=== PATIENT | female | born 1985 | race Caucasian/White ===

== ENCOUNTER 2022-11-25 21:53 | Outpatient (REF) | payer OTHER, SELFPAY ==
[2022-12-01 14:09] LABS: Age Gdln ACOG Testing Note (.); HPV Aptima Negative (Negative); IGP, Aptima HPV, rfx 16/18,45 Note (.)
== END 2022-11-25 21:54 | disposition home or self-care (01) ==
LOC: LAB 21:53
PROVIDERS: PCP Nurse Practitioner Family; Visit Provider Obstetrics & Gynecology
DX: Z12.4 Encounter for screening for malignant neoplasm of cervix (principal)
CPT/HCPCS: 87624; G0145

== ENCOUNTER 2023-02-25 11:25 | Outpatient (OUT) | payer OTHER, SELFPAY | END 2023-02-25 11:26 | disposition home or self-care (01) | LOC: LAB 11:27 | PROVIDERS: PCP Nurse Practitioner Family; Visit Provider Internal Medicine | DX: D35.2 Benign neoplasm of pituitary gland (principal); E83.52 Hypercalcemia; E55.9 Vitamin D deficiency, unspecified | CPT/HCPCS: 36415; 82306; 84146 ==

== ENCOUNTER 2023-07-08 07:23 | Outpatient (OUT) | payer OTHER, SELFPAY ==
--- OUTSIDE RECORDS SUMMARY | 2023-07-08 07:29 | XMS_ITS | CCD ---
Author Organization [facility] Care Team Providers Care Heel Nail Rasper Name Role Phone JAIR AHMAD Attending Unavailable ALFREDA, DR MAUDE Smith Primary Care Unavailable JAIR, AHCY Consulting Unavailable JAIR, AHMAD Admitting Unavailable KUNKadie, DR MAUDE Smtih Primary Care Unavailable JAIR, LEIGH Consulting Unavailable JAIR, AHMAD Admitting Unavailable JAIR, AHKARYND Attending Unavailable ALFREDA, DR MAUDE Smith Primary Care Unavailable BLAZE, DR DANG Admitting Unavailable YUALEXA, DR DANG Attending Unavailable YUALEXA, DR DANG Consulting Unavailable ALFREDA, DR MAUDE Smith Primary Care Unavailable JAIR, LEIGH Consulting Unavailable JAIR, AHMAD Admitting Unavailable JAIR, CHRISTOPHERD Attending Unavailable ALFREDA, DR MAUDE Smith Primary Care Unavailable VICTORIA, DR MARTIN Consulting Unavailable VICTORIA, DR MARTIN Admitting Unavailable VICTORIA, DR MARTIN Attending Unavailable ALFREDA, DR MAUDE Smith Primary Care Unavailable ALFREDA, DR MAUDE Smith Admitting Unavailable ALFREDA, DR MAUDE Smith Attending Unavailable ALFREDA, DR MAUDE Smith Consulting Unavailable Alfreda RN PAIN MANAGEMENT-BUSINESS OPERATIONS COORDINATOR, Maude Wall Primary Care Provider SABRINA SMITH Attending Unavailable MAUDE GANT Referring Unavailable MAUDE GANT Primary Care Unavailable Allergies Allergy Classification Reported Allergen(s) Allergy Type Date of Onset Reaction(s) Facility (1 source) Penicillins Drug allergy (disorder) 11-12-2014 [facility] (3 sources) Penicillin G; Translations: [PENICILLIN G] Drug Allergy 08-07-2017 [facility] Medications Current Medications Medication Drug Class(es) Dates Sig (Normalized) Sig (Original) bromocriptine 2.5 mg oral tablet (2 sources) Ergot Derivative take 1 tablet by mouth in the morning bromocriptine (PARLODEL) 2.5 mg tablet Take 1 tablet (2.5 mg total) by mouth in the morning. 0 Active cholecalciferol 0.05 mg oral capsule (2 sources) Vitamin D Start: 07-21-2022 take 1 capsule by mouth in the morning cholecalciferol, vitamin D3, 2,000 units capsule Take 1 capsule (2,000 Units total) by mouth in the morning. 100 capsule 3 07/21/2022 Active citalopram 20 mg oral tablet (2 sources) Serotonin Reuptake Inhibitor take 1 tablet by mouth in the morning citalopram (CeleXA) 20 mg tablet Take 1 tablet (20 mg total) by mouth in the morning. 0 Active ergocalciferol 1.25 mg oral capsule (2 sources) Provitamin D2 Compound Start: 02-25-2022 ergocalciferol (DRISDOL) 1,250 mcg (50,000 unit) capsule 1 capsule (50,000 Units total). 0 02/25/2022 Active losartan potassium 25 mg oral tablet (2 sources) Angiotensin 2 Receptor Reina Start: 01-18-2023 take 1 tablet by mouth in the morning losartan (COZAAR) 25 mg tablet Indications: Essential hypertension TAKE 1 TABLET(25 MG) BY MOUTH IN THE MORNING 90 tablet 1 01/18/2023 Active semaglutide (OZEMPIC) 0.25 mg or 0.5 mg (2 mg/3 mL) pen injector (2 sources) Start: 01-22-2023 semaglutide (OZEMPIC) 0.25 mg or 0.5 mg (2 mg/3 mL) pen injector Indications: Controlled type 2 diabetes mellitus without complication, without long-term current use of insulin ([facility]) Inject 0.5 mg under the skin every 7 days. 3 mL 2 01/22/2023 Active Problems Active Problems Problem Classification Problem Date Documented Da te Episodic/Chronic Administrative/social admission (1 source) Patient encounter status; Translations: [Other specified counseling] 05-13-2023 Episodic Diabetes mellitus with complications (1 source) Type 2 diabetes mellitus with hyperglycemia; Translations: [TYPE 2 DM W/HYPERGLYCEMIA] Onset: 01-18-2022 Chronic Diabetes mellitus without complication (2 sources) Type 2 diabetes mellitus without complication; Translations: [Type 2 diabetes mellitus without complications] Onset: 04-19-2018 01-20-2022 Chronic Disorders of lipid metabolism (6 sources) Mixed hyperlipidemia; Translations: [Mixed hyperlipidemia] Onset: 12-31-2021 Chronic Essential hypertension (2 sources) Essential hypertension; Translations: [Essential (primary) hypertension] Onset: 12-31-2021 12-31-2021 Chronic Nutritional deficiencies (2 sources) Vitamin D deficiency; Translations: [Vitamin D deficiency, unspecified] Onset: 04-19-2018 12-31-2021 Chronic Other and unspecified benign neoplasm (4 sources) Benign neoplasm of pituitary gland; Translations: [BENIGN NEOPLASM OF PITUITARY GLAND] Onset: 02-19-2022 Episodic Other endocrine disorders (1 source) Hyperprolactinemia; Translations: [HYPERPROLACTINEMIA ] Onset: 02-26-2022 Chronic Other endocrine disorders (2 sources) Polycystic ovary; Translations: [Polycystic ovarian syndrome] Onset: 10-21-2016 12-31-2021 Chronic Other nutritional; endocrine; and metabolic disorders (1 source) Hypercalcemia; Translations: [HYPERCALCEMIA] Onset: 02-26-2022 Chronic Other nutritional; endocrine; and metabolic disorders (1 source) Body mass index 40+ - severely obese; Translations: [Body mass index (BMI) 50.0-59.9, adult] 05-13-2023 Chronic Other nutritional; endocrine; and metabolic disorders (2 sources) Morbid obesity; Translations: [Morbid (severe) obesity due to excess calories] Onset: 11-17-2016 12-31-2021 Chronic Residual codes; unclassified (1 source) Obstructive sleep apnea syndrome; Translations: [Obstructive sleep apnea (adult) (pediatric)] 05-13-2023 Chronic Residual codes; unclassified (2 sources) Sleep apnea; Translations: [Sleep apnea, unspecified] Onset: 10-06-2017 12-31-2021 Chronic Unclassified (3 sources) CONTACT W/AND (SUSP) EXPOS COVID-19; Translations: [CONTACT W/AND (SUSP) EXPOS COVID-19] Onset: 03-26-2021 Past or Other Problems Problem Classification Problem Date Documented Date Episodic/Chronic Anxiety disorders (2 sources) Anxiety disorder; Translations: [Anxiety disorder, unspecified] Onset: 12-31-2021 Resolved: 01-22-2023 01-22-2023 Chronic Immunizations and screening for infectious disease (1 source) Encounter for screening for human papillomavirus (HPV); Translations: [ENC SCREENING HUMAN PAPILLOMAVIRUS] Onset: 11-18-2021 Episodic Mood disorders (2 sources) Depressive disorder; Translations: [Depressive disorder] Onset: 12-25-2020 Resolved: 07-20-2022 07-20-2022 Chronic Mood disorders (2 sources) Mood disorders Onset: 01-22-2023 01-22-2023 Other and unspecified benign neoplasm (2 sources) Prolactinoma; 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] Onset: 11-17-2016 12-31-2021 Episodic Other screening for suspected conditions (not mental disorders or infectious disease) (4 sources) Encounter for screening for malignant neoplasm of cervix; Translations: [ENC SCREENING MALIG NEOPLASM CERV] Onset: 11-17-2021 Episodic Unclassified (1 source) CONTACT W/AND (SUSP) EXPOS COVID-19; Translations: [CONTACT W/AND (SUSP) EXPOS COVID-19] Onset: 03-20-2021 Results Test Name Value Interpretation Reference Range Facility PROLACTINon 02-20-2022 Prolactin 64.0 ng/mL Critically high 4.8-23.3 [facility] Comment on above: Performed By: #### P ROLAC #### [facility] [address] [address] [address] Devin Florentino RENAL FUNCTION PANELon 02-19 Albumin [Mass/Vol] 3.7 g/dL Normal 3.4-5.0 [facility] Comment on above: Performed By: #### R ENAL #### [facility] [address] [address] [address] Devin Florentino Calcium [Mass/Vol] 9.2 mg/dL Normal 8.5-10.1 [facility] Comment on above: Performed By: #### R ENAL #### [facility] [address] [address] [address] Devin Florentino Chloride [Moles/Vol] 105 mmol/L Normal 98-107 [facility] Comment on above: Performed By: #### R ENAL #### [facility] [address] [address] [address] Devni Florentino CO2 [Moles/Vol] 29.7 mmol/L Normal 21.0-32.0 The [facility] Comment on above: Performed By: #### R ENAL #### [facility] [address] [address] [address] Devin Florentino Creatinine [Mass/Vol] 0.72 mg/dL Normal 0.55-1.02 [facility] Comment on above: Performed By: #### R ENAL #### [facility] [address] [address] [address] Devin Florentino EGFR-AF BRAZILIAN >60 Normal >=60 [facility] Comment on above: Performed By: #### R ENAL #### [facility] [address] [address] [address] Devin Florentino EGFR-NON AF BRAZILIAN >60 Normal >=60 [facility] Comment on above: Performed By: #### R ENAL #### [facility] [address] [place] [address] Dr. Devin Florentino Glucose [Mass/Vol] 140 mg/dL Critically high 74-106 [facility] Comment on above: Performed By: #### R ENAL #### [facility] [address] [place] [address] Dr. Devin Florentino Phosphate [Mass/Vol] 4.3 mg/dL Normal 2.6-4.7 [facility] Comment on above: Performed By: #### R ENAL #### [facility] [address] [place] [address] Dr. Devin Florentino Potassium [Moles/Vol] 4.0 mmol/L Normal 3.5-5.1 [facility] Comment on above: Performed By: #### R ENAL #### [facility] [address] [place] [address] Dr. Devin Florentino Sodium [Moles/Vol] 141 mmol/L Normal 136-145 [facility] Comment on above: Performed By: #### R ENAL #### [facility] [address] [address] [address] Devin Florentino Urea nitrogen [Mass/Vol] 27.0 mg/dL Critically high 7.0-18.0 [facility] Comment on above: Performed By: #### R ENAL #### [facility] [address] [place] [address] Dr. Dvein Florentino VITAMIN D 25 OHon 02-19-2022 VIT D 25-OH 16.2 ng/mL Normal [facility] Comment on above: Performed By: #### V ITAD #### [facility] [address] [place] [address] Dr. Devin Florentino VIT D RANGES SEE BELOW Normal [facility] Comment on above: Result Comment: <20 ng/mL Vit D deficient 20 - <30 ng/mL Vit D insufficient 30 - 100 ng/mL Vit D sufficient >100 ng/mL Potential Toxicity Performed By: #### V ITAD #### [facility] [address] [place] [address] Dr. Devin Florentino GLYCOHEMOGLOBIN A1Con 2021 ADA RECOMMENDATION SEE BELOW Normal [facility] Comment on above: Result Comment: ADA RECOMMENDED LIMIT 4.0 - 6.0 ADA THERAPEUTIC TARGET < 7.0 ACTION SUGGESTED > 7.0 Performed By: #### A 1C #### [facility] [address] [place] [address] Dr. Devin Florentino Glucose [Mass/Vol] 120 mg/dL Normal [facility] Comment on above: Performed By: #### A 1C #### [facility] [address] [place] [address] Dr. Devin Florentino HbA1c (Bld) [Mass fraction] 5.8 % Normal 4.5-6.2 [facility] Comment on above: Performed By: #### A 1C #### [facility] [address] [place] [address] Dr. Devin Florentino LIPID PROFILEon 01-15-2022 CHOL-HDL RATIO NORM SEE BELOW Normal [facility] Comment on above: Result Comment: 3.3 - 4.4 LOW RISK 4.4 - 7.1 AVERAGE RISK 7.1 - 11.0 MODERATE RISK >11.0 HIGH RISK Performed By: #### L IPID, CMP #### [facility] [address] [place] [address] Dr. Devin Florentino Cholesterol [Mass/Vol] 167 mg/dL Normal <=200 [facility] Comment on above: Performed By: #### L IPID, CMP #### [facility] [address] [address] [address] Devin Florentino Cholesterol in HDL [Mass/Vol] 47 mg/dL Normal 40-60 [facility] Comment on above: Performed By: #### L IPID, CMP #### [facility] [address] [address] [address] Devin Florentino Cholesterol in LDL [Mass/Vol] 103.0 mg/dL Normal [facility] Comment on above: Performed By: #### L IPID, CMP #### [facility] [address] [place] [address] Dr. Devin Florentino Cholesterol.total/Ch olesterol in HDL [Mass ratio] 3.6 {ratio} Normal [facility] Comment on above: Performed By: #### L IPID, CMP #### [facility] [address] [place] [address] Dr. Devin Florentino HDL NORMAL > or = 60 mg/dl - LO W CARDIOVASCULAR RISK <40 mg/dl - HIGH CARDIOVASCULAR RISK Normal [facility] Comment on above: Performed By: #### L IPID, CMP #### [facility] [address] [place] [address] Dr. Devin Florentino LDL CALC NORMAL SEE BELOW Normal [facility] Comment on above: Result Comment: <100 mg/dl OPTIMAL 100 - 129 mg/dl NEAR OR ABOVE OPTIMAL 130 - 159 mg/dl BORDERLINE HIGH 160 - 189 mg/dl HIGH >190 mg/dl VERY HIGH Performed By: #### L IPID, CMP #### [facility] [address] [place] [address] Dr. Devin Florentino Triglyceride [Mass/Vol] 81 mg/dL Normal <=150 [facility] Comment on above: Performed By: #### L IPID, CMP #### [facility] [address] [place] [address] Dr. Devin Florentino VLDL CALC 16.2 mg/dL Normal [facility] Comment on above: Performed By: #### L IPID, CMP #### [facility] [address] [address] [address] Devin Florentino PROF 14(COMP METB)on 022 Albumin [Mass/Vol] 3.7 g/dL Normal 3.4-5.0 [facility] Comment on above: Performed By: #### L IPID, CMP #### [facility] [address] [address] [address] Devin Florentino Albumin/Globulin [Mass ratio] 1.0 {ratio} Normal [facility] Comment on above: Performed By: #### L IPID, CMP #### [facility] [address] [address] [address] Devin Florentino ALP [Catalytic activity/Vol] 58 U/L Normal 46-116 [facility] Comment on above: Performed By: #### L IPID, CMP #### [facility] [address] [address] [address] Devin Florentino ALT [Catalytic activity/Vol] 40 U/L Normal 14-59 [facility] Comment on above: Performed By: #### L IPID, CMP #### [facility] [address] [address] [address] Devin Florentino Anion gap [Moles/Vol] 7.7 mmol/L Normal [facility] Comment on above: Performed By: #### L IPID, CMP #### [facility] [address] [address] [address] Devin Florentino AST [Catalytic activity/Vol] 20 U/L Normal 15-37 [facility] Comment on above: Performed By: #### L IPID, CMP #### [facility] [address] [address] [address] Devin Florentino Bilirubin [Mass/Vol] 0.5 mg/dL Normal 0.2-1.0 [facility] Comment on above: Performed By: #### L IPID, CMP #### [facility] [address] [address] [address] Devin Florentino Calcium [Mass/Vol] 9.0 mg/dL Normal 8.5-10.1 [facility] Comment on above: Performed By: #### L IPID, CMP #### [facility] [address] [address] [address] Devin Florentino Chloride [Moles/Vol] 103 mmol/L Normal 98-107 [facility] Comment on above: Performed By: #### L IPID, CMP #### [facility] [address] [address] [address] Devin Florentino CO2 [Moles/Vol] 30.6 mmol/L Normal 21.0-32.0 [facility] Comment on above: Performed By: #### L IPID, CMP #### [facility] [address] [address] [address] Devin Florentino Creatinine [Mass/Vol] 0.73 mg/dL Normal 0.55-1.02 [facility] Comment on above: Performed By: #### L IPID, CMP #### [facility] [address] [address] [address] Devin Florentino EGFR-AF BRAZILIAN >60 Normal >=60 [facility] Comment on above: Performed By: #### L IPID, CMP #### [facility] [address] [address] [address] Devin Florentino EGFR-NON AF BRAZILIAN >60 Normal >=60 [facility] Comment on above: Performed By: #### L IPID, CMP #### [facility] [address] [address] [address] Devin Florentino Globulin (S) [Mass/Vol] 3.6 g/dL Normal [facility] Comment on above: Performed By: #### L IPID, CMP #### [facility] [address] [address] [address] Devin Florentino Glucose [Mass/Vol] 105 mg/dL Normal 74-106 [facility] Comment on above: Performed By: #### L IPID, CMP #### [facility] [address] [address] [address] Devin Florentino Potassium [Moles/Vol] 3.9 mmol/L Normal 3.5-5.1 [facility] Comment on above: Performed By: #### L IPID, CMP #### [facility] [address] [address] [address] Devin Florentino Protein [Mass/Vol] 7.3 g/dL Normal 6.4-8.2 [facility] Comment on above: Performed By: #### L IPID, CMP #### [facility] [address] [address] [address] Devin Florentino Sodium [Moles/Vol] 138 mmol/L Normal 136-145 [facility] Comment on above: Performed By: #### L IPID, CMP #### [facility] [address] [address] [address] Devin Florentino Urea nitrogen [Mass/Vol] 19.0 mg/dL Critically high 7.0-18.0 [facility] Comment on above: Performed By: #### L IPID, CMP #### [facility] [address] [place] [address] Dr. Devin Florentino Urea nitrogen/Creatinine [Mass ratio] 26.0 mg/mg Normal [facility] Comment on above: Performed By: #### L IPID, CMP #### [facility] [address] [place] [address] Dr. Devin Florentino PAP ACOG PANEL 2: 30 to 65on 11-25-2021 . . Normal [facility] Comment on above: Result Comment: Perf ormed at: BA Performed By: #### [id number] #### [facility] [address] [place] [address] Dr. Devin Florentino Age Gdln ACOG Testing 30-65 [facility] Comment on above: Performed By: #### [id number] #### [facility] [address] [place] [address] Dr. Devin Florentino DIAGNOSIS: Comment [facility] Comment on above: Result Comment: UNSA TISFACTORY FOR EVALUATION. THIS SPECIMEN WAS RESCREENED PART OF OUR AUTO CLEANER PROGRAM. Performed at: BA Performed By: #### [id number] #### [facility] [address] [place] [address] Dr. Devin Florentino HPV Aptima Negative Normal Negative [facility] Comment on above: Result Comment: This nucleic acid amplification test detects fourteen high-risk HPV types (16,18,31,33,35,39,45,51,52,56,58,59,66,68) without differentiation. Performed at: =G Performed By: #### [id number] #### [facility] [address] [address] [address] Devin Florentino Methodology: Comment Normal [facility] Comment on above: Result Comment: This liquid based ThinPrep(R) pap test was screened with the use of an image guided system. Performed at: WB Performed By: #### [id number] #### [facility] [address] [place] [address] Dr. Devin Florentino Note: Comment Normal [facility] Comment on above: Result Comment: The Pap smear is a screening test designed to aid in the detection of premalignant and malignant conditions of the uterine cervix. It is not a diagnostic procedure and should not be used as the sole means of detecting cervical cancer. Both false-positive and false-negative reports do occur. . Performed at: WB Performed By: #### [id number] #### [facility] [address] [place] [address] Dr. Devin Florentino Performed by: Comment Normal [facility] Comment on above: Result Comment: Shamar Huang, [employer]utter And Presser (ASCP) Performed at: BA Performed By: #### [id number] #### [facility] [address] [place] [address] Dr. Devin Florentino QC reviewed by: Comment Normal [facility] Comment on above: Result Comment: Val Salmon, [employer]utter And Presser (ASCP) Performed at: BA Performed By: #### [id number] #### [facility] [address] [place] [address] Dr. Devin Florentino Specimen adequacy: Comment Normal [facility] Comment on above: Result Comment: Spec imen processed and examined but unsatisfactory for evaluation of epithelial abnormality because of insufficient cellularity. Performed at: BA Performed By: #### [id number] #### [facility] [address] [address] [address] Devin Florentino PROLACTINon 09-06-2021 Prolactin 92.6 ng/mL Critically high 4.8-23.3 [facility] Comment on above: Performed By: #### P MARCEL #### [facility] [address] [address] [address] Devin Florentino ALBUMIN, RANDOM URINE W/CREA TININEon 06-24-2021 ALBUMIN, URINE 0.6 mg/dL Normal See Note: [facility] Comment on above: Result Comment: Refe rence Range: Reference Range Not established Performed By: #### 7 46, 7600, [id number], 6517 #### [facility] [address] [address] Renewals Representative: Jules Arreola MD ALBUMIN/CREATININE RATIO, RANDOM URINE 11 mcg/mg creat Normal <30 [facility] Comment on above: Result Comment: The ADA defines abnormalities in albumin excretion as follows: Albuminuria Category Result (mcg/mg creatinine) Normal to Mildly increased <30 Moderately increased 30-299 Severely increased > OR = 300 The ADA recommends that at least two of three specimens collected within a 3-6 month period be abnormal before considering a patient to be within a diagnostic category. Performed By: #### 7 46, 7600, [id number], 6517 #### [facility] [address] [place] [address] Renewals Representative: Jules Arreola MD Creatinine (U) [Mass/Vol] 53 mg/dL Normal 20-275 [facility] Comment on above: Performed By: #### 7 46, 7600, [id number], 6517 #### [facility] [address], [address] [place] [address] Renewals Representative: Jules Arreola MD [facility] 06-24-2021 Albumin [Mass/Vol] 4.3 g/dL Normal 3.6-5.1 [facility] Comment on above: Performed By: #### 7 46, 7600, [id number], 6517 #### [facility] [address], [address] [place] [address] Renewals Representative: Jules Arreola MD Albumin/Globulin [Mass ratio] 1.6 {ratio} Normal 1.0-2.5 [facility] Comment on above: Performed By: #### 7 46, 7600, 11776, 6517 #### [facility] of [address] [address] Renewals Representative: Jules Arreola MD ALP [Catalytic activity/Vol] 53 U/L Normal 31-125 [facility] Comment on above: Performed By: #### 7 46, 7600, 03079, 6517 #### [facility] of [address] [place] [address] Renewals Representative: Jules Arreola MD ALT [Catalytic activity/Vol] 32 U/L High 6-29 [facility] Comment on above: Performed By: #### 7 46, 7600, 82986, 6517 #### [facility] of [address], [address] [place] [address] Renewals Representative: Jules Arreola MD AST [Catalytic activity/Vol] 18 U/L Normal 10-30 [facility] Comment on above: Performed By: #### 7 46, 7600, 60737, 6517 #### [facility] [address] [place] [address] Renewals Representative: Jules Arreola MD Bilirubin [Mass/Vol] 0.4 mg/dL Normal 0.2-1.2 [facility] Comment on above: Performed By: #### 7 46, 7600, 92544, 6517 #### [facility] [address] [place] [address] Renewals Representative: Jules Arreola MD BUN/CREATININE RATIO NOT APPLICABLE Normal 6-22 [facility] Comment on above: Performed By: #### 7 46, 7600, [id number], 6517 #### [facility] [address] [place] [address] Renewals Representative: Jules Arreola MD Calcium [Mass/Vol] 9.6 mg/dL Normal 8.6-10.2 [facility] Comment on above: Performed By: #### 7 46, 7600, 21542, 6517 #### [facility] [place] [address] Renewals Representative: Jules Arreola MD Chloride [Moles/Vol] 104 mmol/L Normal 98-110 [facility] Comment on above: Performed By: #### 7 46, 7600, 11615, 6517 #### [facility] [place] [address] Renewals Representative: Jules Arreola MD CO2 [Moles/Vol] 29 mmol/L Normal 20-32 [facility] Comment on above: Performed By: #### 7 46, 7600, 23073, 6517 #### [facility] [place] [address] Renewals Representative: Jules Arreola MD Creatinine [Mass/Vol] 0.70 mg/dL Normal 0.50-1.10 [facility] Comment on above: Performed By: #### 7 46, 7600, 30558, 6517 #### [facility] [place] [address] Renewals Representative: Jules Arreola MD eGFR NON-AFR. BRAZILIAN 113 mL/min/1.73m2 Normal > OR = 60 [facility] Comment on above: Performed By: #### 7 46, 7600, 81419, 6517 #### [facility] [place] [address] Renewals Representative: Jules Arreola MD GFR/1.73 sq M.predicted among blacks MDRD (S/P/Bld) [Vol rate/Area] 131 mL/min/{1.73_m2} Normal > OR = 60 [facility] Comment on above: Performed By: #### 7 46, 7600, 65315, 6517 #### [facility] [place] [address] Renewals Representative: Jules Arreola MD Globulin (S) [Mass/Vol] 2.7 g/dL Normal 1.9-3.7 [facility] Comment on above: Performed By: #### 7 46, 7600, 05637, 6517 #### [facility] [place] [address] Renewals Representative: Jules Arreola MD Glucose [Mass/Vol] 101 mg/dL High 65-99 [facility] Comment on above: Result Comment: Fasting reference interval For someone without known diabetes, a glucose value between 100 and 125 mg/dL is consistent with prediabetes and should be confirmed with a follow-up test. Performed By: #### 7 46, 7600, 34310, 6517 #### [facility] [place] [address] Renewals Representative: Jules Arreola MD Potassium [Moles/Vol] 4.0 mmol/L Normal 3.5-5.3 [facility] Comment on above: Performed By: #### 7 46, 7600, 87695, 6517 #### [facility] [place] [address] Renewals Representative: Jules Arreola MD Protein [Mass/Vol] 7.0 g/dL Normal 6.1-8.1 [facility] Comment on above: Performed By: #### 7 46, 7600, 26681, 6517 #### [facility] [place] [address] Renewals Representative: Jules Arreola MD Sodium [Moles/Vol] 139 mmol/L Normal 135-146 [facility] Comment on above: Performed By: #### 7 46, 7600, 45050, 6517 #### [facility] [place] [address] Renewals Representative: Jules Arreola MD Urea nitrogen [Mass/Vol] 23 mg/dL Normal 7-25 [facility] Comment on above: Performed By: #### 7 46, 7600, 34144, 6517 #### [facility] [place] [address] Renewals Representative: Jules Arreola MD LIPID PANEL, [facility] 0 Cholesterol [Mass/Vol] 196 mg/dL Normal <200 [facility] Comment on above: Order Comment: FASTI NG:YES FASTING: YES Performed By: #### 7 46, 7600, 39056, 6517 #### [facility] [address], [address] [place] [address] Renewals Representative: Jules Arreola MD Cholesterol in HDL [Mass/Vol] 56 mg/dL Normal > OR = 50 [facility] Comment on above: Order Comment: FASTI NG:YES FASTING: YES Performed By: #### 7 46, 7600, 14380, 6517 #### [facility] [address], [address] [place] [address] Renewals Representative: Jules Arreola MD Cholesterol in LDL [Mass/Vol] 119 mg/dL High [facility] Comment on above: Order Comment: FASTI NG:YES FASTING: YES Result Comment: Refe rence range: <100 Desirable range <100 mg/dL for primary prevention; <70 mg/dL for patients with CHD or diabetic patients with > or = 2 CHD risk factors. LDL-C is now calculated using the Fidencio-Munir calculation, which is a validated novel method providing better accuracy than the Friedewald equation in the estimation of LDL-C. Fidencio ACOSTA et al. EDITH. 2013;310(19): 6404-7784 (http://education.[employer]/faq/PIL165) Performed By: #### 7 46, 7600, 06814, 6517 #### [facility] [address], [address] [place] [address] Renewals Representative: Jules Arreola MD Cholesterol.total/Ch olesterol in HDL [Mass ratio] 3.5 {ratio} Normal <5.0 [facility] Comment on above: Order Comment: FASTI NG:YES FASTING: YES Performed By: #### 7 46, 7600, 84826, 6517 #### [facility] [address], [address] [place] [address] Renewals Representative: Jules Arreola MD NON HDL CHOLESTEROL 140 mg/dL (calc) High <130 [facility] Comment on above: Order Comment: FASTI NG:YES FASTING: YES Result Comment: For patients with diabetes plus 1 major ASCVD risk factor, treating to a non-HDL-C goal of <100 mg/dL (LDL-C of <70 mg/dL) is considered a therapeutic option. Performed By: #### 7 46, 1830, 97398, 6517 #### [facility] [place] [address] Renewals Representative: Jules Arreola MD Triglyceride [Mass/Vol] 104 mg/dL Normal <150 [facility] Comment on above: Order Comment: FASTI NG:YES FASTING: YES Performed By: #### 7 46, 7600, 22157, 6517 #### [facility] [place] [address] Renewals Representative: Jules Arreola MD PROLACTINon 06-24-2021 PROLACTIN 51.6 ng/mL High [facility] Comment on above: Result Comment: Refe rence Range Females Non- 3.0-30.0 10.0-209.0 Postmenopausal 2.0-20.0 Your request to have a duplicate copy faxed has been acknowledged. Queued to: [id number] Performed By: #### 7 46, 0110, 65874, 6517 #### [facility] [place] [address] Renewals Representative: Jules Arreola MD Covid-19 PCR (CVDTBH)on 02-21 SARS-CoV-2 (COVID-19) RNA STANLEY+probe Ql (Unsp spec) Not detected Normal NOT DETECTED [facility] Comment on above: Result Comment: This test is not yet approved or cleared by the [place] FDA. When there are no FDA-approved or cleared tests available, and other criteria are met, FDA can make tests available under an emergency access mechanism called an Emergency Use Authorization (EUA). The EUA for this test is supported by the [place] of Health and Human Service's (HHS's) declaration that circumstances exist to justify the emergency use of in vitro diagnostics for the detection and/or diagnosis of the virus that causes COVID-19. This EUA will remain in effect (meaning this test can be used) for the duration of the COVID-19 declaration justifying emergency of IVDs, unless it is terminated or revoked by FDA (after which the test may no longer be used). When diagnostic testing is negative, the possibility of a false negative should be considered in the context of a patient's recent exposures and the presence of clinical signs and symptoms consistent with SARS-CoV-2. Performed By: #### L IPID, CMP #### [facility] [address] [place] [address] Dr. Devin Florentino PROLACTINon 03-05-2021 Prolactin 79.1 ng/mL Critically high 4.8-23.3 [facility] Comment on above: Performed By: #### P ROLAC #### [facility] [address] [place] [address] Dr. Devin Florentino PROF CHEM 8 (BAS METB)on Anion gap [Moles/Vol] 9.9 mmol/L Normal [facility] Comment on above: Performed By: #### B MP #### [facility] [address] [place] [address] Dr. Devin Florentino Calcium [Mass/Vol] 9.6 mg/dL Normal 8.4-10.2 [facility] Comment on above: Performed By: #### B MP #### [facility] [address] [place] [address] Dr. Devin Florentino Chloride [Moles/Vol] 104 mmol/L Normal 98-107 [facility] Comment on above: Performed By: #### B MP #### [facility] [address] [place] [address] Dr. Devin Florentino CO2 [Moles/Vol] 32.2 mmol/L Critically high 22.0-30.0 [facility] Comment on above: Performed By: #### B MP #### [facility] [address] [place] [address] Dr. Devin Florentino Creatinine [Mass/Vol] 0.72 mg/dL Normal 0.52-1.04 [facility] Comment on above: Performed By: #### B MP #### [facility] [address] [place] [address] [address] Devin Florentino EGFR-AF BRAZILIAN >60 Normal >=60 [facility] Comment on above: Performed By: #### B MP #### [facility] [address] [place] [address] [address] Devin Florentino EGFR-NON AF BRAZILIAN >60 Normal >=60 [facility] Comment on above: Performed By: #### B MP #### [facility] [address] [place] [address] [address] Devin Florentino Glucose [Mass/Vol] 118 mg/dL Critically high 74-106 [facility] Comment on above: Performed By: #### B MP #### [facility] [address] [place] [address] [address] Devin Florentino Potassium [Moles/Vol] 4.1 mmol/L Normal 3.4-5.0 [facility] Comment on above: Performed By: #### B MP #### [facility] [address] [place] [address] [address] Devin Florentino Sodium [Moles/Vol] 142 mmol/L Normal 137-145 [facility] Comment on above: Performed By: #### B MP #### [facility] [address] [place] [address] [address] Devin Florentino Urea nitrogen [Mass/Vol] 22.0 mg/dL Critically high 7.0-17.0 [facility] Comment on above: Performed By: #### B MP #### [facility] [address] [place] [address] [address] Devin Florentino Urea nitrogen/Creatinine [Mass ratio] 30.6 mg/mg Normal [facility] Comment on above: Performed By: #### B MP #### [facility] [address] [place] [address] [address] Devin Florentino COMPREHENSIVE METABOLIC PANE [place] 12-24-2020 Albumin [Mass/Vol] 4.0 g/dL Normal 3.6-5.1 [facility] Comment on above: Performed By: #### 7 600, 08265, 43234 #### [facility] of [address], [address] [place] [address] Renewals Representative: Jules Arreola MD Albumin/Globulin [Mass ratio] 1.4 {ratio} Normal 1.0-2.5 [facility] Comment on above: Performed By: #### 7 600, 82316, 70289 #### [facility] of [address], [address] [place] [address] Renewals Representative: Jules Arreola MD ALP [Catalytic activity/Vol] 45 U/L Normal 31-125 [facility] Comment on above: Performed By: #### 7 600, 86280, 92180 #### [facility] of [address], [address] [place] [address] Renewals Representative: Jules Arreola MD ALT [Catalytic activity/Vol] 20 U/L Normal 6-29 [facility] Comment on above: Performed By: #### 7 600, 09036, 82251 #### [facility] of [address], [address] [place] [address] Renewals Representative: Jules Arreola MD AST [Catalytic activity/Vol] 13 U/L Normal 10-30 [facility] Comment on above: Performed By: #### 7 600, 43345, 09132 #### [facility] [place] [address] Renewals Representative: Jules Arreola MD Bilirubin [Mass/Vol] 0.4 mg/dL Normal 0.2-1.2 [facility] Comment on above: Performed By: #### 7 600, 35272, 50976 #### [facility] of [address], [address] [place] [address] Renewals Representative: Jules Arreola MD BUN/CREATININE RATIO NOT APPLICABLE Normal 6-22 [facility] Comment on above: Performed By: #### 7 600, 94624, 29496 #### [facility] of [address], [address] [place] [address] Renewals Representative: Jules Arreola MD Calcium [Mass/Vol] 9.4 mg/dL Normal 8.6-10.2 [facility] Comment on above: Performed By: #### 7 600, 63015, 43623 #### [facility] [place] [address] Renewals Representative: Jules Arreola MD Chloride [Moles/Vol] 104 mmol/L Normal 98-110 [facility] Comment on above: Performed By: #### 7 600, 03329, 62450 #### [facility] of [address], [address] [place] [address] Renewals Representative: Jules Arreola MD CO2 [Moles/Vol] 28 mmol/L Normal 20-32 [facility] Comment on above: Performed By: #### 7 600, 29844, 31434 #### [facility] [place] [address] Renewals Representative: Jules Arreola MD Creatinine [Mass/Vol] 0.75 mg/dL Normal 0.50-1.10 [facility] Comment on above: Performed By: #### 7 600, 48152, 34815 #### [facility] [place] [address] Renewals Representative: Jules Arreola MD eGFR NON-AFR. BRAZILIAN 105 mL/min/1.73m2 Normal > OR = 60 [facility] Comment on above: Performed By: #### 7 600, 77544, 15921 #### [facility] [place] [address] Renewals Representative: Jules Arreola MD GFR/1.73 sq M.predicted among blacks MDRD (S/P/Bld) [Vol rate/Area] 121 mL/min/{1.73_m2} Normal > OR = 60 [facility] Comment on above: Performed By: #### 7 600, 19397, 06121 #### [facility] [place] [address] Renewals Representative: Jules Arreola MD Globulin (S) [Mass/Vol] 2.8 g/dL Normal 1.9-3.7 [facility] Comment on above: Performed By: #### 7 600, 54427, 66050 #### [facility] [place] [address] Renewals Representative: Jules Arreola MD Glucose [Mass/Vol] 97 mg/dL Normal 65-99 [facility] Comment on above: Result Comment: Fasting reference interval Performed By: #### 7 600, 03621, 19622 #### [facility] [place] [address] Renewals Representative: Jules Arreola MD Potassium [Moles/Vol] 4.2 mmol/L Normal 3.5-5.3 [facility] Comment on above: Performed By: #### 7 600, 35223, 71800 #### [facility] [place] [address] Renewals Representative: Jules Arreola MD Protein [Mass/Vol] 6.8 g/dL Normal 6.1-8.1 [facility] Comment on above: Performed By: #### 7 600, 63806, 40932 #### [facility] [place] [address] Renewals Representative: Jules Arreola MD Sodium [Moles/Vol] 140 mmol/L Normal 135-146 [facility] Comment on above: Performed By: #### 7 600, 93604, 74310 #### [facility] [place] [address] Renewals Representative: Jules Arreola MD Urea nitrogen [Mass/Vol] 17 mg/dL Normal 7-25 [facility] Comment on above: Performed By: #### 7 600, 61901, 95887 #### [facility] [place] [address] Renewals Representative: Jules Arreola MD LIPID PANEL, [facility] 100 Cholesterol [Mass/Vol] 196 mg/dL Normal <200 [facility] Comment on above: Performed By: #### 7 600, 93850, 49749 #### [facility] [address], [address] [place] [address] Renewals Representative: Jules Arreola MD Cholesterol in HDL [Mass/Vol] 54 mg/dL Normal > OR = 50 [facility] Comment on above: Performed By: #### 7 600, 57999, 90572 #### [facility] [address], [address] [place] [address] Renewals Representative: Jules Arreola MD Cholesterol in LDL [Mass/Vol] 115 mg/dL High [facility] Comment on above: Result Comment: Refe rence range: <100 Desirable range <100 mg/dL for primary prevention; <70 mg/dL for patients with CHD or diabetic patients with > or = 2 CHD risk factors. LDL-C is now calculated using the Luis calculation, which is a validated novel method providing better accuracy than the Friedewald equation in the estimation of LDL-C. Fidencio SS et al. EDITH. 2013;310(19): 3900-4264 (http://education.[employer]/faq/LND228) Performed By: #### 7 600, 60449, 15404 #### [facility] [place] [address] Renewals Representative: Jules Arreola MD Cholesterol.total/Ch olesterol in HDL [Mass ratio] 3.6 {ratio} Normal <5.0 [facility] Comment on above: Performed By: #### 7 600, 60767, 21599 #### [facility] [place] [address] Renewals Representative: Jules Arreola MD NON HDL CHOLESTEROL 142 mg/dL (calc) High <130 [facility] Comment on above: Result Comment: For patients with diabetes plus 1 major ASCVD risk factor, treating to a non-HDL-C goal of <100 mg/dL (LDL-C of <70 mg/dL) is considered a therapeutic option. Performed By: #### 7 600, 54765, 19383 #### [facility] [address], [address] [place] [address] Renewals Representative: Jules Arreola MD Triglyceride [Mass/Vol] 156 mg/dL High <150 [facility] Comment on above: Performed By: #### 7 600, 66531, 71760 #### [facility] [address], [address] [place] [phone] Renewals Representative: Jules Arreola MD VITAMIN D,25-OH,TOTAL,IAon 1 VITAMIN D,25-OH,TOTAL,IA 30 ng/mL Normal 30-100 [facility] Comment on above: Result Comment: Libby min D Status 25-OH Vitamin D: Deficiency: <20 ng/mL Insufficiency: 20 - 29 ng/mL Optimal: > or = 30 ng/mL For 25-OH Vitamin D testing on patients on D2-supplementation and patients for whom quantitation of D2 and D3 fractions is required, the Quest[facility]ure[facility](TM) 25-OH VIT D, (D2,D3), LC/MS/MS is recommended: order code 42448 (patients >2yrs). See Note 1 Note 1 For additional information, please refer to http://education.[employer]/faq/GWK040 (This link is being provided for informational/ educational purposes only.) Performed By: #### 7 600, 46259, 10397 #### [facility] [address], [address] [place] [phone] Renewals Representative: Jules Arreola MD Vital Signs Date Time Vital Sign Value Performing Clinician Margie villarreal 05-12-2023 10:12050 Body height 170.2 cm Sabrina Smith APRN-SHAKER PLATE OPERATOR Work Phone: Screen 05-12-2023 10:12050 Body mass index (BMI) [Ratio] 53.52 kg/m2 Sabrina Smith APRN-SHAKER PLATE OPERATOR [facility] 05-12-2023 10:12050 Body weight 154.99 kg Sabrina Smith APRN-SHAKER PLATE OPERATOR [facility] 05-12-2023 10:12050 Diastolic blood pressure 103 mm[Hg] Sabrina Kregel RN PAIN MANAGEMENT-SHAKER PLATE OPERATOR Work Phone: [facility] 05-12-2023 10:12-0500 Heart rate 65 /min Sabrinaarias Smith RN PAIN MANAGEMENT-SHAKER PLATE OPERATOR Work Phone: [facility] 05-12-2023 10:12-0500 SaO2% (BldA) [Mass fraction] 100 % Sabrina Luis RN PAIN MANAGEMENT-SHAKER PLATE OPERATOR Work Phone: [facility] [facility] 05-12-2023 10:12-0500 Systolic blood pressure 157 mm[Hg] Sabrina NamrataI3 [employer] RN PAIN MANAGEMENT-SHAKER PLATE OPERATOR Work Phone: [facility] Encounters Encounter Date Encounter Type Care Provider Facility Start: 05-21-2023 Telephone encounter Mariposa Tellez [facility] Start: 05-12-2023 End: 05-12-2023 ambulatory [facility] Start: 05-12-2023 End: 05-12-2023 Office outpatient visit 25 minutes [facility]rinakvng [facility] RN PAIN MANAGEMENT-SHAKER PLATE OPERATOR Work Phone: [facility] Comment on above: RACHEL (obstructive sle ep apnea) (Primary Dx); CPAP use counseling; BMI 50.0-59.9, adult ([facility] Start: 01-09-2023 Emergency department patient visit [facility] Start: 02-19-2022 End: 02-20-2022 ambulatory LEIGH ADAM Facility:[facility] Start: 01-15-2022 End: 01-16-[address] MAUDE GANT Facility:[facility] Start: 11-17-2021 End: 11-17-[address] MAUDE GANT Facility:[facility] Start: 09-05-2021 End: 09-06-[address] MAUDE GANT Facility:[facility] Start: 03-20-2021 End: 03-20-[address] MAUDE GANT Facility:[facility] Start: 03-04-2021 End: 03-05-[address] MAUDE GANT Facility:[facility] Procedures Date Procedure Procedure Detail Performing Clinician Start: 05-15-2023 Diabetic retinal eye exam Mariposa GERARD Start: 01-22-2023 Adult depression scr eening assessment Sabrina Krefox RN PAIN MANAGEMENT-SHAKER PLATE OPERATOR Work Phone: Start: 07-20-2022 Microalbumin [Mass/v olume] in Urine by Test strip Sabrina Namratafox RN PAIN MANAGEMENT-SHAKER PLATE OPERATOR Work Phone: Start: 04-07-2022 Diabetic retinal eye exam Sabrina Smith APRN-SHAKER PLATE OPERATOR Work Phone: Start: 08-03-2021 Microscopic observat ion [Identifier] in Cervix by Cyto stain Sabrina Smith RN PAIN MANAGEMENT-SHAKER PLATE OPERATOR Work Phone: Plan of Treatment Date Care Activity Detail Author Start: 04-19-2028 DTaP,Tdap and Td Vaccines (3 - Td or Tdap) DTaP,Tdap and Td Vaccines (3 - Td or Tdap) [facility] Start: 08-03-2024 Screening for malignant neoplasm of cervix Pap Smear [facility] Start: 05-15-2024 Glaucoma screening Diabetic Ophthalmology Exam [facility] Start: 05-13-2024 Tobacco Screening Tobacco Screening [facility] Start: 05-12-2024 Adult BMI Screening Adult BMI Screening [facility] Start: 05-12-2024 Tobacco Screening Tobacco Screening [facility] Start: 05-10-2024 End: 05-10-2024 Patient encounter procedure 05/10/2024 9:15 AM EST Office Visit [facility] [address] [address] Sabrina Smith RN PAIN MANAGEMENT-SHAKER PLATE OPERATOR [address] [place] [address], [address] [place] [address] [facility] Start: 01-23-2024 Depression Screening Depression Screening [facility] Start: 07-23-2023 End: 07-23-2023 Patient encounter procedure 07/23/2023 8:30 AM EDT Office Visit [facility] Internal Medicine - Family Medicine [address] [place] [id number] Maude Gant, RN PAIN MANAGEMENT-BUSINESS OPERATIONS COORDINATOR [address] [place] [address] [facility] Start: 07-21-2023 Diabetic foot examination Diabetic Foot Exam [facility] Start: 07-21-2023 Urine screening for protein Urine Microalbumin [facility] Start: 04-07-2023 Glaucoma screening Diabetic Ophthalmology Exam [facility] Start: 2005 Adult BMI Follow Up Plan Adult BMI Follow Up Plan [facility] Immunizations Immunization Date Immunization Notes Care Provider Fa cility 12-14-2018 Influenza, injectabl e, Madin Lolly Canine Kidney, quadrivalent with preservative Sabrina Kregel RN PAIN MANAGEMENT-SHAKER PLATE OPERATOR Work Phone: [facility] 04-19-2018 tetanus toxoid, redu sandra diphtheria toxoid, and acellular pertussis vaccine, adsorbed Sabrina Kregel RN PAIN MANAGEMENT-SHAKER PLATE OPERATOR Work Phone: [facility] 12-29-2017 influenza, injectabl e, quadrivalent, preservative free Sabrina Kregel RN PAIN MANAGEMENT-SHAKER PLATE OPERATOR Work Phone: [facility] 12-29-2017 influenza, seasonal, injectable Sabrina Kregel RN PAIN MANAGEMENT-SHAKER PLATE OPERATOR Work Phone: [facility] 02-07-2015 influenza, seasonal, injectable, preservative free Sabrina Kregel RN PAIN MANAGEMENT-SHAKER PLATE OPERATOR Work Phone: [facility] 01-23-2013 tetanus toxoid, redu sandra diphtheria toxoid, and acellular pertussis vaccine, adsorbed Sabrina Kregel RN PAIN MANAGEMENT-SHAKER PLATE OPERATOR Work Phone: [facility] Payers Date Payer Category Payer Private Health Insurance [facility] [employer] [id number] 2022-Present [phone] [address] [address] [place] [address] [id number] 2022 Unknown [id number] 1987 Unknown [id number] .[id number] 1987 Unknown [id number] .[id number] 1987 Unknown [id number] .[id number] 1987 Unknown [id number] .[id number] 1987 Unknown [id number] .[id number] 1987 Unknown [id number] .[id number] 1987 Unknown [id number] .[id number] 1959 Unknown [id number] Social History Date Type Detail Facility Start: 07-20-2022 Tobacco smoking status [facility] Never smoked tobacco [facility] Start: 07-20-2022 Tobacco use and exposure Smokeless tobacco non-user [facility] Start: 05-13-2023 Alcohol intake Ex-drinker (finding) [facility] Start: 01-18-2022 End: 01-22-2023 History of Social function [facility] Start: 01-18-2022 End: 01-22-2023 Social connection and isolation panel [facility] Do you belong to any clubs or organizations such as zoroastrian groups, unions, fraternal or athletic groups, or school groups? Yes [facility] Are you now , , , , never or living with a partner? [facility] How often to you hav e a drink containing alcohol? Never [facility] How many standard dr inks containing alcohol do you have on a typical day? Patient does not drink [facility] Do you feel stress - tense, restless, nervous, or anxious, or unable to sleep at night because your mind is troubled all the time - these days [OSQ] Only a little [facility] Start: 01-18-2022 Education 12 [facility] Start: 1985 Sex Assigned At Female [facility] Start: 12-31-2019 Gender identity Identifies as female gender (finding) [facility] Start: 12-31-2019 Sexual orientation Heterosexual (finding) [facility] Medical Equipment Procedure Code Equipment Code Equipment Original Text Equi pment Identifier Dates 1 strip by other route every morning before breakfast. [id number] OneTouch Delica Plus Lancet 33 gauge USE TO CHECK BLOOD SUGAR DAILY [id number] Note 05-21-2023 Telephone Encounter - RAJANI De La Garza - 05/21/2023 1:25 PM EST Note Date & Type Note Facility 05-21-2023 Miscellaneous Notes Formattin g of this note might be different from the original. Images from the original note were not included. PAP Mask and Supplies Order Faxed to [facility] Fax Confirmed documented in this encounter [facility] Telephone encounter Note 05-21-2023 Telephone Encounter - RAJANI De La Garza - 05/21/2023 1:25 PM EST Note Date & Type Note Facility 05-21-2023 Telephone encount er Note Images from the original note were not included. PAP Mask and Supplies Order Faxed to [facility] Fax Confirmed [facility] History of Present illness Narrative 05-12-2023 Sabrina Smith APRN-DILMA - 05/12/2023 10:00 AM EST Note Date & Type Note Facility 05-12-2023 History of Present illness Narrative Images from the original note were not included. Chief Complaint: [facility]yes [facility]/12/2023. She is a 38 y.o. female followed [facility] the [facility] for RACHEL, for which BPAP 22/18 cm H2O was prescribed. At the time of the last visit on 10/08/21, the plan was to continue BiPAP. HPI: The patient reports that she is adherent to her nocturnal ventilatory support for 5.5 hours a night 7 days per week. She reports feeling the benefits of wearing it nightly and denies any am fatigue or excessive daytime sleepiness. Denies any aerophagia. Denies any issues with mask fit or PAP machine. She denies any dyspnea, fevers, chills, hemoptysis, wheezing, or chest pain. Overall, she is very pleased with her current status. She denies sleepiness while driving. Supplemental O2 use: None Current PAP interface: She uses a Full Face Mask. She does not use a chinstrap. She does use the heated inline humidifier. 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[employer] [place] Sleepiness Scale: Sitting and Reading: Never Watching TV: Never Sitting inactive in a public place (theater, meeting): Never As a passenger in a car for an hour without a break: Never Lying down in the afternoon to rest: Slight Chance Sitting and talking to someone: Never Sitting quietly after lunch (without alcohol): Never In a car, while stopped for a few minutes in traffic: Never Total: 1 OARRS: Reviewed: no PMH: Pertinent History: Her pertinent medical history includes Past Medical History: Diagnosis Date Anxiety Depressive disorder 12/25/2020 Hypertension Mixed hyperlipidemia 12/31/2021 Obesity RACHEL (obstructive sleep apnea) Medications: Reviewed with patient. Current Outpatient Medications: blood sugar diagnostic (ONETOUCH ULTRA TEST) strip, 1 strip by other route every morning before breakfast., Disp: , Rfl: bromocriptine (PARLODEL) 2.5 mg tablet, Take 1 tablet (2.5 mg total) by mouth in the morning., Disp: , Rfl: cholecalciferol, vitamin D3, 2,000 units capsule, Take 1 capsule (2,000 Units total) by mouth in the morning., Disp: 100 capsule, Rfl: 3 ergocalciferol (DRISDOL) 1,250 mcg (50,000 unit) capsule, 1 capsule (50,000 Units total)., Disp: , Rfl: lancets 33 gauge misc, OneTouch Delica Plus Lancet 33 gauge USE TO CHECK BLOOD SUGAR DAILY, Disp: , Rfl: citalopram (CeleXA) 20 mg tablet, Take 1 tablet (20 mg total) by mouth in the morning. (Patient not taking: Reported on 05/12/2023), Disp: , Rfl: losartan (COZAAR) 25 mg tablet, TAKE 1 TABLET(25 MG) BY MOUTH IN THE MORNING (Patient not taking: Reported on 05/12/2023), Disp: 90 tablet, Rfl: 1 semaglutide (OZEMPIC) 0.25 mg or 0.5 mg (2 mg/3 mL) pen injector, Inject 0.5 mg under the skin every 7 days. (Patient not taking: Reported on 05/12/2023), Disp: 3 mL, Rfl: 2 Vitals: 05/12/23 1012 BP: (!) 157/103 Pulse: 65 SpO2: 100% Weight: (!) 155 kg (341 lb 11.2 oz) Height: 170.2 cm (5' 7 ) Allergies: Reviewed with patient. Penicillin g Family History: History reviewed. No pertinent family history. Social History: Social History Socioeconomic History Marital status: Spouse name: Not on file Number of children: Not on file Years of education: Not on file Highest education level: 12th grade Occupational History Not on file Tobacco Use Smoking status: Never Smokeless tobacco: Never Vaping Use Vaping Use: Never used Substance and Sexual Activity Alcohol use: Not Currently Drug use: No Sexual activity: Not Currently Other Topics Concern Not on file Social History Narrative Not on file Social Determinants of Health Financial Resource Strain: Low Risk (01/18/2022) Overall Financial Resource Strain (CARDIA) Difficulty of Paying Living Expenses: Not hard at all Food Insecurity: No Food Insecurity (01/22/2023) Hunger Screening Food Insecurity - Worry: Never True Food Insecurity - Inability: Never True Transportation Needs: No Transportation Needs (01/18/2022) PRAPARE - Transportation Lack of Transportation (Medical): No Lack of Transportation (Non-Medical): No Physical Activity: Sufficiently Active (01/18/2022) Exercise Vital Sign Days of Exercise per Week: 5 days Minutes of Exercise per Session: 40 min Stress: No Stress Concern Present (01/18/2022) [place] [employer] - Occupational Stress Questionnaire Feeling of Stress : Only a little Social Connections: Socially Integrated (01/18/2022) Social Connection and Isolation Panel [NHANES] Frequency of Communication with Friends and Family: More than three times a week Frequency of Social Gatherings with Friends and Family: Three times a week Attends Mormon Services: More than 4 times per year Active Member of Clubs or Organizations: Yes Attends Club or Organization Meetings: More than 4 times per year Marital Status: Interpersonal Safety: Not At Risk (01/18/2022) Humiliation, Afraid, Rape, and Kick questionnaire Fear of Current or Ex-Partner: No Emotionally Abused: No Physically Abused: No Sexually Abused: No Housing Instability: Not on file Travel History: Denies recent travel. ROS: All 11 systems have been reviewed: Review of Systems Constitutional: Negative for chills, fatigue and fever. Respiratory: Negative for cough, shortness of breath and wheezing. Cardiovascular: Negative for chest pain/discomfort. All other systems are reviewed and are negative except as noted. Physical Examination: Vital signs BP (!) 157/103 Pulse 65 Ht 170.2 cm (5' 7 ) Wt (!) 155 kg (341 lb 11.2 oz) SpO2 100% BMI 53.52 kg/m Physical Exam Vitals and nursing note reviewed. Constitutional: Appearance: Normal appearance. She is obese. Cardiovascular: Heart sounds: Normal heart sounds. Pulmonary: Breath sounds: Normal breath sounds. Musculoskeletal: Cervical back: Neck supple. Skin: General: Skin is warm and dry. Neurological: Mental Status: She is alert and oriented to person, place, and time. Psychiatric: Mood and Affect: Mood normal. Behavior: Behavior normal. Laboratory DATA: Lab Results Component Value Date CO2 30 01/26/2023 No results found for: WBC , HGB , HCT , MCV , PLT No results found for: FERRITIN Chemistry Component Value Date/Time K 4.0 01/26/2023 1345 CL 105 01/26/2023 1345 CO2 30 01/26/2023 1345 BUN 24 (H) 01/26/2023 1345 CREATININE 0.78 01/26/2023 1345 GLU 122 (H) 01/26/2023 1345 Component Value Date/Time CALCIUM 9.7 01/26/2023 1345 ALKPHOS 53 07/20/2022 0845 AST 18 07/20/2022 0845 ALT 34 (H) 07/20/2022 0845 No results found for: TSH No results found. DATA: Bi-Level 22/18 cm H20 (with C-flex of 3) Last Titration: 08/2017 PS07/2017 w/ AHI of 85.5 DME: [facility] Data card was available for PAP usage data download. PAP compliance is excellent. IMAGING/PFT No results found. No image results found. No results found. Impression: There are no diagnoses linked to this encounter. RACHEL with adherence to nocturnal ventilatory support on a nightly basis. Obesity Body mass index is 53.52 kg/m . HTN History of anxiety Plan: Discussed diagnosis, its evaluation, treatment and usual course. All questions answered. Educational material distributed. No orders of the defined types were placed in this encounter. No orders of the defined types were placed in this encounter. She is to continue BiPAP 22/15 cm H20 on a nightly basis. New mask and supplies as needed. 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 Advised to stop using immediately. Education sheet provided. Diet and exercise were discussed in detail. Any age appropriate or routine screening per PCP. Follow up in 12 Months time. If her condition should change prior to this she is encouraged to give our office a call. Discussed triggers to call back before follow up including weight change > 10%, major medical issues including stroke, arrhythmia or heart attack, or significant change in symptoms. EDUCATION: Driving precautions were reviewed. I advised the patient not to drive if sleepy, and to pull worker if sleepiness occurs while driving. Above plan as discussed with the patient who acknowledged understanding and agreement. Health risks associated with untreated RACHEL were discussed (cardiopulmonary, cerebrovascular, and anesthesia/sedative-related). Discussed triggers to call back before next visit including weight change > 10%, major medical issues including stroke, arrhythmia or heart attack, or significant change in symptoms. This note is dictated with the use of M*Modal.Please note that this dictation was completed with computer voice recognition software. Quite often unanticipated grammatical, syntax, homophones, and other interpretive errors are inadvertently transcribed by the computer software. Please disregard these errors. Please excuse any errors that have escaped final proofreading. Sabrina Smith [facility] Office: [phone] 7:17 PM on 05/13/2023 CC: MAUDE GANT APRN-LAUREN Jane 05/13/231920 documented in this encounter [facility] Instructions 05-12-2023 Patient Instructions Note Date & Type Note Facility 05-12-2023 Instructions LAUREN Mullen - 05/12/2023 10:00 AM EST If you re looking for general health and wellness resources, please visit [email or web address]. documented in this encounter [facility] Evaluation note Note Date & Type Note Facility Evaluation note Diagnosis RACHEL (obstructive sleep apnea)- Primary Obstructive sleep apnea (adult) (pediatric) CPAP use counseling BMI 50.0-59.9, adult ([facility]) documented in this encounter [facility] Instructions Note Date & Type Note Facility Instructions Not on filedocumented in this en counter [facility] Summary Purpose Family History No Family History Records FoundNo Family History Records FoundNo Family History Records FoundNo Family History Records Found Advance Directives No Advanced Directives Records FoundNo Advanced Directives Records FoundNo Advanced Directives Records FoundNo Advanced Directives Records Found Additional Source Comments INFORMATION SOURCE (unrecogn ized section and content) DATE CREATED AUTHOR 06/25/2021 [facility] DATE CREATED AUTHOR AUTHOR'S ORGANIZ ATION 02/27/2022 [facility] DATE CREATED AUTHOR AUTHOR'S ORGANIZ ATION 01/10/2023 [facility] DATE CREATED AUTHOR AUTHOR'S ORGANIZ ATION 05/19/2023 [facility] Reason for Visit (unrecogniz ed section and content) Reason Comments Sleep Apnea DME: [facility] Care Teams (unrecognized sec tion and content) Heel Nail Rasper Relationship Specialty Start Date End Date Maude Gant APRN-FNP [address] [place] [address] PCP - General Internal Medicine 01/22/23 Heel Nail Rasper Relationship Specialty Start Date End Date Maude Gant APRN-FNP [address] [place] [address] PCP - General Internal Medicine 01/22/23 FOR RECORDS PERTAINING TO PATIENTS WHO ARE OR HAVE BEEN ENROLLED IN A CHEMICAL DEPENDENCY/SUBSTANCEABUSE PROGRAM, SOME INFORMATION MAY BE OMITTED. This clinical summary was aggregated from multiple sources. Caution should be exercised in using it in the provision of clinical care. This summary normalizes information from multiple sources, and as a consequence, information in this document may materially change the coding, format and clinical context of patient data. In addition, data may be omitted in some cases. CLINICAL DECISIONS SHOULD BE BASED ON THE PRIMARY CLINICAL RECORDS. [facility]. provides no warranty or guarantee of the accuracy or completeness of information in this document.
[2023-07-08 07:51] LABS: Basophils Percent Auto 0.6 % (0.2-2.0); Eosinophils Absolute Auto 0.2 10^3/uL (0.0-0.7); Eosinophils Percent Auto 4.2 % (0.9-7.0); Hematocrit 40.4 % (36.0-48.0); Hemoglobin 12.6 g/dL (12.0-16.0); Immature Granulocytes Abs Auto 0.02 10^3/uL (0.00-0.03); Immature Granulocytes Pct Auto 0.4 % (0.0-0.5); Lymphocytes Absolute Auto 1.9 10^3/uL (1.2-3.8); Lymphocytes Percent Auto 35.3 % (20.5-60.0); Mean Corpuscular HGB Conc 31.2 g/dL (29.9-35.2); Mean Corpuscular Hemoglobin 27.6 pg (26.7-34.0); Mean Corpuscular Volume 88.6 fL (81.0-99.0); Monocytes Absolute Auto 0.4 10^3/uL (0.3-0.8); Monocytes Percent Auto 6.8 % (1.7-12.0); Neutrophils Absolute Auto 2.8 10^3/uL (1.4-6.5); Neutrophils Percent Auto 52.7 % (43.0-75.0); Platelet Count 307 10^3/uL (150-450); Red Blood Count 4.56 10^6/uL (4.20-5.40); Red Cell Distribution Width 12.9 % (11.0-15.0); White Blood Count 5.3 10^3/uL (4.0-11.0)
[2023-07-08 08:48] LABS: Estimated Average Glucose 166 mg/dL; Glycohemoglobin A1C 7.4 % (4.5-6.2)
[2023-07-08 08:49] LABS: Alanine Aminotransferase 59 U/L (14-59); Albumin Globulin Ratio 0.9; Albumin Level 3.5 g/dL (3.4-5.0); Alkaline Phosphatase 61 U/L (46-116); Anion Gap 12.2; Aspartate Amino Transferase 26 U/L (15-37); BUN Creatinine Ratio 19.3; Bilirubin Total 0.5 mg/dL (0.2-1.0); Calcium 9.4 mg/dL (8.5-10.1); Carbon Dioxide 28.9 mmol/L (21.0-32.0); Chloride 104 mmol/L (98-107); Chol HDL Ratio 3.3; Cholesterol 146 mg/dL (<=200); Estimated GFR (African America >60 (>=60); Estimated GFR (Non-African Ame >60 (>=60); Free T3 2.82 pg/mL (2.18-3.98); Globulin 3.7 g/dL; Glucose 141 mg/dL (74-106); HDL Cholesterol 44 mg/dL (40-60); LDL Cholesterol Calculated 88.8 mg/dL; Potassium 4.1 mmol/L (3.5-5.1); Sodium 141 mmol/L (136-145); Thyroid Stimulating Hormone 1.201 uIU/mL (0.358-3.740); Total Protein 7.2 g/dL (6.4-8.2); Triglycerides 66 mg/dL (<=150); VLDL CHOLESTEROL 13.2 mg/dL
[2023-07-09 10:09] LABS: Insulin 55.1 uIU/mL (2.6-24.9)
== END 2023-07-08 07:24 | disposition home or self-care (01) ==
PROVIDERS: PCP Nurse Practitioner Family; Visit Provider Nurse Practitioner Family
DX: Z01.89 Encounter for other specified special examinations (principal)
CPT/HCPCS: 36415; 80053; 80061; 82306; 83036; 83525; 83540; 84436; 84443; 84481; 85025

== ENCOUNTER 2023-09-03 08:40 | Outpatient (OUT) | payer OTHER, SELFPAY ==
--- NOTE | 2023-09-03 08:42 | US_ITS ---
[address] [address] Patient Name: THANIA NUNEZ MRN: [id number] date: 1985 Sex: F Assigned Patient Location: [facility] Current Patient Location: [facility] Accession/Order Number: [id number] Exam Date: 09/03/2023 08:42 Report Date: 09/03/2023 09:59 At the request of: MARIO KESSLER Procedure: US OB transvaginal EXAMINATION: US OB transvaginal HISTORY: MISSED MENSES COMPARISON: No relevant comparison available. FINDINGS: Transvaginal images Ramirez intrauterine gestation Gestational sac: 3.21 cm, 8 weeks 1 day CRL: 2.27 cm, 9 weeks 0 days Yolk sac: 4.6 mm Heart rate: 165 beats minute Cervix: Closed, 4.2 cm The uterus is normal, anteverted, anteflexed The ovaries are not visualized Clinical age: 13 weeks 1 day Clinical JESSICA: 03/09/2024 Ultrasound age: 9 weeks 0 days Ultrasound JESSICA: 04/07/2024 US/US OB transvaginal IMPRESSION: Viable ramirez intrauterine gestation measuring 9 weeks 0 days Electronically authenticated by: LISSETT MOSER Date: 09/03/2023 09:59
--- OUTSIDE RECORDS SUMMARY | 2023-09-03 08:49 | XMS_ITS ---
Patient Summarization (C-CDA 2.1 CCD) Created on: September 03, 2023 Ya Reyes : 1985 Sex: Female Author Organization Sample organization Care Team Providers Care Services Coordinator Name Role Phone JARI, AHMAD Attending Unavailable ALFREDA, DR MAUDE Smith Primary Care Unavailable JAIR, AHMAD Consulting Unavailable JAIR, AHMAD Admitting Unavailable KUNKadie, DR MAUDE Smith Primary Care Unavailable JAIR, LEIGH Consulting Unavailable JAIR, AHMAD Admitting Unavailable JAIR, AHKARYND Attending Unavailable ALFREDA, DR MAUDE Smith Primary Care Unavailable YUALEXA, DR DANG Admitting Unavailable YUHAKadie, DR DANG Attending Unavailable YUALEXA, DR DANG Consulting Unavailable ALFREDA, DR MAUDE Smith Primary Care Unavailable JAIR, AHMAD Consulting Unavailable JAIR, AHMAD Admitting Unavailable JAIR, AHKARYND Attending Unavailable ALFREDA, DR MAUDE Smith Primary Care Unavailable VICTORIA, DR MARTIN Consulting Unavailable VICTORIA, DR MARTIN Admitting Unavailable VICTORIA, DR MARTIN Attending Unavailable ALFREDA, DR MAUDE Smith Primary Care Unavailable ALFREDA, DR MAUDE Smith Admitting Unavailable ALFREDA, DR MAUDE Smith Attending Unavailable ALFREDA, DR MAUDE Smith Consulting Unavailable Alfreda [employer] P[employer]ATIONS ASSOCIATE, Maude Wall Primary Care Provider SABRINA SMITH Attending Unavailable MAUDE GANT Referring Unavailable MAUDE GANT Primary Care Unavailable Allergies Allergy Classification Reported Allergen(s) Allergy Type Date of Onset Reaction(s) Facility (1 source) Penicillins Drug allergy (disorder) 11-12-2014 [facility] Repository (3 sources) Penicillin G; Translations: [PENICILLIN G] Drug Allergy 08-07-2017 [facility] Encounters Encounter Date Encounter Type Care Provider Facility Start: 05-21-2023 Telephone encounter Mariposa Tellez [facility] Start: 05-12-2023 End: 05-12-2023 [facility] Start: 05-12-2023 End: 05-12-2023 Office outpatient visit 25 minutes Sabrina Smith [employer] Work Phone: [facility] Comment on above: RACHEL (obstructive sle ep apnea) (Primary Dx); CPAP use counseling; BMI 50.0-59.9, adult ([facility]) Start: 01-09-2023 Emergency department patient visit [place] [place]: 02-19-2022 End: 02-20-2022 ambulatory LEIGH ADAM Facility:[facility] Start: 01-15-2022 End: 01-16-[address] MAUDE GANT Facility:[facility] Start: 11-17-2021 End: 11-17-[address] MAUDE GANT Facility:[facility] Start: 09-05-2021 End: 09-06-[address] MAUDE GANT Facility:[facility] Start: 03-20-2021 End: 03-20-[address] MAUDE GANT Facility:[facility] Start: 03-04-2021 End: 03-05-[address] MAUDE GANT Facility:[facility] Medical Equipment Procedure Code Equipment Code Equipment Original Text Equi pment Identifier Dates 1 strip by other route every morning before breakfast. [id number] OneTouch Delica Plus Lancet 33 gauge USE TO CHECK BLOOD SUGAR DAILY [id number] Immunizations Immunization Date Immunization Notes Care Provider Fernando ann 12-14-2018 Influenza, injectabl e, Madin [place] Canine Kidney, quadrivalent with preservative Sabrina Kregel [employer] Work Phone: [facility] 04-19-2018 tetanus toxoid, redu sandra diphtheria toxoid, and acellular pertussis vaccine, adsorbed Sabrina Kregel [employer] Work Phone: [facility] 12-29-2017 influenza, injectabl e, quadrivalent, preservative free Sabrina Kregel [employer] Work Phone: [facility] 12-29-2017 influenza, seasonal, injectable Sabrina Kregel [employer] Work Phone: [facility] 02-07-2015 influenza, seasonal, injectable, preservative free [facility]rina [facility] Work Phone: [facility] 01-23-2013 tetanus toxoid, redu sandra diphtheria toxoid, and acellular pertussis vaccine, adsorbed Sabrina Smith [facility] Work Phone: [facility] Medications Current Medications Medication Drug Class(es) Dates [...] complication, without long-term current use of insulin ([facility]) Inject 0.5 mg under the skin every 7 days. 3 mL 2 01/22/2023 Active Payers Date Payer Category Payer Private Health Insurance [employer] [id number] 2022-Present [phone] [address] [address] [place] [address] [id number] 2022 Unknown [id number] 1985 Unknown [id number] 1985 Unknown [id number] 1985 Unknown [id number] 1985 Unknown [id number] .[id number] 1987 Unknown [id number] .[id number] 1987 Unknown [id number] 1985 Unknown [id number] 1959 Unknown [id number] Plan of Treatment Date Care Activity Detail Author Start: 04-19-2028 DTaP,Tdap and Td Vaccines (3 - Td or Tdap) DTaP,Tdap and Td Vaccines (3 - Td or Tdap) [facility] Start: 08-03-2024 Screening for malignant neoplasm of cervix Pap Smear [facility] Start: 05-15-2024 Glaucoma screening Diabetic Ophthalmology Exam [facility] Start: 05-13-2024 Tobacco Screening Tobacco Screening [facility] Start: 05-12-2024 Adult BMI Screening Adult BMI Screening [facility] Start: 05-12-2024 Tobacco Screening Tobacco Screening [facility] Start: 05-10-2024 End: 05-10-2024 Patient encounter procedure 05/10/2024 9:15 AM EST Office Visit [facility] [address] [id number] Sabrina Smith, [employer] [address], [address] [place] [address] [facility] Start: 01-23-2024 Depression Screening Depression Screening [facility] Start: 07-23-2023 End: 07-23-2023 Patient encounter procedure 07/23/2023 8:30 AM EDT Office Visit [facility] Internal [facility] - Family Medicine [address] [place] [id number] Maude Gant, PLASTIC BOAT PATCHER[employer]MEDIA RELATIONS ASSOCIATE [address] [place] [address] [facility] Start: 07-21-2023 Diabetic foot examination Diabetic Foot Exam [facility] Start: 07-21-2023 Urine screening for protein Urine Microalbumin [facility] Start: 04-07-2023 Glaucoma screening Diabetic Ophthalmology Exam [facility] Start: 2005 Adult BMI Follow Up Plan Adult BMI Follow Up Plan [facility] Problems Active Problems Problem Classification Problem Date [...] [CONTACT W/AND (SUSP) EXPOS COVID-19] Onset: 03-20-2021 Procedures Date Procedure Procedure Detail Performing Clinician Start: 05-15-2023 Diabetic retinal eye exam Mariposa GERARD Start: 01-22-2023 Adult depression scr eening assessment [employer] Work Phone: Start: 07-20-2022 Microalbumin [Mass/v olume] in Urine by Test strip [employer] Work Phone: Start: 04-07-2022 Diabetic retinal eye exam [employer] Work Phone: Start: 08-03-2021 Microscopic observat ion [Identifier] in Cervix by Cyto stain [employer] Work Phone: Results Test Name Value Interpretation Reference Range Facility PROLACTINon 02-20-2022 Prolactin 64.0 ng/mL Critically high 4.8-23.3 [facility] Comment on above: Performed By: #### P ROLAC #### [facility] [address] [address] [address] Devin Florentino RENAL FUNCTION PANELon 02-19 Albumin [Mass/Vol] 3.7 g/dL Normal 3.4-5.0 [facility] Comment on above: Performed By: #### R ENAL #### [facility] [address] [address] [address] Devin Florentino Calcium [Mass/Vol] 9.2 mg/dL Normal 8.5-10.1 [facility] Comment on above: Performed By: #### R ENAL #### [facility] [address] [address] [address] Devin Florentino Chloride [Moles/Vol] 105 mmol/L Normal 98-107 [facility] Comment on above: Performed By: #### R ENAL #### [facility] [address] [address] [address] Devin Florentino CO2 [Moles/Vol] 29.7 mmol/L Normal 21.0-32.0 [facility] Comment on above: Performed By: #### R ENAL #### [facility] [address] [address] [address] Devin Florentino Creatinine [Mass/Vol] 0.72 mg/dL Normal 0.55-1.02 [facility] Comment on above: Performed By: #### R ENAL #### [facility] [address] [place] [address] Dr. Devin Florentino EGFR-AF CYMRAES >60 Normal >=60 [facility] Comment on above: Performed By: #### R ENAL #### [facility] [address] [place] [address] Dr. Devin Florentino EGFR-NON AF CYMRAES >60 Normal >=60 [facility] Comment on above: Performed By: #### R ENAL #### [facility] [address] [place] [address] Dr. Devin Florentino Glucose [Mass/Vol] 140 mg/dL Critically high 74-106 [facility] Comment on above: Performed By: #### R ENAL #### [facility] [address] [address] [address] Devni Florentino Phosphate [Mass/Vol] 4.3 mg/dL Normal 2.6-4.7 [facility] Comment on above: Performed By: #### R ENAL #### [facility] [address] [address] [address] Devin Florentino Potassium [Moles/Vol] 4.0 mmol/L Normal 3.5-5.1 [facility] Comment on above: Performed By: #### R ENAL #### [facility] [address] [place] [address] Dr. Devin Florentino Sodium [Moles/Vol] 141 mmol/L Normal 136-145 [facility] Comment on above: Performed By: #### R ENAL #### [facility] [address] [place] [address] Dr. Devin Florentino Urea nitrogen [Mass/Vol] 27.0 mg/dL Critically high 7.0-18.0 [facility] Comment on above: Performed By: #### R ENAL #### [facility] [address] [place] [address] Dr. Devin Florentino VITAMIN D 25 OHon 02-19-2022 VIT D 25-OH 16.2 ng/mL Normal [facility] Comment on above: Performed By: #### V ITAD #### [facility] [address] [place] [address] Dr. Devin Florentino VIT D RANGES SEE BELOW Normal [facility] Comment on above: Result Comment: <20 ng/mL Vit D deficient 20 - <30 ng/mL Vit D insufficient 30 - 100 ng/mL Vit D sufficient >100 ng/mL Potential Toxicity Performed By: #### V ITAD #### [facility] [address] [place] [address] Dr. Devin Florentino GLYCOHEMOGLOBIN A1Con 2021 ADA RECOMMENDATION SEE BELOW Normal [facility] Comment on above: Result Comment: ADA RECOMMENDED LIMIT 4.0 - 6.0 ADA THERAPEUTIC TARGET < 7.0 ACTION SUGGESTED > 7.0 Performed By: #### A 1C #### [facility] [address] [place] [address] Dr. Devin Florentino Glucose [Mass/Vol] 120 mg/dL Normal [facility] Comment on above: Performed By: #### A 1C #### [facility] [address] [place] [address] Dr. Devin Florentino HbA1c (Bld) [Mass fraction] 5.8 % Normal 4.5-6.2 [facility] Comment on above: Performed By: #### A 1C #### [facility] [address] [address] [address] Devin Florentino LIPID PROFILEon 01-15-2022 CHOL-HDL RATIO NORM SEE BELOW Normal [facility] Comment on above: Result Comment: 3.3 - 4.4 LOW RISK 4.4 - 7.1 AVERAGE RISK 7.1 - 11.0 MODERATE RISK >11.0 HIGH RISK Performed By: #### L IPID, CMP #### [facility] [address] [address] [address] Devin Florentino Cholesterol [Mass/Vol] 167 mg/dL Normal <=200 [facility] Comment on above: Performed By: #### L IPID, CMP #### [facility] [address] [address] [address] Devin Florentino Cholesterol in HDL [Mass/Vol] 47 mg/dL Normal 40-60 [facility] Comment on above: Performed By: #### L IPID, CMP #### [facility] [address] [place] [address] Dr. Devin Florentino Cholesterol in LDL [Mass/Vol] 103.0 mg/dL Normal [facility] Comment on above: Performed By: #### L IPID, CMP #### [facility] [address] [place] [address] Dr. Devin Florentino Cholesterol.total/Ch olesterol in HDL [Mass ratio] 3.6 {ratio} Normal [facility] Comment on above: Performed By: #### L IPID, CMP #### [facility] [address] [place] [address] Dr. Devin Florentino HDL NORMAL > or = 60 mg/dl - LO W CARDIOVASCULAR RISK <40 mg/dl - HIGH CARDIOVASCULAR RISK Normal [facility] Comment on above: Performed By: #### L IPID, CMP #### [facility] [address] [place] [address] Dr. Devin Florentino LDL CALC NORMAL SEE BELOW Normal [facility] Comment on above: Result Comment: <100 mg/dl OPTIMAL 100 - 129 mg/dl NEAR OR ABOVE OPTIMAL 130 - 159 mg/dl BORDERLINE HIGH 160 - 189 mg/dl HIGH >190 mg/dl VERY HIGH Performed By: #### L IPID, CMP #### [facility] [address] [address] [address] Devin Florentino Triglyceride [Mass/Vol] 81 mg/dL Normal <=150 [facility] Comment on above: Performed By: #### L IPID, CMP #### [facility] [address] [address] [address] Devin Florentino VLDL CALC 16.2 mg/dL Normal [facility] Comment on above: Performed By: #### L IPID, CMP #### [facility] [address] [address] [address] Devin Florentino PROF 14(COMP METB)on 022 Albumin [Mass/Vol] 3.7 g/dL Normal 3.4-5.0 [facility] Comment on above: Performed By: #### L IPID, CMP #### [facility] [address] [place] [address] Dr. Devin Florentino Albumin/Globulin [Mass ratio] 1.0 {ratio} Normal [facility] Comment on above: Performed By: #### L IPID, CMP #### [facility] [address] [place] [address] Dr. Devin Florentino ALP [Catalytic activity/Vol] 58 U/L Normal 46-116 [facility] Comment on above: Performed By: #### L IPID, CMP #### [facility] [address] [place] [address] Dr. Devin Florentino ALT [Catalytic activity/Vol] 40 U/L Normal 14-59 [facility] Comment on above: Performed By: #### L IPID, CMP #### [facility] [address] [place] [address] Dr. Devin Florentino Anion gap [Moles/Vol] 7.7 mmol/L Normal [facility] Comment on above: Performed By: #### L IPID, CMP #### [facility] [address] [place] [address] Dr. Devin Florentino AST [Catalytic activity/Vol] 20 U/L Normal 15-37 [facility] Comment on above: Performed By: #### L IPID, CMP #### [facility] [address] [address] [address] Devin Florentino Bilirubin [Mass/Vol] 0.5 mg/dL Normal 0.2-1.0 [facility] Comment on above: Performed By: #### L IPID, CMP #### [facility] [address] [place] [address] Dr. Devin Florentino Calcium [Mass/Vol] 9.0 mg/dL Normal 8.5-10.1 [facility] Comment on above: Performed By: #### L IPID, CMP #### [facility] [address] [place] [address] Dr. Devin Florentino Chloride [Moles/Vol] 103 mmol/L Normal 98-107 [facility] Comment on above: Performed By: #### L IPID, CMP #### [facility] [address] [place] [address] Dr. Devin Florentino CO2 [Moles/Vol] 30.6 mmol/L Normal 21.0-32.0 [facility] Comment on above: Performed By: #### L IPID, CMP #### [facility] [address] [place] [address] Dr. Devin Florentino Creatinine [Mass/Vol] 0.73 mg/dL Normal 0.55-1.02 [facility] Comment on above: Performed By: #### L IPID, CMP #### [facility] [address] [place] [address] Dr. Devin Florentino EGFR-AF CYMRAES >60 Normal >=60 [facility] Comment on above: Performed By: #### L IPID, CMP #### [facility] [address] [place] [address] Dr. Devin Florentino EGFR-NON AF CYMRAES >60 Normal >=60 [facility] Comment on above: Performed By: #### L IPID, CMP #### [facility] [address] [place] [address] Dr. Devin Florentino Globulin (S) [Mass/Vol] 3.6 g/dL Normal [facility] Comment on above: Performed By: #### L IPID, CMP #### [facility] [address] [address] [address] Devin Florentino Glucose [Mass/Vol] 105 mg/dL Normal 74-106 [facility] Comment on above: Performed By: #### L IPID, CMP #### [facility] [address] [address] [address] Devin Florentino Potassium [Moles/Vol] 3.9 mmol/L Normal 3.5-5.1 [facility] Comment on above: Performed By: #### L IPID, CMP #### [facility] [address] [address] [address] Devin Florentino Protein [Mass/Vol] 7.3 g/dL Normal 6.4-8.2 [facility] Comment on above: Performed By: #### L IPID, CMP #### [facility] [address] [address] [address] Devin Florentino Sodium [Moles/Vol] 138 mmol/L Normal 136-145 [facility] Comment on above: Performed By: #### L IPID, CMP #### [facility] [address] [address] [address] Devin Florentino Urea nitrogen [Mass/Vol] 19.0 mg/dL Critically high 7.0-18.0 [facility] Comment on above: Performed By: #### L IPID, CMP #### [facility] [address] [address] [address] Devin Florentino Urea nitrogen/Creatinine [Mass ratio] 26.0 mg/mg [facility] Comment on above: Performed By: #### L IPID, CMP #### [facility] [address] [address] [address] Devin Florentino PAP ACOG PANEL 2: 30 to 65on 11-25-2021 . . Normal [facility] Comment on above: Result Comment: Perf ormed at: BA Performed By: #### [id number] #### [facility] [address] [address] [address] Devin Florentino Age Gdln ACOG Testing 30-65 Normal [facility] Comment on above: Performed By: #### [id number] #### [facility] [address] [address] [address] Devin Florentino DIAGNOSIS: Comment Normal [facility] Comment on above: Result Comment: UNSA TISFACTORY FOR EVALUATION. THIS SPECIMEN WAS RESCREENED PART OF OUR INSTRUCTIONAL TECHNOLOGIST PROGRAM. Performed at: BA Performed By: #### [id number] #### [facility] [address] [address] [address] Devin Florentino HPV Aptima Negative Normal Negative [facility] Comment on above: Result Comment: This nucleic acid amplification test detects fourteen high-risk HPV types (16,18,31,33,35,39,45,51,52,56,58,59,66,68) without differentiation. Performed at: =G Performed By: #### [id number] #### [facility] [address] [place] [address] Dr. Devin Florentino Methodology: Comment Normal [facility] Comment on above: Result Comment: This liquid based ThinPrep(R) pap test was screened with the use of an image guided system. Performed at: WB Performed By: #### [id number] #### [facility] [address] [place] [address] Dr. Devin Florentino Note: Comment Normal [facility] Comment on above: Result Comment: The Pap smear is a screening test designed to aid in the detection of premalignant and malignant conditions of the uterine cervix. It is not a diagnostic procedure and should not be used as the sole means of detecting cervical cancer. Both false-positive and false-negative reports do occur. . Performed at: WB Performed By: #### [id number] #### [facility] [address] [address] [address] Devin Florentino Performed by: Comment Normal [facility] Comment on above: Result Comment: Shamar Huang, Ceo & Founder (ASCP) Performed at: BA Performed By: #### [id number] #### [facility] [address] [address] [address] Devin Florentino QC reviewed by: Comment Normal [facility] Comment on above: Result Comment: Val Salmon, Ceo & Founder (ASCP) Performed at: Performed By: #### [id number] #### [facility] [address] [place] [address] Dr. Devin Florentino Specimen adequacy: Comment Normal [facility] Comment on above: Result Comment: Spec imen processed and examined but unsatisfactory for evaluation of epithelial abnormality because of insufficient cellularity. Performed at: Performed By: #### [id number] #### [facility] [address] [place] [address] Dr. Devin Florentino PROLACTINon 09-06-2021 Prolactin 92.6 ng/mL Critically high 4.8-23.3 [facility] Comment on above: Performed By: #### P ROLAC #### [facility] [address] [place] [address] Dr. Devin Florentino ALBUMIN, RANDOM URINE W/CREA TININEon 06-24-2021 ALBUMIN, URINE 0.6 mg/dL Normal See Note: [facility] Comment on above: Result Comment: Refe rence Range: Reference Range Not established Performed By: #### 7 46, 7600, 59027, 6517 #### [facility] [address] [address] Stock Pitcher: Jules Arreola MD ALBUMIN/CREATININE RATIO, RANDOM URINE [...] category. Performed By: #### 7 46, 7600, [id number], 6517 #### [facility] [address], [address] [place] [address] Stock Pitcher: Jules Arreola MD Creatinine (U) [Mass/Vol] 53 mg/dL Normal 20-275 [facility] Comment on above: Performed By: #### 7 46, 7600, 52301, 6517 #### [facility] of [address], [address] [place] [address] Stock Pitcher: Jules Arreola MD COMPREHENSIVE METABOLIC PANE [facility] 06-24-2021 Albumin [Mass/Vol] 4.3 g/dL Normal 3.6-5.1 [facility] Comment on above: Performed By: #### 7 46, 7600, 19353, 6517 #### [facility] of [address] [place] [address] Stock Pitcher: Jules Arreola MD Albumin/Globulin [Mass ratio] 1.6 {ratio} Normal 1.0-2.5 [facility] Comment on above: Performed By: #### 7 46, 7600, 12730, 6517 #### [facility] [place] [address] Stock Pitcher: Jules Arreola MD ALP [Catalytic activity/Vol] 53 U/L Normal 31-125 [facility] Comment on above: Performed By: #### 7 46, 7600, 52038, 6517 #### [facility] [place] [address] Stock Pitcher: Jules Arreola MD ALT [Catalytic activity/Vol] 32 U/L High 6-29 [facility] Comment on above: Performed By: #### 7 46, 7600, 08953, 6517 #### [facility] [place] [address] Stock Pitcher: Jules Arreola MD AST [Catalytic activity/Vol] 18 U/L Normal 10-30 [facility] Comment on above: Performed By: #### 7 46, 7600, 22144, 6517 #### [facility] of [place] [address] Stock Pitcher: Jules Arreola MD Bilirubin [Mass/Vol] 0.4 mg/dL Normal 0.2-1.2 [facility] Comment on above: Performed By: #### 7 46, 7600, 87056, 6517 #### [facility] of [address], [address] [place] [address] Stock Pitcher: Jules Arreola MD BUN/CREATININE RATIO NOT APPLICABLE Normal 6-22 [facility] Comment on above: Performed By: #### 7 46, 7600, 10298, 6517 #### [facility] of [address], [address] [place] [address] Stock Pitcher: Jules Arreola MD Calcium [Mass/Vol] 9.6 mg/dL Normal 8.6-10.2 [facility] Comment on above: Performed By: #### 7 46, 7600, 84688, 6517 #### [facility] of [address], [address] [place] [address] Stock Pitcher: Jules Arreola MD Chloride [Moles/Vol] 104 mmol/L Normal 98-110 [facility] Comment on above: Performed By: #### 7 46, 7600, 81156, 6517 #### [facility] of [address], [address] [place] [address] Stock Pitcher: Jules Arreola MD CO2 [Moles/Vol] 29 mmol/L Normal 20-32 [facility] Comment on above: Performed By: #### 7 46, 7600, 33873, 6517 #### [facility] of [place] [address] Stock Pitcher: Jules Arreola MD Creatinine [Mass/Vol] 0.70 mg/dL Normal 0.50-1.10 [facility] Comment on above: Performed By: #### 7 46, 7600, 93826, 6517 #### [facility] of [address], [address] [place] [address] Stock Pitcher: Jules Arreola MD eGFR NON-AFR. CYMRAES 113 mL/min/1.73m2 Normal > OR = 60 [facility] Comment on above: Performed By: #### 7 46, 7600, 58382, 6517 #### [facility] of [address], [address] [place] [address] Stock Pitcher: Jules Arreola MD GFR/1.73 sq M.predicted among blacks MDRD (S/P/Bld) [Vol rate/Area] 131 mL/min/{1.73_m2} Normal > OR = 60 [facility] Comment on above: Performed By: #### 7 46, 7600, , 6517 #### [facility] [place] [address] Stock Pitcher: Jules Arreola MD Globulin (S) [Mass/Vol] 2.7 g/dL Normal 1.9-3.7 [facility] Comment on above: Performed By: #### 7 46, 7600, , 17 #### [facility] [place] [address] Stock Pitcher: Jules Arreola MD Glucose [Mass/Vol] 101 mg/dL High 65-99 [facility] Comment on above: Result Comment: Fasting reference interval For someone without known diabetes, a glucose value between 100 and 125 mg/dL is consistent with prediabetes and should be confirmed with a follow-up test. Performed By: #### 7 46, 7600, , 6517 #### [facility] [place] [address] Stock Pitcher: Jules Arreola MD Potassium [Moles/Vol] 4.0 mmol/L Normal 3.5-5.3 [facility] Comment on above: Performed By: #### 7 46, 7600, , 17 #### [facility] [place] [address] Stock Pitcher: Jules Arreola MD Protein [Mass/Vol] 7.0 g/dL Normal 6.1-8.1 [facility] Comment on above: Performed By: #### 7 46, 7600, , 6517 #### [facility] [place] [address] Stock Pitcher: Jules Arreola MD Sodium [Moles/Vol] 139 mmol/L Normal 135-146 [facility] Comment on above: Performed By: #### 7 46, 7600, 81045, 6517 #### [facility] [place] [address] Stock Pitcher: Jules Arreola MD Urea nitrogen [Mass/Vol] 23 mg/dL Normal 7-25 [facility] Comment on above: Performed By: #### 7 46, 7600, 76328, 6517 #### [facility] [place] [address] Stock Pitcher: Jules Arreola MD LIPID PANEL, [facility] 04-0 Cholesterol [Mass/Vol] 196 mg/dL Normal <200 [facility] Comment on above: Order Comment: FASTI NG:YES FASTING: YES Performed By: #### 7 46, 7600, 16948, 6517 #### [facility] [place] [address] Stock Pitcher: Jules Arreola MD Cholesterol in HDL [Mass/Vol] 56 mg/dL Normal > OR = 50 [facility] Comment on above: Order Comment: FASTI NG:YES FASTING: YES Performed By: #### 7 46, 7600, 04846, 6517 #### [facility] [place] [address] Stock Pitcher: Jules Arreola MD Cholesterol in LDL [Mass/Vol] [...] LDL-C. Fidencio ACOSTA et al. EDITH. 2013;310(19): 3078-7694 (http://education.SavingStar.Elevate Research/faq/JSL352) Performed By: #### 7 46, 7600, 95795, 6517 #### [facility] [place] [address] [place] [address] Stock Pitcher: Jules Arreola MD Cholesterol.total/Ch olesterol in HDL [Mass ratio] 3.5 {ratio} Normal <5.0 [facility] Comment on above: Order Comment: FASTI NG:YES FASTING: YES Performed By: #### 7 46, 7600, 59129, 6517 #### [facility] [place] [address] Stock Pitcher: Jules Arreola MD NON HDL CHOLESTEROL 140 mg/dL (calc) High <130 [facility] Comment on above: Order Comment: FASTI NG:YES FASTING: YES Result Comment: For patients with diabetes plus 1 major ASCVD risk factor, treating to a non-HDL-C goal of <100 mg/dL (LDL-C of <70 mg/dL) is considered a therapeutic option. Performed By: #### 7 46, 5230, 19427, 6517 #### [facility] [place] [address] Stock Pitcher: Jules Arreola MD Triglyceride [Mass/Vol] 104 mg/dL Normal <150 [facility] Comment on above: Order Comment: FASTI NG:YES FASTING: YES Performed By: #### 7 46, 4110, 12854, 6517 #### [facility] [place] [address] Stock Pitcher: Jules Arreola MD PROLACTINon 06-24-2021 PROLACTIN 51.6 ng/mL High [facility] Comment on above: Result Comment: Refe rence Range Females Non- 3.0-30.0 10.0-209.0 Postmenopausal 2.0-20.0 Your request to have a duplicate copy faxed has been acknowledged. Queued to: [phone] Performed By: #### 7 46, 9680, 65764, 6517 #### [facility] [address], [address] [place] [address] Stock Pitcher: Jules Arreola MD Covid-19 PCR (CVDTBH)on 02-21 SARS-CoV-2 (COVID-19) RNA STANLEY+probe Ql (Unsp spec) Not detected Normal NOT DETECTED [facility] Comment on above: Result Comment: This test is not yet approved or cleared by the [place] FDA. When there are no FDA-approved or cleared tests available, and other criteria are met, FDA can make tests available under an emergency access mechanism called an Emergency Use Authorization (EUA). The EUA for this test is supported by the [place] of Health and Human Service's (HHS's) declaration [...] Performed By: #### L IPID, CMP #### [facility] [address] [place] [address] Dr. Devin Florentino PROLACTINon 03-05-2021 Prolactin 79.1 ng/mL Critically high 4.8-23.3 [facility] Comment on above: Performed By: #### P ROLAC #### [facility] [address] [place] [address] Dr. Devin Florentino PROF CHEM 8 (BAS METB)on Anion gap [Moles/Vol] 9.9 mmol/L Normal [facility] Comment on above: Performed By: #### B MP #### [facility] [address] [place] [address] Dr. Devin Florentino Calcium [Mass/Vol] 9.6 mg/dL Normal 8.4-10.2 [facility] Comment on above: Performed By: #### B MP #### [facility] [address] [place] [address] Dr. Devin Florentino Chloride [Moles/Vol] 104 mmol/L Normal 98-107 [facility] Comment on above: Performed By: #### B MP #### [facility] [address] [place] [address] [address] Devin Florentino CO2 [Moles/Vol] 32.2 mmol/L Critically high 22.0-30.0 [facility] Comment on above: Performed By: #### B MP #### [facility] [address] [place] [address] [address] Devin Florentino Creatinine [Mass/Vol] 0.72 mg/dL Normal 0.52-1.04 [facility] Comment on above: Performed By: #### B MP #### [facility] [address] [place] [address] [address] Devin Florentino EGFR-AF CYMRAES >60 Normal >=60 [facility] Comment on above: Performed By: #### B MP #### [facility] [address] [place] [address] [address] Devin Florentino EGFR-NON AF CYMRAES >60 Normal >=60 [facility] Comment on above: Performed By: #### B MP #### [facility] [address] [place] [address] [address] Devin Florentino Glucose [Mass/Vol] 118 mg/dL Critically high 74-106 [facility] Comment on above: Performed By: #### B MP #### [facility] [address] [place] [address] [address] Devin Florentino Potassium [Moles/Vol] 4.1 mmol/L Normal 3.4-5.0 [facility] Comment on above: Performed By: #### B MP #### [facility] [address] [place] [address] [address] Devin Florentino Sodium [Moles/Vol] 142 mmol/L Normal 137-145 [facility] Comment on above: Performed By: #### B MP #### [facility] [address] [place] [address] [address] Devin Florentino Urea nitrogen [Mass/Vol] 22.0 mg/dL Critically high 7.0-17.0 [facility] Comment on above: Performed By: #### B MP #### [facility] [address] [place], [place] [address] Dr. Devin Florentino Urea nitrogen/Creatinine [Mass ratio] 30.6 mg/mg Normal [facility] Comment on above: Performed By: #### B MP #### [facility] [address] [place] [id number] Devin Florentino [facility]2020 Albumin [Mass/Vol] 4.0 g/dL Normal 3.6-5.1 [facility] Comment on above: Performed By: #### 7 600, 57622, 44869 #### [facility] of [place] [address] Stock Pitcher: Jules Arreola MD Albumin/Globulin [Mass ratio] 1.4 {ratio} Normal 1.0-2.5 [facility] Comment on above: Performed By: #### 7 600, 86991, 75284 #### [facility] [place] [address] Stock Pitcher: Jules Arreola MD ALP [Catalytic activity/Vol] 45 U/L Normal 31-125 [facility] Comment on above: Performed By: #### 7 600, 71711, 08898 #### [facility] [place] [address] Stock Pitcher: Jules Arreola MD ALT [Catalytic activity/Vol] 20 U/L Normal 6-29 [facility] Comment on above: Performed By: #### 7 600, 49390, 85758 #### [facility] [place] [address] Stock Pitcher: Jules Arreola MD AST [Catalytic activity/Vol] 13 U/L Normal 10-30 [facility] Comment on above: Performed By: #### 7 600, 44273, 66671 #### [facility] [place] [address] Stock Pitcher: Jules Arreola MD Bilirubin [Mass/Vol] 0.4 mg/dL Normal 0.2-1.2 [facility] Comment on above: Performed By: #### 7 600, 65534, 38901 #### [facility] of [address], [address] [place] [address] Stock Pitcher: Jules Arreola MD BUN/CREATININE RATIO NOT APPLICABLE Normal 6-22 [facility] Comment on above: Performed By: #### 7 600, 76875, 19878 #### [facility] of [address], [address] [place] [address] Stock Pitcher: Jules Arreola MD Calcium [Mass/Vol] 9.4 mg/dL Normal 8.6-10.2 [facility] Comment on above: Performed By: #### 7 600, 57943, 74765 #### [facility] of [place] [address] Stock Pitcher: Jules Arreola MD Chloride [Moles/Vol] 104 mmol/L Normal 98-110 [facility] Comment on above: Performed By: #### 7 600, 37790, 69585 #### [facility] of [place] [address] Stock Pitcher: Jules Arreola MD CO2 [Moles/Vol] 28 mmol/L Normal 20-32 [facility] Comment on above: Performed By: #### 7 600, 68273, 98041 #### [facility] of [place] [address] Stock Pitcher: Jules Arreola MD Creatinine [Mass/Vol] 0.75 mg/dL Normal 0.50-1.10 [facility] Comment on above: Performed By: #### 7 600, 66673, 13408 #### [facility] of [place] [address] Stock Pitcher: Jules Arreola MD eGFR NON-AFR. CYMRAES 105 mL/min/1.73m2 Normal > OR = 60 [facility] Comment on above: Performed By: #### 7 600, 57060, 40087 #### [facility] of [place] [address] Stock Pitcher: Jules Arroela MD GFR/1.73 sq M.predicted among blacks MDRD (S/P/Bld) [Vol rate/Area] 121 mL/min/{1.73_m2} Normal > OR = 60 [facility] Comment on above: Performed By: #### 7 600, 63983, 97944 #### [facility] [address], [address] [place] [address] Stock Pitcher: Jules Arreola MD Globulin (S) [Mass/Vol] 2.8 g/dL Normal 1.9-3.7 [facility] Comment on above: Performed By: #### 7 600, 92164, 87329 #### [facility] [address], [address] [place] [address] Stock Pitcher: Jules Arreola MD Glucose [Mass/Vol] 97 mg/dL Normal 65-99 [facility] Comment on above: Result Comment: Fasting reference interval Performed By: #### 7 600, 12442, 24570 #### [facility] of [address], [address] [place] [address] Stock Pitcher: Jules Arreola MD Potassium [Moles/Vol] 4.2 mmol/L Normal 3.5-5.3 [facility] Comment on above: Performed By: #### 7 600, 83146, 64917 #### [facility] [place] [address] Stock Pitcher: Jules Arreola MD Protein [Mass/Vol] 6.8 g/dL Normal 6.1-8.1 [facility] Comment on above: Performed By: #### 7 600, 58583, 87827 #### [facility] of [place] [address] Stock Pitcher: Jules Arreola MD Sodium [Moles/Vol] 140 mmol/L Normal 135-146 [facility] Comment on above: Performed By: #### 7 600, 55293, 50365 #### [facility] [place] [address] Stock Pitcher: Jules Arreola MD Urea nitrogen [Mass/Vol] 17 mg/dL Normal 7-25 [facility] Comment on above: Performed By: #### 7 600, 19573, 67777 #### [facility] [address], [address] [place] [address] Stock Pitcher: Jules Arreola MD LIPID PANEL, [address] Cholesterol [Mass/Vol] 196 mg/dL Normal <200 [facility] Comment on above: Performed By: #### 7 600, 64102, 14891 #### [facility] [address], [address] [place] [address] Stock Pitcher: Jules Arreola MD Cholesterol in HDL [Mass/Vol] 54 mg/dL Normal > OR = 50 [facility] Comment on above: Performed By: #### 7 600, 92836, 53332 #### [facility] [address], [address] [place] [address] Stock Pitcher: Jules Arreoal MD Cholesterol in LDL [Mass/Vol] 115 mg/dL [...] LDL-C. Fidencio ACOSTA et al. EDITH. 2013;310(19): 9505-2504 (http://education.SavingStar.Elevate Research/faq/SPM482) Performed By: #### 7 600, 60079, 69440 #### [facility] [address], [address] [place] [address] Stock Pitcher: Jules Arreola MD Cholesterol.total/Ch olesterol in HDL [Mass ratio] 3.6 {ratio} Normal <5.0 [facility] Comment on above: Performed By: #### 7 600, 62336, 43293 #### [facility] [address], [address] [place] [address] Stock Pitcher: Jules Arreola MD NON HDL CHOLESTEROL 142 mg/dL (calc) High <130 [facility] Comment on above: Result Comment: For patients with diabetes plus 1 major ASCVD risk factor, treating to a non-HDL-C goal of <100 mg/dL (LDL-C of <70 mg/dL) is considered a therapeutic option. Performed By: #### 7 600, 79870, 98668 #### [facility] [address], [address] [place] [address] Stock Pitcher: Jules Arreola MD Triglyceride [Mass/Vol] 156 mg/dL High <150 [facility] Comment on above: Performed By: #### 7 600, 29969, 20616 #### [facility] [address], [address] [place] [address] Stock Pitcher: Jules Arreola MD VITAMIN D,25-OH,TOTAL,IAon 1 VITAMIN [...] D, (D2,D3), LC/MS/MS is recommended: order code 26942 (patients >2yrs). See Note 1 Note 1 For additional information, please refer to http://education.SavingStar.Elevate Research/faq/JLK430 (This link is being provided for informational/ educational purposes only.) Performed By: #### 7 600, 85999, 29072 #### [facility] [address], [address] [place] [address] Stock Pitcher: Jules Arreola MD Social History Date Type Detail Facility Start: 05-13-2023 Alcohol intake Ex-drinker (finding) [facility] Start: 07-20-2022 Tobacco smoking status NHIS Never smoked tobacco [facility] Start: 07-20-2022 Tobacco use and exposure Smokeless tobacco non-user [facility] Start: 01-18-2022 End: 01-22-2023 History of Social function [facility] Start: 01-18-2022 End: 01-22-2023 Social connection and isolation panel [facility] Start: 01-18-2022 Education 12 [facility] Start: 12-31-2019 Gender identity Identifies as female gender (finding) [facility] Start: 12-31-2019 Sexual orientation Heterosexual (finding) [facility] Start: 1985 Sex Assigned At Female [facility] Do you belong to any clubs or organizations such as baptist groups, unions, fraternal or athletic groups, or school groups? Yes [facility] Are you now , , , , never or living with a partner? [facility] How often to you hav e a drink containing alcohol? Never [facility] How many standard dr inks containing alcohol do you have on a typical day? Patient does not drink [facility] Do you feel stress - tense, restless, nervous, or anxious, or unable to sleep at night because your mind is troubled all the time - these days [OSQ] Only a little [facility] Vital Signs Date Time Vital Sign Value Performing Clinician Margie villarreal 05-12-2023 10:12-0500 Body height 170.2 cm [employer] Work Phone: [facility] 05-12-2023 10:12-0500 Body mass index (BMI) [Ratio] 53.52 kg/m2 [employer] Work Phone: [facility] 05-12-2023 10:12-0500 Body weight 154.99 kg [employer] Work Phone: [facility] 05-12-2023 10:12-0500 Diastolic blood pressure 103 mm[Hg] [employer] Work Phone: [facility] 05-12-2023 10:12-0500 Heart rate 65 /min Sabrina Smith [employer] Work Phone: [facility] 05-12-2023 10:12-0500 SaO2% (BldA) [Mass fraction] 100 % Sabrina Smith [employer] Work Phone: [facility] 05-12-2023 10:12-0500 Systolic blood pressure 157 mm[Hg] Sabrina Smith [employer] Work Phone: [facility] Note 05-21-2023 Telephone Encounter - RAJANI De La Garza - 05/21/2023 1:25 PM EST Note Date & Type Note Facility 05-21-2023 Miscellaneous Notes Formattin g of this note might be different from the original. Images from the original note were not included. [place]AP Mask [place] [facility] [place] Confirmed documented in this encounter [facility] Telephone encounter Note 05-21-2023 Telephone Encounter - RAJANI De La Garza - 05/21/2023 1:25 PM EST Note Date & Type Note Facility 05-21-2023 Telephone encount er Note Images from the original note were not included. PAP Mask and Supplies [place] [facility] [place] Confirmed [facility] History of Present illness Narrative 05-12-2023 Sabrinaarias SmihtLAUREN - 05/12/2023 10:00 AM EST Note Date [...] heated inline humidifier. 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[employer]ius Sleepiness Scale: Sitting and Reading: Never Watching [...] min Stress: No Stress Concern Present (01/18/2022) [place] [facility] [employer] - Occupational Stress Questionnaire Feeling of Stress : Only a little Social Connections: Socially Integrated (01/18/2022) Social Connection and Isolation Panel [NHANES] Frequency of Communication with Friends and Family: More than three times a week Frequency of Social Gatherings with Friends and Family: Three times a week Attends Confucianist Services: More than 4 times per year [...] FDA warning against ozone / UV CPAP 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 Advised to stop using immediately. Education sheet [...] not to drive if sleepy, and to dust puller if sleepiness occurs while driving. Above plan [...] that have escaped final proofreading. Sabrina Smith [facility] Office: [phone] 7:17 PM on 05/13/2023 CC: MAUDE GANT APRN-LAUREN Jane 05/13/231920 documented in this encounter [employer] [facility] Instructions 05-12-2023 Patient Instructions Note Date & Type Note Facility 05-12-2023 Instructions LAUREN Mullen - 05/12/2023 10:00 AM EST If you re looking for general health and wellness resources, please visit [email or web address]. documented in this encounter [employer] [facility] Evaluation note Note Date & Type Note Facility Evaluation note Diagnosis RACHEL (obstructive sleep apnea)- Primary Obstructive sleep apnea (adult) (pediatric) CPAP use counseling BMI 50.0-59.9, adult ([facility]) documented in this encounter [facility] [employer] [facility] Instructions Note Date & Type Note [...] CREATED AUTHOR AUTHOR'S ORGANIZ ATION 02/27/2022 [facility] DATE CREATED AUTHOR AUTHOR'S ORGANIZ ATION 01/10/2023 [facility] DATE CREATED AUTHOR AUTHOR'S ORGANIZ ATION 05/19/2023 [facility] Reason for Visit (unrecogniz ed section and content) Reason Comments Sleep Apnea DME: [facility] (unrecognized sec tion and content) Services Coordinator Relationship Specialty Start Date End Date Maude Gant APRN-FNP [address] [place] [address] PCP - General Internal Medicine 01/22/23 Services Coordinator Relationship Specialty Start Date End Date Maude Gant APRN-FNP [address] [place] [address] PCP - General Internal Medicine 01/22/23 FOR [...] BE BASED ON THE PRIMARY CLINICAL RECORDS. [facility]orse [facility]. provides no warranty or guarantee of the accuracy or completeness of information in this document.
== END 2023-09-03 08:41 | disposition home or self-care (01) ==
LOC: NOMS 08:40
PROVIDERS: PCP Nurse Practitioner Family; Visit Provider Obstetrics & Gynecology
DX: Z34.91 Encounter for supervision of normal pregnancy, unspecified, first trimester (principal)
CPT/HCPCS: 76817

== ENCOUNTER 2023-09-06 07:57 | Outpatient (OUT) | payer OTHER, SELFPAY ==
--- OUTSIDE RECORDS SUMMARY | 2023-09-06 08:05 | XMS_ITS | CCD ---
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 Name Role Phone JAIR, AHMAD Attending Unavailable ALFREDA, DR MAUDE Smith Primary Care Unavailable JAIR, AHMAD Consulting Unavailable JAIR, AHMAD Admitting Unavailable KUNKadie, DR MAUDE Smith Primary Care Unavailable JAIR, CHRISTOPHERD Consulting Unavailable JAIR, AHMAD Admitting Unavailable JAIR, [...] ALFREDA, DR MAUDE Smith Primary Care Unavailable LAFREDA, DR MAUDE Smith Admitting Unavailable ALFREDA, DR MAUDE Smith Attending Unavailable ALFREDA, DR MAUDE Smith Consulting Unavailable Alfreda WORKFORCE MANAGEMENT COORDINATOR-ANGLEDOZER OPERATOR, Maude Wall Primary Care Provider SABRINA SMITH Attending Unavailable MAUDE GANT Referring Unavailable MAUDE GANT Primary Care Unavailable Allergies Allergy Classification Reported Allergen(s) Allergy Type Date of Onset Reaction(s) Facility (1 source) Penicillins Drug allergy (disorder) 11-12-2014 [facility] Repository (3 sources) Penicillin G; Translations: [PENICILLIN G] Drug Allergy 08-07-2017 [facility] Medications Current Medications Medication Drug Class(es) [...] complication, without long-term current use of insulin ([facility]) Inject 0.5 mg under the skin every [...] Prolactin 64.0 ng/mL Critically high 4.8-23.3 [facility] Comment on above: Performed By: #### P ROLAC #### [facility] [address] [place] [address] Dr. Devin Florentino RENAL FUNCTION PANELon 02-19 Albumin [Mass/Vol] 3.7 g/dL Normal 3.4-5.0 [facility] Comment on above: Performed By: #### R ENAL #### [facility] [address] [address] [address] Devin Florentino Calcium [Mass/Vol] 9.2 mg/dL Normal 8.5-10.1 [facility] Comment on above: Performed By: #### R ENAL #### [facility] [address] [address] [address] Devin Florentino Chloride [Moles/Vol] 105 mmol/L Normal 98-107 [facility] Comment on above: Performed By: #### R ENAL #### [facility] [address] [address] [address] Devin Florentino CO2 [Moles/Vol] 29.7 mmol/L Normal 21.0-32.0 [facility] Comment on above: Performed By: #### R ENAL #### [facility] [address] [address] [address] Devin Florentino Creatinine [Mass/Vol] 0.72 mg/dL Normal 0.55-1.02 [facility] Comment on above: Performed By: #### R ENAL #### [facility] [address] [address] [address] Devin Florentino EGFR-AF ERITREAN >60 Normal >=60 [facility] Comment on above: Performed By: #### R ENAL #### [facility] [address] [address] [address] Devin Florentino EGFR-NON AF ERITREAN >60 Normal >=60 [facility] Comment on above: Performed By: #### R ENAL #### [facility] [address] [address] [address] Devin Florentino Glucose [Mass/Vol] 140 mg/dL Critically high 74-106 [facility] Comment on above: Performed By: #### R ENAL #### [facility] [address] [address] [address] Devin Florentino Phosphate [Mass/Vol] 4.3 mg/dL Normal 2.6-4.7 [facility] Comment on above: Performed By: #### R ENAL #### [facility] [address] [address] [address] Devin Florentino Potassium [Moles/Vol] 4.0 mmol/L Normal 3.5-5.1 [facility] Comment on above: Performed By: #### R ENAL #### [facility] [address] [address] [address] Devin Florentino Sodium [Moles/Vol] 141 mmol/L Normal 136-145 [facility] Comment on above: Performed By: #### R ENAL #### [facility] [address] [address] [address] Devin Florentino Urea nitrogen [Mass/Vol] 27.0 mg/dL Critically high 7.0-18.0 [facility] Comment on above: Performed By: #### R ENAL #### [facility] [address] [address] [address] Devin Florentino VITAMIN D 25 OHon 02-19-2022 VIT D 25-OH 16.2 ng/mL Normal [facility] Comment on above: Performed By: #### V ITAD #### [facility] [address] [address] [address] Devin Florentino VIT D RANGES SEE BELOW Normal [facility] Comment on above: Result Comment: <20 ng/mL Vit D deficient 20 - <30 ng/mL Vit D insufficient 30 - 100 ng/mL Vit D sufficient >100 ng/mL Potential Toxicity Performed By: #### V ITAD #### [facility] [address] [place] [address] Dr. Devin Florentino GLYCOHEMOGLOBIN A1Con 2021 ADA RECOMMENDATION SEE BELOW Normal [facility] Comment on above: Result Comment: ADA RECOMMENDED LIMIT 4.0 - 6.0 ADA THERAPEUTIC TARGET < 7.0 ACTION SUGGESTED > 7.0 Performed By: #### A 1C #### [facility] [address] [place] [address] Dr. Devin Florentino Glucose [Mass/Vol] 120 mg/dL Normal [facility] Comment on above: Performed By: #### A 1C #### [facility] [address] [place] [address] Dr. Devin Florentino HbA1c (Bld) [Mass fraction] 5.8 % Normal 4.5-6.2 [facility] Comment on above: Performed By: #### A 1C #### [facility] [address] [place] [address] Dr. Devin Florentino LIPID PROFILEon 01-15-2022 CHOL-HDL RATIO NORM SEE BELOW Normal [facility] Comment on above: Result Comment: 3.3 - 4.4 LOW RISK 4.4 - 7.1 AVERAGE RISK 7.1 - 11.0 MODERATE RISK >11.0 HIGH RISK Performed By: #### L IPID, CMP #### [facility] [address] [place] [address] Dr. Devin Florentino Cholesterol [Mass/Vol] 167 mg/dL Normal <=200 [facility] Comment on above: Performed By: #### L IPID, CMP #### [facility] [address] [address] [address] Devin Florentino Cholesterol in HDL [Mass/Vol] 47 mg/dL Normal 40-60 [facility] Comment on above: Performed By: #### L IPID, CMP #### [facility] [address] [address] [address] Devin Florentino Cholesterol in LDL [Mass/Vol] 103.0 mg/dL Normal [facility] Comment on above: Performed By: #### L IPID, CMP #### [facility] [address] [place] [address] Dr. Devin Florentino Cholesterol.total/Ch olesterol in HDL [Mass ratio] 3.6 {ratio} Normal [facility] Comment on above: Performed By: #### L IPID, CMP #### [facility] [address] [place] [address] Dr. Devin Florentino HDL NORMAL > or = 60 mg/dl - LO W CARDIOVASCULAR RISK <40 mg/dl - HIGH CARDIOVASCULAR RISK Normal [facility] Comment on above: Performed By: #### L IPID, CMP #### [facility] [address] [place] [address] Dr. Devin Florentino LDL CALC NORMAL SEE BELOW Normal [facility] Comment on above: Result Comment: <100 mg/dl OPTIMAL 100 - 129 mg/dl NEAR OR ABOVE OPTIMAL 130 - 159 mg/dl BORDERLINE HIGH 160 - 189 mg/dl HIGH >190 mg/dl VERY HIGH Performed By: #### L IPID, CMP #### [facility] [address] [address] [address] Devin Florentino Triglyceride [Mass/Vol] 81 mg/dL Normal <=150 [facility] Comment on above: Performed By: #### L IPID, CMP #### [facility] [address] [address] [address] Devin Florentino VLDL CALC 16.2 mg/dL Normal [facility] Comment on above: Performed By: #### L IPID, CMP #### [facility] [address] [address] [address] Devin Florentino PROF 14(COMP METB)on 022 Albumin [Mass/Vol] 3.7 g/dL Normal 3.4-5.0 [facility] Comment on above: Performed By: #### L IPID, CMP #### [facility] [address] [place] [address] Dr. Devin Florentino Albumin/Globulin [Mass ratio] 1.0 {ratio} Normal [facility] Comment on above: Performed By: #### L IPID, CMP #### [facility] [address] [place] [address] Dr. Devin Florentino ALP [Catalytic activity/Vol] 58 U/L Normal 46-116 [facility] Comment on above: Performed By: #### L IPID, CMP #### [facility] [address] [place] [address] Dr. Devin Florentino ALT [Catalytic activity/Vol] 40 U/L Normal 14-59 [facility] Comment on above: Performed By: #### L IPID, CMP #### [facility] [address] [place] [address] Dr. Devin Florentino Anion gap [Moles/Vol] 7.7 mmol/L Normal [facility] Comment on above: Performed By: #### L IPID, CMP #### [facility] [address] [place] [address] Dr. Devin Florentino AST [Catalytic activity/Vol] 20 U/L Normal 15-37 [facility] Comment on above: Performed By: #### L IPID, CMP #### [facility] [address] [place] [address] Dr. Devin Florentino Bilirubin [Mass/Vol] 0.5 mg/dL Normal 0.2-1.0 [facility] Comment on above: Performed By: #### L IPID, CMP #### [facility] [address] [place] [address] Dr. Devin Florentino Calcium [Mass/Vol] 9.0 mg/dL Normal 8.5-10.1 [facility] Comment on above: Performed By: #### L IPID, CMP #### [facility] [address] [place] [address] Dr. Devin Florentino Chloride [Moles/Vol] 103 mmol/L Normal 98-107 [facility] Comment on above: Performed By: #### L IPID, CMP #### [facility] [address] [place] [address] Dr. Devin Florentino CO2 [Moles/Vol] 30.6 mmol/L Normal 21.0-32.0 [facility] Comment on above: Performed By: #### L IPID, CMP #### [facility] [address] [place] [address] Dr. Devin Florentino Creatinine [Mass/Vol] 0.73 mg/dL Normal 0.55-1.02 [facility] Comment on above: Performed By: #### L IPID, CMP #### [facility] [address] [place] [address] Dr. Devin Florentino EGFR-AF ERITREAN >60 Normal >=60 [facility] Comment on above: Performed By: #### L IPID, CMP #### [facility] [address] [place] [address] Dr. Devin Florentino EGFR-NON AF ERITREAN >60 Normal >=60 [facility] Comment on above: Performed By: #### L IPID, CMP #### [facility] [address] [place] [address] Dr. Devin Florentino Globulin (S) [Mass/Vol] 3.6 g/dL Normal [facility] Comment on above: Performed By: #### L IPID, CMP #### [facility] [address] [place] [address] Dr. Devin Florentino Glucose [Mass/Vol] 105 mg/dL Normal 74-106 [facility] Comment on above: Performed By: #### L IPID, CMP #### [facility] [address] [place] [address] Dr. Devin Florentino Potassium [Moles/Vol] 3.9 mmol/L Normal 3.5-5.1 [facility] Comment on above: Performed By: #### L IPID, CMP #### [facility] [address] [place] [address] Dr. Devin Florentino Protein [Mass/Vol] 7.3 g/dL Normal 6.4-8.2 [facility] Comment on above: Performed By: #### L IPID, CMP #### [facility] [address] [place] [address] Dr. Devin Florentino Sodium [Moles/Vol] 138 mmol/L Normal 136-145 [facility] Comment on above: Performed By: #### L IPID, CMP #### [facility] [address] [place] [address] Dr. Devin Florentino Urea nitrogen [Mass/Vol] 19.0 mg/dL Critically high 7.0-18.0 [facility] Comment on above: Performed By: #### L IPID, CMP #### [facility] [address] [place] [address] Dr. Devin Florentino Urea nitrogen/Creatinine [Mass ratio] 26.0 mg/mg Normal [facility] Comment on above: Performed By: #### L IPID, CMP #### [facility] [address] [place] [address] Dr. Devin Florentino PAP ACOG PANEL 2: 30 to 65on 11-25-2021 . . Normal [facility] Comment on above: Result Comment: Perf ormed at: BA Performed By: #### [id number] #### [facility] [address] [place] [address] Dr. Devin Florentino Age Gdln ACOG Testing 30-65 [facility] Comment on above: Performed By: #### [id number] #### [facility] [address] [place] [address] Dr. Devin Florentino DIAGNOSIS: Comment [facility] Comment on above: Result Comment: UNSA TISFACTORY FOR EVALUATION. THIS SPECIMEN WAS RESCREENED PART OF OUR PERSONAL CAREGIVER PROGRAM. Performed at: BA Performed By: #### 4 [id number] #### [facility] [address] [place] [address] Dr. Devin Florentino HPV Aptima Negative Normal Negative [facility] Comment on above: Result Comment: This nucleic acid amplification test detects fourteen high-risk HPV types (16,18,31,33,35,39,45,51,52,56,58,59,66,68) without differentiation. Performed at: =G Performed By: #### 4 [id number] #### [facility] [address] [place] [address] Dr. Devin Florentino Methodology: Comment Normal [facility] Comment on above: Result Comment: This liquid based ThinPrep(R) pap test was screened with the use of an image guided system. Performed at: WB Performed By: #### [id number] #### [facility] [address] [place] [address] Dr. Devin Florentino Note: Comment Normal [facility] Comment on above: Result Comment: The Pap smear is a screening test designed to aid in the detection of premalignant and malignant conditions of the uterine cervix. It is not a diagnostic procedure and should not be used as the sole means of detecting cervical cancer. Both false-positive and false-negative reports do occur. . Performed at: WB Performed By: #### 4 [id number] #### [facility] [address] [place] [address] Dr. Devin Florentino Performed by: Comment Normal [facility] Comment on above: Result Comment: Shamar Huang, Livestock Broker (ASCP) Performed at: BA Performed By: #### 4 [id number] #### [facility] [address] [place] [address] Dr. Devin Florentino QC reviewed by: Comment Normal [facility] Comment on above: Result Comment: Val Salmon, Livestock Broker (ASCP) Performed at: BA Performed By: #### 4 [id number] #### [facility] [address] [place] [address] Dr. Devin Florentino Specimen adequacy: Comment Normal [facility] Comment on above: Result Comment: Spec imen processed and examined but unsatisfactory for evaluation of epithelial abnormality because of insufficient cellularity. Performed at: BA Performed By: #### 4 [id number] #### [facility] [address] [place], [place] [address] Dr. Devin Florentino PROLACTINon 09-06-2021 Prolactin 92.6 ng/mL Critically high 4.8-23.3 [facility] Comment on above: Performed By: #### P MARCEL #### [facility] [address] [address] [address] Devin Florentino ALBUMIN, RANDOM URINE W/CREA TININEon 06-24-2021 ALBUMIN, URINE 0.6 mg/dL Normal See Note: [facility] Comment on above: Result Comment: Refe rence Range: Reference Range Not established Performed By: #### 7 46, 7600, 73848, 6517 #### [facility] [address] [address] Grounds Foreman: Jules Arreola MD ALBUMIN/CREATININE RATIO, RANDOM URINE [...] category. Performed By: #### 7 46, 7600, 33351, 6517 #### [facility] [address] [place] [address] Grounds Foreman: Jules Arreola MD Creatinine (U) [Mass/Vol] 53 mg/dL Normal 20-275 [facility] Comment on above: Performed By: #### 7 46, 7600, 64767, 6517 #### [facility] [address] [place] [address] Grounds Foreman: Jules Arreola MD [facility] 06-24-2021 Albumin [Mass/Vol] 4.3 g/dL Normal 3.6-5.1 [facility] Comment on above: Performed By: #### 7 46, 7600, 90536, 6517 #### [facility] [address] [place] [address] Grounds Foreman: Jules Arreola MD Albumin/Globulin [Mass ratio] 1.6 {ratio} Normal 1.0-2.5 [facility] Comment on above: Performed By: #### 7 46, 7600, 22849, 6517 #### [facility] of [address], [address] [place] [address] Grounds Foreman: Jules Arreola MD ALP [Catalytic activity/Vol] 53 U/L Normal 31-125 [facility] Comment on above: Performed By: #### 7 46, 7600, 95311, 6517 #### [facility] of [address], [address] [place] [address] Grounds Foreman: Jules Arreola MD ALT [Catalytic activity/Vol] 32 U/L High 6-29 [facility] Comment on above: Performed By: #### 7 46, 7600, 90421, 6517 #### [facility] of [address], [address] [place] [address] Grounds Foreman: Jules Arreola MD AST [Catalytic activity/Vol] 18 U/L Normal 10-30 [facility] Comment on above: Performed By: #### 7 46, 7600, 02144, 6517 #### [facility] of [address] [address] Grounds Foreman: Jules Arreola MD Bilirubin [Mass/Vol] 0.4 mg/dL Normal 0.2-1.2 [facility] Comment on above: Performed By: #### 7 46, 7600, 21863, 6517 #### [facility] of [address], [address] [place] [address] Grounds Foreman: Jules Arreola MD BUN/CREATININE RATIO NOT APPLICABLE Normal 6-22 [facility] Comment on above: Performed By: #### 7 46, 7600, 33209, 6517 #### [facility] of [address] [place] [address] Grounds Foreman: Jules Arreola MD Calcium [Mass/Vol] 9.6 mg/dL Normal 8.6-10.2 [facility] Comment on above: Performed By: #### 7 46, 7600, 07772, 6517 #### [facility] of [address] [place] [address] Grounds Foreman: Jules Arreola MD Chloride [Moles/Vol] 104 mmol/L Normal 98-110 [facility] Comment on above: Performed By: #### 7 46, 7600, , 6517 #### [facility] of [address] [place] [address] Grounds Foreman: Jules Arreola MD CO2 [Moles/Vol] 29 mmol/L Normal 20-32 [facility] Comment on above: Performed By: #### 7 46, 7600, 95272, 6517 #### [facility] [address] [place] [address] Grounds Foreman: Jules Arreola MD Creatinine [Mass/Vol] 0.70 mg/dL Normal 0.50-1.10 [facility] Comment on above: Performed By: #### 7 46, 7600, 20945, 6517 #### [facility] [address] [place] [address] Grounds Foreman: Jules Arreola MD eGFR NON-AFR. ERITREAN 113 mL/min/1.73m2 Normal > OR = 60 [facility] Comment on above: Performed By: #### 7 46, 7600, , 6517 #### [facility] of [address] [place] [address] Grounds Foreman: Jules Arreola MD GFR/1.73 sq M.predicted among blacks MDRD (S/P/Bld) [Vol rate/Area] 131 mL/min/{1.73_m2} Normal > OR = 60 [facility] Comment on above: Performed By: #### 7 46, 7600, 63382, 6517 #### [facility] of [address] [place] [address] Grounds Foreman: Jules Arreola MD Globulin (S) [Mass/Vol] 2.7 g/dL Normal 1.9-3.7 [facility] Comment on above: Performed By: #### 7 46, 7600, 32598, 6517 #### [facility] [address] [place] [address] Grounds Foreman: Jules Arreola MD Glucose [Mass/Vol] 101 mg/dL High 65-99 [facility] Comment on above: Result Comment: Fasting reference interval For someone without known diabetes, a glucose value between 100 and 125 mg/dL is consistent with prediabetes and should be confirmed with a follow-up test. Performed By: #### 7 46, 7600, 89599, 6517 #### [facility] [address] [place] [address] Grounds Foreman: Jules Arreola MD Potassium [Moles/Vol] 4.0 mmol/L Normal 3.5-5.3 [facility] Comment on above: Performed By: #### 7 46, 7600, , 6517 #### [facility] [address] [place] [address] Grounds Foreman: Jules Arreola MD Protein [Mass/Vol] 7.0 g/dL Normal 6.1-8.1 [facility] Comment on above: Performed By: #### 7 46, 7600, , 6517 #### [facility] [place] [address] Grounds Foreman: Jules Arreola MD Sodium [Moles/Vol] 139 mmol/L Normal 135-146 [facility] Comment on above: Performed By: #### 7 46, 7600, 18217, 6517 #### [facility] [address] [place] [address] Grounds Foreman: Jules Arreola MD Urea nitrogen [Mass/Vol] 23 mg/dL Normal 7-25 [facility] Comment on above: Performed By: #### 7 46, 7600, 02757, 6517 #### [facility] [address] [place] [address] Grounds Foreman: Jules Arreola MD LIPID PANEL, [facility] Cholesterol [Mass/Vol] 196 mg/dL Normal <200 [facility] Comment on above: Order Comment: FASTI NG:YES FASTING: YES Performed By: #### 7 46, 7600, 50503, 6517 #### [facility] [address], [address] [place] [address] Grounds Foreman: Jules Arreola MD Cholesterol in HDL [Mass/Vol] 56 mg/dL Normal > OR = 50 [facility] Comment on above: Order Comment: FASTI NG:YES FASTING: YES Performed By: #### 7 46, 7600, 33021, 6517 #### [facility] [address], [address] [place] [address] Grounds Foreman: Jules Arreola MD Cholesterol in LDL [Mass/Vol] [...] LDL-C. Fidencio ACOSTA et al. EDITH. 2013;310(19): 8239-5160 (http://education.Eat Club.Doorbot/faq/YYG945) Performed By: #### 7 46, 7600, 15318, 6517 #### [facility] [address], [address] [place] [address] Grounds Foreman: Jules Arreola MD Cholesterol.total/Ch olesterol in HDL [Mass ratio] 3.5 {ratio} Normal <5.0 [facility] Comment on above: Order Comment: FASTI NG:YES FASTING: YES Performed By: #### 7 46, 7600, 42359, 6517 #### [facility] [address], [address] [place] [address] Grounds Foreman: Jules Arreola MD NON HDL CHOLESTEROL 140 mg/dL (calc) High <130 [facility] Comment on above: Order Comment: FASTI NG:YES FASTING: YES Result Comment: For patients with diabetes plus 1 major ASCVD risk factor, treating to a non-HDL-C goal of <100 mg/dL (LDL-C of <70 mg/dL) is considered a therapeutic option. Performed By: #### 7 46, 2720, 99961, 6517 #### [facility] [address], [address] [place] [address] Grounds Foreman: Jules Arreola MD Triglyceride [Mass/Vol] 104 mg/dL Normal <150 [facility] Comment on above: Order Comment: FASTI NG:YES FASTING: YES Performed By: #### 7 46, 7600, 03030, 6517 #### [facility] [address], [address] [place] [address] Grounds Foreman: Jules Arreola MD PROLACTINon 06-24-2021 PROLACTIN 51.6 ng/mL High [facility] Comment on above: Result Comment: Refe rence Range Females Non- 3.0-30.0 10.0-209.0 Postmenopausal 2.0-20.0 Your request to have a duplicate copy faxed has been acknowledged. Queued to: [id number] Performed By: #### 7 46, 8800, 94234, 6517 #### [facility] [address], [address] [place] [address] Grounds Foreman: Jules Arreola MD Covid-19 PCR (CVDTBH)on 02-21 SARS-CoV-2 (COVID-19) RNA STANLEY+probe Ql (Unsp spec) Not detected Normal NOT DETECTED [facility] Comment on above: Result Comment: This test is not yet approved or cleared by the [place] FDA. When there are no FDA-approved or cleared tests available, and other criteria are met, FDA can make tests available under an emergency access mechanism called an Emergency Use Authorization (EUA). The EUA for this test is supported by the [place] of Health and Human Service's (HHS's) declaration [...] Performed By: #### L IPID, CMP #### [facility] [address] [place] [address] Dr. Devin Florentino PROLACTINon 03-05-2021 Prolactin 79.1 ng/mL Critically high 4.8-23.3 [facility] Comment on above: Performed By: #### P ROLAC #### [facility] [address] [place] [address] Dr. Devin Florentino PROF CHEM 8 (BAS METB)on Anion gap [Moles/Vol] 9.9 mmol/L Normal [facility] Comment on above: Performed By: #### B MP #### [facility] [address] [place] [address] Dr. Devin Florentino Calcium [Mass/Vol] 9.6 mg/dL Normal 8.4-10.2 [facility] [facility] Comment on above: Performed By: #### B MP #### [facility] [address] [place] [address] Dr. Devin Florentino Chloride [Moles/Vol] 104 mmol/L Normal 98-107 [facility] Comment on above: Performed By: #### B MP #### [facility] [address] [place] [address] Dr. Devin Florentino CO2 [Moles/Vol] 32.2 mmol/L Critically high 22.0-30.0 [facility] Comment on above: Performed By: #### B MP #### [facility] [address] [place] [address] Dr. Devin Florentino Creatinine [Mass/Vol] 0.72 mg/dL Normal 0.52-1.04 [facility] Comment on above: Performed By: #### B MP #### [facility] [address] [address] [address] Devin Florentino EGFR-AF ERITREAN >60 Normal >=60 [facility] Comment on above: Performed By: #### B MP #### [facility] [address] [address] [address] Devin Florentino EGFR-NON AF ERITREAN >60 Normal >=60 [facility] Comment on above: Performed By: #### B MP #### [facility] [address] [address] [address] Devin Florentino Glucose [Mass/Vol] 118 mg/dL Critically high 74-106 [facility] Comment on above: Performed By: #### B MP #### [facility] [address] [place] [address] Dr. Devin Florentino Potassium [Moles/Vol] 4.1 mmol/L Normal 3.4-5.0 [facility] Comment on above: Performed By: #### B MP #### [facility] [address] [address] [address] Devin Florentino Sodium [Moles/Vol] 142 mmol/L Normal 137-145 [facility] Comment on above: Performed By: #### B MP #### [facility] [address] [place] [address] Dr. Devin Florentino Urea nitrogen [Mass/Vol] 22.0 mg/dL Critically high 7.0-17.0 [facility] Comment on above: Performed By: #### B MP #### [facility] [address] [address] [address] Devin Florentino Urea nitrogen/Creatinine [Mass ratio] 30.6 mg/mg Normal [facility] Comment on above: Performed By: #### B MP #### [facility] [address] [address] [address] Devin Florentino COMPREHENSIVE METABOLIC PANE Osmin 12-24-2020 Albumin [Mass/Vol] 4.0 g/dL Normal 3.6-5.1 [facility] Comment on above: Performed By: #### 7 600, 21940, 81168 #### [facility] of [address], [address] [place] [address] Grounds Foreman: Jules Arreola MD Albumin/Globulin [Mass ratio] 1.4 {ratio} Normal 1.0-2.5 [facility] Comment on above: Performed By: #### 7 600, 19081, 41504 #### [facility] of [address], [address] [place] [address] Grounds Foreman: Jules Arreola MD ALP [Catalytic activity/Vol] 45 U/L Normal 31-125 [facility] Comment on above: Performed By: #### 7 600, 25210, 69548 #### [facility] of [address], [address] [place] [address] Grounds Foreman: Jules Arreola MD ALT [Catalytic activity/Vol] 20 U/L Normal 6-29 [facility] Comment on above: Performed By: #### 7 600, 52938, 60271 #### [facility] of [address], [address] [place] [address] Grounds Foreman: Jules Arreola MD AST [Catalytic activity/Vol] 13 U/L Normal 10-30 [facility] Comment on above: Performed By: #### 7 600, 05648, 84621 #### [facility] [address], [address] [place] [address] Grounds Foreman: Jules Arreola MD Bilirubin [Mass/Vol] 0.4 mg/dL Normal 0.2-1.2 [facility] Comment on above: Performed By: #### 7 600, 19801, 83055 #### [facility] of [address] [address] Grounds Foreman: Jules Arreola MD BUN/CREATININE RATIO NOT APPLICABLE Normal 6-22 [facility] Comment on above: Performed By: #### 7 600, 53838, 75609 #### [facility] of [address], [address] [place] [address] Grounds Foreman: Jules Arreola MD Calcium [Mass/Vol] 9.4 mg/dL Normal 8.6-10.2 [facility] Comment on above: Performed By: #### 7 600, 86449, 35513 #### [facility] of [address] [address] Grounds Foreman: Jules Arreola MD Chloride [Moles/Vol] 104 mmol/L Normal 98-110 [facility] Comment on above: Performed By: #### 7 600, 83017, 74184 #### [facility] of [address], [address] [place] [address] Grounds Foreman: Jules Arreola MD CO2 [Moles/Vol] 28 mmol/L Normal 20-32 [facility] Comment on above: Performed By: #### 7 600, 61043, 13280 #### [facility] of [address] [place] [address] Grounds Foreman: Jules Arreola MD Creatinine [Mass/Vol] 0.75 mg/dL Normal 0.50-1.10 [facility] Comment on above: Performed By: #### 7 600, 25651, 19716 #### [facility] [address] [place] [address] Grounds Foreman: Jules Arreola MD eGFR NON-AFR. ERITREAN 105 mL/min/1.73m2 Normal > OR = 60 [facility] Comment on above: Performed By: #### 7 600, 30427, 41907 #### [facility] of [address] [place] [address] Grounds Foreman: Jules Arreola MD GFR/1.73 sq M.predicted among blacks MDRD (S/P/Bld) [Vol rate/Area] 121 mL/min/{1.73_m2} Normal > OR = 60 [facility] Comment on above: Performed By: #### 7 600, 21735, 71663 #### [facility] of [address] [place] [address] Grounds Foreman: Jules Arreola MD Globulin (S) [Mass/Vol] 2.8 g/dL Normal 1.9-3.7 [facility] Comment on above: Performed By: #### 7 600, 70054, 67974 #### [facility] [place] [address] Grounds Foreman: Jules Arreola MD Glucose [Mass/Vol] 97 mg/dL Normal 65-99 [facility] Comment on above: Result Comment: Fasting reference interval Performed By: #### 7 600, 48196, 10579 #### [facility] of [place] [address] Grounds Foreman: Jules Arreola MD Potassium [Moles/Vol] 4.2 mmol/L Normal 3.5-5.3 [facility] Comment on above: Performed By: #### 7 600, 68975, 57657 #### [facility] [place] [address] Grounds Foreman: Jules Arreola MD Protein [Mass/Vol] 6.8 g/dL Normal 6.1-8.1 [facility] Comment on above: Performed By: #### 7 600, 05785, 70911 #### [facility] [place] [address] Grounds Foreman: Jules Arreola MD Sodium [Moles/Vol] 140 mmol/L Normal 135-146 [facility] Comment on above: Performed By: #### 7 600, 10229, 03074 #### [facility] [place] [address] Grounds Foreman: Jules Arreola MD Urea nitrogen [Mass/Vol] 17 mg/dL Normal 7-25 [facility] Comment on above: Performed By: #### 7 600, 20543, 62206 #### [facility] of [address] [place] [address] Grounds Foreman: Jules Arreola MD LIPID PANEL, [facility] 10-0 Cholesterol [Mass/Vol] 196 mg/dL Normal <200 [facility] Comment on above: Performed By: #### 7 600, 10910, 91412 #### [facility] [address], [address] [place] [address] Grounds Foreman: Jules Arreola MD Cholesterol in HDL [Mass/Vol] 54 mg/dL Normal > OR = 50 [facility] Comment on above: Performed By: #### 7 600, 48578, 61450 #### [facility] [address], [address] [place] [address] Grounds Foreman: Jules Arreola MD Cholesterol in LDL [Mass/Vol] [...] LDL-C. Fidencio ACOSTA et al. EDITH. 2013;310(19): 8994-2071 (http://education.Eat Club.Doorbot/faq/PNV639) Performed By: #### 7 600, 54303, 02710 #### [facility] [address] [place] [address] Grounds Foreman: Jules Arreola MD Cholesterol.total/Ch olesterol in HDL [Mass ratio] 3.6 {ratio} Normal <5.0 [facility] Comment on above: Performed By: #### 7 600, 39546, 08547 #### [facility] [address], [address] [place] [address] Grounds Foreman: Jules Arreola MD NON HDL CHOLESTEROL 142 mg/dL (calc) High <130 [facility] Comment on above: Result Comment: For patients with diabetes plus 1 major ASCVD risk factor, treating to a non-HDL-C goal of <100 mg/dL (LDL-C of <70 mg/dL) is considered a therapeutic option. Performed By: #### 7 600, 04254, 93834 #### [facility] [address], [address] [place], [place] [address] Grounds Foreman: Jules Arreola MD Triglyceride [Mass/Vol] 156 mg/dL High <150 [facility] Comment on above: Performed By: #### 7 600, 46917, 33424 #### [facility] [address], [address] [place], [place] [address] Grounds Foreman: Jules Arreola MD VITAMIN D,25-OH,TOTAL,IAon 1 VITAMIN [...] D, (D2,D3), LC/MS/MS is recommended: order code 03944 (patients >2yrs). See Note 1 Note 1 For additional information, please refer to http://education.Network/faq/INP617 (This link is being provided for informational/ educational purposes only.) Performed By: #### 7 600, 68356, 85214 #### [facility] [address], [address] [place], [place] [address] Grounds Foreman: Jules Arreola MD Vital Signs Date Time Vital Sign Value Performing Clinician Margie villarreal 05-12-2023 10:12-0500 Body height 170.2 cm Sabrina Smith APRN-SALES EXHIBITOR Work Phone: [employer] 05-12-2023 10:12-0500 Body mass index (BMI) [Ratio] 53.52 kg/m2 Sabrina Smith WORKFORCE MANAGEMENT COORDINATOR-SALES EXHIBITOR Work Phone: [facility] 05-12-2023 10:12-0500 Body weight 154.99 kg Sabrina Smith APRN-SALES EXHIBITOR [facility] 05-12-2023 10:12-0500 Diastolic blood pressure 103 mm[Hg] [facility] WORKFORCE MANAGEMENT COORDINATOR-SALES EXHIBITOR Work Phone: [facility] 05-12-2023 10:12-0500 Heart rate 65 /min [facility] WORKFORCE MANAGEMENT COORDINATOR-SALES EXHIBITOR Work Phone: [facility] 05-12-2023 10:12-0500 SaO2% (BldA) [Mass fraction] 100 % [facility] WORKFORCE MANAGEMENT COORDINATOR-SALES EXHIBITOR Work Phone: [facility] 05-12-2023 10:12-0500 Systolic blood pressure 157 mm[Hg] [facility] WORKFORCE MANAGEMENT COORDINATOR-SALES EXHIBITOR Work Phone: [facility] Encounters Encounter Date Encounter Type Care Provider Facility Start: 09-03-2023 End: 09-03-2023 ambulatory Not Available Start: 05-21-2023 Telephone encounter Mariposa Tellez [facility] Start: 05-12-2023 End: 05-12-2023 ambulatory [facility] Start: 05-12-2023 End: 05-12-2023 Office outpatient visit 25 minutes [facility] WORKFORCE MANAGEMENT COORDINATOR-SALES EXHIBITOR Work Phone: [facility] Comment on above: RACHEL (obstructive sle ep apnea) (Primary Dx); CPAP use counseling; BMI 50.0-59.9, adult ([facility]) Start: 01-09-2023 Emergency department patient visit Facility:[facility] Start: 02-19-2022 End: 02-20-2022 ambulatory LEIGH ADAM [...] Start: 05-15-2023 Diabetic retinal eye exam Mariposa Caicedo COUNT INCLUDES [facility] Start: 01-22-2023 Adult depression scr eening assessment Sabrina Smith WORKFORCE MANAGEMENT COORDINATOR-SALES EXHIBITOR Work Phone: Start: 07-20-2022 Microalbumin [Mass/v olume] in Urine by Test strip Sabrina Smith APRN-SALES EXHIBITOR Work Phone: Start: 04-07-2022 Diabetic retinal eye exam Sabrina Smith APRN-SALES EXHIBITOR Work Phone: Start: 08-03-2021 Microscopic observat ion [Identifier] in Cervix by Cyto stain Sabrina Smith APRN-SALES EXHIBITOR Work Phone: Plan of Treatment Date Care Activity Detail Author Start: 04-19-2028 DTaP,Tdap and Td Vaccines (3 - Td or Tdap) DTaP,Tdap and Td Vaccines (3 - Td or Tdap) [facility] Start: 08-03-2024 Screening for malignant neoplasm of cervix Pap Smear [facility] Start: 05-15-2024 Glaucoma screening Diabetic Ophthalmology Exam [facility] Start: 05-13-2024 Tobacco Screening Tobacco Screening [facility] Start: 05-12-2024 Adult BMI Screening Adult BMI Screening [facility] Start: 05-12-2024 Tobacco Screening Tobacco Screening [facility] Start: 05-10-2024 End: 05-10-2024 Patient encounter procedure 05/10/2024 9:15 AM EST Office Visit [facility] [address] [address] Sabrina Smith WORKFORCE MANAGEMENT COORDINATOR-SALES EXHIBITOR [address], [address] [place] [address] [facility] Start: 01-23-2024 Depression Screening Depression Screening [facility] Start: 07-23-2023 End: 07-23-2023 Patient encounter procedure 07/23/2023 8:30 AM EDT Office Visit [facility] Internal [facility] - Family Medicine [address] [place] [address] AlfredaMaude, WORKFORCE MANAGEMENT COORDINATOR-ANGLEDOZER OPERATOR [address] [place] [address] [facility] - [facility] Start: 07-21-2023 Diabetic foot examination Diabetic Foot Exam [facility] Start: 07-21-2023 Urine screening for protein Urine Microalbumin [facility] Start: 04-07-2023 Glaucoma screening Diabetic Ophthalmology Exam [facility] Start: 2005 Adult BMI Follow Up Plan Adult BMI Follow Up Plan [facility] Immunizations Immunization Date Immunization Notes Care Provider Fernando ann 12-14-2018 Influenza, injectabl e, Madin Lolly Canine Kidney, quadrivalent with preservative Sabrina Kregel WORKFORCE MANAGEMENT COORDINATOR-SALES EXHIBITOR Work Phone: [facility] 04-19-2018 tetanus toxoid, redu sandra diphtheria toxoid, and acellular pertussis vaccine, adsorbed Sabrina Kregel WORKFORCE MANAGEMENT COORDINATOR-SALES EXHIBITOR Work Phone: [facility] 12-29-2017 influenza, injectabl e, quadrivalent, preservative free Sabrina Kregel WORKFORCE MANAGEMENT COORDINATOR-SALES EXHIBITOR Work Phone: [facility] 12-29-2017 influenza, seasonal, injectable Sabrina Kregel WORKFORCE MANAGEMENT COORDINATOR-SALES EXHIBITOR Work Phone: [facility] 02-07-2015 influenza, seasonal, injectable, preservative free Sabrina Kregel WORKFORCE MANAGEMENT COORDINATOR-SALES EXHIBITOR Work Phone: [facility] 01-23-2013 tetanus toxoid, redu sandra diphtheria toxoid, and acellular pertussis vaccine, adsorbed Sabrina Kregel WORKFORCE MANAGEMENT COORDINATOR-SALES EXHIBITOR Work Phone: [facility] Payers Date Payer Category Payer Private Health Insurance [facility]ED WITH [facility] [employer] [id number] 2022-Present [phone] [address] [address] [place] [address] [id number] 2022 Unknown [id number] 1987 Unknown [id number] .[id number] 1987 Unknown [id number] .[id number] 1987 Unknown [id number] .[id number] 1987 Unknown [id number] .[id number] 1987 Unknown [id number] .[id number] 1987 Unknown [id number] .[id number] 1987 Unknown [id number] .[id number] 1987 Unknown [id number] .[id number] 1959 Unknown [id number] Social History Date Type Detail Facility Start: 07-20-2022 Tobacco smoking status LAIS Never smoked tobacco [facility] Start: 07-20-2022 Tobacco use and exposure Smokeless tobacco non-user [facility] Start: 05-13-2023 Alcohol intake Ex-drinker (finding) [facility] Start: 01-18-2022 End: 01-22-2023 History of Social function [facility] Start: 01-18-2022 End: 01-22-2023 Social connection and isolation panel [facility] Do you belong to any clubs or organizations such as taoist groups, unions, fraternal or athletic groups, or school groups? Yes [facility] Are you now , , , , never or living with a partner? [facility] How often to you hav e a drink containing alcohol? Never [facility] How many standard dr inks containing alcohol do you have on a typical day? Patient does not drink [facility] Do you feel stress - tense, restless, nervous, or anxious, or unable to sleep at night because your mind is troubled all the time - these days [OSQ] Only a little [facility] Start: 01-18-2022 Education 12 [facility] Start: 1985 Sex Assigned At Female [facility] Start: 12-31-2019 Gender identity Identifies as female gender (finding) [facility] Start: 12-31-2019 Sexual orientation Heterosexual (finding) [facility] Medical Equipment Procedure Code Equipment Code Equipment Original Text Equi pment Identifier Dates 1 strip by other route every morning before breakfast. [id number] OneTouch Delica Plus Lancet 33 gauge USE TO CHECK BLOOD SUGAR DAILY [id number] Note 05-21-2023 Telephone Encounter - RAJANI De La Garza - 05/21/2023 1:25 PM EST Note Date & Type Note Facility 05-21-2023 Miscellaneous Notes Formattin g of this note might be different from the original. Images from the original note were not included. PAP Mask and Supplies Order Faxed to [facility] Fax Confirmed documented in this encounter [facility] Telephone encounter Note 05-21-2023 Telephone Encounter - RAJANI De La Garza - 05/21/2023 1:25 PM EST Note Date & Type Note Facility 05-21-2023 Telephone encount er Note Images from the original note were not included. PAP Mask and Supplies Order Faxed to [facility] Fax Confirmed [facility] History of Present illness Narrative 05-12-2023 LAUREN Mullen - 05/12/2023 10:00 AM EST Note Date & Type Note Facility 05-12-2023 History of Present illness Narrative Images from the original note were not included. Chief Complaint: [facility] Reyes [facility] [...] heated inline humidifier. 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 Current Outpatient Medications: blood sugar diagnostic (NetSparkUCH ULTRA TEST) strip, 1 strip by other [...] min Stress: No Stress Concern Present (01/18/2022) [employer] [facility] [employer] [facility] - Occupational Stress Questionnaire Feeling of Stress : Only a little Social Connections: Socially Integrated (01/18/2022) Social Connection and Isolation Panel [NHANES] Frequency of Communication with Friends and Family: More than three times a week Frequency of Social Gatherings with Friends and Family: Three times a week Attends [employer] Services: More than 4 times per year [...] 08/2017 PS07/2017 w/ AHI of 85.5 DME: [facility] Data card was available for PAP usage [...] FDA warning against ozone / UV CPAP er rn. Advised to stop using immediately. Education sheet [...] not to drive if sleepy, and to toe puller if sleepiness occurs while driving. Above [...] that have escaped final proofreading. Sabrina Smith [facility] Office: [phone] 7:17 PM on 05/13/2023 CC: ETHAN MOREIRA APRN-CNP 05/13/231920 documented in this encounter [facility] Instructions 05-12-2023 Patient Instructions Note Date & Type Note Facility 05-12-2023 Instructions LAUREN Mullen - 05/12/2023 10:00 AM EST If you re looking for general health and wellness resources, please visit [email or web address]. documented in this encounter [facility] Evaluation note Note Date & Type Note Facility Evaluation note Diagnosis RACHEL (obstructive sleep apnea)- Primary Obstructive sleep apnea (adult) (pediatric) CPAP use counseling BMI 50.0-59.9, adult ([facility]) documented in this encounter [facility] Instructions Note Date & Type Note Facility Instructions Not on filedocumented in this en counter [facility] Summary Purpose Family History No Family [...] DATE CREATED AUTHOR AUTHOR'S ORGANIZ ATION 01/10/2023 [facility] DATE CREATED AUTHOR AUTHOR'S ORGANIZ ATION 05/19/2023 [facility] DATE CREATED AUTHOR AUTHOR'S ORGANIZ ATION 09/04/2023 [facility] dical Specialists EPIC Reason for Visit (unrecogniz ed section and content) Reason Comments Sleep Apnea DME: [facility] (unrecognized sec tion and content) Aircraft Powertrain Repairer Relationship Specialty Start Date End Date Maude Gant APRN-FNP [address] [place] [address] PCP - General Internal Medicine 01/22/23 Aircraft Powertrain Repairer Relationship Specialty Start Date End Date Maude Gant, WORKFORCE MANAGEMENT COORDINATOR-[facility] [address] [place] [address] PCP - General Internal Medicine 01/22/23 FOR [...] BE BASED ON THE PRIMARY CLINICAL RECORDS. [facility] [facility]. provides no warranty or guarantee of the accuracy or completeness of information in this document.
[2023-09-06 08:34] LABS: Basophils Percent Auto 0.3 % (0.2-2.0); Eosinophils Absolute Auto 0.1 10^3/uL (0.0-0.7); Eosinophils Percent Auto 2.3 % (0.9-7.0); Hematocrit 40.1 % (36.0-48.0); Immature Granulocytes Abs Auto 0.02 10^3/uL (0.00-0.03); Immature Granulocytes Pct Auto 0.3 % (0.0-0.5); Lymphocytes Absolute Auto 1.6 10^3/uL (1.2-3.8); Lymphocytes Percent Auto 26.3 % (20.5-60.0); Mean Corpuscular HGB Conc 32.4 g/dL (29.9-35.2); Mean Corpuscular Volume 86.4 fL (81.0-99.0); Mean Platelet Volume 9.1 fL (9.5-13.5); Monocytes Absolute Auto 0.5 10^3/uL (0.3-0.8); Monocytes Percent Auto 8.2 % (1.7-12.0); Neutrophils Absolute Auto 3.9 10^3/uL (1.4-6.5); Neutrophils Percent Auto 62.6 % (43.0-75.0); Platelet Count 301 10^3/uL (150-450); Red Blood Count 4.64 10^6/uL (4.20-5.40); Red Cell Distribution Width 13.6 % (11.0-15.0); White Blood Count 6.2 10^3/uL (4.0-11.0)
[2023-09-06 08:46] LABS: Estimated Average Glucose 154 mg/dL
[2023-09-07 06:08] LABS: HBsAg Screen Negative (Negative); HCV Ab Non Reactive (Non Reactive); HIV Ab/p24 Ag Screen Non Reactive (Non Reactive)
[2023-09-07 08:12] LABS: Rubella Antibodies, IgG 4.99 index (Immune >0.99)
[2023-09-07 12:09] LABS: Rapid Plasma Reagin, Quant Non Reactive titer (NonRea<1:1)
== END 2023-09-06 07:58 | disposition home or self-care (01) ==
LOC: LAB 07:58
PROVIDERS: PCP Nurse Practitioner Family; Visit Provider Obstetrics & Gynecology
DX: N92.6 Irregular menstruation, unspecified (principal)
CPT/HCPCS: 36415; 83036; 85025; 86592; 86762; 86803; 86850; 86900; 86901; 87086; 87340; 87389

== ENCOUNTER 2023-09-06 08:00 | Outpatient (OUT) | payer OTHER, SELFPAY ==
--- OUTSIDE RECORDS SUMMARY | 2023-09-06 08:13 | XMS_ITS | CCD ---
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, Maude Wall Primary Care Provider SABRINA SMITH Attending Unavailable MAUDE GANT Referring Unavailable MAUDE GANT Primary Care Unavailable Allergies Allergy Classification Reported Allergen(s) Allergy Type Date of Onset Reaction(s) Facility (1 source) Penicillins Drug allergy (disorder) 11-12-2014 [facility] (3 sources) Penicillin G; Translations: [PENICILLIN G] Drug Allergy 08-07-2017 [facility] Medications Current Medications Medication Drug [...] complication, without long-term current use of insulin ([facility]) Inject 0.5 mg under the skin every [...] Prolactin 64.0 ng/mL Critically high 4.8-23.3 [facility] Comment on above: Performed By: #### P ROLAC #### [facility] [address] [place] [address] Dr. Devin Florentino RENAL FUNCTION PANELon 02-19 Albumin [Mass/Vol] 3.7 g/dL Normal 3.4-5.0 [facility] Comment on above: Performed By: #### R ENAL #### [facility] [address] [address] [address] Devin Florentino Calcium [Mass/Vol] 9.2 mg/dL Normal 8.5-10.1 [facility] Comment on above: Performed By: #### R ENAL #### [facility] [address] [address] [address] Devin Florentino Chloride [Moles/Vol] 105 mmol/L Normal 98-107 [facility] Comment on above: Performed By: #### R ENAL #### [facility] [address] [address] [address] Devin Florentino CO2 [Moles/Vol] 29.7 mmol/L Normal 21.0-32.0 [facility] Comment on above: Performed By: #### R ENAL #### [facility] [address] [address] [address] Devin Florentino Creatinine [Mass/Vol] 0.72 mg/dL Normal 0.55-1.02 [facility] Comment on above: Performed By: #### R ENAL #### [facility] [address] [address] [address] Devin Florentino EGFR-AF CROATIAN >60 Normal >=60 [facility] Comment on above: Performed By: #### R ENAL #### [facility] [address] [address] [address] Devin Florentino EGFR-NON AF CROATIAN >60 Normal >=60 [facility] Comment on above: Performed By: #### R ENAL #### [facility] [address] [address] [address] Devin Florentino Glucose [Mass/Vol] 140 mg/dL Critically high 74-106 [facility] Comment on above: Performed By: #### R ENAL #### [facility] [address] [address] [address] Devin Florentino Phosphate [Mass/Vol] 4.3 mg/dL Normal 2.6-4.7 [facility] Comment on above: Performed By: #### R ENAL #### [facility] [address] [address] [address] Devin Florentino Potassium [Moles/Vol] 4.0 mmol/L Normal 3.5-5.1 [facility] Comment on above: Performed By: #### R ENAL #### [facility] [address] [address] [address] Devin Florentino Sodium [Moles/Vol] 141 mmol/L Normal 136-145 [facility] Comment on above: Performed By: #### R ENAL #### [facility] [address] [address] [address] Devin Florentino Urea nitrogen [Mass/Vol] 27.0 mg/dL Critically high 7.0-18.0 [facility] Comment on above: Performed By: #### R ENAL #### [facility] [address] [address] [address] Devin Florentino VITAMIN D 25 OHon 02-19-2022 VIT D 25-OH 16.2 ng/mL Normal [facility] Comment on above: Performed By: #### V ITAD #### [facility] [address] [address] [address] Devin Florentino VIT D RANGES SEE BELOW Normal [facility] Comment on above: Result Comment: <20 ng/mL Vit D deficient 20 - <30 ng/mL Vit D insufficient 30 - 100 ng/mL Vit D sufficient >100 ng/mL Potential Toxicity Performed By: #### V ITAD #### [facility] [address] [place] [address] Dr. Devin Florentino GLYCOHEMOGLOBIN A1Con 2021 ADA RECOMMENDATION SEE BELOW Normal [facility] Comment on above: Result Comment: ADA RECOMMENDED LIMIT 4.0 - 6.0 ADA THERAPEUTIC TARGET < 7.0 ACTION SUGGESTED > 7.0 Performed By: #### A 1C #### [facility] [address] [place] [address] Dr. Devin Florentino Glucose [Mass/Vol] 120 mg/dL Normal [facility] Comment on above: Performed By: #### A 1C #### [facility] [address] [place] [address] Dr. Devin Florentino HbA1c (Bld) [Mass fraction] 5.8 % Normal 4.5-6.2 [facility] Comment on above: Performed By: #### A 1C #### [facility] [address] [place] [address] Dr. Devin Florentino LIPID PROFILEon 01-15-2022 CHOL-HDL RATIO NORM SEE BELOW Normal [facility] Comment on above: Result Comment: 3.3 - 4.4 LOW RISK 4.4 - 7.1 AVERAGE RISK 7.1 - 11.0 MODERATE RISK >11.0 HIGH RISK Performed By: #### L IPID, CMP #### [facility] [address] [place] [address] Dr. Devin Florentino Cholesterol [Mass/Vol] 167 mg/dL Normal <=200 [facility] Comment on above: Performed By: #### L IPID, CMP #### [facility] [address] [address] [address] Devin Florentino Cholesterol in HDL [Mass/Vol] 47 mg/dL Normal 40-60 [facility] Comment on above: Performed By: #### L IPID, CMP #### [facility] [address] [address] [address] Devin Florentino Cholesterol in LDL [Mass/Vol] 103.0 mg/dL Normal [facility] Comment on above: Performed By: #### L IPID, CMP #### [facility] [address] [place] [address] Dr. Devin Florentino Cholesterol.total/Ch olesterol in HDL [Mass ratio] 3.6 {ratio} Normal [facility] Comment on above: Performed By: #### L IPID, CMP #### [facility] [address] [place] [address] Dr. Devin Florentino HDL NORMAL > or = 60 mg/dl - LO W CARDIOVASCULAR RISK <40 mg/dl - HIGH CARDIOVASCULAR RISK Normal [facility] Comment on above: Performed By: #### L IPID, CMP #### [facility] [address] [place] [address] Dr. Devin Florentino LDL CALC NORMAL SEE BELOW Normal [facility] Comment on above: Result Comment: <100 mg/dl OPTIMAL 100 - 129 mg/dl NEAR OR ABOVE OPTIMAL 130 - 159 mg/dl BORDERLINE HIGH 160 - 189 mg/dl HIGH >190 mg/dl VERY HIGH Performed By: #### L IPID, CMP #### [facility] [address] [address] [address] Devin Florentino Triglyceride [Mass/Vol] 81 mg/dL Normal <=150 [facility] Comment on above: Performed By: #### L IPID, CMP #### [facility] [address] [address] [address] Devin Florentino VLDL CALC 16.2 mg/dL Normal [facility] Comment on above: Performed By: #### L IPID, CMP #### [facility] [address] [address] [address] Devin Florentino PROF 14(COMP METB)on 022 Albumin [Mass/Vol] 3.7 g/dL Normal 3.4-5.0 [facility] Comment on above: Performed By: #### L IPID, CMP #### [facility] [address] [place] [address] Dr. Devin Florentino Albumin/Globulin [Mass ratio] 1.0 {ratio} Normal [facility] Comment on above: Performed By: #### L IPID, CMP #### [facility] [address] [place] [address] Dr. Devin Florentino ALP [Catalytic activity/Vol] 58 U/L Normal 46-116 [facility] Comment on above: Performed By: #### L IPID, CMP #### [facility] [address] [place] [address] Dr. Devin Florentino ALT [Catalytic activity/Vol] 40 U/L Normal 14-59 [facility] Comment on above: Performed By: #### L IPID, CMP #### [facility] [address] [place] [address] Dr. Devin Florentino Anion gap [Moles/Vol] 7.7 mmol/L Normal [facility] Comment on above: Performed By: #### L IPID, CMP #### [facility] [address] [place] [address] Dr. Devin Florentino AST [Catalytic activity/Vol] 20 U/L Normal 15-37 [facility] Comment on above: Performed By: #### L IPID, CMP #### [facility] [address] [place] [address] Dr. Devin Florentino Bilirubin [Mass/Vol] 0.5 mg/dL Normal 0.2-1.0 [facility] Comment on above: Performed By: #### L IPID, CMP #### [facility] [address] [place] [address] Dr. Devin Florentino Calcium [Mass/Vol] 9.0 mg/dL Normal 8.5-10.1 [facility] Comment on above: Performed By: #### L IPID, CMP #### [facility] [address] [place] [address] Dr. Devin Florentino Chloride [Moles/Vol] 103 mmol/L Normal 98-107 [facility] Comment on above: Performed By: #### L IPID, CMP #### [facility] [address] [place] [address] Dr. Devin Florentino CO2 [Moles/Vol] 30.6 mmol/L Normal 21.0-32.0 [facility] Comment on above: Performed By: #### L IPID, CMP #### [facility] [address] [place] [address] Dr. Devin Florentino Creatinine [Mass/Vol] 0.73 mg/dL Normal 0.55-1.02 [facility] Comment on above: Performed By: #### L IPID, CMP #### [facility] [address] [place] [address] Dr. Devin Florentino EGFR-AF CROATIAN >60 Normal >=60 [facility] Comment on above: Performed By: #### L IPID, CMP #### [facility] [address] [place] [address] Dr. Devin Florentino EGFR-NON AF CROATIAN >60 Normal >=60 [facility] Comment on above: Performed By: #### L IPID, CMP #### [facility] [address] [place] [address] Dr. Devin Florentino Globulin (S) [Mass/Vol] 3.6 g/dL Normal [facility] Comment on above: Performed By: #### L IPID, CMP #### [facility] [address] [place] [address] Dr. Devin Florentino Glucose [Mass/Vol] 105 mg/dL Normal 74-106 [facility] Comment on above: Performed By: #### L IPID, CMP #### [facility] [address] [place] [address] Dr. Devin Florentino Potassium [Moles/Vol] 3.9 mmol/L Normal 3.5-5.1 [facility] Comment on above: Performed By: #### L IPID, CMP #### [facility] [address] [place] [address] Dr. Devin Florentino Protein [Mass/Vol] 7.3 g/dL Normal 6.4-8.2 [facility] Comment on above: Performed By: #### L IPID, CMP #### [facility] [address] [place] [address] Dr. Devin Florentino Sodium [Moles/Vol] 138 mmol/L Normal 136-145 [facility] Comment on above: Performed By: #### L IPID, CMP #### [facility] [address] [place] [address] Dr. Devin Florentino Urea nitrogen [Mass/Vol] 19.0 mg/dL Critically high 7.0-18.0 [facility] Comment on above: Performed By: #### L IPID, CMP #### [facility] [address] [place] [address] Dr. Devin Florentino Urea nitrogen/Creatinine [Mass ratio] 26.0 mg/mg Normal [facility] Comment on above: Performed By: #### L IPID, CMP #### [facility] [address] [place] [address] Dr. Devin Florentino PAP ACOG PANEL 2: 30 to 65on 11-25-2021 . . Normal [facility] Comment on above: Result Comment: Perf ormed at: BA Performed By: #### [id number] #### [facility] [address] [place] [address] Dr. Devin Florentino Age Gdln ACOG Testing 30-65 [facility] Comment on above: Performed By: #### 4 [id number] #### [facility] [address] [place] [address] Dr. Devin Florentino DIAGNOSIS: Comment [facility] Comment on above: Result Comment: UNSA TISFACTORY FOR EVALUATION. THIS SPECIMEN WAS RESCREENED PART OF OUR CAPITAL PROJECT ENGINEER PROGRAM. Performed at: BA Performed By: #### 4 [id number] #### [facility] [address] [place] [address] Dr. Devin Florentino HPV Aptima Negative Normal Negative [facility] Comment on above: Result Comment: This nucleic acid amplification test detects fourteen high-risk HPV types (16,18,31,33,35,39,45,51,52,56,58,59,66,68) without differentiation. Performed at: =G Performed By: #### 4 [id number] #### [facility] [address] [place] [address] Dr. Devin Florentino Methodology: Comment Normal [facility] Comment on above: Result Comment: This liquid based ThinPrep(R) pap test was screened with the use of an image guided system. Performed at: WB Performed By: #### [id number] #### [facility] [address] [place] [address] Dr. Devin Florentino Note: Comment Normal [facility] Comment on above: Result Comment: The Pap smear is a screening test designed to aid in the detection of premalignant and malignant conditions of the uterine cervix. It is not a diagnostic procedure and should not be used as the sole means of detecting cervical cancer. Both false-positive and false-negative reports do occur. . Performed at: WB Performed By: #### 4 [id number] #### [facility] [address] [place] [address] Dr. Devin Florentino Performed by: Comment Normal [facility] Comment on above: Result Comment: Shamar Huang, Cost Accounting Clerk (ASCP) Performed at: BA Performed By: #### 4 [id number] #### [facility] [address] [place] [address] Dr. Devin Florentino QC reviewed by: Comment Normal [facility] Comment on above: Result Comment: Val Salmon, Cost Accounting Clerk (ASCP) Performed at: BA Performed By: #### 4 [id number] #### [facility] [address] [place] [address] Dr. Devin Florentino Specimen adequacy: Comment Normal [facility] Comment on above: Result Comment: Spec imen processed and examined but unsatisfactory for evaluation of epithelial abnormality because of insufficient cellularity. Performed at: BA Performed By: #### 4 [id number] #### [facility] [address] [place], [place] [address] Dr. Devin Florentino PROLACTINon 09-06-2021 Prolactin 92.6 ng/mL Critically high 4.8-23.3 [facility] Comment on above: Performed By: #### P MARCEL #### [facility] [address] [address] [address] Devin Florentino ALBUMIN, RANDOM URINE W/CREA TININEon 06-24-2021 ALBUMIN, URINE 0.6 mg/dL Normal See Note: [facility] Comment on above: Result Comment: Refe rence Range: Reference Range Not established Performed By: #### 7 46, 7600, 44356, 6517 #### [facility] [address] [place] [address] Armored Truck Driver: Jules Arreola MD ALBUMIN/CREATININE RATIO, RANDOM URINE [...] category. Performed By: #### 7 46, 7600, 49339, 6517 #### [facility] [address] [place] [address] Armored Truck Driver: Jules Arreola MD Creatinine (U) [Mass/Vol] 53 mg/dL Normal 20-275 [facility] Comment on above: Performed By: #### 7 46, 7600, 12509, 6517 #### [facility] [address] [place] [address] Armored Truck Driver: Jules Arreola MD [facility] 06-24-2021 Albumin [Mass/Vol] 4.3 g/dL Normal 3.6-5.1 [facility] Comment on above: Performed By: #### 7 46, 7600, 58283, 6517 #### [facility] [address] [place] [address] Armored Truck Driver: Jules rAreola MD Albumin/Globulin [Mass ratio] 1.6 {ratio} Normal 1.0-2.5 [facility] Comment on above: Performed By: #### 7 46, 7600, 04231, 6517 #### [facility] of [address], [address] [place] [address] Armored Truck Driver: Jules Arreola MD ALP [Catalytic activity/Vol] 53 U/L Normal 31-125 [facility] Comment on above: Performed By: #### 7 46, 7600, 14403, 6517 #### [facility] of [address], [address] [place] [address] Armored Truck Driver: Jules Arreola MD ALT [Catalytic activity/Vol] 32 U/L High 6-29 [facility] Comment on above: Performed By: #### 7 46, 7600, 96420, 6517 #### [facility] of [address], [address] [place] [address] Armored Truck Driver: Jules Arreola MD AST [Catalytic activity/Vol] 18 U/L Normal 10-30 [facility] Comment on above: Performed By: #### 7 46, 7600, 17692, 6517 #### [facility] of [address] [place] [address] Armored Truck Driver: Jules Arreola MD Bilirubin [Mass/Vol] 0.4 mg/dL Normal 0.2-1.2 [facility] Comment on above: Performed By: #### 7 46, 7600, 07181, 6517 #### [facility] of [address], [address] [place] [address] Armored Truck Driver: Jules Arreola MD BUN/CREATININE RATIO NOT APPLICABLE Normal 6-22 [facility] Comment on above: Performed By: #### 7 46, 7600, 32648, 6517 #### [facility] of [place] [address] [employer]ored Truck Driver: Jules Arreola MD Calcium [Mass/Vol] 9.6 mg/dL Normal 8.6-10.2 [facility] Comment on above: Performed By: #### 7 46, 7600, 47467, 6517 #### [facility] of [place] [address] Armored Truck Driver: Jules Arreola MD Chloride [Moles/Vol] 104 mmol/L Normal 98-110 [facility] Comment on above: Performed By: #### 7 46, 7600, , 6517 #### [facility] of [place] [address] Armored Truck Driver: Jules Arreola MD CO2 [Moles/Vol] 29 mmol/L Normal 20-32 [facility] Comment on above: Performed By: #### 7 46, 7600, 78430, 6517 #### [facility] [address] [place] [address] Armored Truck Driver: Jules Arreola MD Creatinine [Mass/Vol] 0.70 mg/dL Normal 0.50-1.10 [facility] Comment on above: Performed By: #### 7 46, 7600, 37062, 6517 #### [facility] [address] [place] [address] Armored Truck Driver: Jules Arreola MD eGFR NON-AFR. CROATIAN 113 mL/min/1.73m2 Normal > OR = 60 [facility] Comment on above: Performed By: #### 7 46, 7600, , 6517 #### [facility] of [place] [address] Armored Truck Driver: Jules Arreola MD GFR/1.73 sq M.predicted among blacks MDRD (S/P/Bld) [Vol rate/Area] 131 mL/min/{1.73_m2} Normal > OR = 60 [facility] Comment on above: Performed By: #### 7 46, 7600, 68989, 6517 #### [facility] of [place] [address] Armored Truck Driver: Jules Arreola MD Globulin (S) [Mass/Vol] 2.7 g/dL Normal 1.9-3.7 [facility] Comment on above: Performed By: #### 7 46, 7600, 17694, 6517 #### [facility] [place] [address] Armored Truck Driver: Jules Arreola MD Glucose [Mass/Vol] 101 mg/dL High 65-99 [facility] Comment on above: Result Comment: Fasting reference interval For someone without known diabetes, a glucose value between 100 and 125 mg/dL is consistent with prediabetes and should be confirmed with a follow-up test. Performed By: #### 7 46, 7600, 71560, 6517 #### [facility] [place] [address] Armored Truck Driver: Jules Arreola MD Potassium [Moles/Vol] 4.0 mmol/L Normal 3.5-5.3 [facility] Comment on above: Performed By: #### 7 46, 7600, , 6517 #### [facility] [place] [address] Armored Truck Driver: Jules Arreola MD Protein [Mass/Vol] 7.0 g/dL Normal 6.1-8.1 [facility] Comment on above: Performed By: #### 7 46, 7600, , 6517 #### [facility] [place] [address] Armored Truck Driver: Jules Arreola MD Sodium [Moles/Vol] 139 mmol/L Normal 135-146 [facility] Comment on above: Performed By: #### 7 46, 7600, 16310, 6517 #### [facility] [place] [address] Armored Truck Driver: Jules Arreola MD Urea nitrogen [Mass/Vol] 23 mg/dL Normal 7-25 [facility] Comment on above: Performed By: #### 7 46, 7600, 48775, 6517 #### [facility] [address] [place] [address] Armored Truck Driver: Jules Arreola MD LIPID PANEL, [facility] Cholesterol [Mass/Vol] 196 mg/dL Normal <200 [facility] Comment on above: Order Comment: FASTI NG:YES FASTING: YES Performed By: #### 7 46, 7600, 15536, 6517 #### [facility] [address], [address] [place] [address] Armored Truck Driver: Jules Arreola MD Cholesterol in HDL [Mass/Vol] 56 mg/dL Normal > OR = 50 [facility] Comment on above: Order Comment: FASTI NG:YES FASTING: YES Performed By: #### 7 46, 7600, 75937, 6517 #### [facility] [address], [address] [place] [address] Armored Truck Driver: Jules Arreola MD Cholesterol in LDL [Mass/Vol] [...] LDL-C. Fidencio ACOSTA et al. EDITH. 2013;310(19): 6010-7865 (http://[email or web address].Mirego/faq/PXF540) Performed By: #### 7 46, 7600, 24800, 6517 #### [facility] [address], [address] [place] [address] Armored Truck Driver: Jules Arreola MD Cholesterol.total/Ch olesterol in HDL [Mass ratio] 3.5 {ratio} Normal <5.0 [facility] Comment on above: Order Comment: FASTI NG:YES FASTING: YES Performed By: #### 7 46, 7600, 46975, 6517 #### [facility] [address], [address] [place] [address] Armored Truck Driver: Jlues Arreola MD NON HDL CHOLESTEROL 140 mg/dL (calc) High <130 [facility] Comment on above: Order Comment: FASTI NG:YES FASTING: YES Result Comment: For patients with diabetes plus 1 major ASCVD risk factor, treating to a non-HDL-C goal of <100 mg/dL (LDL-C of <70 mg/dL) is considered a therapeutic option. Performed By: #### 7 46, 3910, 84218, 6517 #### [facility] [address], [address] [place] [address] Armored Truck Driver: Jules Arreola MD Triglyceride [Mass/Vol] 104 mg/dL Normal <150 [facility] Comment on above: Order Comment: FASTI NG:YES FASTING: YES Performed By: #### 7 46, 7600, 20152, 6517 #### [facility] [address], [address] [place] [address] Armored Truck Driver: Jules Arreola MD PROLACTINon 06-24-2021 PROLACTIN 51.6 ng/mL High [facility] Comment on above: Result Comment: Refe rence Range Females Non- 3.0-30.0 10.0-209.0 Postmenopausal 2.0-20.0 Your request to have a duplicate copy faxed has been acknowledged. Queued to: [phone] Performed By: #### 7 46, 0120, 14569, 6517 #### [facility] [address], [address] [place] [address] Armored Truck Driver: Jules Arreola MD Covid-19 PCR (CVDTBH)on 02-21 SARS-CoV-2 (COVID-19) RNA STANLEY+probe Ql (Unsp spec) Not detected Normal NOT DETECTED [facility] Comment on above: Result Comment: This test is not yet approved or cleared by the [place] FDA. When there are no FDA-approved or cleared tests available, and other criteria are met, FDA can make tests available under an emergency access mechanism called an Emergency Use Authorization (EUA). The EUA for this test is supported by the [place] of Health and Human Service's (HHS's) declaration [...] Performed By: #### L IPID, CMP #### [facility] [address] [place] [address] Dr. Devin Florentino PROLACTINon 03-05-2021 Prolactin 79.1 ng/mL Critically high 4.8-23.3 [facility] Comment on above: Performed By: #### P ROLAC #### [facility] [address] [place] [address] Dr. Devin Florentino PROF CHEM 8 (BAS METB)on Anion gap [Moles/Vol] 9.9 mmol/L Normal [facility] Comment on above: Performed By: #### B MP #### [facility] [address] [place] [address] Dr. Devin Florentino Calcium [Mass/Vol] 9.6 mg/dL Normal 8.4-10.2 [facility] Comment on above: Performed By: #### B MP #### [facility] [address] [place] [address] Dr. Devin Florentino Chloride [Moles/Vol] 104 mmol/L Normal 98-107 [facility] Comment on above: Performed By: #### B MP #### [facility] [address] [place] [address] Dr. Devin Florentino CO2 [Moles/Vol] 32.2 mmol/L Critically high 22.0-30.0 [facility] Comment on above: Performed By: #### B MP #### [facility] [address] [place] [address] Dr. Devin Florentino Creatinine [Mass/Vol] 0.72 mg/dL Normal 0.52-1.04 [facility] Comment on above: Performed By: #### B MP #### [facility] [address] [address] [address] Devin Florentino EGFR-AF CROATIAN >60 Normal >=60 [facility] Comment on above: Performed By: #### B MP #### [facility] [address] [address] [address] Devin Florentino EGFR-NON AF CROATIAN >60 Normal >=60 [facility] Comment on above: Performed By: #### B MP #### [facility] [address] [address] [address] Devin Florentino Glucose [Mass/Vol] 118 mg/dL Critically high 74-106 [facility] Comment on above: Performed By: #### B MP #### [facility] [address] [place] [address] Dr. Devin Florentino Potassium [Moles/Vol] 4.1 mmol/L Normal 3.4-5.0 [facility] Comment on above: Performed By: #### B MP #### [facility] [address] [address] [address] Devin Florentino Sodium [Moles/Vol] 142 mmol/L Normal 137-145 [facility] Comment on above: Performed By: #### B MP #### [facility] [address] [place] [address] Dr. Devin Florentino Urea nitrogen [Mass/Vol] 22.0 mg/dL Critically high 7.0-17.0 [facility] Comment on above: Performed By: #### B MP #### [facility] [address] [address] [address] Devin Florentino Urea nitrogen/Creatinine [Mass ratio] 30.6 mg/mg Normal [facility] Comment on above: Performed By: #### B MP #### [facility] [address] [address] [address] Devin Florentino COMPREHENSIVE METABOLIC PANE Osmin 12-24-2020 Albumin [Mass/Vol] 4.0 g/dL Normal 3.6-5.1 [facility] Comment on above: Performed By: #### 7 600, 91396, 07750 #### [facility] of [address], [address] [place] [address] Armored Truck Driver: Jules Arreola MD Albumin/Globulin [Mass ratio] 1.4 {ratio} Normal 1.0-2.5 [facility] Comment on above: Performed By: #### 7 600, 02007, 52933 #### [facility] of [address], [address] [place] [address] [employer] Truck Driver: Jules Arreola MD ALP [Catalytic activity/Vol] 45 U/L Normal 31-125 [facility] Comment on above: Performed By: #### 7 600, 08926, 66561 #### [facility] of [address], [address] [place] [address] Armored Truck Driver: Jules Arreola MD ALT [Catalytic activity/Vol] 20 U/L Normal 6-29 [facility] Comment on above: Performed By: #### 7 600, 81299, 48684 #### [facility] of [address], [address] [place] [address] Armored Truck Driver: Jules Arreola MD AST [Catalytic activity/Vol] 13 U/L Normal 10-30 [facility] Comment on above: Performed By: #### 7 600, 65344, 30977 #### [facility] [address], [address] [place] [address] [employer]ored Truck Driver: Jules Arreola MD Bilirubin [Mass/Vol] 0.4 mg/dL Normal 0.2-1.2 [facility] Comment on above: Performed By: #### 7 600, 65686, 37462 #### [facility] of [place] [address] Armored Truck Driver: Jules Arreola MD BUN/CREATININE RATIO NOT APPLICABLE Normal 6-22 [facility] Comment on above: Performed By: #### 7 600, 83810, 39028 #### [facility] of [address], [address] [place] [address] Armored Truck Driver: Jules Arreola MD Calcium [Mass/Vol] 9.4 mg/dL Normal 8.6-10.2 [facility] Comment on above: Performed By: #### 7 600, 91884, 99860 #### [facility] of [place] [address] Armored Truck Driver: Jules Arreola MD Chloride [Moles/Vol] 104 mmol/L Normal 98-110 [facility] Comment on above: Performed By: #### 7 600, 57069, 43400 #### [facility] of [address], [address] [place] [address] Armored Truck Driver: Jules Arreola MD CO2 [Moles/Vol] 28 mmol/L Normal 20-32 [facility] Comment on above: Performed By: #### 7 600, 90764, 71893 #### [facility] of [place] [address] Armored Truck Driver: Jules Arreola MD Creatinine [Mass/Vol] 0.75 mg/dL Normal 0.50-1.10 [facility] Comment on above: Performed By: #### 7 600, 09983, 78188 #### [facility] [address] [place] [address] Armored Truck Driver: Jules Arreola MD eGFR NON-AFR. CROATIAN 105 mL/min/1.73m2 Normal > OR = 60 [facility] Comment on above: Performed By: #### 7 600, 51615, 56294 #### [facility] of [place] [address] Armored Truck Driver: Jules Arreola MD GFR/1.73 sq M.predicted among blacks MDRD (S/P/Bld) [Vol rate/Area] 121 mL/min/{1.73_m2} Normal > OR = 60 [facility] Comment on above: Performed By: #### 7 600, 30389, 44930 #### [facility] of [place] [address] Armored Truck Driver: Jules Arreola MD Globulin (S) [Mass/Vol] 2.8 g/dL Normal 1.9-3.7 [facility] Comment on above: Performed By: #### 7 600, 58805, 27107 #### [facility] [place] [address] Armored Truck Driver: Jules Arreola MD Glucose [Mass/Vol] 97 mg/dL Normal 65-99 [facility] Comment on above: Result Comment: Fasting reference interval Performed By: #### 7 600, 03567, 87135 #### [facility] of [place] [address] Armored Truck Driver: Jules Arreola MD Potassium [Moles/Vol] 4.2 mmol/L Normal 3.5-5.3 [facility] Comment on above: Performed By: #### 7 600, 25992, 20397 #### [facility] [place] [address] Armored Truck Driver: Jules Arreola MD Protein [Mass/Vol] 6.8 g/dL Normal 6.1-8.1 [facility] Comment on above: Performed By: #### 7 600, 35821, 82304 #### [facility] [place] [address] Armored Truck Driver: Jules Arreola MD Sodium [Moles/Vol] 140 mmol/L Normal 135-146 [facility] Comment on above: Performed By: #### 7 600, 12900, 98814 #### [facility] [place] [address] Armored Truck Driver: Jules Arreola MD Urea nitrogen [Mass/Vol] 17 mg/dL Normal 7-25 [facility] Comment on above: Performed By: #### 7 600, 21054, 01126 #### [facility] of [place] [address] Armored Truck Driver: Jules Arreola MD LIPID PANEL, [facility] 10-0 Cholesterol [Mass/Vol] 196 mg/dL Normal <200 [facility] Comment on above: Performed By: #### 7 600, 96849, 04810 #### [facility] [address], [address] [place] [address] Armored Truck Driver: Jules Arreola MD Cholesterol in HDL [Mass/Vol] 54 mg/dL Normal > OR = 50 [facility] Comment on above: Performed By: #### 7 600, 92832, 74551 #### [facility] [address], [address] [place] [address] Armored Truck Driver: Jules Arreola MD Cholesterol in LDL [Mass/Vol] [...] LDL-C. Fidencio ACOSTA et al. EDITH. 2013;310(19): 7580-2421 (http://education.[employer].Mirego/faq/VYU450) Performed By: #### 7 600, 33725, 75761 #### [facility] [place] [address] Armored Truck Driver: Jules Arreola MD Cholesterol.total/Ch olesterol in HDL [Mass ratio] 3.6 {ratio} Normal <5.0 [facility] Comment on above: Performed By: #### 7 600, 93952, 43766 #### [facility] [address], [address] [place] [address] Armored Truck Driver: Jules Arreola MD NON HDL CHOLESTEROL 142 mg/dL (calc) High <130 [facility] Comment on above: Result Comment: For patients with diabetes plus 1 major ASCVD risk factor, treating to a non-HDL-C goal of <100 mg/dL (LDL-C of <70 mg/dL) is considered a therapeutic option. Performed By: #### 7 600, 95150, 70964 #### [facility] [address], [address] [place], [place] [address] Armored Truck Driver: Jules Arreola MD Triglyceride [Mass/Vol] 156 mg/dL High <150 [facility] Comment on above: Performed By: #### 7 600, 27469, 79494 #### [facility] [address], [address] [place], [place] [address] Armored Truck Driver: Jules Arreola MD VITAMIN D,25-OH,TOTAL,IAon 1 VITAMIN [...] D, (D2,D3), LC/MS/MS is recommended: order code 59127 (patients >2yrs). See Note 1 Note 1 For additional information, please refer to http://education.[employer]/faq/LTL527 (This link is being provided for informational/ educational purposes only.) Performed By: #### 7 600, 54525, 18109 #### [facility] [address], [address] [place], [place] [address] Armored Truck Driver: Jules Arreola MD Vital Signs Date Time Vital Sign Value Performing Clinician Margie villarreal 05-12-2023 10:12-0500 Body height 170.2 cm Sabrina Smith APRN-CUPOLA TENDER Work Phone: [employer] 05-12-2023 10:12-0500 Body mass index (BMI) [Ratio] 53.52 kg/m2 Sabrina Smith HEALTH DIAGNOSTICS TEACHER-CUPOLA TENDER Work Phone: [employer] [facility] 05-12-2023 10:12-0500 Body weight 154.99 kg Sabrina Smith APRN-CUPOLA TENDER Work Phone: [facility] 05-12-2023 10:12-0500 Diastolic blood pressure 103 mm[Hg] [facility] HEALTH DIAGNOSTICS TEACHER-CUPOLA TENDER Work Phone: [facility] 05-12-2023 10:12-0500 Heart rate 65 /min [facility] HEALTH DIAGNOSTICS TEACHER-CUPOLA TENDER Work Phone: [facility] 05-12-2023 10:12-0500 SaO2% (BldA) [Mass fraction] 100 % [facility] HEALTH DIAGNOSTICS TEACHER-CUPOLA TENDER Work Phone: [facility] 05-12-2023 10:12-0500 Systolic blood pressure 157 mm[Hg] [facility] HEALTH DIAGNOSTICS TEACHER-CUPOLA TENDER Work Phone: [facility] Encounters Encounter Date Encounter Type Care Provider Facility Start: 09-03-2023 End: 09-03-2023 ambulatory Not Available Start: 05-21-2023 Telephone encounter Mariposa Tellez [facility] Start: 05-12-2023 End: 05-12-2023 ambulatory [facility] Start: 05-12-2023 End: 05-12-2023 Office outpatient visit 25 minutes [facility] HEALTH DIAGNOSTICS TEACHER-CUPOLA TENDER Work Phone: [facility] Comment on above: RACHEL (obstructive sle ep apnea) (Primary Dx); CPAP use counseling; BMI 50.0-59.9, adult ([facility]) Start: 01-09-2023 Emergency department patient visit Facility:[facility] Start: 02-19-2022 End: 02-20-2022 [...] 05-15-2023 Diabetic retinal eye exam Mariposa Caicedo [facility] Start: 01-22-2023 Adult depression scr eening assessment Sabrina Smith HEALTH DIAGNOSTICS TEACHER-CUPOLA TENDER Work Phone: Start: 07-20-2022 Microalbumin [Mass/v olume] in Urine by Test strip Sabrina Smith APRN-CUPOLA TENDER Work Phone: Start: 04-07-2022 Diabetic retinal eye exam Sabrina Smith APRN-CUPOLA TENDER Work Phone: Start: 08-03-2021 Microscopic observat ion [Identifier] in Cervix by Cyto stain Sabrina Smith APRN-CUPOLA TENDER Work Phone: Plan of Treatment Date Care Activity Detail Author Start: 04-19-2028 DTaP,Tdap and Td Vaccines (3 - Td or Tdap) DTaP,Tdap and Td Vaccines (3 - Td or Tdap) [facility] Start: 08-03-2024 Screening for malignant neoplasm of cervix Pap Smear [facility] Start: 05-15-2024 Glaucoma screening Diabetic Ophthalmology Exam [facility] Start: 05-13-2024 Tobacco Screening Tobacco Screening [facility] Start: 05-12-2024 Adult BMI Screening Adult BMI Screening [facility] Start: 05-12-2024 Tobacco Screening Tobacco Screening [facility] Start: 05-10-2024 End: 05-10-2024 Patient encounter procedure 05/10/2024 9:15 AM EST Office Visit [facility] [address] [place] [address] Sabrina Smith HEALTH DIAGNOSTICS TEACHER-CUPOLA TENDER [address], [address] [place] [address] [facility] Start: 01-23-2024 Depression Screening Depression Screening [facility] Start: 07-23-2023 End: 07-23-2023 Patient encounter procedure 07/23/2023 8:30 AM EDT Office Visit [facility] - [facility] [address] [place] [address] AlfredaMaude, HEALTH DIAGNOSTICS TEACHER-TAB CUTTER [address] [place] [address] [facility] Start: 07-21-2023 Diabetic foot examination Diabetic Foot Exam [facility] Start: 07-21-2023 Urine screening for protein Urine Microalbumin [facility] Start: 04-07-2023 Glaucoma screening Diabetic Ophthalmology Exam [facility] Start: 2005 Adult BMI Follow Up Plan Adult BMI Follow Up Plan [facility] Immunizations Immunization Date Immunization Notes Care Provider Fernando ann 12-14-2018 Influenza, injectabl e, Madin Lolly Canine Kidney, quadrivalent with preservative Sabrina Kregel HEALTH DIAGNOSTICS TEACHER-CUPOLA TENDER Work Phone: [facility] 04-19-2018 tetanus toxoid, redu sandra diphtheria toxoid, and acellular pertussis vaccine, adsorbed Sabrina Kregel HEALTH DIAGNOSTICS TEACHER-CUPOLA TENDER Work Phone: [facility] 12-29-2017 influenza, injectabl e, quadrivalent, preservative free Sabrina Kregel HEALTH DIAGNOSTICS TEACHER-CUPOLA TENDER Work Phone: [facility] 12-29-2017 influenza, seasonal, injectable Sabrina Kregel HEALTH DIAGNOSTICS TEACHER-CUPOLA TENDER Work Phone: [facility] 02-07-2015 influenza, seasonal, injectable, preservative free Sabrina Kregel HEALTH DIAGNOSTICS TEACHER-CUPOLA TENDER Work Phone: [facility] 01-23-2013 tetanus toxoid, redu sandra diphtheria toxoid, and acellular pertussis vaccine, adsorbed Sabrina Kregel HEALTH DIAGNOSTICS TEACHER-CUPOLA TENDER Work Phone: [facility] Payers Date Payer Category Payer Private Health Insurance [employer] [id number] 2022-Present [phone] [address] [address] [place] [address] [id number] 2022 Unknown [id number] 1987 Unknown [id number] .[id number] 1987 Unknown [id number] .[id number] 1987 Unknown [id number] .[id number] 1987 Unknown [id number] .[id number] 1987 Unknown [id number] .[id number] 1987 Unknown [id number] [id number] .[id number] 1987 Unknown [id number] .[id number] 1987 Unknown [id number] .[id number] 1959 Unknown [id number] Social History Date Type Detail Facility Start: 07-20-2022 Tobacco smoking status INIS Never smoked tobacco [facility] Start: 07-20-2022 Tobacco use and exposure Smokeless tobacco non-user [facility] Start: 05-13-2023 Alcohol intake Ex-drinker (finding) [facility] Start: 01-18-2022 End: 01-22-2023 History of Social function [facility] Start: 01-18-2022 End: 01-22-2023 Social connection and isolation panel [facility] Do you belong to any clubs or organizations such as restorationism groups, unions, fraternal or athletic groups, or school groups? Yes [facility] Are you now , , , , never or living with a partner? [facility] How often to you hav e a drink containing alcohol? Never [facility] How many standard dr inks containing alcohol do you have on a typical day? Patient does not drink [facility] Do you feel stress - tense, restless, nervous, or anxious, or unable to sleep at night because your mind is troubled all the time - these days [OSQ] Only a little [facility] Start: 01-18-2022 Education 12 [facility] Start: 1985 Sex Assigned At Female [facility] Start: 12-31-2019 Gender identity Identifies as female gender (finding) [facility] Start: 12-31-2019 Sexual orientation Heterosexual (finding) [facility] Medical Equipment Procedure Code Equipment Code Equipment Original Text Equi pment Identifier Dates 1 strip by other route every morning before breakfast. [id number] OneTouch Delica Plus Lancet 33 gauge USE TO CHECK BLOOD SUGAR DAILY [id number] Note 05-21-2023 Telephone Encounter - RAJANI De La Garza - 05/21/2023 1:25 PM EST Note Date & Type Note Facility 05-21-2023 Miscellaneous Notes Formattin g of this note might be different from the original. Images from the original note were not included. PAP Mask and Supplies Order Faxed to [employer] Fax Confirmed documented in this encounter [facility] Telephone encounter Note 05-21-2023 Telephone Encounter - RAJANI De La Garza - 05/21/2023 1:25 PM EST Note Date & Type Note Facility 05-21-2023 Telephone encount er Note Images from the original note were not included. PAP Mask and Supplies Order Faxed to [facility] Fax Confirmed [facility] History of Present illness Narrative 05-12-2023 LAUREN [...] heated inline humidifier. 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[employer] [place] Sleepiness Scale: Sitting and Reading: Never Watching [...] patient. Current Outpatient Medications: blood sugar diagnostic (Insurance Business ApplicationsUCH ULTRA TEST) strip, 1 strip by other [...] min Stress: No Stress Concern Present (01/18/2022) [employer] - Occupational Stress Questionnaire Feeling of Stress : Only a little Social Connections: Socially Integrated (01/18/2022) Social Connection and Isolation Panel [NHANES] Frequency of Communication with Friends and Family: More than three times a week Frequency of Social Gatherings with Friends and Family: Three times a week Attends Druze Services: More than 4 times per year [...] 08/2017 PS07/2017 w/ AHI of 85.5 DME: [employer] Data card was available for PAP usage [...] FDA warning against ozone / UV CPAP vice president of nursing. Advised to stop using immediately. Education sheet [...] not to drive if sleepy, and to lug breaker and wire puller if sleepiness occurs while driving. Above [...] that have escaped final proofreading. Sabrina Smith [facility] Office: [phone] 7:17 PM on 05/13/2023 CC: ETHAN MOREIRA APRN-CNP 05/13/231920 documented in this encounter [employer] [facility] Instructions 05-12-2023 Patient Instructions Note Date & Type Note Facility 05-12-2023 Instructions LAUREN Mullen - 05/12/2023 10:00 AM EST If you re looking for general health and wellness resources, please visit [email or web address]. documented in this encounter [facility] Evaluation note Note Date & Type Note Facility Evaluation note Diagnosis RACHEL (obstructive sleep apnea)- Primary Obstructive sleep apnea (adult) (pediatric) CPAP use counseling BMI 50.0-59.9, adult ([facility]) documented in this encounter [facility] Instructions Note Date & Type Note Facility Instructions Not on filedocumented in this en counter [facility] Summary Purpose Family History No Family [...] DATE CREATED AUTHOR AUTHOR'S ORGANIZ ATION 01/10/2023 [facility] DATE CREATED AUTHOR AUTHOR'S ORGANIZ ATION 05/19/2023 [facility] DATE CREATED AUTHOR AUTHOR'S ORGANIZ ATION 09/04/2023 [facility] EPIC Reason for Visit (unrecogniz ed section and content) Reason Comments Sleep Apnea DME: [facility] (unrecognized sec tion and content) Manager Proposal Relationship Specialty Start Date End Date Maude Gant APRN-FNP [address] [place] [address] PCP - General Internal Medicine 01/22/23 Manager Proposal Relationship Specialty Start Date End Date Maude Gant, HEALTH DIAGNOSTICS TEACHER-[facility] [address] [place] [address] PCP - General Internal Medicine 01/22/23 FOR [...] BE BASED ON THE PRIMARY CLINICAL RECORDS. [facility] [employer] [facility]. provides no warranty or guarantee of the accuracy or completeness of information in this document.
[2023-09-07 04:07] LABS: Prolactin 79.2 ng/mL (4.8-33.4)
== END 2023-09-06 08:01 | disposition home or self-care (01) ==
LOC: LAB 08:02
PROVIDERS: PCP Nurse Practitioner Family; Visit Provider Internal Medicine
DX: N92.6 Irregular menstruation, unspecified (principal); E22.1 Hyperprolactinemia
CPT/HCPCS: 36415; 83036; 84146; 85025; 86592; 86762; 86803; 86850; 86900; 86901; 87086; 87340; 87389

== ENCOUNTER 2023-09-10 07:47 | Outpatient (OUT) | payer OTHER, SELFPAY ==
--- OUTSIDE RECORDS SUMMARY | 2023-09-10 07:52 | XMS_ITS | CCD ---
Author Organization [facility] Care Team Providers Care Bellperson Name Role Phone JAIR, AHMAD Attending Unavailable ALFREDA, DR MAUDE Smith Primary Care Unavailable JAIR, AHKARYND Consulting Unavailable JAIR, AHMAD Admitting Unavailable KUNKadie, DR MAUDE Smith Primary Care Unavailable JAIR, AHKARYND Consulting Unavailable JAIR, AHMAD Admitting Unavailable JAIR, [...] ALFREDA, DR MAUDE Smith Consulting Unavailable Alfreda STATISTICS TEACHER-NUTRITION PROGRAM INSTRUCTOR, Maude Wall Primary Care Provider SABRINA SMITH Attending Unavailable MAUDE GANT Referring Unavailable MAUDE GANT Primary Care Unavailable Allergies Allergy Classification Reported Allergen(s) Allergy Type Date of Onset Reaction(s) Facility (1 source) Penicillins Drug allergy (disorder) 11-12-2014 [facility] Repository (3 sources) Penicillin G; Translations: [PENICILLIN G] Drug Allergy 08-07-2017 [facility] Medications Current Medications Medication Drug [...] complication, without long-term current use of insulin ([facility]) Inject 0.5 mg under the [...] Prolactin 64.0 ng/mL Critically high 4.8-23.3 [facility] Comment on above: Performed By: #### P ROLAC #### [facility] [address] [place] [address] Dr. Devin Florentino RENAL FUNCTION PANELon 02-19 Albumin [Mass/Vol] 3.7 g/dL Normal 3.4-5.0 [facility] Comment on above: Performed By: #### R ENAL #### [facility] [address] [address] [address] Devin Florentino Calcium [Mass/Vol] 9.2 mg/dL Normal 8.5-10.1 [facility] Comment on above: Performed By: #### R ENAL #### [facility] [address] [address] [address] Devin Florentino Chloride [Moles/Vol] 105 mmol/L Normal 98-107 [facility] Comment on above: Performed By: #### R ENAL #### [facility] [address] [address] [address] Devin Florentino CO2 [Moles/Vol] 29.7 mmol/L Normal 21.0-32.0 [facility] Comment on above: Performed By: #### R ENAL #### [facility] [address] [address] [address] Devin Florentino Creatinine [Mass/Vol] 0.72 mg/dL Normal 0.55-1.02 [facility] Comment on above: Performed By: #### R ENAL #### [facility] [address] [address] [address] Devin Florentino EGFR-AF MALTESE >60 Normal >=60 [facility] Comment on above: Performed By: #### R ENAL #### [facility] [address] [address] [address] Devin Florentino EGFR-NON AF MALTESE >60 Normal >=60 [facility] Comment on above: Performed By: #### R ENAL #### [facility] [address] [place] [address] Dr. Devin Florentino Glucose [Mass/Vol] 140 mg/dL Critically high 74-106 [facility] Comment on above: Performed By: #### R ENAL #### [facility] [address] [address] [address] Devin Florentino Phosphate [Mass/Vol] 4.3 mg/dL Normal 2.6-4.7 [facility] Comment on above: Performed By: #### R ENAL #### [facility] [address] [address] [address] Devin Florentino Potassium [Moles/Vol] 4.0 mmol/L Normal 3.5-5.1 [facility] Comment on above: Performed By: #### R ENAL #### [facility] [address] [address] [address] Devin Florentino Sodium [Moles/Vol] 141 mmol/L Normal 136-145 [facility] Comment on above: Performed By: #### R ENAL #### [facility] [address] [address] [address] Devin Florentino Urea nitrogen [Mass/Vol] 27.0 mg/dL Critically high 7.0-18.0 [facility] Comment on above: Performed By: #### R ENAL #### [facility] [address] [address] [address] Devin Florentino VITAMIN D 25 OHon 02-19-2022 VIT D 25-OH 16.2 ng/mL Normal [facility] Comment on above: Performed By: #### V ITAD #### [facility] [address] [address] [address] Devin Florentino VIT D RANGES SEE BELOW Normal [facility] Comment on above: Result Comment: <20 ng/mL Vit D deficient 20 - <30 ng/mL Vit D insufficient 30 - 100 ng/mL Vit D sufficient >100 ng/mL Potential Toxicity Performed By: #### V ITAD #### [facility] [address] [place] [address] Dr. Devin Florentino GLYCOHEMOGLOBIN A1Con 2021 ADA RECOMMENDATION SEE BELOW Normal [facility] Comment on above: Result Comment: ADA RECOMMENDED LIMIT 4.0 - 6.0 ADA THERAPEUTIC TARGET < 7.0 ACTION SUGGESTED > 7.0 Performed By: #### A 1C #### [facility] [address] [place] [address] Dr. Devin Florentino Glucose [Mass/Vol] 120 mg/dL Normal [facility] Comment on above: Performed By: #### A 1C #### [facility] [address] [place] [address] Dr. Devin Florentino HbA1c (Bld) [Mass fraction] 5.8 % Normal 4.5-6.2 [facility] Comment on above: Performed By: #### A 1C #### [facility] [address] [place] [address] Dr. Devin Florentino LIPID PROFILEon 01-15-2022 CHOL-HDL RATIO NORM SEE BELOW Normal [facility] Comment on above: Result Comment: 3.3 - 4.4 LOW RISK 4.4 - 7.1 AVERAGE RISK 7.1 - 11.0 MODERATE RISK >11.0 HIGH RISK Performed By: #### L IPID, CMP #### [facility] [address] [place] [address] Dr. Devin Florentino Cholesterol [Mass/Vol] 167 mg/dL Normal <=200 [facility] Comment on above: Performed By: #### L IPID, CMP #### [facility] [address] [address] [address] Devin Florentino Cholesterol in HDL [Mass/Vol] 47 mg/dL Normal 40-60 [facility] Comment on above: Performed By: #### L IPID, CMP #### [facility] [address] [address] [address] Devin Florentino Cholesterol in LDL [Mass/Vol] 103.0 mg/dL Normal [facility] Comment on above: Performed By: #### L IPID, CMP #### [facility] [address] [place] [address] Dr. Devin Florentino Cholesterol.total/Ch olesterol in HDL [Mass ratio] 3.6 {ratio} Normal [facility] Comment on above: Performed By: #### L IPID, CMP #### [facility] [address] [address] [address] Devin Florentino HDL NORMAL > or = 60 mg/dl - LO W CARDIOVASCULAR RISK <40 mg/dl - HIGH CARDIOVASCULAR RISK Normal [facility] Comment on above: Performed By: #### L IPID, CMP #### [facility] [address] [place] [address] Dr. Devin Florentino LDL CALC NORMAL SEE BELOW Normal [facility] Comment on above: Result Comment: <100 mg/dl OPTIMAL 100 - 129 mg/dl NEAR OR ABOVE OPTIMAL 130 - 159 mg/dl BORDERLINE HIGH 160 - 189 mg/dl HIGH >190 mg/dl VERY HIGH Performed By: #### L IPID, CMP #### [facility] [address] [address] [address] Devin Florentino Triglyceride [Mass/Vol] 81 mg/dL Normal <=150 [facility] Comment on above: Performed By: #### L IPID, CMP #### [facility] [address] [address] [address] Devin Florentino VLDL CALC 16.2 mg/dL Normal [facility] Comment on above: Performed By: #### L IPID, CMP #### [facility] [address] [address] [address] Devin Florentino PROF 14(COMP METB)on 022 Albumin [Mass/Vol] 3.7 g/dL Normal 3.4-5.0 [facility] Comment on above: Performed By: #### L IPID, CMP #### [facility] [address] [address] [address] Devin Florentino Albumin/Globulin [Mass ratio] 1.0 {ratio} Normal [facility] Comment on above: Performed By: #### L IPID, CMP #### [facility] [address] [place] [address] Dr. Devin Florentino ALP [Catalytic activity/Vol] 58 U/L Normal 46-116 [facility] Comment on above: Performed By: #### L IPID, CMP #### [facility] [address] [place] [address] Dr. Devin Florentino ALT [Catalytic activity/Vol] 40 U/L Normal 14-59 [facility] Comment on above: Performed By: #### L IPID, CMP #### [facility] [address] [place] [address] Dr. Devin Florentino Anion gap [Moles/Vol] 7.7 mmol/L Normal [facility] Comment on above: Performed By: #### L IPID, CMP #### [facility] [address] [place] [address] Dr. Devin Florentino AST [Catalytic activity/Vol] 20 U/L Normal 15-37 [facility] Comment on above: Performed By: #### L IPID, CMP #### [facility] [address] [place] [address] Dr. Devin Florentino Bilirubin [Mass/Vol] 0.5 mg/dL Normal 0.2-1.0 [facility] Comment on above: Performed By: #### L IPID, CMP #### [facility] [address] [place] [address] Dr. Devin Florentino Calcium [Mass/Vol] 9.0 mg/dL Normal 8.5-10.1 [facility] Comment on above: Performed By: #### L IPID, CMP #### [facility] [address] [address] [address] Devin Florentino Chloride [Moles/Vol] 103 mmol/L Normal 98-107 [facility] Comment on above: Performed By: #### L IPID, CMP #### [facility] [address] [address] [address] Devin Florentino CO2 [Moles/Vol] 30.6 mmol/L Normal 21.0-32.0 [facility] Comment on above: Performed By: #### L IPID, CMP #### [facility] [address] [place] [address] Dr. Devin Florentino Creatinine [Mass/Vol] 0.73 mg/dL Normal 0.55-1.02 [facility] Comment on above: Performed By: #### L IPID, CMP #### [facility] [address] [place] [address] Dr. Devin Florentino EGFR-AF MALTESE >60 Normal >=60 [facility] Comment on above: Performed By: #### L IPID, CMP #### [facility] [address] [place] [address] Dr. Devin Florentino EGFR-NON AF MALTESE >60 Normal >=60 [facility] Comment on above: Performed By: #### L IPID, CMP #### [facility] [address] [place] [address] Dr. Devin Florentino Globulin (S) [Mass/Vol] 3.6 g/dL Normal [facility] Comment on above: Performed By: #### L IPID, CMP #### [facility] [address] [place] [address] Dr. Devin Florentino Glucose [Mass/Vol] 105 mg/dL Normal 74-106 [facility] Comment on above: Performed By: #### L IPID, CMP #### [facility] [address] [place] [address] Dr. Devin Florentino Potassium [Moles/Vol] 3.9 mmol/L Normal 3.5-5.1 [facility] Comment on above: Performed By: #### L IPID, CMP #### [facility] [address] [place] [address] Dr. Devin Florentino Protein [Mass/Vol] 7.3 g/dL Normal 6.4-8.2 [facility] Comment on above: Performed By: #### L IPID, CMP #### [facility] [address] [place] [address] Dr. Devin Florentino Sodium [Moles/Vol] 138 mmol/L Normal 136-145 [facility] Comment on above: Performed By: #### L IPID, CMP #### [facility] [address] [place] [address] Dr. Devin Florentino Urea nitrogen [Mass/Vol] 19.0 mg/dL Critically high 7.0-18.0 [facility] Comment on above: Performed By: #### L IPID, CMP #### [facility] [address] [place] [address] Dr. Devin Florentino Urea nitrogen/Creatinine [Mass ratio] 26.0 mg/mg Normal [facility] Comment on above: Performed By: #### L IPID, CMP #### [facility] [address] [place] [address] Dr. Devin Florentino PAP ACOG PANEL 2: 30 to 65on 11-25-2021 . . Normal [facility] Comment on above: Result Comment: Perf ormed at: BA Performed By: #### [id number] #### [facility] [address] [place] [address] Dr. Devin Florentino Age Gdln ACOG Testing 30-65 [facility] Comment on above: Performed By: #### [id number] #### [facility] [address] [place] [address] Dr. Devin Florentino DIAGNOSIS: Comment [facility] Comment on above: Result Comment: UNSA TISFACTORY FOR EVALUATION. THIS SPECIMEN WAS RESCREENED PART OF OUR COATING MANAGER PROGRAM. Performed at: BA Performed By: #### [id number] #### [facility] [address] [place] [address] Dr. Devin Florentino HPV Aptima Negative Normal Negative [facility] Comment on above: Result Comment: This nucleic acid amplification test detects fourteen high-risk HPV types (16,18,31,33,35,39,45,51,52,56,58,59,66,68) without differentiation. Performed at: =G Performed By: #### [id number] #### [facility] [address] [place] [address] Dr. Devin Florentino Methodology: Comment Normal [facility] Comment on above: Result Comment: This liquid based ThinPrep(R) pap test was screened with the use of an image guided system. Performed at: WB Performed By: #### [id number] #### [facility] [address] [place] [address] Dr. Devin Florentino Note: Comment Normal [facility] Comment on above: Result Comment: The Pap smear is a screening test designed to aid in the detection of premalignant and malignant conditions of the uterine cervix. It is not a diagnostic procedure and should not be used as the sole means of detecting cervical cancer. Both false-positive and false-negative reports do occur. . Performed at: WB Performed By: #### 4 [id number] #### [facility] [address] [place] [address] Dr. Devin Florentino Performed by: Comment Normal [facility] Comment on above: Result Comment: Shamar Huang, Patrol Driver (ASCP) Performed at: BA Performed By: #### 4 [id number] #### [facility] [address] [place] [address] Dr. Devin Florentino QC reviewed by: Comment Normal [facility] Comment on above: Result Comment: Val Salmon, Patrol Driver (ASCP) Performed at: BA Performed By: #### 4 [id number] #### [facility] [address] [place] [address] Dr. Devin Florentino Specimen adequacy: Comment Normal [facility] Comment on above: Result Comment: Spec imen processed and examined but unsatisfactory for evaluation of epithelial abnormality because of insufficient cellularity. Performed at: BA Performed By: #### 4 [id number] #### [facility] [address] [place], [place] [address] Dr. Devin Florentino PROLACTINon 09-06-2021 Prolactin 92.6 ng/mL Critically high 4.8-23.3 [facility] Comment on above: Performed By: #### P MARCEL #### [facility] [address] [address] [address] Devin Florentino ALBUMIN, RANDOM URINE W/CREA TININEon 06-24-2021 ALBUMIN, URINE 0.6 mg/dL Normal See Note: [facility] Comment on above: Result Comment: Refe rence Range: Reference Range Not established Performed By: #### 7 46, 7600, 39771, 6517 #### [facility] [address] [place] [address] Loss Control Consultant: Jules Arreola MD ALBUMIN/CREATININE RATIO, RANDOM URINE [...] category. Performed By: #### 7 46, 7600, 01288, 6517 #### [facility] [place] [address] Loss Control Consultant: Jules Arreola MD Creatinine (U) [Mass/Vol] 53 mg/dL Normal 20-275 [facility] Comment on above: Performed By: #### 7 46, 7600, 17465, 6517 #### [facility] [place] [address] Loss Control Consultant: Jules Arreola MD [facility] METABOLIC PANE [facility] 06-24-2021 Albumin [Mass/Vol] 4.3 g/dL Normal 3.6-5.1 [facility] Comment on above: Performed By: #### 7 46, 7600, 77883, 6517 #### [facility] [address] [place] [address] Loss Control Consultant: Jules Arreola MD Albumin/Globulin [Mass ratio] 1.6 {ratio} Normal 1.0-2.5 [facility] Comment on above: Performed By: #### 7 46, 7600, 00658, 6517 #### [facility] of [address], [address] [place] [address] Loss Control Consultant: Jules Arreola MD ALP [Catalytic activity/Vol] 53 U/L Normal 31-125 [facility] Comment on above: Performed By: #### 7 46, 7600, 87072, 6517 #### [facility] of [address] [place] [address] Loss Control Consultant: Jules Arreola MD ALT [Catalytic activity/Vol] 32 U/L High 6-29 [facility] Comment on above: Performed By: #### 7 46, 7600, 68849, 6517 #### [facility] of [address], [address] [place] [address] Loss Control Consultant: Jules Arreola MD AST [Catalytic activity/Vol] 18 U/L Normal 10-30 [facility] Comment on above: Performed By: #### 7 46, 7600, 84136, 6517 #### [facility] of [address] [place] [address] Loss Control Consultant: Jules Arreola MD Bilirubin [Mass/Vol] 0.4 mg/dL Normal 0.2-1.2 [facility] Comment on above: Performed By: #### 7 46, 7600, 54432, 6517 #### [facility] of [address] [place] [address] Loss Control Consultant: Jules Arreola MD BUN/CREATININE RATIO NOT APPLICABLE Normal 6-22 [facility] Comment on above: Performed By: #### 7 46, 7600, 83574, 6517 #### [facility] of [address] [place] [address] Loss Control Consultant: Jules Arreola MD Calcium [Mass/Vol] 9.6 mg/dL Normal 8.6-10.2 [facility] Comment on above: Performed By: #### 7 46, 7600, 13638, 6517 #### [facility] of [address] [place] [address] Loss Control Consultant: Jules Arreola MD Chloride [Moles/Vol] 104 mmol/L Normal 98-110 [facility] Comment on above: Performed By: #### 7 46, 7600, 63233, 6517 #### [facility] of [place] [address] Loss Control Consultant: Jules Arreola MD CO2 [Moles/Vol] 29 mmol/L Normal 20-32 [facility] Comment on above: Performed By: #### 7 46, 7600, 90780, 6517 #### [facility] of [place] [address] Loss Control Consultant: Jules Arreola MD Creatinine [Mass/Vol] 0.70 mg/dL Normal 0.50-1.10 [facility] Comment on above: Performed By: #### 7 46, 7600, 03992, 6517 #### [facility] [place] [address] Loss Control Consultant: Jules Arreola MD eGFR NON-AFR. MALTESE 113 mL/min/1.73m2 Normal > OR = 60 [facility] Comment on above: Performed By: #### 7 46, 7600, 15915, 6517 #### [facility] of [place] [address] Loss Control Consultant: Jules Arreola MD GFR/1.73 sq M.predicted among blacks MDRD (S/P/Bld) [Vol rate/Area] 131 mL/min/{1.73_m2} Normal > OR = 60 [facility] Comment on above: Performed By: #### 7 46, 7600, 40388, 6517 #### [facility] of [place] [address] Loss Control Consultant: Jules Arreola MD Globulin (S) [Mass/Vol] 2.7 g/dL Normal 1.9-3.7 [facility] Comment on above: Performed By: #### 7 46, 7600, 91958, 6517 #### [facility] [place] [address] Loss Control Consultant: Jules Arreola MD Glucose [Mass/Vol] 101 mg/dL High 65-99 [facility] Comment on above: Result Comment: Fasting reference interval For someone without known diabetes, a glucose value between 100 and 125 mg/dL is consistent with prediabetes and should be confirmed with a follow-up test. Performed By: #### 7 46, 7600, 77387, 6517 #### [facility] [place] [address] Loss Control Consultant: Jules Arreola MD Potassium [Moles/Vol] 4.0 mmol/L Normal 3.5-5.3 [facility] Comment on above: Performed By: #### 7 46, 7600, , 6517 #### [facility] [place] [address] Loss Control Consultant: Jules Arreola MD Protein [Mass/Vol] 7.0 g/dL Normal 6.1-8.1 [facility] Comment on above: Performed By: #### 7 46, 7600, 91765, 6517 #### [facility] [place] [address] Loss Control Consultant: Jules Arreola MD Sodium [Moles/Vol] 139 mmol/L Normal 135-146 [facility] Comment on above: Performed By: #### 7 46, 7600, 70614, 6517 #### [facility] [place] [address] Loss Control Consultant: Jules Arreola MD Urea nitrogen [Mass/Vol] 23 mg/dL Normal 7-25 [facility] Comment on above: Performed By: #### 7 46, 7600, 03584, 6517 #### [facility] [address] [address] Loss Control Consultant: Jules Arreola MD LIPID PANEL, [facility] Cholesterol [Mass/Vol] 196 mg/dL Normal <200 [facility] Comment on above: Order Comment: FASTI NG:YES FASTING: YES Performed By: #### 7 46, 7600, 25451, 6517 #### [facility] [address], [address] [place] [address] Loss Control Consultant: Jules Arreola MD Cholesterol in HDL [Mass/Vol] 56 mg/dL Normal > OR = 50 [facility] Comment on above: Order Comment: FASTI NG:YES FASTING: YES Performed By: #### 7 46, 7600, 38157, 6517 #### [facility] [address], [address] [place] [address] Loss Control Consultant: Jules Arreola MD Cholesterol in LDL [Mass/Vol] [...] LDL-C. Fidencio ACOSTA et al. EDITH. 2013;310(19): 3423-5313 (http://education.Wan[employer] Maintenance.OxiCool/faq/VUJ817) Performed By: #### 7 46, 7600, 20776, 6517 #### [facility] [address], [address] [place] [address] Loss Control Consultant: Jules Arreola MD Cholesterol.total/Ch olesterol in HDL [Mass ratio] 3.5 {ratio} Normal <5.0 [facility] Comment on above: Order Comment: FASTI NG:YES FASTING: YES Performed By: #### 7 46, 7600, 35211, 6517 #### [facility] [address], [address] [place] [address] Loss Control Consultant: Jules Arreola MD NON HDL CHOLESTEROL 140 mg/dL (calc) High <130 [facility] Comment on above: Order Comment: FASTI NG:YES FASTING: YES Result Comment: For patients with diabetes plus 1 major ASCVD risk factor, treating to a non-HDL-C goal of <100 mg/dL (LDL-C of <70 mg/dL) is considered a therapeutic option. Performed By: #### 7 46, 7780, 15372, 6517 #### [facility] [address], [address] [place] [address] Loss Control Consultant: Jules Arreola MD Triglyceride [Mass/Vol] 104 mg/dL Normal <150 [facility] Comment on above: Order Comment: FASTI NG:YES FASTING: YES Performed By: #### 7 46, 7600, 05845, 6517 #### [facility] [address], [address] [place] [address] Loss Control Consultant: Jules Arreola MD PROLACTINon 06-24-2021 PROLACTIN 51.6 ng/mL High [facility] Comment on above: Result Comment: Refe rence Range Females Non- 3.0-30.0 10.0-209.0 Postmenopausal 2.0-20.0 Your request to have a duplicate copy faxed has been acknowledged. Queued to: [id number] Performed By: #### 7 46, 2900, 47593, 6517 #### [facility] [place] [address] Loss Control Consultant: Jules Arreola MD Covid-19 PCR (CVDTBH)on 02-21 SARS-CoV-2 (COVID-19) RNA STANLEY+probe Ql (Unsp spec) Not detected Normal NOT DETECTED [facility] Comment on above: Result Comment: This test is not yet approved or cleared by the [place] FDA. When there are no FDA-approved or cleared tests available, and other criteria are met, FDA can make tests available under an emergency access mechanism called an Emergency Use Authorization (EUA). The EUA for this test is supported by the [place] of Health and Human Service's (HHS's) declaration [...] Performed By: #### L IPID, CMP #### [facility] [address] [place] [address] Dr. Devin Florentino PROLACTINon 03-05-2021 Prolactin 79.1 ng/mL Critically high 4.8-23.3 [facility] Comment on above: Performed By: #### P ROLAC #### [facility] [address] [place] [address] Dr. Devin Florentino PROF CHEM 8 (BAS METB)on Anion gap [Moles/Vol] 9.9 mmol/L Normal [facility] Comment on above: Performed By: #### B MP #### [facility] [address] [place] [address] Dr. Devin Florentino Calcium [Mass/Vol] 9.6 mg/dL Normal 8.4-10.2 [facility] Comment on above: Performed By: #### B MP #### [facility] [address] [place] [address] Dr. Devin Florentino Chloride [Moles/Vol] 104 mmol/L Normal 98-107 [facility] Comment on above: Performed By: #### B MP #### [facility] [address] [place] [address] Dr. Devin Florentino CO2 [Moles/Vol] 32.2 mmol/L Critically high 22.0-30.0 [facility] Comment on above: Performed By: #### B MP #### [facility] [address] [place] [address] Dr. Devin Florentino Creatinine [Mass/Vol] 0.72 mg/dL Normal 0.52-1.04 [facility] Comment on above: Performed By: #### B MP #### [facility] [address] [address] [address] Devin Florentino EGFR-AF MALTESE >60 Normal >=60 [facility] Comment on above: Performed By: #### B MP #### [facility] [address] [address] [address] Devin Florentino EGFR-NON AF MALTESE >60 Normal >=60 [facility] Comment on above: Performed By: #### B MP #### [facility] [address] [address] [address] Devin Florentino Glucose [Mass/Vol] 118 mg/dL Critically high 74-106 [facility] Comment on above: Performed By: #### B MP #### [facility] [address] [place] [address] Dr. Devin Florentino Potassium [Moles/Vol] 4.1 mmol/L Normal 3.4-5.0 [facility] Comment on above: Performed By: #### B MP #### [facility] [address] [address] [address] Devin Florentino Sodium [Moles/Vol] 142 mmol/L Normal 137-145 [facility] Comment on above: Performed By: #### B MP #### [facility] [address] [place] [address] Dr. Devin Florentino Urea nitrogen [Mass/Vol] 22.0 mg/dL Critically high 7.0-17.0 [facility] Comment on above: Performed By: #### B MP #### [facility] [address] [address] [address] Devin Florentino Urea nitrogen/Creatinine [Mass ratio] 30.6 mg/mg Normal [facility] Comment on above: Performed By: #### B MP #### [facility] [address] [address] [address] Devin Florentino COMPREHENSIVE METABOLIC PANE Osmin 12-24-2020 Albumin [Mass/Vol] 4.0 g/dL Normal 3.6-5.1 [facility] Comment on above: Performed By: #### 7 600, 63820, 44071 #### [facility] of [address], [address] [place] [address] Loss Control Consultant: Jules Arreola MD Albumin/Globulin [Mass ratio] 1.4 {ratio} Normal 1.0-2.5 [facility] Comment on above: Performed By: #### 7 600, 21671, 37028 #### [facility] of [address], [address] [place] [address] Loss Control Consultant: Jules Arreola MD ALP [Catalytic activity/Vol] 45 U/L Normal 31-125 [facility] Comment on above: Performed By: #### 7 600, 63203, 31557 #### [facility] of [address], [address] [place] [address] Loss Control Consultant: Jules Arreola MD ALT [Catalytic activity/Vol] 20 U/L Normal 6-29 [facility] Comment on above: Performed By: #### 7 600, 48587, 56244 #### [facility] of [address], [address] [place] [address] Loss Control Consultant: Jules Arreola MD AST [Catalytic activity/Vol] 13 U/L Normal 10-30 [facility] Comment on above: Performed By: #### 7 600, 81813, 82691 #### [facility] of [address], [address] [place] [address] Loss Control Consultant: Jules Arreola MD Bilirubin [Mass/Vol] 0.4 mg/dL Normal 0.2-1.2 [facility] Comment on above: Performed By: #### 7 600, 48432, 08069 #### [facility] of [address], [address] [place] [address] Loss Control Consultant: Jules Arreola MD BUN/CREATININE RATIO NOT APPLICABLE Normal 6-22 [facility] Comment on above: Performed By: #### 7 600, 55764, 41100 #### [facility] of [address], [address] [place] [address] Loss Control Consultant: Jules Arreola MD Calcium [Mass/Vol] 9.4 mg/dL Normal 8.6-10.2 [facility] Comment on above: Performed By: #### 7 600, 62809, 63751 #### [facility] [address] [place] [address] Loss Control Consultant: Jules Arreola MD Chloride [Moles/Vol] 104 mmol/L Normal 98-110 [facility] Comment on above: Performed By: #### 7 600, 31974, 10320 #### [facility] of [address] [place] [address] Loss Control Consultant: Jules Arreola MD CO2 [Moles/Vol] 28 mmol/L Normal 20-32 [facility] Comment on above: Performed By: #### 7 600, 67270, 75707 #### [facility] [address] [place] [address] Loss Control Consultant: Jules Arreola MD Creatinine [Mass/Vol] 0.75 mg/dL Normal 0.50-1.10 [facility] Comment on above: Performed By: #### 7 600, 87082, 95981 #### [facility] [place] [address] Loss Control Consultant: Jules Arreola MD eGFR NON-AFR. MALTESE 105 mL/min/1.73m2 Normal > OR = 60 [facility] Comment on above: Performed By: #### 7 600, 24579, 00322 #### [facility] of [address] [place] [address] Loss Control Consultant: Jules Arreola MD GFR/1.73 sq M.predicted among blacks MDRD (S/P/Bld) [Vol rate/Area] 121 mL/min/{1.73_m2} Normal > OR = 60 [facility] Comment on above: Performed By: #### 7 600, 55074, 09766 #### [facility] of [address] [place] [address] Loss Control Consultant: Jules Arreola MD Globulin (S) [Mass/Vol] 2.8 g/dL Normal 1.9-3.7 [facility] Comment on above: Performed By: #### 7 600, 45444, 71835 #### [facility] [place] [address] Loss Control Consultant: Jules Arreola MD Glucose [Mass/Vol] 97 mg/dL Normal 65-99 [facility] Comment on above: Result Comment: Fasting reference interval Performed By: #### 7 600, 53225, 96745 #### [facility] of [place] [address] Loss Control Consultant: Jules Arreola MD Potassium [Moles/Vol] 4.2 mmol/L Normal 3.5-5.3 [facility] Comment on above: Performed By: #### 7 600, 14854, 69854 #### [facility] [place] [address] Loss Control Consultant: Jules Arreola MD Protein [Mass/Vol] 6.8 g/dL Normal 6.1-8.1 [facility] Comment on above: Performed By: #### 7 600, 51267, 58288 #### [facility] [place] [address] Loss Control Consultant: Jules Arreola MD Sodium [Moles/Vol] 140 mmol/L Normal 135-146 [facility] Comment on above: Performed By: #### 7 600, 85415, 97577 #### [facility] [place] [address] Loss Control Consultant: Jules Arreola MD Urea nitrogen [Mass/Vol] 17 mg/dL Normal 7-25 [facility] Comment on above: Performed By: #### 7 600, 03440, 20487 #### [facility] of [place] [address] Loss Control Consultant: Jules Arreola MD LIPID PANEL, [facility] 100 Cholesterol [Mass/Vol] 196 mg/dL Normal <200 [facility] Comment on above: Performed By: #### 7 600, 51294, 50119 #### [facility] [address], [address] [place] [address] Loss Control Consultant: Jules Arreola MD Cholesterol in HDL [Mass/Vol] 54 mg/dL Normal > OR = 50 [facility] Comment on above: Performed By: #### 7 600, 42940, 40120 #### [facility] [address], [address] [place] [address] Loss Control Consultant: Jules Arreola MD Cholesterol in LDL [Mass/Vol] [...] LDL-C. Fidencio ACOSTA et al. EDITH. 2013;310(19): 8458-2045 (http://education.Aspyra/faq/GUL478) Performed By: #### 7 600, 75464, 46266 #### [facility] [place] [address] Loss Control Consultant: Jules Arreola MD Cholesterol.total/Ch olesterol in HDL [Mass ratio] 3.6 {ratio} Normal <5.0 [facility] Comment on above: Performed By: #### 7 600, 33145, 08419 #### [facility] [address], [address] [place] [address] Loss Control Consultant: Jules Arreola MD NON HDL CHOLESTEROL 142 mg/dL (calc) High <130 [facility] Comment on above: Result Comment: For patients with diabetes plus 1 major ASCVD risk factor, treating to a non-HDL-C goal of <100 mg/dL (LDL-C of <70 mg/dL) is considered a therapeutic option. Performed By: #### 7 600, 30680, 08153 #### [facility] [address], [address] [place], [place] [address] Loss Control Consultant: Jules Arreola MD Triglyceride [Mass/Vol] 156 mg/dL High <150 [facility] Comment on above: Performed By: #### 7 600, 22251, 27642 #### [facility] [address], [address] [place], [place] [address] Loss Control Consultant: Jules Arreola MD VITAMIN D,25-OH,TOTAL,IAon 1 VITAMIN [...] D, (D2,D3), LC/MS/MS is recommended: order code 64026 (patients >2yrs). See Note 1 Note 1 For additional information, please refer to http://education.Wanjee Operation and Maintenance.OxiCool/faq/GPJ333 (This link is being provided for informational/ educational purposes only.) Performed By: #### 7 600, 89104, 83942 #### [facility] [address], [address] [place], [place] [address] Loss Control Consultant: Jules Arreola MD Vital Signs Date Time Vital Sign Value Performing Clinician Margie villarreal 05-12-2023 10:12-0500 Body height 170.2 cm Sabrina Smith APRN-SENIOR ESTIMATOR Work Phone: [facility]ul[facility] 05-12-2023 10:12-0500 Body mass index (BMI) [Ratio] 53.52 kg/m2 Sabrina Smith STATISTICS TEACHER-SENIOR ESTIMATOR Work Phone: [facility] 05-12-2023 10:12-0500 Body weight 154.99 kg Sabrina Smith APRN-SENIOR ESTIMATOR Work Phone: [facility] 05-12-2023 10:12-0500 Diastolic blood pressure 103 mm[Hg] [facility] STATISTICS TEACHER-SENIOR ESTIMATOR Work Phone: [facility] 05-12-2023 10:12-0500 Heart rate 65 /min [facility] STATISTICS TEACHER-SENIOR ESTIMATOR Work Phone: [facility] 05-12-2023 10:12-0500 SaO2% (BldA) [Mass fraction] 100 % [facility] STATISTICS TEACHER-SENIOR ESTIMATOR Work Phone: [facility] 05-12-2023 10:12-0500 Systolic blood pressure 157 mm[Hg] [facility] STATISTICS TEACHER-SENIOR ESTIMATOR Work Phone: [facility] Encounters Encounter Date Encounter Type Care Provider Facility Start: 09-03-2023 End: 09-03-2023 ambulatory Not Available Start: 05-21-2023 Telephone encounter Mariposa Tellez [facility] Start: 05-12-2023 End: 05-12-2023 ambulatory [facility] Start: 05-12-2023 End: 05-12-2023 Office outpatient visit 25 minutes [facility] STATISTICS TEACHER-SENIOR ESTIMATOR Work Phone: [facility] Comment on above: RACHEL (obstructive sle ep apnea) (Primary Dx); CPAP use counseling; BMI 50.0-59.9, adult ([facility]) Start: 01-09-2023 Emergency department patient visit Facility:[facility] Start: 02-19-2022 End: 02-20-2022 ambulatory [...] 05-15-2023 Diabetic retinal eye exam Mariposa Caicedo [facility] Start: 01-22-2023 Adult depression scr eening assessment Sabrina Smith STATISTICS TEACHER-SENIOR ESTIMATOR Work Phone: Start: 07-20-2022 Microalbumin [Mass/v olume] in Urine by Test strip Sabrina Smith APRN-SENIOR ESTIMATOR Work Phone: Start: 04-07-2022 Diabetic retinal eye exam Sabrina Smith STATISTICS TEACHER-SENIOR ESTIMATOR Work Phone: Start: 08-03-2021 Microscopic observat ion [Identifier] in Cervix by Cyto stain Sabrina Smith APRN-SENIOR ESTIMATOR Work Phone: Plan of Treatment Date Care Activity Detail Author Start: 04-19-2028 DTaP,Tdap and Td Vaccines (3 - Td or Tdap) DTaP,Tdap and Td Vaccines (3 - Td or Tdap) [facility] Start: 08-03-2024 Screening for malignant neoplasm of cervix Pap Smear [facility] Start: 05-15-2024 Glaucoma screening Diabetic Ophthalmology Exam [facility] Start: 05-13-2024 Tobacco Screening Tobacco Screening [facility] Start: 05-12-2024 Adult BMI Screening Adult BMI Screening [facility] Start: 05-12-2024 Tobacco Screening Tobacco Screening [facility] Start: 05-10-2024 End: 05-10-2024 Patient encounter procedure 05/10/2024 9:15 AM EST Office Visit [facility], [place] [place] [address] Sabrina Smith STATISTICS TEACHER-SENIOR ESTIMATOR [address], [address] [place] [address] [facility] Start: 01-23-2024 Depression Screening Depression Screening [facility] Start: 07-23-2023 End: 07-23-2023 Patient encounter procedure 07/23/2023 8:30 AM EDT Office Visit [facility] - Family Medicine [address] [place] [address] AlfredaMaude, STATISTICS TEACHER-NUTRITION PROGRAM INSTRUCTOR [address] [place] [address] [facility] - [facility] Start: 07-21-2023 Diabetic foot examination Diabetic Foot Exam [facility] Start: 07-21-2023 Urine screening for protein Urine Microalbumin [facility] Start: 04-07-2023 Glaucoma screening Diabetic Ophthalmology Exam [facility] Start: 2005 Adult BMI Follow Up Plan Adult BMI Follow Up Plan [facility] Immunizations Immunization Date Immunization Notes Care Provider Fernando ann 12-14-2018 Influenza, injectabl e, Madin [facility] Canine Kidney, quadrivalent with preservative Sabrina Kregel STATISTICS TEACHER-SENIOR ESTIMATOR Work Phone: [facility] 04-19-2018 tetanus toxoid, redu sandra diphtheria toxoid, and acellular pertussis vaccine, adsorbed Sabrina Kregel STATISTICS TEACHER-SENIOR ESTIMATOR Work Phone: [facility] 12-29-2017 influenza, injectabl e, quadrivalent, preservative free Sabrina Kregel STATISTICS TEACHER-SENIOR ESTIMATOR Work Phone: [facility] 12-29-2017 influenza, seasonal, injectable Sabrina Kregel STATISTICS TEACHER-SENIOR ESTIMATOR Work Phone: [facility] 02-07-2015 influenza, seasonal, injectable, preservative free Sabrina Kregel STATISTICS TEACHER-SENIOR ESTIMATOR Work Phone: [facility] 01-23-2013 tetanus toxoid, redu sandra diphtheria toxoid, and acellular pertussis vaccine, adsorbed Sabrina Kregel STATISTICS TEACHER-SENIOR ESTIMATOR Work Phone: [facility] Payers Date Payer Category Payer Private Health Insurance [facility] [employer] [id number] 2022-Present [phone] [address] [address] [place] [address] [id number] 2022 Unknown [id number] 1987 Unknown [id number] .[id number] 1987 Unknown [id number] .[id number] 1987 Unknown [id number] .[id number] 1987 Unknown [id number] .[id number] 1987 Unknown [id number] .[id number] 1987 Unknown [id number] [id number] .[id number] 1987 Unknown [id number] .[id number] 1987 Unknown [id number] .[id number] 1959 Unknown [id number] Social History Date Type Detail Facility Start: 07-20-2022 Tobacco smoking status WYIS Never smoked tobacco [facility] Start: 07-20-2022 Tobacco use and exposure Smokeless tobacco non-user [facility] Start: 05-13-2023 Alcohol intake Ex-drinker (finding) [facility] Start: 01-18-2022 End: 01-22-2023 History of Social function [facility] Start: 01-18-2022 End: 01-22-2023 Social connection and isolation panel [facility] Do you belong to any clubs or organizations such as baptism groups, unions, fraternal or athletic groups, or school groups? Yes [facility] Are you now , , , , never or living with a partner? [facility] How often to you hav e a drink containing alcohol? Never [facility] How many standard dr inks containing alcohol do you have on a typical day? Patient does not drink [facility] Do you feel stress - tense, restless, nervous, or anxious, or unable to sleep at night because your mind is troubled all the time - these days [OSQ] Only a little [facility] Start: 01-18-2022 Education 12 [facility] Start: 1985 Sex Assigned At Female [facility] Start: 12-31-2019 Gender identity Identifies as female gender (finding) [facility] Start: 12-31-2019 Sexual orientation Heterosexual (finding) [facility] Medical Equipment Procedure Code Equipment Code Equipment Original Text Equi pment Identifier Dates 1 strip by other route every morning before breakfast. [id number] OneTouch Delica Plus Lancet 33 gauge USE TO CHECK BLOOD SUGAR DAILY [id number] Note 05-21-2023 Telephone Encounter - RAAJNI De La Garza - 05/21/2023 1:25 PM EST Note Date & Type Note Facility 05-21-2023 Miscellaneous Notes Formattin g of this note might be different from the original. Images from the original note were not included. PAP Mask and Supplies Order Faxed to [facility] Fax Confirmed documented in this encounter [facility] Telephone encounter Note 05-21-2023 Telephone Encounter - RAJANI De La Garaz - 05/21/2023 1:25 PM EST Note Date & Type Note Facility 05-21-2023 Telephone encount er Note Images from the original note were not included. PAP Mask and Supplies Order Faxed to [facility] Fax Confirmed [facility] History of Present illness Narrative 05-12-2023 Sabrina Smith APRN-DILMA - 05/12/2023 10:00 AM EST Note Date & Type Note Facility 05-12-2023 History of Present illness Narrative Images from the original note were not included. Chief Complaint: [facility]yes [facility]12/2023. She is a 38 y.o. female followed at the [facility] for ARCHEL, for which BPAP 22/18 cm H2O was [...] heated inline humidifier. 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 Current Outpatient Medications: blood sugar diagnostic (GainspeedTOUCH ULTRA TEST) strip, 1 strip by other [...] min Stress: No Stress Concern Present (01/18/2022) [place] - Occupational Stress Questionnaire Feeling of Stress : Only a little Social Connections: Socially Integrated (01/18/2022) Social Connection and Isolation Panel [NHANES] Frequency of Communication with Friends and Family: More than three times a week Frequency of Social Gatherings with Friends and Family: Three times a week Attends [employer] Services: More than 4 times per year [...] 08/2017 PS07/2017 w/ AHI of 85.5 DME: [facility] Data card was available for PAP usage [...] FDA warning against ozone / UV CPAP oracle 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 Advised to stop using immediately. Education sheet [...] not to drive if sleepy, and to taffy puller if sleepiness occurs while driving. Above [...] that have escaped final proofreading. Sabrina Smith [facility] Office: [phone] 7:17 PM on 05/13/2023 CC: ETHAN MOREIRA APRN-CNP 05/13/231920 documented in this encounter [employer] [facility] Instructions 05-12-2023 Patient Instructions Note Date & Type Note Facility 05-12-2023 Instructions LAUREN Mullen - 05/12/2023 10:00 AM EST If you re looking for general health and wellness resources, please visit [employer] (e-Business) [email or web address]. documented in this encounter [facility] Evaluation note Note Date & Type Note Facility Evaluation note Diagnosis RACHEL (obstructive sleep apnea)- Primary Obstructive sleep apnea (adult) (pediatric) CPAP use counseling BMI 50.0-59.9, adult ([facility]) documented in this encounter [facility] Instructions Note Date & Type Note Facility Instructions Not on filedocumented in this en counter [facility] Summary Purpose Family History No Family [...] CREATED AUTHOR AUTHOR'S ORGANIZ ATION 02/27/2022 [facility] DATE CREATED AUTHOR AUTHOR'S ORGANIZ ATION 01/10/2023 [facility] DATE CREATED AUTHOR AUTHOR'S ORGANIZ ATION 05/19/2023 [facility] DATE CREATED AUTHOR AUTHOR'S ORGANIZ ATION 09/04/2023 [facility] dical Specialists EPIC Reason for Visit (unrecogniz ed section and content) Reason Comments Sleep Apnea DME: [facility] (unrecognized sec tion and content) Bellperson Relationship Specialty Start Date End Date Maude Gant APRN-FNP [address] [place] [address] PCP - General Internal Medicine 01/22/23 Bellperson Relationship Specialty Start Date End Date Maude Gant, STATISTICS TEACHER-[facility] [address] [place] [address] PCP - General Internal Medicine 01/22/23 FOR [...] BE BASED ON THE PRIMARY CLINICAL RECORDS. [facility] [facility]. provides no warranty or guarantee of the accuracy or completeness of information in this document.
== END 2023-09-10 07:48 | disposition home or self-care (01) ==
LOC: LAB 07:48
PROVIDERS: PCP Nurse Practitioner Family; Visit Provider Obstetrics & Gynecology
DX: Z34.80 Encounter for supervision of other normal pregnancy, unspecified trimester (principal)
CPT/HCPCS: 36415

== ENCOUNTER 2023-09-27 10:07 | Outpatient (OUT) | payer OTHER, SELFPAY ==
--- OUTSIDE RECORDS SUMMARY | 2023-09-27 10:29 | XMS_ITS | CCD ---
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 Car Worker Name Role Phone GUZMAN ADAMMAD Attending Unavailable ALFREDA, DR MAUDE Smith Primary Care Unavailable JAIR, AHMAD Consulting Unavailable JAIR, AHMAD Admitting Unavailable KUNKadie, DR MAUDE Smith Primary Care Unavailable JAIR, LEIGH Consulting Unavailable JAIR, AHMAD Admitting Unavailable JAIR, AHKARYND Attending Unavailable ALFREDA, DR MAUDE Smith Primary Care Unavailable YUALEXA, DR DANG Admitting Unavailable YUHAKadie, DR DANG Attending Unavailable YUHAKadie, DR DANG Consulting Unavailable ALFREDA, DR MAUDE Smith Primary Care Unavailable JAIR, LEIGH Consulting Unavailable JAIR, AHMAD Admitting Unavailable JAIR, CHRISTOPHERD Attending Unavailable ALFREDA, DR MAUDE Smith Primary Care Unavailable VICTORIA, DR MARTIN Consulting Unavailable VICTORIA, DR MARTIN Admitting Unavailable VICTORIA, DR MARTIN Attending Unavailable ALFREDA, DR MAUDE Smith Primary Care Unavailable KUNKadie, DR MAUDE Smith Admitting Unavailable ALFREDA, DR MAUDE Smith Attending Unavailable ALFREDA, DR MAUDE Smith Consulting Unavailable Alfreda FULL FASHIONED GARMENT KNITTER-SKIMMER, Maude Wall Primary Care Provider SABRINA SMITH Attending Unavailable MAUDE GANT Referring Unavailable MAUDE GANT Primary Care Unavailable ELIZA LYN Attending Unavailable MARIO KESSLER Referring Unavailable MAUDE GANT Primary Care Unavailable ANTOINETTE DE LA TORRE Attending Unavailable MAUDE GANT Referring Unavailable MAUDE GANT Primary Care Unavailable ANTOINETTE DE LA TORRE Referring Unavailable MAUDE GANT Primary Care Unavailable Allergies Allergy Classification Reported Allergen(s) Allergy Type Date of Onset Reaction(s) Facility (1 source) Penicillins Drug allergy (disorder) 5 [facility] Repository (5 sources) Penicillin G; Translations: [PENICILLIN G] Drug Allergy 8 [facility] (2 sources) Adhesive agent; Translations: [ADHESIVE] Propensity to adverse reactions to drug (disorder) 4 [facility] (2 sources) benzoin resin; Translations: [BENZOIN] Drug Allergy 4 [facility] (2 sources) Cortisone; Translations: [CORTISONE] Drug Allergy 4 [facility] Medications Current Medications Medication Drug Class(es) Dates [...] complication, without long-term current use of insulin ([facility]) Inject 0.5 mg under the skin every [...] mellitus without complications] Onset: 04-19-2018 01-20-2022 Chronic Diabetes mellitus without complication (1 source) Diabetes mellitus without complication Onset: 09-15-2023 Diabetes or abnormal glucose tolerance complicating ; childbirth; or the puerperium (1 source) Gestational diabetes mellitus in , unspecified control; Translations: [Gestational diabetes mellitus in , unspecified control] Onset: 09-15-2023 Episodic Disorders of lipid metabolism (6 sources) Mixed hyperlipidemia; Translations: [Mixed hyperlipidemia] Onset: 12-31-2021 Chronic Essential hypertension (4 sources) Essential hypertension; Translations: [Essential (primary) hypertension] [...] Test Name Value Interpretation Reference Range Facility COMPREHENSIVE METABOLIC PANE Osmin 09-16-2023 Albumin [Mass/Vol] 3.9 g/dL Normal 3.2-5.[address] [facility] Comment on above: Performed By: #### C MP, UPCR, 65354-9, HA1C #### [facility] ([id number]) [address], [address] [place] [address] ALP [Catalytic activity/Vol] 49 U/L Normal 39-130 [facility] Comment on above: Performed By: #### C BRANDEN, UPCR, 07128-1, HA1C #### [facility] ([id number]) [address], [address] [place] [address] ALT [Catalytic activity/Vol] 30 U/L Normal 0-31 [facility] Comment on above: Performed By: #### C BRANDEN, UPCR, 45796-3, HA1C #### [facility] ([id number]) [address], [address] [place] [address] Anion gap [Moles/Vol] 10 mmol/L Normal 5-15 [facility] Comment on above: Performed By: #### C BRANDEN, UPCR, 50316-0, HA1C #### [facility] ([id number]) [address], [address] [place] [address] AST [Catalytic activity/Vol] 18 U/L Normal 0-41 [facility] Comment on above: Performed By: #### C BRANDEN, UPCR, 95534-7, HA1C #### [facility] ([id number]) [address], [address] [place] [address] Bilirubin [Mass/Vol] 0.4 mg/dL Normal 0.3-1.2 [facility] Comment on above: Performed By: #### C BRANDEN, UPCR, 05382-6, HA1C #### [facility] ([id number]) [address], [address] [place] [address] Calcium [Mass/Vol] 9.4 mg/dL Normal 8.5-10.5 [facility] Comment on above: Performed By: #### C BRANDEN, UPCR, 95986-7, HA1C #### [facility] ([id number]) [address], [address] [place] [address] Chloride [Moles/Vol] 104 mmol/L Normal 98-109 [facility] Comment on above: Performed By: #### C BRANDEN, UPCR, 45827-6, HA1C #### [facility] ([id number]) [address], [address] [place] [address] CO2 [Moles/Vol] 23 mmol/L Normal 22-32 [facility] Comment on above: Performed By: #### C BRANDEN, UPGAIL, 10792-3, HA1C #### [facility] ([id number]) [address], [address] [place] [address] Creatinine [Mass/Vol] 0.66 mg/dL Normal 0.40-1.00 [facility] Comment on above: Result Comment: METH OD TRACEABLE TO IDMS STANDARD Performed By: #### C BRANDEN UPGAIL, 37088-6, HA1C #### [facility] ([id number]) [address] [place] [address] eGFR (CKD-EPI) NON-RACE DEPENDENT >90 Normal >59 [facility] Comment on above: Result Comment: Reported eGFR is based on the CKD-EPI 2021 equation that does not use a race coefficient. Performed By: #### C BRANDON OTERO, 04263-8, HA1C #### [facility] ([id number]) [address], [address] [place] [address] Glucose [Mass/Vol] 110 mg/dL High 65-99 [facility] Comment on above: Performed By: #### C BRANDEN UPCR, 04889-9, HA1C #### [facility] ([id number]) [address], [address] [place] [address] Potassium [Moles/Vol] 3.7 mmol/L Normal 3.5-5.0 [facility] Comment on above: Performed By: #### C BRANDEN UPCR, 54352-4, HA1C #### [facility] ([id number]) [address], [address] [place] [address] Protein [Mass/Vol] 6.9 g/dL Normal 6.0-8.0 [facility] Comment on above: Performed By: #### C BRANDEN, UPCR, 42383-2, HA1C #### [facility] ([id number]) [address], [address] [place] [address] Sodium [Moles/Vol] 137 mmol/L Normal 134-146 [facility] Comment on above: Performed By: #### C BRANDEN, UPCR, 64486-1, HA1C #### [facility] ([id number]) [address], [address] [place] [address] Urea nitrogen [Mass/Vol] 18 mg/dL Normal 5-23 [facility] Comment on above: Performed By: #### Jakub OTERO, UPCR, 78106-1, HA1C #### [facility] ([id number]) [address], [address] [place] [address] HGB A1C (GLYCO-HGB)on 2023 Glucose [Mass/Vol] 160 mg/dL Normal [facility] Comment on above: Performed By: #### Jakub OTERO, UPCR, 40953-4, HA1C #### [facility] ([id number]) [address], [address] [place] [address] HbA1c (Bld) [Mass fraction] 7.2 % High 4.4-5.6 [facility] Comment on above: Result Comment: NOTE ADA Guidelines Result HgbA1c Normal : less than 5.7 % Prediabetes : 5.7 % to 6.4 % Diabetes : > 6.4 % Use with caution in patients with abnormal hemoglobin variants as the half-life of red blood cells and in vivo glycation rates are affected. Performed By: #### C BRANDEN, UPCR, 10637-1, HA1C #### [facility] ([id number]) [address], [address] [place] [address] PROTEIN CREAT RATIOon 2023 RANDOM URINE PROTEIN 80 mg/L Normal <120 [facility] Comment on above: Performed By: #### C BRANDEN, UPCR, 49679-7, HA1C #### [facility] ([id number]) [address], [address] [place] [address] U/PRO/TUFTER HAND RATIO CALC 0.08 Normal <0.2 [facility] Comment on above: Result Comment: Neph rotic Syndrome is associated with ratios >3.5 Performed By: #### C BRANDEN, UPGAIL, 10247-1, HA1C #### [facility] ([id number]) [address] [place] [address] URINE CREATININE,RDM 100.44 mg/dL Normal [facility] Comment on above: Performed By: #### C BRANDEN, UPCR, 70741-2, HA1C #### [facility] ([id number]) [address], [address] [place] [address] Vitamin D+Metabolites [Mass/ Vol]on 09-16-2023 VITAMIN D 25 HYD TOT 20.8 ng/mL Low 30-100 [facility] Comment on above: Result Comment: Vitamin D status 25 [place] Vitamin D Deficiency <20 ng/mL Insufficiency 20-29 ng/mL Sufficiency 30-100 ng/mL Toxicity >100 ng/mL NOTE: A pediatric reference range has not been established by the metal building assembler of this kit. The [place] [employer] recommends a Vitamin D level of = or >20ng/mL in infants and children. Performed By: #### C BRANDEN, UPCR, 88488-8, HA1C #### [facility] ([id number]) [address] [facility] [place] [address] PROLACTINon 02-20-2022 Prolactin 64.0 ng/mL Critically high 4.8-23.3 [facility] Comment on above: Performed By: #### P ROLAC #### [facility] [address] [address] [address] Devin Florentino RENAL FUNCTION PANELon 02-19 Albumin [Mass/Vol] 3.7 g/dL Normal 3.4-5.0 [facility] Comment on above: Performed By: #### R ENAL #### [facility] [address] [place] [address] Dr. Devin Florentino Calcium [Mass/Vol] 9.2 mg/dL Normal 8.5-10.1 [facility] Comment on above: Performed By: #### R ENAL #### [facility] [address] [address] [address] Devin Florentino Chloride [Moles/Vol] 105 mmol/L Normal 98-107 [facility] Comment on above: Performed By: #### R ENAL #### [facility] [address] [address] [address] Devin Florentino CO2 [Moles/Vol] 29.7 mmol/L Normal 21.0-32.0 [facility] Comment on above: Performed By: #### R ENAL #### [facility] [address] [address] [address] Devin Florentino Creatinine [Mass/Vol] 0.72 mg/dL Normal 0.55-1.02 [facility] Comment on above: Performed By: #### R ENAL #### [facility] [address] [place] [address] Dr. Devin Florentino EGFR-AF IRISH >60 Normal >=60 [facility] Comment on above: Performed By: #### R ENAL #### [facility] [address] [address] [address] Devin Florentino EGFR-NON AF IRISH >60 Normal >=60 [facility] Comment on above: Performed By: #### R ENAL #### [facility] [address] [place] [address] Dr. Devin Florentino Glucose [Mass/Vol] 140 mg/dL Critically high 74-106 [facility] Comment on above: Performed By: #### R ENAL #### [facility] [address] [place] [address] Dr. Devin Florentino Phosphate [Mass/Vol] 4.3 mg/dL Normal 2.6-4.7 [facility] Comment on above: Performed By: #### R ENAL #### [facility] [address] [place] [address] Dr. Devin Florentino Potassium [Moles/Vol] 4.0 mmol/L Normal 3.5-5.1 [facility] Comment on above: Performed By: #### R ENAL #### [facility] [address] [place] [address] Dr. Devin Florentino Sodium [Moles/Vol] 141 mmol/L Normal 136-145 [facility] Comment on above: Performed By: #### R ENAL #### [facility] [address] [place] [address] Dr. Devin Florentino Urea nitrogen [Mass/Vol] 27.0 mg/dL Critically high 7.0-18.0 [facility] Comment on above: Performed By: #### R ENAL #### [facility] [address] [place] [address] Dr. Devin Florentino VITAMIN D 25 OHon 02-19-2022 VIT D 25-OH 16.2 ng/mL Normal [facility] Comment on above: Performed By: #### V ITAD #### [facility] [address] [place] [address] Dr. Devin Florentino VIT D RANGES SEE BELOW Normal [facility] Comment on above: Result Comment: <20 ng/mL Vit D deficient 20 - <30 ng/mL Vit D insufficient 30 - 100 ng/mL Vit D sufficient >100 ng/mL Potential Toxicity Performed By: #### V ITAD #### [facility] [address] [place] [address] Dr. Devin Florentino GLYCOHEMOGLOBIN A1Con 2021 ADA RECOMMENDATION SEE BELOW Normal [facility] Comment on above: Result Comment: ADA RECOMMENDED LIMIT 4.0 - 6.0 ADA THERAPEUTIC TARGET < 7.0 ACTION SUGGESTED > 7.0 Performed By: #### A 1C #### [facility] [address] [place] [address] Dr. Devin Florentino Glucose [Mass/Vol] 120 mg/dL Normal [facility] Comment on above: Performed By: #### A 1C #### [facility] [address] [place] [address] Dr. Devin Florentino HbA1c (Bld) [Mass fraction] 5.8 % Normal 4.5-6.2 [facility] Comment on above: Performed By: #### A 1C #### [facility] [address] [place] [address] Dr. Devin Florentino LIPID PROFILEon 01-15-2022 CHOL-HDL RATIO NORM SEE BELOW Normal [facility] Comment on above: Result Comment: 3.3 - 4.4 LOW RISK 4.4 - 7.1 AVERAGE RISK 7.1 - 11.0 MODERATE RISK >11.0 HIGH RISK Performed By: #### L IPID, CMP #### [facility] [address] [place] [address] Dr. Devin Florentino Cholesterol [Mass/Vol] 167 mg/dL Normal <=200 [facility] Comment on above: Performed By: #### L IPID, CMP #### [facility] [address] [place] [address] Dr. Devin Flornetino Cholesterol in HDL [Mass/Vol] 47 mg/dL Normal 40-60 [facility] Comment on above: Performed By: #### L IPID, CMP #### [facility] [address] [place] [address] Dr. Devin Florentino Cholesterol in LDL [Mass/Vol] 103.0 mg/dL Normal [facility] Comment on above: Performed By: #### L IPID, CMP #### [facility] [address] [place] [address] Dr. Devin Florentino Cholesterol.total/Ch olesterol in HDL [Mass ratio] 3.6 {ratio} Normal [facility] Comment on above: Performed By: #### L IPID, CMP #### [facility] [address] [place] [address] Dr. Devin Florentino HDL NORMAL > or = 60 mg/dl - LO W CARDIOVASCULAR RISK <40 mg/dl - HIGH CARDIOVASCULAR RISK Normal [facility] Comment on above: Performed By: #### L IPID, CMP #### [facility] [address] [place] [address] Dr. Devin Florentino LDL CALC NORMAL SEE BELOW Normal [facility] Comment on above: Result Comment: <100 mg/dl OPTIMAL 100 - 129 mg/dl NEAR OR ABOVE OPTIMAL 130 - 159 mg/dl BORDERLINE HIGH 160 - 189 mg/dl HIGH >190 mg/dl VERY HIGH Performed By: #### L IPID, CMP #### [facility] [address] [place] [address] Dr. Devin Florentino Triglyceride [Mass/Vol] 81 mg/dL Normal <=150 [facility] Comment on above: Performed By: #### L IPID, CMP #### [facility] [address] [place] [address] Dr. Devin Florentino VLDL CALC 16.2 mg/dL Normal [facility] Comment on above: Performed By: #### L IPID, CMP #### [facility] [address] [place] [address] Dr. Devin Florentino PROF 14(COMP METB)on 022 Albumin [Mass/Vol] 3.7 g/dL Normal 3.4-5.0 [facility] Comment on above: Performed By: #### L IPID, CMP #### [facility] [address] [place] [address] Dr. Devin Florentino Albumin/Globulin [Mass ratio] 1.0 {ratio} Normal [facility] Comment on above: Performed By: #### L IPID, CMP #### [facility] [address] [place] [address] Dr. Devin Florentino ALP [Catalytic activity/Vol] 58 U/L Normal 46-116 [facility] Comment on above: Performed By: #### L IPID, CMP #### [facility] [address] [place] [address] Dr. Devin Florentino ALT [Catalytic activity/Vol] 40 U/L Normal 14-59 [facility] Comment on above: Performed By: #### L IPID, CMP #### [facility] [address] [place] [address] Dr. Devin Florentino Anion gap [Moles/Vol] 7.7 mmol/L Normal [facility] Comment on above: Performed By: #### L IPID, CMP #### [facility] [address] [place] [address] Dr. Devin Florentino AST [Catalytic activity/Vol] 20 U/L Normal 15-37 [facility] Comment on above: Performed By: #### L IPID, CMP #### [facility] [address] [place] [address] Dr. Devin Florentino Bilirubin [Mass/Vol] 0.5 mg/dL Normal 0.2-1.0 [facility] Comment on above: Performed By: #### L IPID, CMP #### [facility] [address] [place] [address] Dr. Devin Florentino Calcium [Mass/Vol] 9.0 mg/dL Normal 8.5-10.1 [facility] Comment on above: Performed By: #### L IPID, CMP #### [facility] [address] [place] [address] Dr. Devin Florentino Chloride [Moles/Vol] 103 mmol/L Normal 98-107 [facility] Comment on above: Performed By: #### L IPID, CMP #### [facility] [address] [place] [address] Dr. Devin Florentino CO2 [Moles/Vol] 30.6 mmol/L Normal 21.0-32.0 [facility] Comment on above: Performed By: #### L IPID, CMP #### [facility] [address] [place] [address] Dr. Devin Florentino Creatinine [Mass/Vol] 0.73 mg/dL Normal 0.55-1.02 [facility] Comment on above: Performed By: #### L IPID, CMP #### [facility] [address] [place] [address] Dr. Devin Florentino EGFR-AF IRISH >60 Normal >=60 [facility] Comment on above: Performed By: #### L IPID, CMP #### [facility] [address] [address] [address] Devin Florentino EGFR-NON AF IRISH >60 Normal >=60 [facility] Comment on above: Performed By: #### L IPID, CMP #### [facility] [address] [place] [address] Dr. Devin Florentino Globulin (S) [Mass/Vol] 3.6 g/dL Normal [facility] Comment on above: Performed By: #### L IPID, CMP #### [facility] [address] [place] [address] Dr. Devin Florentino Glucose [Mass/Vol] 105 mg/dL Normal 74-106 [facility] Comment on above: Performed By: #### L IPID, CMP #### [facility] [address] [place] [address] Dr. Devin Florentino Potassium [Moles/Vol] 3.9 mmol/L Normal 3.5-5.1 [facility] Comment on above: Performed By: #### L IPID, CMP #### [facility] [address] [place] [address] Dr. Devin Florentino Protein [Mass/Vol] 7.3 g/dL Normal 6.4-8.2 [facility] Comment on above: Performed By: #### L IPID, CMP #### [facility] [address] [place] [address] Dr. Devin Florentino Sodium [Moles/Vol] 138 mmol/L Normal 136-145 [facility] Comment on above: Performed By: #### L IPID, CMP #### [facility] [address] [place] [address] Dr. Devin Florentino Urea nitrogen [Mass/Vol] 19.0 mg/dL Critically high 7.0-18.0 [facility] Comment on above: Performed By: #### L IPID, CMP #### [facility] [address] [place] [address] Dr. Devin Florentino Urea nitrogen/Creatinine [Mass ratio] 26.0 mg/mg Normal [facility] Comment on above: Performed By: #### L IPID, CMP #### [facility] [address] [place] [address] Dr. Devin Florentino PAP ACOG PANEL 2: 30 to 65on 11-25-2021 . . Normal [facility] Comment on above: Result Comment: Perf ormed at: BA Performed By: #### [id number] #### [facility] [address] [place] [address] Dr. Devin Florentino Age Gdln ACOG Testing 30-65 Normal [facility] Comment on above: Performed By: #### 4 [id number] #### [facility] [address] [place] [address] Dr. Devin Florentino DIAGNOSIS: Comment Normal [facility] Comment on above: Result Comment: UNSA TISFACTORY FOR EVALUATION. THIS SPECIMEN WAS RESCREENED PART OF OUR CHEMISTRY DEPARTMENT CHAIR PROGRAM. Performed at: BA Performed By: #### [id number] #### [facility] [address] [place] [address] Dr. Devin Florentino HPV Aptima Negative Normal Negative [facility] Comment on above: Result Comment: This nucleic acid amplification test detects fourteen high-risk HPV types (16,18,31,33,35,39,45,51,52,56,58,59,66,68) without differentiation. Performed at: =G Performed By: #### [id number] #### [facility] [address] [place] [address] Dr. Devin Florentino Methodology: Comment Normal [facility] Comment on above: Result Comment: This liquid based ThinPrep(R) pap test was screened with the use of an image guided system. Performed at: WB Performed By: #### [id number] #### [facility] [address] [place] [address] Dr. Devin Florentino Note: Comment Normal [facility] Comment on above: Result Comment: The Pap smear is a screening test designed to aid in the detection of premalignant and malignant conditions of the uterine cervix. It is not a diagnostic procedure and should not be used as the sole means of detecting cervical cancer. Both false-positive and false-negative reports do occur. . Performed at: WB Performed By: #### [id number] #### [facility] [address] [place] [address] Dr. Devin Florentino Performed by: Comment Normal [facility] Comment on above: Result Comment: Shamar Huang, Cash Grain Farmer (ASCP) Performed at: BA Performed By: #### [id number] #### [facility] [address] [place] [address] Dr. Devin Florentino QC reviewed by: Comment Normal [facility] Comment on above: Result Comment: Val Salmon, Cash Grain Farmer (ASCP) Performed at: BA Performed By: #### [id number] #### [facility] [address] [place] [address] Dr. Devin Florentino Specimen adequacy: Comment Normal [facility] Comment on above: Result Comment: Spec imen processed and examined but unsatisfactory for evaluation of epithelial abnormality because of insufficient cellularity. Performed at: BA Performed By: #### [id number] #### [facility] [address] [place] [address] Dr. Devin Florentino PROLACTINon 09-06-2021 Prolactin 92.6 ng/mL Critically high 4.8-23.3 [facility] Comment on above: Performed By: #### P ROLAC #### [facility] [address] [place] [address] Dr. Devin Florentino ALBUMIN, RANDOM URINE W/CREA TININEon 06-24-2021 ALBUMIN, URINE 0.6 mg/dL Normal See Note: [facility] Comment on above: Result Comment: Refe rence Range: Reference Range Not established Performed By: #### 7 46, 7600, 24709, 6517 #### [facility] [address] [place] [address], [address] [place] [address] Street Flusher Driver: Jules Arreola MD ALBUMIN/CREATININE RATIO, RANDOM [...] category. Performed By: #### 7 46, 7600, 24332, 6517 #### [facility] [address], [address] [place] [address] Street Flusher Driver: Jules Arreola MD Creatinine (U) [Mass/Vol] 53 mg/dL Normal 20-275 [facility] Comment on above: Performed By: #### 7 46, 7600, 32759, 6517 #### [facility] [address] [place] [address] Street Flusher Driver: Jules Arreola MD [employer] 06-24-2021 Albumin [Mass/Vol] 4.3 g/dL Normal 3.6-5.1 [facility] Comment on above: Performed By: #### 7 46, 7600, 06719, 6517 #### [facility] [place] [address] [address] Flusher Driver: Jules Arreola MD Albumin/Globulin [Mass ratio] 1.6 {ratio} Normal 1.0-2.5 [facility] Comment on above: Performed By: #### 7 46, 7600, 71281, 6517 #### [facility] of [place] [address] [address] Flusher Driver: Jules Arreola MD ALP [Catalytic activity/Vol] 53 U/L Normal 31-125 [facility] Comment on above: Performed By: #### 7 46, 7600, 00790, 6517 #### [facility] [place] [address] [address] Flusher Driver: Jules Arreola MD ALT [Catalytic activity/Vol] 32 U/L High 6-29 [facility] Comment on above: Performed By: #### 7 46, 7600, , 6517 #### [facility] [place] [address] [address] Flusher Driver: Jules Arreola MD AST [Catalytic activity/Vol] 18 U/L Normal 10-30 [facility] Comment on above: Performed By: #### 7 46, 7600, , 6517 #### [facility] [place] [address] [address] Flusher Driver: Jules Arreola MD Bilirubin [Mass/Vol] 0.4 mg/dL Normal 0.2-1.2 [facility] Comment on above: Performed By: #### 7 46, 7600, , 17 #### [facility] [place] [address] [address] Flusher Driver: Jules Arreola MD BUN/CREATININE RATIO NOT APPLICABLE Normal 6-22 [facility] Comment on above: Performed By: #### 7 46, 7600, , 6517 #### [facility] [place] [address] [address] Flusher Driver: Jules Arreola MD Calcium [Mass/Vol] 9.6 mg/dL Normal 8.6-10.2 [facility] Comment on above: Performed By: #### 7 46, 7600, , 6517 #### [facility] [place] [address] [address] Flusher Driver: Jules Arreola MD Chloride [Moles/Vol] 104 mmol/L Normal 98-110 [facility] Comment on above: Performed By: #### 7 46, 7600, 77483, 6517 #### [facility] [place] [address] [address] Flusher Driver: Jules Arreola MD CO2 [Moles/Vol] 29 mmol/L Normal 20-32 [facility] Comment on above: Performed By: #### 7 46, 7600, 41466, 6517 #### [facility] [place] [address] [address] Flusher Driver: Jules Arreola MD Creatinine [Mass/Vol] 0.70 mg/dL Normal 0.50-1.10 [facility] Comment on above: Performed By: #### 7 46, 7600, 46588, 6517 #### [facility] [place] [address] [address] Flusher Driver: Jules Arreola MD eGFR NON-AFR. IRISH 113 mL/min/1.73m2 Normal > OR = 60 [facility] Comment on above: Performed By: #### 7 46, 7600, 46709, 6517 #### [facility] [place] [address] [address] Flusher Driver: Jules Arreola MD GFR/1.73 sq M.predicted among blacks MDRD (S/P/Bld) [Vol rate/Area] 131 mL/min/{1.73_m2} Normal > OR = 60 [facility] Comment on above: Performed By: #### 7 46, 7600, 80729, 6517 #### [facility] [place] [address] [address] Flusher Driver: Jules Arreola MD Globulin (S) [Mass/Vol] 2.7 g/dL Normal 1.9-3.7 [facility] Comment on above: Performed By: #### 7 46, 7600, 43857, 6517 #### [facility] [place] [address] [address] Flusher Driver: Jules Arreola MD Glucose [Mass/Vol] 101 mg/dL High 65-99 [facility] Comment on above: Result Comment: Fasting reference interval For someone without known diabetes, a glucose value between 100 and 125 mg/dL is consistent with prediabetes and should be confirmed with a follow-up test. Performed By: #### 7 46, 7600, 83104, 6517 #### [facility] [address] [place] [address] Street Flusher Driver: Jules Arreola MD Potassium [Moles/Vol] 4.0 mmol/L Normal 3.5-5.3 [facility] Comment on above: Performed By: #### 7 46, 7600, 70287, 6517 #### [facility] [place] [address] [address] Flusher Driver: Jules Arreola MD Protein [Mass/Vol] 7.0 g/dL Normal 6.1-8.1 [facility] Comment on above: Performed By: #### 7 46, 7600, 83433, 6517 #### [facility] [place] [address] [address] Flusher Driver: Jules Arreola MD Sodium [Moles/Vol] 139 mmol/L Normal 135-146 [facility] Comment on above: Performed By: #### 7 46, 7600, 21721, 6517 #### [facility] [place] [address] [address] Flusher Driver: Jules Arreola MD Urea nitrogen [Mass/Vol] 23 mg/dL Normal 7-25 [facility] Comment on above: Performed By: #### 7 46, 7600, 82460, 6517 #### [facility] [place] [address] [address] Flusher Driver: Jules Arreola MD LIPID PANEL, [facility] 0 Cholesterol [Mass/Vol] 196 mg/dL Normal <200 [facility] Comment on above: Order Comment: FASTI NG:YES FASTING: YES Performed By: #### 7 46, 7600, 27390, 6517 #### [facility] [place] [address] [address] Flusher Driver: Jules Arreola MD Cholesterol in HDL [Mass/Vol] 56 mg/dL Normal > OR = 50 [facility] Comment on above: Order Comment: FASTI NG:YES FASTING: YES Performed By: #### 7 46, 7600, 27725, 6517 #### [facility] of [address], [address] [place] [address] [address] Flusher Driver: Jules Arreola MD Cholesterol in LDL [...] of LDL-C. Fidencio ACOSTA et al. EDITH. 2013;310(08): 1481-8927 (http://education.Pretty in my Pocket (PRIMP)/faq/XBB264) Performed By: #### 7 46, 9050, 89869, 6517 #### [facility] [place] [address] [address] Flusher Driver: Jules Arreola MD Cholesterol.total/Ch olesterol in HDL [Mass ratio] 3.5 {ratio} Normal <5.0 [facility] Comment on above: Order Comment: FASTI NG:YES FASTING: YES Performed By: #### 7 46, 1920, 62741, 6517 #### [facility] [place] [address] [address] Flusher Driver: Jules Arreola MD NON HDL CHOLESTEROL 140 mg/dL (calc) High <130 [facility] Comment on above: Order Comment: FASTI NG:YES FASTING: YES Result Comment: For patients with diabetes plus 1 major ASCVD risk factor, treating to a non-HDL-C goal of <100 mg/dL (LDL-C of <70 mg/dL) is considered a therapeutic option. Performed By: #### 7 46, 7600, 19485, 6517 #### [facility] [place] [address] [address] Flusher Driver: Jules Arreola MD Triglyceride [Mass/Vol] 104 mg/dL Normal <150 [facility] Comment on above: Order Comment: FASTI NG:YES FASTING: YES Performed By: #### 7 46, 5910, 74579, 6517 #### [facility] [address] [place] [address], [address] [place] [id number] [address] Flusher Driver: Jules Arreola MD PROLACTINon 06-24-2021 PROLACTIN 51.6 ng/mL High [facility] Comment on above: Result Comment: Refe rence Range Females Non- 3.0-30.0 10.0-209.0 Postmenopausal 2.0-20.0 Your request to have a duplicate copy faxed has been acknowledged. Queued to: [id number] Performed By: #### 7 46, 7600, 74822, 6517 #### [facility] [address], [address] Flusher Driver: Jules Arreola MD [facility]21 SARS-CoV-2 (COVID-19) RNA STANLEY+probe Ql (Unsp spec) Not detected Normal NOT DETECTED [facility] Comment on above: Result Comment: This test is not yet approved or cleared by the [place] FDA. When there are no FDA-approved or cleared tests available, and other criteria are met, FDA can make tests available under an emergency access mechanism called an Emergency Use Authorization (EUA). The EUA for this test is supported by the Flatbed Owner Operator of Health and Human Service's (HHS's) declaration [...] Performed By: #### L IPID, CMP #### [facility] [address] [place] [address] [address] Devin Florentino PROLACTINon 03-05-2021 Prolactin 79.1 ng/mL Critically high 4.8-23.3 [facility] Comment on above: Performed By: #### P ROLAC #### [facility] [address] [place] [address] [address] Devin Florentino PROF CHEM 8 (BAS METB)on Anion gap [Moles/Vol] 9.9 mmol/L Normal [facility] Comment on above: Performed By: #### B MP #### [facility] [address] [place] [address] [address] Devin Florentino Calcium [Mass/Vol] 9.6 mg/dL Normal 8.4-10.2 [facility] Comment on above: Performed By: #### B MP #### [facility] [address] [place] [address] [address] Devin Florentino Chloride [Moles/Vol] 104 mmol/L Normal 98-107 [facility] Comment on above: Performed By: #### B MP #### [facility] [address] [place] [address] [address] Devin Florentino CO2 [Moles/Vol] 32.2 mmol/L Critically high 22.0-30.0 [facility] Comment on above: Performed By: #### B MP #### [facility] [address] [place] [address] Dr. Devin Florentino Creatinine [Mass/Vol] 0.72 mg/dL Normal 0.52-1.04 [facility] Comment on above: Performed By: #### B MP #### [facility] [address] [place] [address] [address] Devin Florentino EGFR-AF IRISH >60 Normal >=60 [facility] Comment on above: Performed By: #### B MP #### [facility] [address] [place] [address] [address] Devin Florentino EGFR-NON AF IRISH >60 Normal >=60 [facility] Comment on above: Performed By: #### B MP #### [facility] [address] [place] [address] [address] Devin Florentino Glucose [Mass/Vol] 118 mg/dL Critically high 74-106 [facility] Comment on above: Performed By: #### B MP #### [facility] [address] [place], [place] [address] Dr. Devin Florentino Potassium [Moles/Vol] 4.1 mmol/L Normal 3.4-5.0 [facility] Comment on above: Performed By: #### B MP #### [facility] [address] [place], [place] [address] Dr. Devin Florentino Sodium [Moles/Vol] 142 mmol/L Normal 137-145 [facility] Comment on above: Performed By: #### B MP #### [facility] [address] [place] [address] [address] Devin Florentino Urea nitrogen [Mass/Vol] 22.0 mg/dL Critically high 7.0-17.0 [facility] Comment on above: Performed By: #### B MP #### [facility] [address] [place] [address] [address] Devin Florentino Urea nitrogen/Creatinine [Mass ratio] 30.6 mg/mg Normal [facility] Comment on above: Performed By: #### B MP #### [facility] [address] [place] [address] [address] Devin Florentino R[employer]AB[employer] [facility] 12-24-2020 Albumin [Mass/Vol] 4.0 g/dL Normal 3.6-5.1 [facility] Comment on above: Performed By: #### 7 600, 17570, 17853 #### [facility] [place] [address] [address] Flusher Driver: Jules Arreola MD Albumin/Globulin [Mass ratio] 1.4 {ratio} Normal 1.0-2.5 [facility] Comment on above: Performed By: #### 7 600, 54066, 68169 #### [facility] [place] [address] [address] Flusher Driver: Jules Arreola MD ALP [Catalytic activity/Vol] 45 U/L Normal 31-125 [facility] Comment on above: Performed By: #### 7 600, 67381, 88212 #### [facility] [place] [address] [address] Flusher Driver: Jules Arreola MD ALT [Catalytic activity/Vol] 20 U/L Normal 6-29 [facility] Comment on above: Performed By: #### 7 600, 85261, 01358 #### [facility] [place] [address] [address] Flusher Driver: Jules Arreola MD AST [Catalytic activity/Vol] 13 U/L Normal 10-30 [facility] Comment on above: Performed By: #### 7 600, 53290, 60832 #### [facility] [place] [address] [address] Flusher Driver: Jules Arreola MD Bilirubin [Mass/Vol] 0.4 mg/dL Normal 0.2-1.2 [facility] Comment on above: Performed By: #### 7 600, 84392, 56508 #### [facility] [place] [address] [address] Flusher Driver: Jules Arreola MD BUN/CREATININE RATIO NOT APPLICABLE Normal 6-22 [facility] Comment on above: Performed By: #### 7 600, 00029, 54870 #### [facility] [place] [address] [address] Flusher Driver: Jules Arreola MD Calcium [Mass/Vol] 9.4 mg/dL Normal 8.6-10.2 [facility] Comment on above: Performed By: #### 7 600, 44828, 26092 #### [facility] [place] [address] [address] Flusher Driver: Jules Arreola MD Chloride [Moles/Vol] 104 mmol/L Normal 98-110 [facility] Comment on above: Performed By: #### 7 600, 89699, 68691 #### [facility] [place] [address] [address] Flusher Driver: Jules Arreola MD CO2 [Moles/Vol] 28 mmol/L Normal 20-32 [facility] Comment on above: Performed By: #### 7 600, 94082, 52683 #### [facility] [place] [address] [address] Flusher Driver: Jules Arreola MD Creatinine [Mass/Vol] 0.75 mg/dL Normal 0.50-1.10 [facility] Comment on above: Performed By: #### 7 600, 57966, 47730 #### [facility] [place] [address] [address] Flusher Driver: Jules Arreola MD eGFR NON-AFR. IRISH 105 mL/min/1.73m2 Normal > OR = 60 [facility] Comment on above: Performed By: #### 7 600, 92340, 57118 #### [facility] [place] [address] [address] Flusher Driver: Jules Arreola MD GFR/1.73 sq M.predicted among blacks MDRD (S/P/Bld) [Vol rate/Area] 121 mL/min/{1.73_m2} Normal > OR = 60 [facility] Comment on above: Performed By: #### 7 600, 89466, 89826 #### [facility] [place] [address] [address] Flusher Driver: Jules Arreola MD Globulin (S) [Mass/Vol] 2.8 g/dL Normal 1.9-3.7 [facility] Comment on above: Performed By: #### 7 600, 86747, 22206 #### [facility] [place] [address] [address] Flusher Driver: Jules Arreola MD Glucose [Mass/Vol] 97 mg/dL Normal 65-99 [facility] Comment on above: Result Comment: Fasting reference interval Performed By: #### 7 600, 12518, 38440 #### [facility] [place] [address] [address] Flusher Driver: Jules Arreola MD Potassium [Moles/Vol] 4.2 mmol/L Normal 3.5-5.3 [facility] Comment on above: Performed By: #### 7 600, 73969, 60288 #### [facility] [place] [address] [address] Flusher Driver: Jules Arreola MD Protein [Mass/Vol] 6.8 g/dL Normal 6.1-8.1 [facility] Comment on above: Performed By: #### 7 600, 90869, 46216 #### [facility] [place] [address] [address] Flusher Driver: Jules Arreola MD Sodium [Moles/Vol] 140 mmol/L Normal 135-146 [facility] Comment on above: Performed By: #### 7 600, 47789, 61510 #### [facility] [place] [address] [address] Flusher Driver: Jules Arreola MD Urea nitrogen [Mass/Vol] 17 mg/dL Normal 7-25 [facility] Comment on above: Performed By: #### 7 600, 61200, 92249 #### [facility] [place] [address] [address] Flusher Driver: Jules Arreola MD LIPID PANEL, [address] Cholesterol [Mass/Vol] 196 mg/dL Normal <200 [facility] Comment on above: Performed By: #### 7 600, 00495, 78463 #### [facility] [place] [address] [address] Flusher Driver: Jules Arreola MD Cholesterol in HDL [Mass/Vol] 54 mg/dL Normal > OR = 50 [facility] Comment on above: Performed By: #### 7 600, 38921, 18303 #### [facility] [place] [address] [address] Flusher Driver: Jules Arreola MD Cholesterol in LDL [...] LDL-C. Fidencio ACOSTA et al. EDITH. 2013;310(19): 2081-4840 (http://education.Shopeando.Kadoink/faq/UXK497) Performed By: #### 7 600, 28877, 86445 #### [facility] [place] [address] [address] Flusher Driver: Jules Arreola MD Cholesterol.total/Ch olesterol in HDL [Mass ratio] 3.6 {ratio} Normal <5.0 [facility] Comment on above: Performed By: #### 7 600, 73981, 32904 #### [facility] [place] [address] [address] Flusher Driver: Jules Arreola MD NON HDL CHOLESTEROL 142 mg/dL (calc) High <130 [facility] Comment on above: Result Comment: For patients with diabetes plus 1 major ASCVD risk factor, treating to a non-HDL-C goal of <100 mg/dL (LDL-C of <70 mg/dL) is considered a therapeutic option. Performed By: #### 7 600, 03482, 94720 #### [facility] [place] [address] [address] Flusher Driver: Jules Arreola MD Triglyceride [Mass/Vol] 156 mg/dL High <150 [facility] Comment on above: Performed By: #### 7 600, 91365, 78328 #### [facility] [place] [address] [address] Flusher Driver: Jules Arreola MD VITAMIN D,25-OH,TOTAL,IAon 1 [...] D, (D2,D3), LC/MS/MS is recommended: order code 23274 (patients >2yrs). See Note 1 Note 1 For additional information, please refer to http://education.Pretty in my Pocket (PRIMP)/faq/JFQ957 (This link is being provided for informational/ educational purposes only.) Performed By: #### 7 600, 41203, 03714 #### [facility] [address] [facility], [address] [place] [address] Street Flusher Driver: Jules Arreola MD Vital Signs Date Time Vital Sign Value Performing Clinician Margie villarreal 05-12-2023 10:12-0500 Body height 170.2 cm Sabrina [employer] [facility] 05-12-2023 10:12-0500 Body mass index (BMI) [Ratio] 53.52 kg/m2 [employer] Work Phone: [facility]NOTE 05-12-2023 10:12-0500 Body weight 154.99 kg [employer] Work Phone: [facility] 05-12-2023 10:12-0500 Diastolic blood pressure 103 mm[Hg] [employer] [facility] 05-12-2023 10:12-0500 Heart rate 65 /min [employer] Work Phone: [facility] 05-12-2023 10:12-0500 SaO2% (BldA) [Mass fraction] 100 % [employer] Work Phone: [facility] 05-12-2023 10:12-0500 Systolic blood pressure 157 mm[Hg] [employer] Work [facility] Encounters Encounter Date Encounter Type Care Provider Facility Start: 09-16-2023 End: 09-16-2023 ambulatory ANTOINETTE BRITT [facility] Start: 09-16-2023 End: 09-16-2023 ambulatory ANTOINETTE BRITT [facility] Start: 09-15-2023 End: 09-15-2023 ambulatory ELIZA Key EBONI [facility] Start: 09-03-2023 End: 09-03-2023 ambulatory Not Available Start: 05-21-2023 Telephone encounter [facility] Start: 05-12-2023 End: 05-12-2023 ambulatory SABRINAVICKY SMITH [facility] Start: 05-12-2023 End: 05-12-2023 Office outpatient visit 25 minutes Sabrina Smith F[employer] K[employer]IT[employer]EMBLEM CUTTER Work Phone: [facility] Comment on above: RACHEL (obstructive sle ep apnea) (Primary Dx); CPAP use counseling; BMI 50.0-59.9, adult ([facility] Start: 01-09-2023 Emergency department patient visit Facility[facility] Start: 02-19-2022 End: 02-20-2022 ambulatory LEIGH ADAM [...] Adult depression scr eening assessment Sabrina Smith F[employer] FASHIONED GARMENT KNITTER-EMBLEM CUTTER Work Phone: Start: 07-20-2022 Microalbumin [Mass/v olume] in Urine by Test strip Sabrina Smith F[employer]IONED GARMENT KNITTER-EMBLEM CUTTER Work Phone: Start: 04-07-2022 Diabetic retinal eye exam Sabrina Krefox F[employer] FASH[employer]ED G[employer]MENT K[employer]ITTER[employer]EMBLEM CUTTER Work Phone: Start: 08-03-2021 Microscopic observat ion [Identifier] in Cervix by Cyto stain Sabrina Luis F[employer] FASHIONED GARMENT K[employer]ITTER-EMBLEM CUTTER Work Phone: Plan of Treatment Date Care Activity Detail Author Start: 04-19-2028 DTaP,Tdap and Td Vaccines (3 - Td or Tdap) DTaP,Tdap and Td Vaccines (3 - Td or Tdap) [facility] Start: 08-03-2024 Screening for malignant neoplasm of cervix Pap Smear [facility] Start: 05-15-2024 Glaucoma screening Diabetic Ophthalmology Exam [facility] Start: 05-13-2024 Tobacco Screening Tobacco Screening [facility] Start: 05-12-2024 Adult BMI Screening Adult BMI Screening [facility] Start: 05-12-2024 Tobacco Screening Tobacco Screening [facility] Start: 05-10-2024 End: 05-10-2024 Patient encounter procedure 05/10/2024 9:15 AM EST Office Visit [facility] [facility] [place] [id number] Sabrina Smith F[employer]ED GARMENT KNITTER[employer]EMBLEM CUTTER [address] [facility], [address] [address] [facility] Start: 01-23-2024 Depression Screening Depression Screening [facility] Start: 07-23-2023 End: 07-23-2023 Patient encounter procedure 07/23/2023 8:30 AM EDT Office Visit [facility] [address] [place] [id number] Maude Gant, FULL FASHIONED GARMENT KNITTER-SKIMMER [address] [place] [address] [facility] Start: 07-21-2023 Diabetic foot examination Diabetic Foot Exam [facility] Start: 07-21-2023 Urine screening for protein Urine Microalbumin [facility] Start: 04-07-2023 Glaucoma screening Diabetic Ophthalmology Exam [facility] Start: 2005 Adult BMI Follow Up Plan Adult BMI Follow Up Plan [facility] Immunizations Immunization Date Immunization Notes Care Provider Fernando [email or web address] 12-14-2018 Influenza, injectabl e, Madin Lolly Canine Kidney, quadrivalent with preservative Sabrina Kregel F[employer] FASH[employer]ED G[employer] K[employer]TER[employer]EMBLEM CUTTER Work Phone: [facility] 04-19-2018 tetanus toxoid, redu sandra diphtheria toxoid, and acellular pertussis vaccine, adsorbed Sabrina Kregel F[employer] FASHIONED GARMENT KNITTER[employer]EMBLEM CUTTER Work Phone: [facility] 12-29-2017 influenza, injectabl e, quadrivalent, preservative free Sabrina Kregel F[employer] FASH[employer]ED GARMENT KNITTER-EMBLEM CUTTER Work Phone: [facility] 12-29-2017 influenza, seasonal, injectable Sabrina Kregel F[employer] FASH[employer]ED GARMENT KNITTER-EMBLEM CUTTER Work Phone: [facility] 02-07-2015 influenza, seasonal, injectable, preservative free Sabrina Kregel F[employer] FASHIONED GARMENT KNITTER-EMBLEM CUTTER Work Phone: [facility] 01-23-2013 tetanus toxoid, redu sandra diphtheria toxoid, and acellular pertussis vaccine, adsorbed Sabrina Kregel FULL FASHIONED GARMENT KNITTER-EMBLEM CUTTER Work Phone: [facility] Payers Date Payer Category Payer Private Health Insurance [facility] [employer] [id number] 2022-Present [phone] [address] [address] [place] [address] [id number] 2022 Unknown [id number] 1987 Unknown [id number] [id number] .2.593 1987 Unknown [id number] 2.16.840.1.517689.3.579 .2.593 1987 Unknown [id number] [id number] .2.593 1987 Unknown [id number] 2.16.840.1.411996.3.579 .2.593 1987 Unknown [id number] 2.16.840.1.941640.3.579 .2.593 1987 Unknown [id number] 2.16.840.1.007769.3.579 .2.593 1987 Unknown [id number] 2.16.840.1.546100.3.579 .2.1286 1987 Unknown [id number] 2.16.840.1.445581.3.579 .2.1259 1987 Unknown [id number] 2.16.840.1.500833.3.579 .2.1286 1987 Unknown [id number] 2.16.840.1.805184.3.579 .2.1286 1987 Unknown [id number] 2.16.840.1.955502.3.579 .2.1286 1959 Unknown [id number] Social History Date Type Detail Facility Start: 07-20-2022 Tobacco smoking status ALIS Never smoked tobacco [facility] Start: 07-20-2022 Tobacco use and exposure Smokeless tobacco non-user [facility] Start: 05-13-2023 Alcohol intake Ex-drinker (finding) [facility] Start: 01-18-2022 End: 01-22-2023 History of Social function [facility] Start: 01-18-2022 End: 01-22-2023 Social connection and isolation panel [facility] Do you belong to any clubs or organizations such as temple groups, unions, fraternal or athletic groups, or school groups? Yes [facility] Are you now , , , , never or living with a partner? [facility] How often to you hav e a drink containing alcohol? Never [facility] How many standard dr inks containing alcohol do you have on a typical day? Patient does not drink [facility] Do you feel stress - tense, restless, nervous, or anxious, or unable to sleep at night because your mind is troubled all the time - these days [OSQ] Only a little [facility] Start: 01-18-[address] [facility] Start: 1987 Sex Assigned At Female [facility] Start: 12-31-2019 Gender identity Identifies as female gender (finding) [facility] Start: 12-31-2019 Sexual orientation Heterosexual (finding) [facility] Medical Equipment Procedure Code Equipment Code Equipment Original Text Equi pment Identifier Dates 1 strip by other route every morning before breakfast. [id number] OneTouch Delica Plus Lancet 33 gauge USE TO CHECK BLOOD SUGAR DAILY [id number] Note 05-21-2023 Telephone Encounter - RAJANI De La Garza - 05/21/2023 1:25 PM EST Note Date & Type Note Facility 05-21-2023 Miscellaneous Notes Formattin g of this note might be different from the original. Images from the original note were not included. PAP Mask and Supplies Order Faxed to [facility] Fax Confirmed documented in this encounter [facility] Telephone encounter Note 05-21-2023 Telephone Encounter - RAJANI De La Garza - 05/21/2023 1:25 PM EST Note Date & Type Note Facility 05-21-2023 Telephone encount er Note Images from the original note were not included. PAP Mask and Supplies Order Faxed to [facility] Fax Confirmed [facility] History of Present illness Narrative 05-12-2023 LAUREN [...] heated inline humidifier. 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 Current Outpatient Medications: blood sugar diagnostic (Pure FocusUCH ULTRA TEST) strip, 1 strip by other [...] min Stress: No Stress Concern Present (01/18/2022) [place] of Occupational Health - Occupational Stress Questionnaire Feeling of Stress : Only a little Social Connections: Socially Integrated (01/18/2022) Social Connection and Isolation Panel [NHANES] Frequency of Communication with Friends and Family: More than three times a week Frequency of Social Gatherings with Friends and Family: Three times a week Attends Congregational Services: More than 4 times per year [...] 08/2017 PS07/2017 w/ AHI of 85.5 DME: [facility] Data card was available for PAP usage [...] 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 Advised to stop using immediately. Education sheet [...] not to drive if sleepy, and to pullman conductor if sleepiness occurs while driving. Above plan [...] that have escaped final proofreading. Sabrina Smith [facility] Office: [phone] 7:17 PM on 05/13/2023 CC: MAUDE GANT, HAYDE-SKIMMER LAUREN Mullen 05/13/231920 documented in this encounter [facility] Inst[facility] 05-12-2023 Patient Instructions Note Date & Type Note Facility 05-12-2023 Instructions LAUREN Mullen - 05/12/2023 10:00 AM EST If you re looking for general health and wellness resources, please visit [email or web address] documented in this encounter [facility] Evaluation note Note Date & Type Note Facility Evaluation note Diagnosis RACHEL (obstructive sleep apnea)- Primary Obstructive sleep apnea (adult) (pediatric) CPAP use counseling BMI 50.0-59.9, adult ([facility]) documented in this encounter [facility] Instructions Note Date & Type Note Facility Instructions Not on filedocumented in this en counter [facility] Summary Purpose Family History No Family [...] DATE CREATED AUTHOR AUTHOR'S ORGANIZ ATION 01/10/2023 [facility] DATE CREATED AUTHOR AUTHOR'S ORGANIZ ATION 05/19/2023 [facility] DATE CREATED AUTHOR AUTHOR'S ORGANIZ ATION 09/04/2023 [facility] DATE CREATED AUTHOR AUTHOR'S ORGANIZ ATION 09/18/2023 [facility] DATE CREATED AUTHOR AUTHOR'S ORGANFIDENCIO ATION 09/18/2023 [facility] Reason for Visit (unrecogniz ed section and content) Reason Comments Sleep Apnea DME: [facility] Care Teams (unrecognized sec tion and content) 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 [employer] [facility]. provides no warranty or guarantee of the accuracy or completeness of information in this document.
[2023-09-27 10:58] LABS: BOX Test Sent Out Y
== END 2023-09-27 10:08 | disposition home or self-care (01) ==
LOC: LAB 10:08
PROVIDERS: PCP Nurse Practitioner Family; Visit Provider Obstetrics & Gynecology
DX: Z34.80 Encounter for supervision of other normal pregnancy, unspecified trimester (principal)
CPT/HCPCS: 36415

== ENCOUNTER 2023-10-24 01:36 | Emergency (ER) | payer OTHER, SELFPAY ==
[2023-10-24] VITALS (12 sets, daily range): BP systolic 144–177; BP diastolic 67–85; PULSE 72–80; O2SAT 80–100; BMI 54.5
--- OUTSIDE RECORDS SUMMARY | 2023-10-24 01:43 | XMS_ITS | CCD ---
Author Organization [facility]ini[facility] Care Team Providers Care Project Management Instructor Name Role Phone LEIGH ADAM Attending Unavailable ALFREDA, DR MAUDE Smith Primary Care Unavailable JAIR, AHMADominique Consulting Unavailable JAIR, AHMAD Admitting Unavailable KUNKadie, [...] DR MAUDE Smith Attending Unavailable ALFREDA, DR AMUDE Smith Consulting Unavailable Alfreda BUTTON INSPECTOR-CIVIL ENGINEERING MANAGER, Maude Abdul Primary Care Provider SABRINA SMITH Attending Unavailable MAUDE GANT Referring Unavailable MAUDE GANT Primary Care Unavailable MARIO KESSLER Attending Unavailable ANTOINETTE DE LA TORRE Referring Unavailable MAUDE GANT Primary Care Unavailable DOCHEVA, NIKOLINA P Referring Unavailable DIMITRY, LUAN S Primary Care Unavailable DOCHEVA, NIKOLINA P Referring Unavailable DIMITRY, LUAN S Primary Care Unavailable ELIZA LYN Attending Unavailable MARIO KESSLER Referring Unavailable MAUDE GANT Primary Care Unavailable ANTOINETTE DE LA TORRE Attending Unavailable MAUDE GANT Referring Unavailable KUNS, MAUDE ABDUL Primary Care Unavailable ALINA ARMENTA Attending Unavailable MARIO KESSLER Referring Unavailable MAUDE GANT Primary Care Unavailable RA BAH Attending Unavailable MARIO KESSLER Referring Unavailable MAUDE GANT ROSE Primary Care Unavailable MARIO KESSLER Referring Unavailable LUAN MORAES Primary Care Unavailable Allergies Allergy Classification Reported Allergen(s) Allergy Type Date of Onset Reaction(s) Facility (1 source) Penicillins Drug allergy (disorder) 5 [facility] Repository (5 sources) Penicillin G; Translations: [PENICILLIN G] Drug Allergy 8 [facility] Onsite (2 sources) Adhesive agent; Translations: [ADHESIVE] Propensity to adverse reactions to drug (disorder) [address] [facility] Rep[facility] (2 sources) benzoin resin; Translations: [BENZOIN] Drug Allergy [address] [facility] (2 sources) Cortisone; Translations: [CORTISONE] Drug Allergy [address] [facility] Medications Current Medications Medication Drug Class(es) [...] complication, without long-term current use of insulin ([facility]) Inject 0.5 mg under the skin [...] tolerance complicating ; childbirth; or the puerperium (2 sources) Pre-existing type 2 diabetes mellitus, in , first trimester; Translations: [Pre-existing type 2 diabetes mellitus, in , first trimester] Onset: 09-30-2023 Chronic Diabetes or abnormal glucose tolerance complicating ; childbirth; or the puerperium (1 source) Gestational diabetes mellitus in , unspecified control; Translations: [Gestational diabetes mellitus in , unspecified control] Onset: 09-15-2023 Episodic Disorders of lipid metabolism (6 sources) Mixed hyperlipidemia; Translations: [Mixed hyperlipidemia] Onset: 12-31-2021 Chronic Essential hypertension (4 sources) Essential hypertension; Translations: [Essential (primary) hypertension] Onset: 12-31-2021 12-31-2021 Chronic Hypertension complicating ; childbirth and the puerperium (2 sources) Unspecified pre-existing hypertension complicating , unspecified trimester; Translations: [Unspecified pre-existing hypertension complicating , unspecified trimester] Onset: 09-30-2023 Chronic Mood disorders (3 sources) Mood disorders; Translations: [Depression, unspecified] Onset: 09-30-2023 01-22-2023 Nutritional deficiencies (2 sources) Vitamin D deficiency; Translations: [Vitamin D deficiency, unspecified] Onset: 04-19-2018 12-31-2021 Chronic Other complications of (1 source) Obesity complicating , first trimester; Translations: [Obesity complicating , first trimester] Onset: 09-30-2023 Chronic Other complications of (1 source) Supervision of elderly multigravida, first trimester; Translations: [Supervision of elderly multigravida, first trimester] Onset: 09-29-2023 Episodic Other complications of (1 source) Other mental disorders complicating , unspecified trimester; Translations: [Other mental disorders complicating , unspecified trimester] Onset: 09-30-2023 Episodic Other endocrine disorders (1 source) Hyperprolactinemia; [...] to excess calories] Onset: 11-17-2016 12-31-2021 Chronic Other nutritional; endocrine; and metabolic disorders (1 source) Body mass index (BMI) 50.0-59.9, adult; Translations: [Body mass index (BMI) 50.0-59.9, adult] Onset: 09-30-2023 Chronic Previous (1 source) Maternal care for unspecified type scar from previous delivery; Translations: [Maternal care for unspecified type scar from previous delivery] Onset: 09-30-2023 Episodic Residual codes; unclassified (1 source) Obstructive sleep apnea syndrome; Translations: [Obstructive sleep apnea (adult) (pediatric)] 05-13-2023 Chronic Residual codes; unclassified (2 sources) Sleep apnea; Translations: [Sleep apnea, unspecified] Onset: 10-06-2017 12-31-2021 Chronic Residual codes; unclassified (2 sources) 12 weeks gestation of ; Translations: [12 weeks gestation of ] Onset: 09-30-2023 Episodic Residual codes; unclassified (1 source) 11 weeks gestation of ; Translations: [11 weeks gestation of ] Onset: 09-30-2023 Episodic Unclassified (3 sources) CONTACT W/AND (SUSP) EXPOS [...] disorder] Onset: 12-25-2020 Resolved: 07-20-2022 07-20-2022 Chronic Other and unspecified benign neoplasm (5 sources) Benign neoplasm of pituitary gland; Translations: [BENIGN NEOPLASM OF PITUITARY GLAND] Onset: 12-31-2021 Episodic Other and unspecified benign neoplasm (2 sources) [...] Test Name Value Interpretation Reference Range Facility Natriuretic peptide B [Mass/ Vol]on 10-04-2023 BRN NATRIURETIC PEP <5 Normal <100.0 [facility] Comment on above: Performed By: #### 3 0934-4 #### [facility] ([id number]) [address] [place] [address], [place] [address] COMPREHENSIVE METABOLIC PANE Osmin 09-16-2023 Albumin [Mass/Vol] 3.9 g/dL Normal 3.2-5.3 [facility] Comment on above: Performed By: #### C BRANDEN, UPCR, 33348-0, HA1C #### [facility] ([id number]) [address], [address] [place] [address] ALP [Catalytic activity/Vol] 49 U/L Normal 39-130 [facility] Comment on above: Performed By: #### C BRANDEN, UPCR, 35871-8, HA1C #### [facility] ([id number]) [address], [address] [place] [address] ALT [Catalytic activity/Vol] 30 U/L Normal 0-31 [facility] Comment on above: Performed By: #### C BRANDEN, UPCR, 44030-6, HA1C #### [facility] ([id number]) [address], [address] [place] [address] Anion gap [Moles/Vol] 10 mmol/L Normal 5-15 [facility] Comment on above: Performed By: #### C BRANDEN, UPCR, 14529-9, HA1C #### [facility] ([id number]) [address], [address] [place] [address] AST [Catalytic activity/Vol] 18 U/L Normal 0-41 [facility] Comment on above: Performed By: #### C BRANDEN, UPCR, 26285-7, HA1C #### [facility] ([id number]) [address], [address] [place] [address] Bilirubin [Mass/Vol] 0.4 mg/dL Normal 0.3-1.2 [facility] Comment on above: Performed By: #### C BRANDEN, UPCR, 66114-3, HA1C #### [facility] ([id number]) [address], [address] [place] [address] Calcium [Mass/Vol] 9.4 mg/dL Normal 8.5-10.5 [facility] Comment on above: Performed By: #### C BRANDEN, UPCR, 69281-0, HA1C #### [facility] ([id number]) [address], [facility] [address] [place] [address] Chloride [Moles/Vol] 104 mmol/L Normal 98-109 [facility] Comment on above: Performed By: #### C BRANDEN, UPCR, 39233-2, HA1C #### [facility] ([id number]) [address], [address] [place] [address] CO2 [Moles/Vol] 23 mmol/L Normal 22-32 [facility] Comment on above: Performed By: #### C BRANDEN, UPCR, 37083-4, HA1C #### [facility] ([id number]) [address], [address] [place] [address] Creatinine [Mass/Vol] 0.66 mg/dL Normal 0.40-1.00 [facility] Comment on above: Result Comment: METH OD TRACEABLE TO IDMS STANDARD Performed By: #### C BRANDEN, UPCR, 02031-4, HA1C #### [facility] ([id number]) [address], [address] [place] [address] eGFR (CKD-EPI) NON-RACE DEPENDENT >90 Normal >59 [facility] Comment on above: Result Comment: Reported eGFR is based on the CKD-EPI 2020 equation that does not use a race coefficient. Performed By: #### C BRANDEN, UPCR, 21216-4, HA1C #### [facility] ([id number]) [address], [address] [place] [address] Glucose [Mass/Vol] 110 mg/dL High 65-99 [facility] Comment on above: Performed By: #### C BRANDEN, UPCR, 83280-4, HA1C #### [facility] ([id number]) [address], [address] [place] [address] Potassium [Moles/Vol] 3.7 mmol/L Normal 3.5-5.0 [facility] Comment on above: Performed By: #### C BRANDEN UPCR, 04465-5, HA1C #### [facility] ([id number]) [address], [address] [place] [address] Protein [Mass/Vol] 6.9 g/dL Normal 6.0-8.0 [facility] Comment on above: Performed By: #### C BRANDEN, UPCR, 11632-6, HA1C #### [facility] ([id number]) [address], [address] [place] [address] Sodium [Moles/Vol] 137 mmol/L Normal 134-146 [facility] Comment on above: Performed By: #### C BRANDEN, UPCR, 42094-5, HA1C #### [facility] ([id number]) [address], [address] [place] [address] Urea nitrogen [Mass/Vol] 18 mg/dL Normal 5-23 [facility] Comment on above: Performed By: #### Jakub OTERO, UPCR, 68730-7, HA1C #### [facility] ([id number]) [address], [address] [place] [address] HGB A1C (GLYCO-HGB)on 2023 Glucose [Mass/Vol] 160 mg/dL Normal [facility] Comment on above: Performed By: #### C BRANDEN UPCR, 71372-1, HA1C #### [facility] ([id number]) [address], [address] [place] [address] HbA1c (Bld) [Mass fraction] 7.2 % High 4.4-5.6 [facility] Comment on above: Result Comment: NOTE ADA Guidelines Result HgbA1c Normal : less than 5.7 % Prediabetes : 5.7 % to 6.4 % Diabetes : > 6.4 % Use with caution in patients with abnormal hemoglobin variants as the half-life of red blood cells and in vivo glycation rates are affected. Performed By: #### C BRANDEN, UPCR, 75501-7, HA1C #### [facility] ([id number]) [address], [address] [place] [address] PROTEIN CREAT RATIOon 2023 RANDOM URINE PROTEIN 80 mg/L Normal <120 [facility] Comment on above: Performed By: #### C BRANDEN UPCR, 90266-8, HA1C #### [facility] ([id number]) [address] [address] [address] [place] [address] U/PRO/SAFETY ADMINISTRATOR RATIO CALC 0.08 Normal <0.2 [facility] Comment on above: Result Comment: Neph rotic Syndrome is associated with ratios >3.5 Performed By: #### C BRANDEN UPCR, 93762-4, HA1C #### [facility] ([id number]) [address], [address] [place] [address] URINE CREATININE,RDM 100.44 mg/dL Normal [facility] Comment on above: Performed By: #### C BRANDEN UPCR, 47597-9, HA1C #### [facility] ([id number]) [address] [address] [place] [address] Vitamin D+Metabolites [Mass/ Vol]on 09-16-2023 VITAMIN D 25 HYD TOT 20.8 ng/mL Low 30-100 [facility] Comment on above: Result Comment: Vitamin D status 25 [place] Vitamin D Deficiency <20 ng/mL Insufficiency 20-29 ng/mL Sufficiency 30-100 ng/mL Toxicity >100 ng/mL NOTE: A pediatric reference range has not been established by the service center assistant of this kit. The [place] [employer] recommends a Vitamin D level of = or >20ng/mL in infants and children. Performed By: #### C , [facility], 73233-1, HA1C #### [facility] ([id number]) [address] [place] [address], [address] [place] [address] PROLACTINon 02-20-2022 Prolactin 64.0 ng/mL Critically high 4.8-23.3 [facility] Comment on above: Performed By: #### P ROLAC #### [facility] [address] [address] [address] Devin Florentino RENAL FUNCTION PANELon 02-19 Albumin [Mass/Vol] 3.7 g/dL Normal 3.4-5.0 [facility] Comment on above: Performed By: #### R ENAL #### [facility] [address] [place] [address] Dr. Devin Florentino Calcium [Mass/Vol] 9.2 mg/dL Normal 8.5-10.1 [facility] Comment on above: Performed By: #### R ENAL #### [facility] [address] [address] [address] Devin Florentino Chloride [Moles/Vol] 105 mmol/L Normal 98-107 [facility] Comment on above: Performed By: #### R ENAL #### [facility] [address] [place] [address] Dr. Devin Florentino CO2 [Moles/Vol] 29.7 mmol/L Normal 21.0-32.0 [facility] Comment on above: Performed By: #### R ENAL #### [facility] [address] [address] [address] Devin Florentino Creatinine [Mass/Vol] 0.72 mg/dL Normal 0.55-1.[address] [facility] Comment on above: Performed By: #### R ENAL #### [facility] [address] [place] [address] Dr. Devin Florentino EGFR-AF CITIZEN [place] >60 Normal >=60 [facility] Comment on above: Performed By: #### R ENAL #### [facility] [address] [place] [address] Dr. Devin Florentino EGFR-NON AF CITIZEN OF [place] >60 Normal >=[address] [facility] Comment on above: Performed By: #### R ENAL #### [facility] [address] [place] [address] Dr. Devin Florentino Glucose [Mass/Vol] 140 mg/dL Critically high 74-106 [facility] Comment on above: Performed By: #### R ENAL #### [facility] [address] [place] [address] Dr. Devin Florentino Phosphate [Mass/Vol] 4.3 mg/dL Normal 2.6-4.[address] [facility] Comment on above: Performed By: #### R ENAL #### [facility] [address] [place] [address] Dr. Devin Florentino Potassium [Moles/Vol] 4.0 mmol/L Normal 3.5-5.[address] [facility] Comment on above: Performed By: #### R ENAL #### [facility] [address] [place] [address] Dr. Devin Florentino Sodium [Moles/Vol] 141 mmol/L Normal 136-145 [facility] Comment on above: Performed By: #### R ENAL #### [facility] [address] [place] [address] Dr. Devin Florentino Urea nitrogen [Mass/Vol] 27.0 mg/dL Critically high 7.0-18.[address] [facility] Comment on above: Performed By: #### R ENAL #### [facility] [address] [place] [address] Dr. Devin Florentino VITAMIN D 25 OHon 02-19-2022 VIT D 25-OH 16.2 ng/mL Normal [facility] Comment on above: Performed By: #### V ITAD #### [facility] [address] [place] [address] Dr. Devin Florentino VIT D RANGES SEE BELOW Normal [facility] Comment on above: Result Comment: <20 ng/mL Vit D deficient 20 - <30 ng/mL Vit D insufficient 30 - 100 ng/mL Vit D sufficient >100 ng/mL Potential Toxicity Performed By: #### V ITAD #### [facility] [address] [place] [address] Dr. Devin Florentino GLYCOHEMOGLOBIN A1Con 2021 ADA RECOMMENDATION SEE BELOW Normal [facility] Comment on above: Result Comment: ADA RECOMMENDED LIMIT 4.0 - 6.0 ADA THERAPEUTIC TARGET < 7.0 ACTION SUGGESTED > 7.0 Performed By: #### A 1C #### [facility] [address] [place] [address] Dr. Devin Florentino Glucose [Mass/Vol] 120 mg/dL Normal [facility] Comment on above: Performed By: #### A 1C #### [facility] [address] [place] [address] Dr. Devin Florentino HbA1c (Bld) [Mass fraction] 5.8 % Normal 4.5-6.[address] [facility] Comment on above: Performed By: #### A 1C #### [facility] [address] [place] [address] Dr. Devin Florentino LIPID PROFILEon 01-15-2022 CHOL-HDL RATIO NORM SEE BELOW Normal [facility] Comment on above: Result Comment: 3.3 - 4.4 LOW RISK 4.4 - 7.1 AVERAGE RISK 7.1 - 11.0 MODERATE RISK >11.0 HIGH RISK Performed By: #### L IPNATALIYA, CMP #### [facility] [address] [place] [address] Dr. Devin Florentino Cholesterol [Mass/Vol] 167 mg/dL Normal <=[address] [facility] Comment on above: Performed By: #### L IPID, CMP #### [facility] [address] [address] [address] Devin Florentino Cholesterol in HDL [Mass/Vol] 47 mg/dL Normal 40-[address] [facility] Comment on above: Performed By: #### L IPID, CMP #### [facility] [address] [place] [address] Dr. Devin Florentino Cholesterol in LDL [Mass/Vol] 103.0 mg/dL Normal [facility] Comment on above: Performed By: #### L IPID, CMP #### [facility] [address] [place] [address] Dr. Devin Florentino Cholesterol.total/Ch olesterol in HDL [Mass ratio] 3.6 {ratio} Normal [facility] Comment on above: Performed By: #### L IPID, CMP #### [facility] [address] [place] [address] Dr. Devin Florentino HDL NORMAL > or = 60 mg/dl - LO W CARDIOVASCULAR RISK <40 mg/dl - HIGH CARDIOVASCULAR RISK Normal [facility] Comment on above: Performed By: #### L IPID, CMP #### [facility] [address] [place] [address] Dr. Devin Florentino LDL CALC NORMAL SEE BELOW Normal [facility] Comment on above: Result Comment: <100 mg/dl OPTIMAL 100 - 129 mg/dl NEAR OR ABOVE OPTIMAL 130 - 159 mg/dl BORDERLINE HIGH 160 - 189 mg/dl HIGH >190 mg/dl VERY HIGH Performed By: #### L IPID, CMP #### [facility] [address] [place] [address] Dr. Devin Florentino Triglyceride [Mass/Vol] 81 mg/dL Normal <=150 [facility] Comment on above: Performed By: #### L IPID, CMP #### [facility] [address] [place] [address] Dr. Devin Florentino VLDL CALC 16.2 mg/dL Normal [facility] Comment on above: Performed By: #### L IPID, CMP #### [facility] [address] [place] [address] Dr. Devin Florentino PROF 14(COMP METB)on 022 Albumin [Mass/Vol] 3.7 g/dL Normal 3.4-5.0 [facility] Comment on above: Performed By: #### L IPID, CMP #### [facility] [address] [place] [address] Dr. Devin Florentino Albumin/Globulin [Mass ratio] 1.0 {ratio} Normal [facility] Comment on above: Performed By: #### L IPID, CMP #### [facility] [address] [address] [address] Devin Florentino ALP [Catalytic activity/Vol] 58 U/L Normal 46-[address] [facility] Comment on above: Performed By: #### L IPID, CMP #### [facility] [address] [place] [address] Dr. Devin Florentino ALT [Catalytic activity/Vol] 40 U/L Normal 14-[address] [facility] Comment on above: Performed By: #### L IPID, CMP #### [facility] [address] [place] [address] Dr. Devin Florentino Anion gap [Moles/Vol] 7.7 mmol/L Normal [facility] Comment on above: Performed By: #### L IPID, CMP #### [facility] [address] [place] [address] Dr. Devin Florentino AST [Catalytic activity/Vol] 20 U/L Normal 15-[address] [facility] Comment on above: Performed By: #### L IPID, CMP #### [facility] [address] [place] [address] Dr. Devin Florentino Bilirubin [Mass/Vol] 0.5 mg/dL Normal 0.2-1.[address] [facility] Comment on above: Performed By: #### L IPID, CMP #### [facility] [address] [place] [address] Dr. Devin Florentino Calcium [Mass/Vol] 9.0 mg/dL Normal 8.5-10.1 [facility] Comment on above: Performed By: #### L IPID, CMP #### [facility] [address] [place] [address] Dr. Devin Florentino Chloride [Moles/Vol] 103 mmol/L Normal 98-[address] [facility] Comment on above: Performed By: #### L IPID, CMP #### [facility] [address] [place] [address] Dr. Devin Florentino CO2 [Moles/Vol] 30.6 mmol/L Normal 21.0-32.0 [facility] Comment on above: Performed By: #### L IPID, CMP #### [facility] [address] [address] [address] Devin Florentino Creatinine [Mass/Vol] 0.73 mg/dL Normal 0.55-1.[address] [facility] Comment on above: Performed By: #### L IPID, CMP #### [facility] [address] [place] [address] Dr. Devin Florentino EGFR-AF CITIZEN [place] >60 Normal >=60 [facility] Comment on above: Performed By: #### L IPID, CMP #### [facility] [address] [place] [address] Dr. Devin Florentino EGFR-NON AF CITIZEN OF [place] >60 Normal >=[address] [facility] Comment on above: Performed By: #### L IPID, CMP #### [facility] [address] [place] [address] Dr. Devin Florentino Globulin (S) [Mass/Vol] 3.6 g/dL Normal [facility] Comment on above: Performed By: #### L IPID, CMP #### [facility] [address] [place] [address] Dr. Devin Florentino Glucose [Mass/Vol] 105 mg/dL Normal 74-106 [facility] Comment on above: Performed By: #### L IPID, CMP #### [facility] [address] [place] [address] Dr. Devin Florentino Potassium [Moles/Vol] 3.9 mmol/L Normal 3.5-5.[address] [facility] Comment on above: Performed By: #### L IPID, CMP #### [facility] [address] [place] [address] Dr. Devin Florentino Protein [Mass/Vol] 7.3 g/dL Normal 6.4-8.2 [facility] Comment on above: Performed By: #### L IPID, CMP #### [facility] [address] [place] [address] Dr. Devin Florentino Sodium [Moles/Vol] 138 mmol/L Normal 136-145 [facility] Comment on above: Performed By: #### L IPID, CMP #### [facility] [address] [place] [address] Dr. Devin Florentino Urea nitrogen [Mass/Vol] 19.0 mg/dL Critically high 7.0-18.[address] [facility] Comment on above: Performed By: #### L IPID, CMP #### [facility] [address] [place] [address] Dr. Devin Florentino Urea nitrogen/Creatinine [Mass ratio] 26.0 mg/mg Normal [facility] Comment on above: Performed By: #### L IPID, CMP #### [facility] [address] [place] [address] Dr. Devin Florentino PAP ACOG PANEL 2: 30 to 65on 11-25-2021 . . Normal [facility] Comment on above: Result Comment: Perf ormed at: BA Performed By: #### 4 [id number] #### [facility] [address] [place] [address] Dr. Devin Florentino Age Gdln ACOG Testing 30-[address] [facility] Comment on above: Performed By: #### 4 [id number] #### [facility] [address] [place] [address] Dr. Devin Florentino DIAGNOSIS: Comment Normal [facility] Comment on above: Result Comment: UNSA TISFACTORY FOR EVALUATION. THIS SPECIMEN WAS RESCREENED PART OF OUR CABLE SYSTEMS INSTALLER PROGRAM. Performed at: BA Performed By: #### 4 [id number] #### [facility] [address] [place] [address] Dr. Devin Florentino HPV Aptima Negative Normal Negative [facility] Comment on above: Result Comment: This nucleic acid amplification test detects fourteen high-risk HPV types (16,18,31,33,35,39,45,51,52,56,58,59,66,68) without differentiation. Performed at: =G Performed By: #### 4 [id number] #### [facility] [address] [place] [address] Dr. Devin Florentino Methodology: Comment Normal [facility] Comment on above: Result Comment: This liquid based ThinPrep(R) pap test was screened with the use of an image guided system. Performed at: WB Performed By: #### 4 [id number] #### [facility] [address] [place] [address] Dr. Devin Florentino Note: Comment Normal [facility] Comment on above: Result Comment: The Pap smear is a screening test designed to aid in the detection of premalignant and malignant conditions of the uterine cervix. It is not a diagnostic procedure and should not be used as the sole means of detecting cervical cancer. Both false-positive and false-negative reports do occur. . Performed at: WB Performed By: #### 4 [id number] #### [facility] [address] [place] [address] Dr. Devin Florentino Performed by: Comment Normal [facility] Comment on above: Result Comment: Shamar Huang, Knitter Hand (ASCP) Performed at: BA Performed By: #### 4 [id number] #### [facility] [address] [place] [address] Dr. Devin Florentino QC reviewed by: Comment Normal [place] Comment on above: Result Comment: Val Salmon, Knitter Hand (ASCP) Performed at: BA Performed By: #### 4 [id number] #### [facility] [address] [place] [address] Dr. Devin Florentino Specimen adequacy: Comment Normal [facility] [place] Comment on above: Result Comment: Spec imen processed and examined but unsatisfactory for evaluation of epithelial abnormality because of insufficient cellularity. Performed at: BA Performed By: #### 4 [id number] #### [facility] [address] [place] [address] Dr. Devin Florentino PROLACTINon 09-06-2021 Prolactin 92.6 ng/mL Critically high 4.8-23.3 [facility] Comment on above: Performed By: #### P MARCEL #### [facility] [address] [place], [place] [address] Dr. Devin Florentino ALBUMIN, RANDOM URINE W/CREA MITCHon 06-24-2021 ALBUMIN, URINE 0.6 mg/dL Normal See Note: [facility] Comment on above: Result Comment: Refe rence Range: Reference Range Not established Performed By: #### 7 46, 7600, 45772, 6517 #### [facility] of [address], [address] [place] [address] [employer] Operator Whiskey: Jules Arreola MD ALBUMIN/CREATININE RATIO, RANDOM URINE [...] category. Performed By: #### 7 46, 7600, 86946, 6517 #### [facility] [place] [address] [employer] Operator Whiskey: Jules Arreola MD Creatinine (U) [Mass/Vol] 53 mg/dL Normal 20-275 [facility] Comment on above: Performed By: #### 7 46, 7600, 49835, 6517 #### [facility] [place] [address] Still Operator [employer]iskey: Jules Arreola MD COMPREHENSIVE METABOLIC PANE [facility] 06-24-2021 Albumin [Mass/Vol] 4.3 g/dL Normal 3.6-5.1 [facility] Comment on above: Performed By: #### 7 46, 7600, 28509, 6517 #### [facility] of [place] [address] Still Operator Whiskey: Jules Arreola MD Albumin/Globulin [Mass ratio] 1.6 {ratio} Normal 1.0-2.5 [facility] Comment on above: Performed By: #### 7 46, 7600, 47983, 6517 #### [facility] of [place] [address] [employer] Operator [employer]: Jules Arreola MD ALP [Catalytic activity/Vol] 53 U/L Normal 31-125 [facility] Comment on above: Performed By: #### 7 46, 7600, 17737, 6517 #### [facility] of [place] [address] [employer] Operator [employer]iskey: Jules Arreola MD ALT [Catalytic activity/Vol] 32 U/L High 6-29 [facility] Comment on above: Performed By: #### 7 46, 7600, 78348, 6517 #### [facility] of [place] [address] [employer] Operator [employer]iskey: Jules Arreola MD AST [Catalytic activity/Vol] 18 U/L Normal 10-30 [facility] Comment on above: Performed By: #### 7 46, 7600, 17902, 6517 #### [facility] of [place] [address] [employer] Operator [employer]iskey: Jules Arreola MD Bilirubin [Mass/Vol] 0.4 mg/dL Normal 0.2-1.2 [facility] Comment on above: Performed By: #### 7 46, 7600, 20970, 6517 #### [facility] of [place] [address] [employer] Operator [employer]: Jules Arreola MD BUN/CREATININE RATIO NOT APPLICABLE Normal 6-22 [facility] Comment on above: Performed By: #### 7 46, 7600, 09989, 6517 #### [facility] of [place] [address] [employer] Operator [employer]iskey: Jules Arreola MD Calcium [Mass/Vol] 9.6 mg/dL Normal 8.6-10.2 [facility] Comment on above: Performed By: #### 7 46, 7600, 39185, 6517 #### [facility] of [address] [place] [address] [employer]key: Jules Arreola MD Chloride [Moles/Vol] 104 mmol/L Normal 98-110 [facility] Comment on above: Performed By: #### 7 46, 7600, 12391, 6517 #### [facility] [place] [address] [employer] Operator [employer]iskey: Jules Arreola MD CO2 [Moles/Vol] 29 mmol/L Normal 20-32 [facility] Comment on above: Performed By: #### 7 46, 7600, , 6517 #### [facility] [place] [address] [employer] Operator [employer]iskey: Jules Arreola MD Creatinine [Mass/Vol] 0.70 mg/dL Normal 0.50-1.10 [facility] Comment on above: Performed By: #### 7 46, 7600, , 17 #### [facility] [place] [address] [employer] Operator [employer]is[employer]: Jules Arreola MD eGFR NON-AFR. CITIZEN OF [place] 113 mL/min/1.73m2 Normal > OR = 60 [facility] Comment on above: Performed By: #### 7 46, 7600, , 6517 #### [facility] [place] [address] [employer] Operator [employer]iskey: Jules Arreola MD GFR/1.73 sq M.predicted among blacks MDRD (S/P/Bld) [Vol rate/Area] 131 mL/min/{1.73_m2} Normal > OR = 60 [facility] Comment on above: Performed By: #### 7 46, 7600, 08644, 6517 #### [facility] of [place] [address] [employer] Operator Whiskey: Jules Arreola MD Globulin (S) [Mass/Vol] 2.7 g/dL Normal 1.9-3.7 [facility] Comment on above: Performed By: #### 7 46, 7600, , 6517 #### [facility] [place] [address] [employer] Operator Whiskey: Jules Arreola MD Glucose [Mass/Vol] 101 mg/dL High 65-99 [facility] Comment on above: Result Comment: Fasting reference interval For someone without known diabetes, a glucose value between 100 and 125 mg/dL is consistent with prediabetes and should be confirmed with a follow-up test. Performed By: #### 7 46, 7600, 42746, 6517 #### [facility] [place] [address] [employer] Operator Whiskey: Jules Arreola MD Potassium [Moles/Vol] 4.0 mmol/L Normal 3.5-5.3 [facility] Comment on above: Performed By: #### 7 46, 7600, 23890, 6517 #### [facility] [place] [address] [employer] Operator [employer]key: Jules Arreola MD Protein [Mass/Vol] 7.0 g/dL Normal 6.1-8.1 [facility] Comment on above: Performed By: #### 7 46, 7600, 21591, 6517 #### [facility] [place] [address] [employer] Operator [employer]iskey: uJles Arreola MD Sodium [Moles/Vol] 139 mmol/L Normal 135-146 [facility] Comment on above: Performed By: #### 7 46, 7600, 57303, 6517 #### [facility] [place] [address] [employer] Operator [employer]key: Jules Arreola MD Urea nitrogen [Mass/Vol] 23 mg/dL Normal 7-25 [facility] Comment on above: Performed By: #### 7 46, 7600, 76513, 6517 #### [facility] [place] [address] [employer] Operator [employer]iskey: Jules Arreola MD LIPID PANEL, [facility] 0 Cholesterol [Mass/Vol] 196 mg/dL Normal <200 [facility] Comment on above: Order Comment: FASTI NG:YES FASTING: YES Performed By: #### 7 46, 7600, 39026, 6517 #### [facility] [address], [address] [place] [address] [employer] Operator Whiskey: Jules Arreola MD Cholesterol in HDL [Mass/Vol] 56 mg/dL Normal > OR = 50 [facility] Comment on above: Order Comment: FASTI NG:YES FASTING: YES Performed By: #### 7 46, 7600, 41707, 6517 #### [facility] [address], [address] [place] [address] [employer] Operator [employer]key: Jules Arreola MD Cholesterol in LDL [Mass/Vol] [...] LDL-C. Fidencio SS et al. EDITH. 2013;310(19): 9432-2678 (http://education.Newswired.Qqbaobao.com/faq/IJD011) Performed By: #### 7 46, 7600, 15051, 6517 #### [facility] [address], [address] [place] [address] [employer] Operator [employer]iskey: Jules Arreola MD Cholesterol.total/Ch olesterol in HDL [Mass ratio] 3.5 {ratio} Normal <5.0 [facility] Comment on above: Order Comment: FASTI NG:YES FASTING: YES Performed By: #### 7 46, 7600, 09178, 6517 #### [facility] [address], [address] [place] [address] [employer] Operator Whiskey: Jules Arreola MD NON HDL CHOLESTEROL 140 mg/dL (calc) High <130 [facility] Comment on above: Order Comment: FASTI NG:YES FASTING: YES Result Comment: For patients with diabetes plus 1 major ASCVD risk factor, treating to a non-HDL-C goal of <100 mg/dL (LDL-C of <70 mg/dL) is considered a therapeutic option. Performed By: #### 7 46, 7600, 15240, 6517 #### [facility] [address], [address] [place] [address] [employer] Operator [employer]iskey: Jules Arreola MD Triglyceride [Mass/Vol] 104 mg/dL Normal <150 [facility] Comment on above: Order Comment: FASTI NG:YES FASTING: YES Performed By: #### 7 46, 7600, 76540, 6517 #### [facility] [address], [address] [place] [address] [employer] Operator [employer]: Jules Arreola MD PROLACTINon 06-24-2021 PROLACTIN 51.6 ng/mL High [facility] Comment on above: Result Comment: Refe rence Range Females Non- 3.0-30.0 10.0-209.0 Postmenopausal 2.0-20.0 Your request to have a duplicate copy faxed has been acknowledged. Queued to: [id number] Performed By: #### 7 46, 7600, 90793, 6517 #### [facility] [address], [address] [place] [address] Still Operator [employer]iskey: Jules Arreola MD [facility]21 SARS-CoV-2 (COVID-19) RNA STANLEY+probe Ql (Unsp spec) Not detected Normal NOT DETECTED [facility] Comment on above: Result Comment: This test is not yet approved or cleared by the [place] FDA. When there are no FDA-approved or cleared tests available, and other criteria are met, FDA can make tests available under an emergency access mechanism called an Emergency Use Authorization (EUA). The EUA for this test is supported by the Field Support Technician of Health and Human Service's (HHS's) declaration [...] Performed By: #### L IPID, CMP #### [facility] [address] [place] [address] Dr. Devin Florentino PROLACTINon 03-05-2021 Prolactin 79.1 ng/mL Critically high 4.8-23.3 [facility] Comment on above: Performed By: #### P ROLAC #### [facility] [address] [place] [address] Dr. Devin Florentino PROF CHEM 8 (BAS METB)on Anion gap [Moles/Vol] 9.9 mmol/L Normal [facility] Comment on above: Performed By: #### B MP #### [facility] [address] [place] [address] Dr. Devin Florentino Calcium [Mass/Vol] 9.6 mg/dL Normal 8.4-10.2 [facility] Comment on above: Performed By: #### B MP #### [facility] [address] [place] [address] Dr. Devin Florentino Chloride [Moles/Vol] 104 mmol/L Normal 98-107 [facility] Comment on above: Performed By: #### B MP #### [facility] [address] [place] [address] Dr. Devin Florentino CO2 [Moles/Vol] 32.2 mmol/L Critically high 22.0-30.0 [facility] Comment on above: Performed By: #### B MP #### [facility] [address] [place] [address] Dr. Devin Florentino Creatinine [Mass/Vol] 0.72 mg/dL Normal 0.52-1.[address] [facility] Comment on above: Performed By: #### B MP #### [facility] [address] [place] [address] Dr. Devin Florentino EGFR-AF CITIZEN OF [place] >60 Normal >=60 [facility] Comment on above: Performed By: #### B MP #### [facility] [address] [place] [address] [address] Devin Florentino EGFR-NON AF CITIZEN OF [place] >60 Normal >=[address] [facility] Comment on above: Performed By: #### B MP #### [facility] [address] [place] [address] [address] Devin Florentino Glucose [Mass/Vol] 118 mg/dL Critically high 74-106 [facility] Comment on above: Performed By: #### B MP #### [facility] [address] [place] [address] [address] Devin Florentino Potassium [Moles/Vol] 4.1 mmol/L Normal 3.4-5.[address] [facility] Comment on above: Performed By: #### B MP #### [facility] [address] [place] [address] [address] Devin Florentino Sodium [Moles/Vol] 142 mmol/L Normal 137-145 [facility] Comment on above: Performed By: #### B MP #### [facility] [address] [place] [address] [address] Devin Florentino Urea nitrogen [Mass/Vol] 22.0 mg/dL Critically high 7.0-17.[address] [facility] Comment on above: Performed By: #### B MP #### [facility] [address] [place] [address] [address] Devin Florentino Urea nitrogen/Creatinine [Mass ratio] 30.6 mg/mg Normal [facility] Comment on above: Performed By: #### B MP #### [facility] [address] [place] [id number] Devin Florentino COMPREHENSIVE METABOLIC PANE [place] 12-24-2020 Albumin [Mass/Vol] 4.0 g/dL Normal 3.6-5.1 [facility] Comment on above: Performed By: #### 7 600, 17992, 72417 #### [facility] [address], [address] [place] [address] [employer]: Jules Arreola MD Albumin/Globulin [Mass ratio] 1.4 {ratio} Normal 1.0-2.5 [facility] Comment on above: Performed By: #### 7 600, 36448, 15626 #### [facility] of [place] [address] Still Operator Whiskey: Jules Arreola MD ALP [Catalytic activity/Vol] 45 U/L Normal 31-125 [facility] Comment on above: Performed By: #### 7 600, 21108, 80392 #### [facility] of [address], [address] [place] [address] Still Operator Whiskey: Jules Arreola MD ALT [Catalytic activity/Vol] 20 U/L Normal 6-29 [facility] Comment on above: Performed By: #### 7 600, 97566, 77277 #### [facility] of [place] [address] [employer] Operator Whiskey: Jules Arreola MD AST [Catalytic activity/Vol] 13 U/L Normal 10-30 [facility] Comment on above: Performed By: #### 7 600, 76159, 74388 #### [facility] of [place] [address] [employer] Operator [employer]iskey: Jules Arreola MD Bilirubin [Mass/Vol] 0.4 mg/dL Normal 0.2-1.2 [facility] Comment on above: Performed By: #### 7 600, 41294, 57721 #### [facility] of [place] [address] [employer] Operator Whiskey: Jules Arreola MD BUN/CREATININE RATIO NOT APPLICABLE Normal 6-22 [facility] Comment on above: Performed By: #### 7 600, 76283, 05201 #### [facility] of [place] [address] [employer] Operator Whiskey: Jules Arreola MD Calcium [Mass/Vol] 9.4 mg/dL Normal 8.6-10.2 [facility] Comment on above: Performed By: #### 7 600, 72436, 85396 #### [facility] of [address], [address] [place] [address] [employer] Operator Whiskey: Jules Arreola MD Chloride [Moles/Vol] 104 mmol/L Normal 98-110 [facility] Comment on above: Performed By: #### 7 600, 32107, 57533 #### [facility] of [address], [address] [place] [address] Still Operator Whiskey: Jules Arreola MD CO2 [Moles/Vol] 28 mmol/L Normal 20-32 [facility] Comment on above: Performed By: #### 7 600, 29021, 54605 #### [facility] of [place] [address] Still Operator Whiskey: Jules Arreola MD Creatinine [Mass/Vol] 0.75 mg/dL Normal 0.50-1.10 [facility] Comment on above: Performed By: #### 7 600, 21132, 85559 #### [facility] of [place] [address] Still Operator Whiskey: Jules Arreola MD eGFR NON-AFR. CITIZEN OF [place] 105 mL/min/1.73m2 Normal > OR = 60 [facility] Comment on above: Performed By: #### 7 600, 75598, 45465 #### [facility] of [place] [address] Still Operator Whiskey: Jules Arreola MD GFR/1.73 sq M.predicted among blacks MDRD (S/P/Bld) [Vol rate/Area] 121 mL/min/{1.73_m2} Normal > OR = 60 [facility] Comment on above: Performed By: #### 7 600, 02320, 24276 #### [facility] of [place] [address] Still Operator Whiskey: Jules Arreola MD Globulin (S) [Mass/Vol] 2.8 g/dL Normal 1.9-3.7 [facility] Comment on above: Performed By: #### 7 600, 77648, 42820 #### [facility] of [address] [place] [address] Still Operator Whiskey: Jules Arreola MD Glucose [Mass/Vol] 97 mg/dL Normal 65-99 [facility] Comment on above: Result Comment: Fasting reference interval Performed By: #### 7 600, 18659, 55145 #### [facility] of [address], [address] [place] [address] Still Operator Whiskey: Jules Arreola MD Potassium [Moles/Vol] 4.2 mmol/L Normal 3.5-5.3 [facility] Comment on above: Performed By: #### 7 600, 26050, 14947 #### [facility] of [place] [address] Still Operator Whiskey: Jules Arreola MD Protein [Mass/Vol] 6.8 g/dL Normal 6.1-8.1 [facility] Comment on above: Performed By: #### 7 600, 53742, 82512 #### [facility] of [place] [address] Still Operator Whiskey: Jules Arreola MD Sodium [Moles/Vol] 140 mmol/L Normal 135-146 [facility] Comment on above: Performed By: #### 7 600, 58529, 03361 #### [facility] of [place] [address] Still Operator Whiskey: Jules Arreola MD Urea nitrogen [Mass/Vol] 17 mg/dL Normal 7-25 [facility] Comment on above: Performed By: #### 7 600, 58338, 08743 #### [facility] of [place] [address] Still Operator Whiskey: Jules Arreola MD LIPID PANEL, [facility] Cholesterol [Mass/Vol] 196 mg/dL Normal <200 [facility] Comment on above: Performed By: #### 7 600, 82635, 79136 #### [facility] of [address], [address] [place] [address] Still Operator Whiskey: Jules Arreola MD Cholesterol in HDL [Mass/Vol] 54 mg/dL Normal > OR = 50 [facility] Comment on above: Performed By: #### 7 600, 89429, 27237 #### [facility] [place] [address] Still Operator Whiskey: Jules Arreola MD Cholesterol in LDL [Mass/Vol] [...] LDL-C. Fidencio SS et al. EDITH. 2013;310(19): 1759-1969 (http://education.Ultracell/faq/TAK998) Performed By: #### 7 600, 33448, 20712 #### [facility] [place] [address] Still Operator Whiskey: Jules Arreola MD Cholesterol.total/Ch olesterol in HDL [Mass ratio] 3.6 {ratio} Normal <5.0 [facility] Comment on above: Performed By: #### 7 600, 34880, 44972 #### [facility] [place] [address] Still Operator Whiskey: Jules Arreola MD NON HDL CHOLESTEROL 142 mg/dL (calc) High <130 [facility] Comment on above: Result Comment: For patients with diabetes plus 1 major ASCVD risk factor, treating to a non-HDL-C goal of <100 mg/dL (LDL-C of <70 mg/dL) is considered a therapeutic option. Performed By: #### 7 600, 34951, 46921 #### [facility] [place] [address] Still Operator Whiskey: Jules Arreola MD Triglyceride [Mass/Vol] 156 mg/dL High <150 [facility] Comment on above: Performed By: #### 7 600, 30268, 34803 #### [facility] [address] , [address] [place] [address] Still Operator Whiskey: Jules Arreola MD VITAMIN D,25-OH,TOTAL,IAon 1 VITAMIN [...] D, (D2,D3), LC/MS/MS is recommended: order code 97691 (patients >2yrs). See Note 1 Note 1 For additional information, please refer to http://education.Ultracell/faq/OHT996 (This link is being provided for informational/ educational purposes only.) Performed By: #### 7 600, 36117, 23326 #### [facility] [address] [facility], [address] [place] [address] Still Operator Whiskey: Jules Arreola MD Vital Signs Date Time Vital Sign Value Performing Clinician Margie villarreal 05-12-2023 10:12-0500 Body height 170.2 cm Sabrina Smith APRN-MOTORBOAT MECHANIC INBOARD Work Phone: [email or web address] 05-12-2023 10:12-0500 Body mass index (BMI) [Ratio] 53.52 kg/m2 Sabrina Smith APRN-MOTORBOAT MECHANIC INBOARD Work Phone: [facility] 05-12-2023 10:12-0500 Body weight 154.99 kg Sabrina Smith APRN-MOTORBOAT MECHANIC INBOARD Work Phone: [facility] 05-12-2023 10:12-0500 Diastolic blood pressure 103 mm[Hg] Sabrina Smith APRN-MOTORBOAT MECHANIC INBOARD Work Phone: [facility] 05-12-2023 10:12-0500 Heart rate 65 /min Sabrina Kregel BUTTON INSPECTOR-MOTORBOAT MECHANIC INBOARD Work Phone: [facility] 05-12-2023 10:12-0500 SaO2% (BldA) [Mass fraction] 100 % Sabrina Smith BUTTON INSPECTOR-MOTORBOAT MECHANIC INBOARD Work Phone: [facility] 05-12-2023 10:12-0500 Systolic blood pressure 157 mm[Hg] Sabrina Smith BUTTON INSPECTOR-MOTORBOAT MECHANIC INBOARD Work Phone: [facility] Encounters Encounter Date Encounter Type Care Provider Facility Start: 10-08-2023 End: 10-08-2023 ambulatory MARIO R [facility] Start: 10-04-2023 End: 10-04-2023 ambulatory [facility] Start: 10-04-2023 End: 10-04-2023 ambulatory MARIO VICTORIA Not Available Start: 09-30-2023 End: 09-30-2023 ambulatory [facility] Start: 09-29-2023 End: 09[facility] Start: 09-27-2023 End: 09-27-2023 ambulatory MARIO VICTORIA Not Available Start: 09-16-2023 End: 09-16-2023 ambulatory [facility] Start: 09-16-2023 End: 09-16-2023 ambulatory [facility] Start: 09-15-2023 End: 09-15-2023 ambulatory ELIZA Key [facility] Start: 09-03-2023 End: 09-03-2023 ambulatory MARIO VICTORIA Not Available Start: 05-21-2023 Telephone encounter [facility] Start: 05-12-2023 End: 05-12-2023 ambulatory [facility] Start: 05-12-2023 End: 05-12-2023 Office outpatient visit 25 minutes Sabrina Smith BUTTON INSPECTOR-MOTORBOAT MECHANIC INBOARD Work Phone: [facility] Comment on above: RACHEL (obstructive sle ep apnea) (Primary Dx); CPAP use counseling; BMI 50.0-59.9, [place] Start: 01-09-2023 Emergency department patient visit Facility:[facility] [place] Start: 02-19-2022 End: 02-20-2022 ambulatory LEIGH GUILLERMOGH Facility:[facility]1 Start: 01-15-2022 End: 01-16-[address] MAUDE GANT Facility:[facility] Start: 11-17-2021 End: 11-17-[address] MAUDE GATN Facility:[facility] Start: 09-05-2021 End: 09-06-[address] MAUDE GANT Facility:[facility] Start: 03-20-2021 End: 03-20-[address] MAUDE GANT Facility:[facility] Start: 03-04-2021 End: 03-05-[address] MAUDE GANT Facility:[facility] Procedures Date Procedure Procedure Detail Performing Clinician Start: 05-15-2023 Diabetic retinal eye exam Mariposa Caicedo [facility] Start: 01-22-2023 Adult depression scr eening assessment [employer] Work Phone: Start: 07-20-2022 Microalbumin [Mass/v olume] in Urine by Test strip [facility] Work Phone: Start: 04-07-2022 Diabetic retinal eye exam [facility] Work Phone: Start: 08-03-2021 Microscopic observat ion [Identifier] in Cervix by Cyto stain [employer] Work Phone: Plan of Treatment Date Care Activity Detail Author Start: 04-19-2028 DTaP,Tdap and Td Vaccines (3 - Td or Tdap) DTaP,Tdap and Td Vaccines (3 - Td or Tdap) [facility] Start: 08-03-2024 Screening for malignant neoplasm of cervix Pap Smear [facility] Start: 05-15-2024 Glaucoma screening Diabetic Ophthalmology Exam [facility] Start: 05-13-2024 Tobacco Screening Tobacco Screening [facility] Start: 05-12-2024 Adult BMI Screening Adult BMI Screening [facility] Start: 05-12-2024 Tobacco Screening Tobacco Screening [facility] Start: 05-10-2024 End: 05-10-2024 Patient encounter procedure 05/10/2024 9:15 AM EST Office Visit [facility] [address] [place] [address] Sabrina Smith BUTTON INSPECTOR-MOTORBOAT MECHANIC INBOARD [address], [address] [place] [address] [facility] Start: 01-23-2024 Depression Screening Depression Screening [facility] Start: 07-23-2023 End: 07-23-2023 Patient encounter procedure 07/23/2023 8:30 AM EDT Office Visit [facility] Internal Medicine - Family Medicine [address] [place] [address] Maude Gant, BUTTON INSPECTOR-CIVIL ENGINEERING MANAGER [address] [place] [address] [facility] Start: 07-21-2023 Diabetic foot examination Diabetic Foot Exam [facility] Start: 07-21-2023 Urine screening for protein Urine Microalbumin [facility] Start: 04-07-2023 Glaucoma screening Diabetic Ophthalmology Exam [facility] Start: 2005 Adult BMI Follow Up Plan Adult BMI Follow Up Plan [facility] Immunizations Immunization Date Immunization Notes Care Provider Fernando ann 12-14-2018 Influenza, injectabl e, Madin [place] Canine Kidney, quadrivalent with preservative Sabrina Kregel BUTTON INSPECTOR-MOTORBOAT MECHANIC INBOARD Work Phone: [facility] 04-19-2018 tetanus toxoid, redu sandra diphtheria toxoid, and acellular pertussis vaccine, adsorbed Sabrina Kregel BUTTON INSPECTOR-MOTORBOAT MECHANIC INBOARD Work Phone: [facility] 12-29-2017 influenza, injectabl e, quadrivalent, preservative free Sabrina Kregel BUTTON INSPECTOR-MOTORBOAT MECHANIC INBOARD Work Phone: [facility] 12-29-2017 influenza, seasonal, injectable Sabrina Smith BUTTON INSPECTOR-MOTORBOAT MECHANIC INBOARD Work Phone: [facility] 02-07-2015 influenza, seasonal, injectable, preservative free Sabrina Smith BUTTON INSPECTOR-MOTORBOAT MECHANIC INBOARD Work Phone: [facility] 01-23-2013 tetanus toxoid, redu sandra diphtheria toxoid, and acellular pertussis vaccine, adsorbed Sabrina Smith BUTTON INSPECTOR-MOTORBOAT MECHANIC INBOARD Work Phone: [facility] Payers Date Payer Category Payer Private Health [facility] [id number] 2022-Present [phone] [address] [address] [place] [address] [id number] 2022 Unknown [id number] 1987 Unknown [id number] 2.16.840.1.764262.3.579 .2.593 1987 Unknown [id number] 2.16.840.1.212645.3.579 .2.593 1987 Unknown [id number] 2.16.840.1.148752.3.579 .2.593 1987 Unknown [id number] 2.16.840.1.419169.3.579 .2.593 1987 Unknown [id number] 2.16.840.1.418071.3.579 .2.593 1987 Unknown [id number] 2.16.840.1.002916.3.579 .2.593 1987 Unknown [id number] 2.16.840.1.487334.3.579 .2.1286 1987 Unknown [id number] 2.16.840.1.720606.3.579 .2.1259 1987 Unknown [id number] 2.16.840.1.978170.3.579 .2.1259 1987 Unknown [id number] 2.16.840.1.711949.3.579 .2.1259 1987 Unknown [id number] 2.16.840.1.345984.3.579 .2.1285 1987 Unknown [id number] 2.16.840.1.281141.3.579 .2.1285 1987 Unknown [id number] 2.16.840.1.556291.3.579 .2.1285 1987 Unknown [id number] 2.16.840.1.241753.3.579 .2.1285 1987 Unknown [id number] 2.16.840.1.137876.3.579 .2.1285 1987 Unknown [id number] 2.16.840.1.047116.3.579 .2.1285 1987 Unknown [id number] 2.16.840.1.357836.3.579 .2.1285 1987 Unknown [id number] 2.16.840.1.672283.3.579 .2.1285 1959 Unknown [id number] Social History Date Type Detail Facility Start: 07-20-2022 Tobacco smoking status [facility] Never smoked tobacco [facility] Start: 07-20-2022 Tobacco use and exposure Smokeless tobacco non-user [facility] Start: 05-13-2023 Alcohol intake Ex-drinker (finding) [facility] Start: 01-18-2022 End: 01-22-2023 History of Social function [facility] Start: 01-18-2022 End: 01-22-2023 Social connection and isolation panel [facility] Do you belong to any clubs or organizations such as gnosticist groups, unions, fraternal or athletic groups, or school groups? Yes [facility] Are you now , , , , never or living with a partner? [facility] How often to you hav e a drink containing alcohol? Never [facility] How many standard dr inks containing alcohol do you have on a typical day? Patient does not drink [facility] Do you feel stress - tense, restless, nervous, or anxious, or unable to sleep at night because your mind is troubled all the time - these days [OSQ] Only a little [facility] Start: 01-18-2022 Education 12 [facility] Start: 1985 Sex Assigned At Female [facility] Start: 12-31-2019 Gender identity Identifies as female gender (finding) [facility] Start: 12-31-2019 Sexual orientation Heterosexual (finding) [facility] Medical Equipment Procedure Code Equipment Code Equipment Original Text Equi pment Identifier Dates 1 strip by other route every morning before breakfast. [id number] OneTouch Delica Plus Lancet 33 gauge USE TO CHECK BLOOD SUGAR DAILY [id number] Note 05-21-2023 Telephone Encounter - RAJANI De La Garza - 05/21/2023 1:25 PM EST Note Date & Type Note Facility 05-21-2023 Miscellaneous Notes Formattin g of this note might be different from the original. Images from the original note were not included. PAP Mask and Supplies Order Faxed to [facility] Fax Confirmed documented in this encounter [facility] Telephone encounter Note 05-21-2023 Telephone Encounter - RAJANI De La Garza - 05/21/2023 1:25 PM EST Note Date & Type Note Facility 05-21-2023 Telephone encount er Note Images from the original note were not included. PAP Mask and Supplies Order Faxed to [facility] Fax Confirmed [facility] History of Present illness Narrative 05-12-2023 Sabrina [...] heated inline humidifier. 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[employer] [place] Sleepiness Scale: Sitting and Reading: Never Watching [...] min Stress: No Stress Concern Present (01/18/2022) [place] Islander [facility] [employer] - Occupational Stress Questionnaire Feeling of Stress : Only a little Social Connections: Socially Integrated (01/18/2022) Social Connection and Isolation Panel [NHANES] Frequency of Communication with Friends and Family: More than three times a week Frequency of Social Gatherings with Friends and Family: Three times a week Attends Synagogue Services: More than 4 times per year [...] FDA warning against ozone / UV CPAP manager of application development. Advised to stop using immediately. Education sheet [...] not to drive if sleepy, and to senior government program analyst if sleepiness occurs while driving. Above plan [...] errors that have escaped final proofreading. Sabrina Pratt [facility] Office: [phone] 7:17 PM on 05/13/2023 CC: ETHAN MOREIRA APRN-CNP 05/13/231920 documented in this encounter [facility] [employer] [facility] Instructions 05-12-2023 Patient Instructions Note Date & Type Note Facility 05-12-2023 Instructions LAUREN Mullen - 05/12/2023 10:00 AM EST If you re looking for general health and wellness resources, please visit [email or web address]. documented in this encounter [facility] [employer] Evaluation note Note Date & Type Note Facility Evaluation note Diagnosis RACHEL (obstructive sleep apnea)- Primary Obstructive sleep apnea (adult) (pediatric) CPAP use counseling BMI 50.0-59.9, adult ([facility] [employer] [facility] Instructions Note Date & Type Note Facility Instructions Not on filedocumented in this en counter [facility] [employer] [facility] Summary Purpose Family History No Family [...] CREATED AUTHOR AUTHOR'S ORGANIZ ATION 02/27/2022 [facility] DATE CREATED AUTHOR AUTHOR'S ORGANIZ ATION 01/10/2023 [facility] DATE CREATED AUTHOR AUTHOR'S ORGANIZ ATION 05/19/2023 [facility] DATE CREATED AUTHOR AUTHOR'S ORGANIZ ATION 10/08/2023 [facility] DATE CREATED AUTHOR AUTHOR'S ORGANIZ ATION 10/08/2023 [facility] DATE CREATED AUTHOR AUTHOR'S ORGANIZ ATION 10/11/2023 [facility] Reason for Visit (unrecogniz ed section and content) Reason Comments Sleep Apnea DME: [facility] Care Teams (unrecognized sec tion and content) Project Management Instructor Relationship Specialty Start Date End Date Maude Gant, BUTTON INSPECTOR-CIVIL ENGINEERING MANAGER [address] [place] [address] PCP - General Internal Medicine 01/22/23 Project Management Instructor Relationship Specialty Start Date End Date Maude Gant, HAYDE-CIVIL ENGINEERING MANAGER [address] [place] [address] PCP - General Internal Medicine 01/22/23 FOR [...] BE BASED ON THE PRIMARY CLINICAL RECORDS. [facility] [employer] [facility]. provides no warranty or guarantee of the accuracy or completeness of information in this document.
--- NOTE | 2023-10-24 02:07 | ED_ITS ---
HPI - Arrhythmia/Palpitations General Chief Complaint: Arrhythmia/Palpitations Stated Complaint: fast heartrate Time Seen by Provider: 10/24/23 01:55 Source: patient Mode of arrival: walk-in Limitations: no limitations History of Present Illness HPI narrative: [id number]. 16 weeks . History of IDDM and hypertension. States she woke up from sleep and felt like her heart was racing and felt short of breath. Lasted about 30 minutes and resolved. Now asymptomatic. No ankle edema. No abdominal pain or vaginal bleeding. Came in to get checked out Related Data Home Medications ?Medication ?Instructions ?Recorded ?Confirmed insulin glargine-yfgn 100 unit/mL unit subcut 10/24/23 (3 mL) subcutaneous pen insulin lispro 100 unit/mL subcut 10/24/23 subcutaneous pen nifedipine 30 mg tablet,extended mg PO 10/24/23 release 24 hr nifedipine 60 mg tablet,extended mg PO 10/24/23 release 24 hr Allergies Allergy/AdvReac Type Severity Reaction Status Date / Time Penicillins AdvReac Mild Hives Verified 10/24/23 01:46 Review of Systems ROS Status of ROS 10 or more systems reviewed and unremark able except as noted in history and below Exam Constitutional Vital Signs, click to edit/add: Last Vital Signs Pulse 77 10/24/23 02:40 Resp 21 H 10/24/23 02:40 BP 144/69 H 10/24/23 02:31 Pulse Ox 97 10/24/23 02:40 O2 Del Method Room Air 10/24/23 01:41 Common normals: no apparent distress, average body habitus, oriented x3, no limitations, healthy appearing, alert and well nourished [facility] Common normals: normocephalic and head/scalp atraumatic Respiratory Common normals: normal respiratory effort, no retractions, no use of accessory muscles and clear to auscultation bilaterally Cardio Common normals: regular rate, regular rhythm, S1 normal heart sound and S2 normal heart sound GI Common normals: Normal to inspection, nondistended, normoactive bowel sounds present, soft to palpation and non-tender Extremity Common normals: normal to inspection and no clubbing, cyanosis or edema Neuro Common normals: oriented x3, CN's II-XII intact bilaterally, moves all extremities and no focal motor deficits Psych Appearance: grossly normal Course Vital Signs Vital signs: Vital Signs Pulse Rate 77 10/24/23 01:41 Respiratory Rate 20 10/24/23 01:41 Blood Pressure 177/68 H 10/24/23 01:41 Pulse Oximetry 98 10/24/23 01:41 Oxygen Delivery Method Room Air 10/24/23 01:41 Pulse Rate 77 10/24/23 02:40 Respiratory Rate 21 H 10/24/23 02:40 Blood Pressure 144/69 H 10/24/23 02:31 Pulse Oximetry 97 10/24/23 02:40 Oxygen Delivery Method Room Air 10/24/23 01:41 MDM - Arrhythmia/Palpitations MDM Narrative Medical decision making narrative: patient is 16 weeks . History of IDDM and hypertension. States she woke up and felt like her heart was racing for about 1/2 hour. Came in asymptomatic to get checked out. Exam neg. EKG NSR . low voltage with nonspecific T changes. Labs normal including troponin not detectable. Patient reassured and discharged to follow up with her doctor for a recheck Lab Data Labs: Lab Results 10/24/23 Range/Units 01:50 WBC 7.6 (4.0-11.0) 10^3/uL RBC 4.21 (4.20-5.40) 10^6/uL Hgb 12.0 (12.0-16.0) g/dL Hct 37.1 (36.0-48.0) % MCV 88.1 (81.0-99.0) fL MCH 28.5 (26.7-34.0) pg MCHC 32.3 (29.9-35.2) g/dL RDW 13.5 (11.0-15.0) % Plt Count 280 (150-450) 10^3/uL MPV 9.5 (9.5-13.5) fL Neut % (Auto) 61.3 (43.0-75.0) % Lymph % (Auto) 27.5 (20.5-60.0) % [place] % (Auto) 8.2 (1.7-12.0) % Eos % (Auto) 2.5 (0.9-7.0) % Baso % (Auto) 0.1 L (0.2-2.0) % Neut # (Auto) 4.6 (1.4-6.5) 10^3/uL Lymph # (Auto) 2.1 (1.2-3.8) 10^3/uL [place] # (Auto) 0.6 (0.3-0.8) 10^3/uL Eos # (Auto) 0.2 (0.0-0.7) 10^3/uL Baso # (Auto) 0.0 (0.0-0.1) 10^3/uL Abs Immat Gran (auto) 0.03 (0.00-0.03) 10^3/uL Imm/Tot Granulo (auto) 0.4 (0.0-0.5) % Sodium 137 (136-145) mmol/L Potassium 3.5 (3.5-5.1) mmol/L Chloride 104 (98-107) mmol/L Carbon Dioxide 26.7 (21.0-32.0) mmol/L Anion Gap 9.8 BUN 17.0 (7.0-18.0) mg/dL Creatinine 0.58 (0.55-1.02) mg/dL Est GFR ( Amer) >60 (>=60) Est GFR (Non-Af Amer) >60 (>=60) BUN/Creatinine Ratio 29.3 Glucose 122 H (74-106) mg/dL Calcium 9.2 (8.5-10.1) mg/dL Troponin I High Sens <4.0 L (4.0-51.3) pg/mL Discharge Plan Discharge Stand Alone Forms: Portal Instructions Chief Complaint: Arrhythmia/Palpitations Clinical Impression: Palpitations Patient Disposition: Home, Self-Care Prescriptions / Home Meds: No Action nifedipine 30 mg tablet extended release 24hr PO nifedipine 60 mg tablet extended release 24hr PO insulin lispro 100 unit/mL insulin pen SUBCUT insulin glargine-yfgn 100 unit/mL (3 mL) insulin pen SUBCUT Print Language: Egyptian Instructions: Heart Palpitations (ED) Additional Instructions: follow up with your pcp and clinching machine operator in a couple of days for recheck Referrals: LUAN OMRAES [Primary Care Provider] - 1 week
[2023-10-24 02:18] LABS: Basophils Percent Auto 0.1 % (0.2-2.0); Eosinophils Absolute Auto 0.2 10^3/uL (0.0-0.7); Eosinophils Percent Auto 2.5 % (0.9-7.0); Hematocrit 37.1 % (36.0-48.0); Immature Granulocytes Abs Auto 0.03 10^3/uL (0.00-0.03); Immature Granulocytes Pct Auto 0.4 % (0.0-0.5); Lymphocytes Absolute Auto 2.1 10^3/uL (1.2-3.8); Lymphocytes Percent Auto 27.5 % (20.5-60.0); Mean Corpuscular HGB Conc 32.3 g/dL (29.9-35.2); Mean Corpuscular Hemoglobin 28.5 pg (26.7-34.0); Mean Corpuscular Volume 88.1 fL (81.0-99.0); Mean Platelet Volume 9.5 fL (9.5-13.5); Monocytes Absolute Auto 0.6 10^3/uL (0.3-0.8); Monocytes Percent Auto 8.2 % (1.7-12.0); Neutrophils Absolute Auto 4.6 10^3/uL (1.4-6.5); Neutrophils Percent Auto 61.3 % (43.0-75.0); Platelet Count 280 10^3/uL (150-450); Red Blood Count 4.21 10^6/uL (4.20-5.40); Red Cell Distribution Width 13.5 % (11.0-15.0); White Blood Count 7.6 10^3/uL (4.0-11.0)
[2023-10-24 02:34] LABS: Anion Gap 9.8; BUN Creatinine Ratio 29.3; Calcium 9.2 mg/dL (8.5-10.1); Carbon Dioxide 26.7 mmol/L (21.0-32.0); Chloride 104 mmol/L (98-107); Estimated GFR (African America >60 (>=60); Estimated GFR (Non-African Ame >60 (>=60); Glucose 122 mg/dL (74-106); Potassium 3.5 mmol/L (3.5-5.1); Sodium 137 mmol/L (136-145); Troponin I High Sensitivity <4.0 pg/mL (4.0-51.3)
--- NOTE | 2023-10-24 04:29 | ECG_ITS ---
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
== END 2023-10-24 02:49 | disposition home or self-care (01) ==
PROVIDERS: Emergency Provider Internal Medicine; PCP Nurse Practitioner Family
DX: O26.892 Other specified pregnancy related conditions, second trimester (principal); R00.2 Palpitations; Z3A.16 16 weeks gestation of pregnancy; O24.312 Unspecified pre-existing diabetes mellitus in pregnancy, second trimester; O16.2 Unspecified maternal hypertension, second trimester; Z79.4 Long term (current) use of insulin
CPT/HCPCS: 36415; 80048; 84484; 85025; 93005; 99284

== ENCOUNTER 2023-11-03 10:29 | Outpatient (OUT) | payer OTHER, SELFPAY ==
--- OUTSIDE RECORDS SUMMARY | 2023-11-03 10:52 | XMS_ITS | CCD ---
Author Organization [facility] Care Team Providers Care Director Of Knowledge Management Name Role Phone JAIR AHMAD Attending Unavailable ALFREDA, DR MAUDE Smith Primary Care Unavailable JAIR, AHMAD Consulting Unavailable JAIR, AHMAD Admitting Unavailable KUNKarin, DR MAUDE Smith Primary Care Unavailable JAIR, AHMAD Consulting Unavailable JAIR, AHMAD Admitting Unavailable JAIR, AHKARYND Attending Unavailable ALFREDA, DR MAUDE Smith Primary Care Unavailable YUHAKarin, DR DANG Admitting Unavailable YUHAS, DR DANG Attending Unavailable YUHAS, DR DANG Consulting Unavailable KUNKarin, DR MAUDE Smith Primary Care Unavailable JAIR, AHCY Consulting Unavailable JAIR, AHMAD Admitting Unavailable JAIR, AHKARYND Attending Unavailable ALFREDA, DR MAUDE Smith Primary Care Unavailable VICTORIA, DR MARTIN Consulting Unavailable VICTORIA, DR MARTIN Admitting Unavailable VICTORIA, DR MARTIN Attending Unavailable ALFREDA, DR MAUDE Smith Primary Care Unavailable KUNKarin, DR MAUDE Smith Admitting Unavailable ALFREDA, DR MAUDE Smith Attending Unavailable ALFREDA, DR MAUDE Smith Consulting Unavailable Kuns SENIOR INSPECTOR-CONTINUOUS IMPROVEMENT DIRECTOR, Maude Abdul Primary Care Provider SABRINA SMITH Attending Unavailable JOHNSMAUDE Referring Unavailable KUNS, MAUDE ABDUL Primary Care Unavailable ANTOINETTE DE LA TORRE Referring Unavailable KUNS, MAUDE ABDUL Primary Care Unavailable DOCHEVA, NIKOLINA P Referring Unavailable DIMITRY, LUAN S Primary Care Unavailable DOCHEVA, NIKOLINA P Referring Unavailable DIMITRY, LUAN S Primary Care Unavailable ELIZA LYN Attending Unavailable MARIO KESSLER Referring Unavailable KUNS, MAUDE ABDUL Primary Care Unavailable BRITT, ANTOINETTE Attending Unavailable KUNSMAUDESANDI Referring Unavailable KUNS, SANDI Primary Care Unavailable ALINA ARMENTA Attending Unavailable MARIO KESSLER Referring Unavailable MAUDE GANT Primary Care Unavailable RA BAH Attending Unavailable MARIO KESSLER Referring Unavailable MAUDE GANT Primary Care Unavailable MARIO KESSLER Referring Unavailable LUAN MORAES Primary Care Unavailable MARIO KESSLER Attending Unavailable Allergies Allergy Classification Reported Allergen(s) Allergy Type Date of Onset Reaction(s) Facility (1 source) Penicillins Drug allergy (disorder) 5 [facility] Repository (5 sources) Penicillin G; Translations: [PENICILLIN G] Drug Allergy 8 [facility] (2 sources) Adhesive agent; Translations: [ADHESIVE] Propensity to adverse reactions to drug (disorder) 4 [facility] [place] [facility] Repository (2 sources) benzoin resin; Translations: [BENZOIN] Drug Allergy 4 [facility] [place] [facility] Repository (2 sources) Cortisone; Translations: [CORTISONE] Drug Allergy 4 [facility] [place] [facility] Repository Medications Current Medications Medication Drug Class(es) [...] complication, without long-term current use of insulin ([facility]) Inject 0.5 mg under the skin [...] 10-04-2023 BRN NATRIURETIC PEP <5 Normal <100.0 [facility] Comment on above: Performed By: #### 3 0934-4 #### [facility] ([id number]) 5 [facility], [place] [address] COMPREHENSIVE METABOLIC PANE Osmin 09-16-2023 Albumin [Mass/Vol] 3.9 g/dL Normal 3.2-5.3 [facility] Comment on above: Performed By: #### C BRANDEN, UPCR, 21901-8, HA1C #### [facility] ([id number]) [address], [address] [place] [address] ALP [Catalytic activity/Vol] 49 U/L Normal 39-130 [facility] Comment on above: Performed By: #### C BRANDEN, UPCR, 47138-3, HA1C #### [facility] ([id number]) [address], [address] [place] [address] ALT [Catalytic activity/Vol] 30 U/L Normal 0-31 [facility] Comment on above: Performed By: #### C BRANDEN, UPCR, 51017-1, HA1C #### [facility] ([id number]) [address], [address] [place] [address] Anion gap [Moles/Vol] 10 mmol/L Normal 5-15 [facility] Comment on above: Performed By: #### C BRANDEN, UPCR, 20609-7, HA1C #### [facility] ([id number]) [address], [address] [place] [address] AST [Catalytic activity/Vol] 18 U/L Normal 0-41 [facility] Comment on above: Performed By: #### C BRANDEN, UPCR, 86019-9, HA1C #### [facility] ([id number]) [address], [address] [place] [address] Bilirubin [Mass/Vol] 0.4 mg/dL Normal 0.3-1.2 [facility] Comment on above: Performed By: #### C BRANDEN, UPCR, 23077-1, HA1C #### [facility] ([id number]) [address], [address] [place] [address] Calcium [Mass/Vol] 9.4 mg/dL Normal 8.5-10.5 [facility] Comment on above: Performed By: #### C BRANDEN, UPCR, 21656-9, HA1C #### [facility] ([id number]) [address], [facility] [address] [place] [address] Chloride [Moles/Vol] 104 mmol/L Normal 98-109 [facility] Comment on above: Performed By: #### C BRANDEN, UPCR, 80315-5, HA1C #### [facility] ([id number]) [address], [address] [place] [address] CO2 [Moles/Vol] 23 mmol/L Normal 22-32 [facility] Comment on above: Performed By: #### C BRANDEN, UPCR, 04342-2, HA1C #### [facility] ([id number]) [address], [address] [place] [address] Creatinine [Mass/Vol] 0.66 mg/dL Normal 0.40-1.00 [facility] Comment on above: Result Comment: METH OD TRACEABLE TO IDMS STANDARD Performed By: #### C BRANDEN, UPCR, 93584-2, HA1C #### [facility] ([id number]) [address], [address] [place] [address] eGFR (CKD-EPI) NON-RACE DEPENDENT >90 Normal >59 [facility] Comment on above: Result Comment: Reported eGFR is based on the CKD-EPI 2020 equation that does not use a race coefficient. Performed By: #### C BRANDEN, UPCR, 46104-1, HA1C #### [facility] ([id number]) [address], [address] [place] [address] Glucose [Mass/Vol] 110 mg/dL High 65-99 [facility] Comment on above: Performed By: #### C BRANDEN, UPCR, 92876-9, HA1C #### [facility] ([id number]) [address], [address] [place] [address] Potassium [Moles/Vol] 3.7 mmol/L Normal 3.5-5.0 [facility] Comment on above: Performed By: #### C BRANDEN, UPCR, 57648-3, HA1C #### [facility] ([id number]) [address], [address] [place] [address] Protein [Mass/Vol] 6.9 g/dL Normal 6.0-8.0 [facility] Comment on above: Performed By: #### C BRANDEN, UPCR, 87211-1, HA1C #### [facility] ([id number]) [address], [address] [place] [address] Sodium [Moles/Vol] 137 mmol/L Normal 134-146 [facility] Comment on above: Performed By: #### C BRANDEN, UPCR, 96619-8, HA1C #### [facility] ([id number]) [address], [address] [place] [address] Urea nitrogen [Mass/Vol] 18 mg/dL Normal 5-23 [facility] Comment on above: Performed By: #### C BRANDEN, UPCR, 74632-2, HA1C #### [facility] ([id number]) [address], [address] [place] [address] HGB A1C (GLYCO-HGB)on 2023 Glucose [Mass/Vol] 160 mg/dL Normal [facility] Comment on above: Performed By: #### C BRANDEN, UPCR, 44753-9, HA1C #### [facility] ([id number]) [address], [address] [place] [address] HbA1c (Bld) [Mass fraction] 7.2 % High 4.4-5.6 [facility] Comment on above: Result Comment: NOTE ADA Guidelines Result HgbA1c Normal : less than 5.7 % Prediabetes : 5.7 % to 6.4 % Diabetes : > 6.4 % Use with caution in patients with abnormal hemoglobin variants as the half-life of red blood cells and in vivo glycation rates are affected. Performed By: #### C BRANDEN UPCR, 01931-1, HA1C #### [facility] ([id number]) [address], [address] [place] [address] PROTEIN CREAT RATIOon 2023 RANDOM URINE PROTEIN 80 mg/L Normal <120 [facility] Comment on above: Performed By: #### Jakub OTERO UPCR, 89670-0, HA1C #### [facility] ([id number]) [address], [address] [place] [address] U/PRO/TABLET MAKING MACHINE OPERATOR RATIO CALC 0.08 Normal <0.2 [facility] Comment on above: Result Comment: Neph rotic Syndrome is associated with ratios >3.5 Performed By: #### C BRANDEN UPGAIL, 80529-3, HA1C #### [facility] ([id number]) [address], [address] [place] [address] URINE CREATININE,RDM 100.44 mg/dL Normal [facility] Comment on above: Performed By: #### C BRANDEN UPCR, 59035-3, HA1C #### [facility] ([id number]) [address] [place] [address] Vitamin D+Metabolites [Mass/ Vol]on 09-16-2023 VITAMIN D 25 HYD TOT 20.8 ng/mL Low 30-100 [facility] Comment on above: Result Comment: Vitamin D status 25 [place] Vitamin D Deficiency <20 ng/mL Insufficiency 20-29 ng/mL Sufficiency 30-100 ng/mL Toxicity >100 ng/mL NOTE: A pediatric reference range has not been established by the manager library of this kit. The [place] [employer] recommends a Vitamin D level of = or >20ng/mL in infants and children. Performed By: #### C MP, [facility], 96964-5, HA1C #### [facility] ([id number]) [address] [place] [address], [address] [place] [address] PROLACTINon 02-20-2022 Prolactin 64.0 ng/mL Critically high 4.8-23.3 [facility] Comment on above: Performed By: #### P ROLAC #### [facility] [address] [address] [address] Devin Florentino RENAL FUNCTION PANELon 02-19 Albumin [Mass/Vol] 3.7 g/dL Normal 3.4-5.0 [facility] Comment on above: Performed By: #### R ENAL #### [facility] [address] [place] [address] Dr. Devin Florentino Calcium [Mass/Vol] 9.2 mg/dL Normal 8.5-10.1 [facility] Comment on above: Performed By: #### R ENAL #### [facility] [address] [address] [address] Devin Florentino Chloride [Moles/Vol] 105 mmol/L Normal 98-107 [facility] Comment on above: Performed By: #### R ENAL #### [facility] [address] [address] [address] Devin Florentino CO2 [Moles/Vol] 29.7 mmol/L Normal 21.0-32.0 [facility] Comment on above: Performed By: #### R ENAL #### [facility] [address] [place] [address] Dr. Devin Florentino Creatinine [Mass/Vol] 0.72 mg/dL Normal 0.55-1.02 [facility] Comment on above: Performed By: #### R ENAL #### [facility] [address] [place] [address] Dr. Devin Florentino EGFR-AF [place]ER >60 Normal >=60 [facility] Comment on above: Performed By: #### R ENAL #### [facility] [address] [place] [address] Dr. Devin Florentino EGFR-NON AF [place] >60 Normal >=60 [facility] Comment on above: Performed By: #### R ENAL #### [facility] [address] [place] [address] Dr. Devin Florentino Glucose [Mass/Vol] 140 mg/dL Critically high 74-106 [facility] Comment on above: Performed By: #### R ENAL #### [facility] [address] [place] [address] Dr. Devin Florentino Phosphate [Mass/Vol] 4.3 mg/dL Normal 2.6-4.7 [facility] Comment on above: Performed By: #### R ENAL #### [facility] [address] [place] [address] Dr. Devin Florentino Potassium [Moles/Vol] 4.0 mmol/L Normal 3.5-5.1 [facility] Comment on above: Performed By: #### R ENAL #### [facility] [address] [place] [address] Dr. Devin Florentino Sodium [Moles/Vol] 141 mmol/L Normal 136-145 [facility] Comment on above: Performed By: #### R ENAL #### [facility] [address] [place] [address] Dr. Devin Florentino Urea nitrogen [Mass/Vol] 27.0 mg/dL Critically high 7.0-18.0 [facility] Comment on above: Performed By: #### R ENAL #### [facility] [address] [place] [address] Dr. Devin Florentino VITAMIN D 25 OHon 02-19-2022 VIT D 25-OH 16.2 ng/mL Normal [facility] Comment on above: Performed By: #### V ITAD #### [facility] [address] [place] [address] Dr. Devin Florentino VIT D RANGES SEE BELOW Normal [facility] Comment on above: Result Comment: <20 ng/mL Vit D deficient 20 - <30 ng/mL Vit D insufficient 30 - 100 ng/mL Vit D sufficient >100 ng/mL Potential Toxicity Performed By: #### V ITAD #### [facility] [address] [place] [address] Dr. Devin Florentino GLYCOHEMOGLOBIN A1Con 2021 ADA RECOMMENDATION SEE BELOW Normal [facility] Comment on above: Result Comment: ADA RECOMMENDED LIMIT 4.0 - 6.0 ADA THERAPEUTIC TARGET < 7.0 ACTION SUGGESTED > 7.0 Performed By: #### A 1C #### [facility] [address] [place] [address] Dr. Devin Florentino Glucose [Mass/Vol] 120 mg/dL Normal [facility] Comment on above: Performed By: #### A 1C #### [facility] [address] [place] [address] Dr. Devin Florentino HbA1c (Bld) [Mass fraction] 5.8 % Normal 4.5-6.2 [facility] Comment on above: Performed By: #### A 1C #### [facility] [address] [place] [address] Dr. Devin Florentino LIPID PROFILEon 01-15-2022 CHOL-HDL RATIO NORM SEE BELOW Normal [facility] Comment on above: Result Comment: 3.3 - 4.4 LOW RISK 4.4 - 7.1 AVERAGE RISK 7.1 - 11.0 MODERATE RISK >11.0 HIGH RISK Performed By: #### L IPID, CMP #### [facility] [address] [place] [address] Dr. Devin Florentino Cholesterol [Mass/Vol] 167 mg/dL Normal <=200 [facility] Comment on above: Performed By: #### L IPID, CMP #### [facility] [address] [address] [address] Devin Florentino Cholesterol in HDL [Mass/Vol] 47 mg/dL Normal 40-60 [facility] Comment on above: Performed By: #### L IPID, CMP #### [facility] [address] [address] [address] Devin Florentino Cholesterol in LDL [Mass/Vol] 103.0 mg/dL Normal [facility] Comment on above: Performed By: #### L IPID, CMP #### [facility] [address] [address] [address] Devin Florentino Cholesterol.total/Ch olesterol in HDL [Mass ratio] 3.6 {ratio} Normal [facility] Comment on above: Performed By: #### L IPID, CMP #### [facility] [address] [address] [address] Devin Florentino HDL NORMAL > or = 60 mg/dl - LO W CARDIOVASCULAR RISK <40 mg/dl - HIGH CARDIOVASCULAR RISK Normal [facility] Comment on above: Performed By: #### L IPID, CMP #### [facility] [address] [address] [address] Devin Florentino LDL CALC NORMAL SEE BELOW Normal [facility] Comment on above: Result Comment: <100 mg/dl OPTIMAL 100 - 129 mg/dl NEAR OR ABOVE OPTIMAL 130 - 159 mg/dl BORDERLINE HIGH 160 - 189 mg/dl HIGH >190 mg/dl VERY HIGH Performed By: #### L IPID, CMP #### [facility] [address] [address] [address] Devin Florentino Triglyceride [Mass/Vol] 81 mg/dL Normal <=150 [facility] Comment on above: Performed By: #### L IPID, CMP #### [facility] [address] [place] [address] Dr. Devin Florentino VLDL CALC 16.2 mg/dL Normal [facility] Comment on above: Performed By: #### L IPID, CMP #### [facility] [address] [address] [address] Devin Florentino PROF 14(COMP METB)on 022 Albumin [Mass/Vol] 3.7 g/dL Normal 3.4-5.0 [facility] Comment on above: Performed By: #### L IPID, CMP #### [facility] [address] [place] [address] Dr. Devin Florentino Albumin/Globulin [Mass ratio] 1.0 {ratio} Normal [facility] Comment on above: Performed By: #### L IPID, CMP #### [facility] [address] [address] [address] Devin Florentino ALP [Catalytic activity/Vol] 58 U/L Normal 46-116 [facility] Comment on above: Performed By: #### L IPID, CMP #### [facility] [address] [place] [address] Dr. Devin Florentino ALT [Catalytic activity/Vol] 40 U/L Normal 14-59 [facility] Comment on above: Performed By: #### L IPID, CMP #### [facility] [address] [place] [address] Dr. Devni Florentino Anion gap [Moles/Vol] 7.7 mmol/L Normal [facility] Comment on above: Performed By: #### L IPID, CMP #### [facility] [address] [place] [address] Dr. Devin Florentino AST [Catalytic activity/Vol] 20 U/L Normal 15-37 [facility] Comment on above: Performed By: #### L IPID, CMP #### [facility] [address] [address] [address] Devin Florentino Bilirubin [Mass/Vol] 0.5 mg/dL Normal 0.2-1.0 [facility] Comment on above: Performed By: #### L IPID, CMP #### [facility] [address] [place] [address] Dr. Devin Florentino Calcium [Mass/Vol] 9.0 mg/dL Normal 8.5-10.1 [facility] Comment on above: Performed By: #### L IPID, CMP #### [facility] [address] [place] [address] Dr. Devin Florentino Chloride [Moles/Vol] 103 mmol/L Normal 98-107 [facility] Comment on above: Performed By: #### L IPID, CMP #### [facility] [address] [address] [address] Devin Florentino CO2 [Moles/Vol] 30.6 mmol/L Normal 21.0-32.0 [facility] Comment on above: Performed By: #### L IPID, CMP #### [facility] [address] [place] [address] Dr. Devin Florentino Creatinine [Mass/Vol] 0.73 mg/dL Normal 0.55-1.02 [facility] Comment on above: Performed By: #### L IPID, CMP #### [facility] [address] [place] [address] Dr. Devin Florentino EGFR-AF [place]ER >60 Normal >=60 [facility] Comment on above: Performed By: #### L IPID, CMP #### [facility] [address] [place] [address] Dr. Devin Florentino EGFR-NON AF [place] >60 Normal >=60 [facility] Comment on above: Performed By: #### L IPID, CMP #### [facility] [address] [place] [address] Dr. Devin Florentino Globulin (S) [Mass/Vol] 3.6 g/dL Normal [facility] Comment on above: Performed By: #### L IPID, CMP #### [facility] [address] [address] [address] Devin Florentino Glucose [Mass/Vol] 105 mg/dL Normal 74-106 [facility] Comment on above: Performed By: #### L IPID, CMP #### [facility] [address] [place] [address] Dr. Devin Florentino Potassium [Moles/Vol] 3.9 mmol/L Normal 3.5-5.1 [facility] Comment on above: Performed By: #### L IPID, CMP #### [facility] [address] [place] [address] Dr. Devin Florentino Protein [Mass/Vol] 7.3 g/dL Normal 6.4-8.2 [facility] Comment on above: Performed By: #### L IPID, CMP #### [facility] [address] [place] [address] Dr. Devin Florentino Sodium [Moles/Vol] 138 mmol/L Normal 136-145 [facility] Comment on above: Performed By: #### L IPID, CMP #### [facility] [address] [place] [address] Dr. Devin Florentino Urea nitrogen [Mass/Vol] 19.0 mg/dL Critically high 7.0-18.0 [facility] Comment on above: Performed By: #### L IPID, CMP #### [facility] [address] [place] [address] Dr. Devin Florentino Urea nitrogen/Creatinine [Mass ratio] 26.0 mg/mg Normal [facility] Comment on above: Performed By: #### L IPID, CMP #### [facility] [address] [place] [address] Dr. Devin Florentino PAP ACOG PANEL 2: 30 to 65on 11-25-2021 . . Normal [facility] Comment on above: Result Comment: Perf ormed at: BA Performed By: #### [id number] #### [facility] [address] [place] [address] Dr. Devin Florentino Age Gdln ACOG Testing 30-65 [facility] Comment on above: Performed By: #### [id number] #### [facility] [address] [place] [address] Dr. Devin Florentino DIAGNOSIS: Comment Normal [facility] Comment on above: Result Comment: UNSA TISFACTORY FOR EVALUATION. THIS SPECIMEN WAS RESCREENED PART OF OUR SENIOR MECHANICAL DESIGNER PROGRAM. Performed at: BA Performed By: #### [id number] #### [facility] [address] [place] [address] Dr. Devin Florentino HPV Aptima Negative Normal Negative [facility] Comment on above: Result Comment: This nucleic acid amplification test detects fourteen high-risk HPV types (16,18,31,33,35,39,45,51,52,56,58,59,66,68) without differentiation. Performed at: =G Performed By: #### [id number] #### [facility] [address] [place] [address] Dr. Devin Florentino Methodology: Comment Normal [facility] Comment on above: Result Comment: This liquid based ThinPrep(R) pap test was screened with the use of an image guided system. Performed at: WB Performed By: #### [id number] #### [facility] [address] [place] [address] Dr. Devin Florentino Note: Comment Normal [facility] Comment on above: Result Comment: The Pap smear is a screening test designed to aid in the detection of premalignant and malignant conditions of the uterine cervix. It is not a diagnostic procedure and should not be used as the sole means of detecting cervical cancer. Both false-positive and false-negative reports do occur. . Performed at: WB Performed By: #### [id number] #### [facility] [address] [place] [address] Dr. Devin Florentino Performed by: Comment Normal [facility] Comment on above: Result Comment: Shamar Huang, Credit Analyst (ASCP) Performed at: BA Performed By: #### [id number] #### [facility] [address] [place] [address] Dr. Devin Florentino QC reviewed by: Comment Normal [facility] Comment on above: Result Comment: Val Salmon, Credit Analyst (ASCP) Performed at: BA Performed By: #### [id number] #### [facility] [address] [place] [address] Dr. Devin Florentino Specimen adequacy: Comment Normal [facility] Comment on above: Result Comment: Spec imen processed and examined but unsatisfactory for evaluation of epithelial abnormality because of insufficient cellularity. Performed at: BA Performed By: #### [id number] #### [facility] [address] [place] [address] Dr. Devin Florentino PROLACTINon 09-06-2021 Prolactin 92.6 ng/mL Critically high 4.8-23.3 [facility] Comment on above: Performed By: #### P MARCEL #### [facility] [address] [address] [address] Devin Florentino ALBUMIN, RANDOM URINE W/CREA TININEon 06-24-2021 ALBUMIN, URINE 0.6 mg/dL Normal See Note: [facility] Comment on above: Result Comment: Refe rence Range: Reference Range Not established Performed By: #### 7 46, 7600, 64557, 6517 #### [facility] [address], [address] [place] [address] White Work Cleaner: Jules Arreola MD ALBUMIN/CREATININE RATIO, RANDOM URINE [...] category. Performed By: #### 7 46, 7600, 38590, 6517 #### [facility] [address] [address] White Work Cleaner: Jules Arreola MD Creatinine (U) [Mass/Vol] 53 mg/dL Normal 20-275 [facility] Comment on above: Performed By: #### 7 46, 7600, 78114, 6517 #### [facility] [address], [address] [place] [address] White Work Cleaner: Jules Arreola MD COMPREHENSIVE METABOLIC PANE [facility] 06-24-2021 Albumin [Mass/Vol] 4.3 g/dL Normal 3.6-5.1 [facility] Comment on above: Performed By: #### 7 46, 7600, 76796, 6517 #### [facility] [address], [address] [place] [address] White Work Cleaner: Jules Arreola MD Albumin/Globulin [Mass ratio] 1.6 {ratio} Normal 1.0-2.5 [facility] Comment on above: Performed By: #### 7 46, 7600, 53848, 6517 #### [facility] [place] [address] [address] White Work Cleaner: Jules Arreola MD ALP [Catalytic activity/Vol] 53 U/L Normal 31-125 [facility] Comment on above: Performed By: #### 7 46, 7600, 61248, 6517 #### [facility] [address] [place] [address] White Work Cleaner: Jules Arreola MD ALT [Catalytic activity/Vol] 32 U/L High 6-29 [facility] Comment on above: Performed By: #### 7 46, 7600, 94732, 6517 #### [facility] [address] [place] [address] White Work Cleaner: Jules Arreola MD AST [Catalytic activity/Vol] 18 U/L Normal 10-30 [facility] Comment on above: Performed By: #### 7 46, 7600, 01616, 6517 #### [facility] [place] [address] [place] [address] White Work Cleaner: Jules Arreola MD Bilirubin [Mass/Vol] 0.4 mg/dL Normal 0.2-1.2 [facility] Comment on above: Performed By: #### 7 46, 7600, 82697, 6517 #### [facility] [place] [address] [place] [address] White Work Cleaner: Jules Arreola MD BUN/CREATININE RATIO NOT APPLICABLE Normal 6-22 [facility] Comment on above: Performed By: #### 7 46, 7600, 89208, 6517 #### [facility] [place] [address] [place] [address] White Work Cleaner: Jules Arreola MD Calcium [Mass/Vol] 9.6 mg/dL Normal 8.6-10.2 [facility] Comment on above: Performed By: #### 7 46, 7600, 42582, 6517 #### [facility] [address] [place] [address] White Work Cleaner: Jules Arreola MD Chloride [Moles/Vol] 104 mmol/L Normal 98-110 [facility] Comment on above: Performed By: #### 7 46, 7600, 74314, 6517 #### [facility] [place] [address] [place] [address] White Work Cleaner: Jules Arreola MD CO2 [Moles/Vol] 29 mmol/L Normal 20-32 [facility] Comment on above: Performed By: #### 7 46, 7600, 20205, 6517 #### [facility] [address] [place] [address] White Work Cleaner: Jules Arreola MD Creatinine [Mass/Vol] 0.70 mg/dL Normal 0.50-1.10 [facility] Comment on above: Performed By: #### 7 46, 7600, 08729, 6517 #### [facility] [address] [place] [address] White Work Cleaner: Jules Arreola MD eGFR NON-AFR. [place] 113 mL/min/1.73m2 Normal > OR = 60 [facility] Comment on above: Performed By: #### 7 46, 7600, 37763, 6517 #### [facility] [place] [address] White Work Cleaner: Jules Arreola MD GFR/1.73 sq M.predicted among blacks MDRD (S/P/Bld) [Vol rate/Area] 131 mL/min/{1.73_m2} Normal > OR = 60 [facility] Comment on above: Performed By: #### 7 46, 7600, 42646, 6517 #### [facility] [address] [place] [address] White Work Cleaner: Jules Arreola MD Globulin (S) [Mass/Vol] 2.7 g/dL Normal 1.9-3.7 [facility] Comment on above: Performed By: #### 7 46, 7600, 09005, 6517 #### [facility] [place] [address] White Work Cleaner: Jules Arreola MD Glucose [Mass/Vol] 101 mg/dL High 65-99 [facility] Comment on above: Result Comment: Fasting reference interval For someone without known diabetes, a glucose value between 100 and 125 mg/dL is consistent with prediabetes and should be confirmed with a follow-up test. Performed By: #### 7 46, 7600, 32812, 6517 #### [facility] [place] [address] White Work Cleaner: Jules Arreola MD Potassium [Moles/Vol] 4.0 mmol/L Normal 3.5-5.3 [facility] Comment on above: Performed By: #### 7 46, 7600, , 17 #### [facility] [place] [address] White Work Cleaner: Jules Arreola MD Protein [Mass/Vol] 7.0 g/dL Normal 6.1-8.1 [facility] Comment on above: Performed By: #### 7 46, 7600, , 6517 #### [facility] [place] [address] White Work Cleaner: Jules Arreola MD Sodium [Moles/Vol] 139 mmol/L Normal 135-146 [facility] Comment on above: Performed By: #### 7 46, 7600, , 6517 #### [facility] [place] [address] White Work Cleaner: Jules Arreola MD Urea nitrogen [Mass/Vol] 23 mg/dL Normal 7-25 [facility] Comment on above: Performed By: #### 7 46, 7600, , 6517 #### [facility] [place] [address] White Work Cleaner: Jules Arreola MD LIPID PANEL, [facility] Cholesterol [Mass/Vol] 196 mg/dL Normal <200 [facility] Comment on above: Order Comment: FASTI NG:YES FASTING: YES Performed By: #### 7 46, 7600, 86552, 6517 #### [facility] [address], [address] [place] [address] White Work Cleaner: Jules Arreola MD Cholesterol in HDL [Mass/Vol] 56 mg/dL Normal > OR = 50 [facility] Comment on above: Order Comment: FASTI NG:YES FASTING: YES Performed By: #### 7 46, 7600, 29283, 6517 #### [facility] [address], [address] [place] [address] White Work Cleaner: Jules Arreola MD Cholesterol in LDL [Mass/Vol] [...] LDL-C. Fidencio SS et al. EDITH. 2013;310(19): 9444-5171 (http://education.[employer]/faq/UXQ142) Performed By: #### 7 46, 7600, 19957, 6517 #### [facility] [address], [address] [place] [address] White Work Cleaner: Jules Arreola MD Cholesterol.total/Ch olesterol in HDL [Mass ratio] 3.5 {ratio} Normal <5.0 [facility] Comment on above: Order Comment: FASTI NG:YES FASTING: YES Performed By: #### 7 46, 7600, 45349, 6517 #### [facility] [address], [address] [place] [address] White Work Cleaner: Jules Arreola MD NON HDL CHOLESTEROL 140 mg/dL (calc) High <130 [facility] Comment on above: Order Comment: FASTI NG:YES FASTING: YES Result Comment: For patients with diabetes plus 1 major ASCVD risk factor, treating to a non-HDL-C goal of <100 mg/dL (LDL-C of <70 mg/dL) is considered a therapeutic option. Performed By: #### 7 46, 7600, 93842, 6517 #### [facility] [address], [address] [place] [address] White Work Cleaner: Jules Arreola MD Triglyceride [Mass/Vol] 104 mg/dL Normal <150 [facility] Comment on above: Order Comment: FASTI NG:YES FASTING: YES Performed By: #### 7 46, 7600, 87524, 6517 #### [facility] [address], [address] [place] [address] White Work Cleaner: Jules Arreola MD PROLACTINon 06-24-2021 PROLACTIN 51.6 ng/mL High [facility] Comment on above: Result Comment: Refe rence Range Females Non- 3.0-30.0 10.0-209.0 Postmenopausal 2.0-20.0 Your request to have a duplicate copy faxed has been acknowledged. Queued to: [id number] Performed By: #### 7 46, 7600, 44401, 6517 #### [facility] [address], [address] [place] [address] White Work Cleaner: Jules Arreola MD [facility]21 SARS-CoV-2 (COVID-19) RNA STANLEY+probe Ql (Unsp spec) Not detected Normal NOT DETECTED [facility] Comment on above: Result Comment: This test is not yet approved or cleared by the [place] FDA. When there are no FDA-approved or cleared tests available, and other criteria are met, FDA can make tests available under an emergency access mechanism called an Emergency Use Authorization (EUA). The EUA for this test is supported by the [place] of Health and Human Service's (HHS's) declaration [...] Performed By: #### L IPID, CMP #### [facility] [address] [place] [address] Dr. Devin Florentino PROLACTINon 03-05-2021 Prolactin 79.1 ng/mL Critically high 4.8-23.3 [facility] Comment on above: Performed By: #### P ROLAC #### [facility] [address] [place] [address] Dr. Devin Florentino PROF CHEM 8 (BAS METB)on Anion gap [Moles/Vol] 9.9 mmol/L Normal [facility] Comment on above: Performed By: #### B MP #### [facility] [address] [place] [address] Dr. Devin Florentino Calcium [Mass/Vol] 9.6 mg/dL Normal 8.4-10.2 [facility] Comment on above: Performed By: #### B MP #### [facility] [address] [place] [address] Dr. Devin Florentino Chloride [Moles/Vol] 104 mmol/L Normal 98-107 [facility] Comment on above: Performed By: #### B MP #### [facility] [address] [place] [address] Dr. Devin Florentino CO2 [Moles/Vol] 32.2 mmol/L Critically high 22.0-30.0 [facility] Comment on above: Performed By: #### B MP #### [facility] [address] [place] [address] Dr. Devin Florentino Creatinine [Mass/Vol] 0.72 mg/dL Normal 0.52-1.04 [facility] Comment on above: Performed By: #### B MP #### [facility] [address] [place] [address] Dr. Devin Florentino EGFR-AF [place] >60 Normal >=60 [facility] Comment on above: Performed By: #### B MP #### [facility] [id number] Devin Florentino EGFR-NON AF [place] >60 Normal >=60 [facility] Comment on above: Performed By: #### B MP #### [facility] [address] [address] [address] Devin Florentino Glucose [Mass/Vol] 118 mg/dL Critically high 74-106 [facility] Comment on above: Performed By: #### B MP #### [facility] [address] [address] [address] Devin Florentino Potassium [Moles/Vol] 4.1 mmol/L Normal 3.4-5.0 [facility] Comment on above: Performed By: #### B MP #### [facility] [address] [address] [address] Devin Florentino Sodium [Moles/Vol] 142 mmol/L Normal 137-145 [facility] Comment on above: Performed By: #### B MP #### [facility] [address] [address] [address] Devin Florentino Urea nitrogen [Mass/Vol] 22.0 mg/dL Critically high 7.0-17.0 [facility] Comment on above: Performed By: #### B MP #### [facility] [address] [address] [address] Devin Florentino Urea nitrogen/Creatinine [Mass ratio] 30.6 mg/mg Normal [facility] Comment on above: Performed By: #### B MP #### [facility] [id number] Devin Florentino COMPREHENSIVE METABOLIC PANE [place] 12-24-2020 Albumin [Mass/Vol] 4.0 g/dL Normal 3.6-5.1 [facility] Comment on above: Performed By: #### 7 600, 32760, 37837 #### [facility] [address], [address] [place] [address] White Work Cleaner: Jules Arreola MD Albumin/Globulin [Mass ratio] 1.4 {ratio} Normal 1.0-2.5 [facility] Comment on above: Performed By: #### 7 600, 10025, 33660 #### [facility] of [address] [place] [address] White Work Cleaner: Jules Arreola MD ALP [Catalytic activity/Vol] 45 U/L Normal 31-125 [facility] Comment on above: Performed By: #### 7 600, 38242, 82515 #### [facility] of [address], [address] [place] [address] White Work Cleaner: Jules Arreola MD ALT [Catalytic activity/Vol] 20 U/L Normal 6-29 [facility] Comment on above: Performed By: #### 7 600, 41090, 92741 #### [facility] [address] [place] [address] White Work Cleaner: Jules Arreola MD AST [Catalytic activity/Vol] 13 U/L Normal 10-30 [facility] Comment on above: Performed By: #### 7 600, 98100, 36872 #### [facility] [address] [place] [address] White Work Cleaner: Jules Arreola MD Bilirubin [Mass/Vol] 0.4 mg/dL Normal 0.2-1.2 [facility] Comment on above: Performed By: #### 7 600, 62890, 49902 #### [facility] [address] [place] [address] White Work Cleaner: Jules Arreola MD BUN/CREATININE RATIO NOT APPLICABLE Normal 6-22 [facility] Comment on above: Performed By: #### 7 600, 48525, 64673 #### [facility] [address] [place] [address] White Work Cleaner: Jules Arreola MD Calcium [Mass/Vol] 9.4 mg/dL Normal 8.6-10.2 [facility] Comment on above: Performed By: #### 7 600, 67647, 28031 #### [facility] of [address], [address] [place] [address] White Work Cleaner: Jules Arreola MD Chloride [Moles/Vol] 104 mmol/L Normal 98-110 [facility] Comment on above: Performed By: #### 7 600, 38914, 00845 #### [facility] of [address], [address] [place] [address] White Work Cleaner: Jules Arreola MD CO2 [Moles/Vol] 28 mmol/L Normal 20-32 [facility] Comment on above: Performed By: #### 7 600, 68782, 62339 #### [facility] [address] [place] [address] White Work Cleaner: Jules Arreola MD Creatinine [Mass/Vol] 0.75 mg/dL Normal 0.50-1.10 [facility] Comment on above: Performed By: #### 7 600, 53018, 38451 #### [facility] [address] [place] [address] White Work Cleaner: Jules Arreola MD eGFR NON-AFR. [place] 105 mL/min/1.73m2 Normal > OR = 60 [facility] Comment on above: Performed By: #### 7 600, 83168, 14160 #### [facility] [address] [place] [address] White Work Cleaner: Jules Arreola MD GFR/1.73 sq M.predicted among blacks MDRD (S/P/Bld) [Vol rate/Area] 121 mL/min/{1.73_m2} Normal > OR = 60 [facility] Comment on above: Performed By: #### 7 600, 65691, 51959 #### [facility] [address] [place] [address] White Work Cleaner: Jules Arreola MD Globulin (S) [Mass/Vol] 2.8 g/dL Normal 1.9-3.7 [facility] Comment on above: Performed By: #### 7 600, 84267, 34589 #### [facility] of [address], [address] [place] [address] White Work Cleaner: Jules Arreola MD Glucose [Mass/Vol] 97 mg/dL Normal 65-99 [facility] Comment on above: Result Comment: Fasting reference interval Performed By: #### 7 600, 05230, 81247 #### [facility] of [address], [address] [place] [address] White Work Cleaner: Jules Arreola MD Potassium [Moles/Vol] 4.2 mmol/L Normal 3.5-5.3 [facility] Comment on above: Performed By: #### 7 600, 01426, 18844 #### [facility] [address] [place] [address] White Work Cleaner: Jules Arreola MD Protein [Mass/Vol] 6.8 g/dL Normal 6.1-8.1 [facility] Comment on above: Performed By: #### 7 600, 65432, 10485 #### [facility] of [address], [address] [place] [address] White Work Cleaner: Jules Arreola MD Sodium [Moles/Vol] 140 mmol/L Normal 135-146 [facility] Comment on above: Performed By: #### 7 600, 70916, 68682 #### [facility] [address] [place] [address] White Work Cleaner: Jules Arreola MD Urea nitrogen [Mass/Vol] 17 mg/dL Normal 7-25 [facility] Comment on above: Performed By: #### 7 600, 64271, 73114 #### [facility] [address] [place] [address] White Work Cleaner: Jules Arreola MD LIPID PANEL, [facility] Cholesterol [Mass/Vol] 196 mg/dL Normal <200 [facility] Comment on above: Performed By: #### 7 600, 26347, 98662 #### [facility] [place] [address] White Work Cleaner: Jules Arreola MD Cholesterol in HDL [Mass/Vol] 54 mg/dL Normal > OR = 50 [facility] Comment on above: Performed By: #### 7 600, 16890, 89174 #### [facility] [place] [address] White Work Cleaner: Jules Arreola MD Cholesterol in LDL [Mass/Vol] [...] LDL-C. Fidencio ACOSTA et al. EDITH. 2013;310(19): 6556-1620 (http://education.[employer]/faq/ELV735) Performed By: #### 7 600, 30242, 01155 #### [facility] [place] [address] White Work Cleaner: Jules Arreola MD Cholesterol.total/Ch olesterol in HDL [Mass ratio] 3.6 {ratio} Normal <5.0 [facility] Comment on above: Performed By: #### 7 600, 56117, 51730 #### [facility] [place] [address] White Work Cleaner: Jules Arreola MD NON HDL CHOLESTEROL 142 mg/dL (calc) High <130 [facility] Comment on above: Result Comment: For patients with diabetes plus 1 major ASCVD risk factor, treating to a non-HDL-C goal of <100 mg/dL (LDL-C of <70 mg/dL) is considered a therapeutic option. Performed By: #### 7 600, 90373, 29191 #### [facility] [address] [address] White Work Cleaner: Jules Arreola MD Triglyceride [Mass/Vol] 156 mg/dL High <150 [facility] Comment on above: Performed By: #### 7 600, 25354, 46008 #### [facility] [address], [address] [place] [address] White Work Cleaner: Jules Arreola MD VITAMIN D,25-OH,TOTAL,IAon 1 VITAMIN [...] D, (D2,D3), LC/MS/MS is recommended: order code 08070 (patients >2yrs). See Note 1 Note 1 For additional information, please refer to http://education.[employer]/faq/EAC660 (This link is being provided for informational/ educational purposes only.) Performed By: #### 7 600, 88452, 29802 #### [facility] [address] [facility], [address] [place] [address] White Work Cleaner: Jules Arreola MD Vital Signs Date Time Vital Sign Value Performing Clinician Margie villarreal 05-12-2023 10:12-0500 Body height 170.2 cm Sabrina Smith SENIOR INSPECTOR-CREDIT ANALYST [facility] 05-12-2023 10:12-0500 Body mass index (BMI) [Ratio] 53.52 kg/m2 Sabrina Smith SENIOR INSPECTOR-CREDIT ANALYST [facility] 05-12-2023 10:12-0500 Body weight 154.99 kg Sabrina Smith APRN-CREDIT ANALYST [facility] Phone[facility] 05-12-2023 10:12-0500 Diastolic blood pressure 103 mm[Hg] Sabrina Smith SENIOR INSPECTOR-CREDIT ANALYST [facility] 05-12-2023 10:12-0500 Heart rate 65 /min Sabrinakvng Smith SENIOR INSPECTOR-CREDIT ANALYST Work Phone: [facility] 05-12-2023 10:12-0500 SaO2% (BldA) [Mass fraction] 100 % [facility] SENIOR INSPECTOR-CREDIT ANALYST Work Phone: [facility] 05-12-2023 10:12-0500 Systolic blood pressure 157 mm[Hg] Sabrinakvng Smith SENIOR INSPECTOR-CREDIT ANALYST Work Phone: [facility] Encounters Encounter Date Encounter Type Care Provider Facility Start: 10-28-2023 End: 10-28-2023 ambulatory MARIO VICTORIA Not Available Start: 10-08-2023 End: 10-08-2023 ambulatory MARIO [facility] Start: 10-04-2023 End: 10-04-2023 ambulatory [facility] Start: 10-04-2023 End: 10-04-2023 ambulatory MARIO VICTORIA Not Available Start: 09-30-2023 End: 09-30-2023 ambulatory [facility] Start: 09-29-2023 End: 09-29-2023 ambulatory [facility] Start: 09-27-2023 End: 09-27-2023 ambulatory MARIO VICTORIA Not Available Start: 09-16-2023 End: 09-16-2023 ambulatory [facility] Start: 09-16-2023 End: 09-16-2023 ambulatory [facility] Start: 09-15-2023 End: 09-15-2023 ambulatory [facility] Start: 09-03-2023 End: 09-03-2023 ambulatory MARIO VICTORIA Not Available Start: 05-21-2023 Telephone encounter [facility] Start: 05-12-2023 End: 05-12-2023 ambulatory [facility] Start: 05-12-2023 End: 05-12-2023 Office outpatient visit 25 minutes Sabrina Smith [employer] Work Phone: [facility] Comment on above: RACHEL (obstructive sle ep apnea) (Primary Dx); CPAP use counseling; BMI 50.0-59.9, adult ([facility]) Start: 01-09-2023 Emergency department patient visit Facility:[facility] Start: 02-19-2022 End: 02-20-2022 ambulatory LEIGH ADAM [...] 05-15-2023 Diabetic retinal eye exam Mariposa Caicedo [facility] Start: 01-22-2023 Adult depression scr eening assessment Sabrina Smith [employer] Work Phone: Start: 07-20-2022 Microalbumin [Mass/v olume] in Urine by Test strip Sabrina Smith SENIOR INSPECTOR[employer] Energy Work Phone: Start: 04-07-2022 Diabetic retinal eye exam Sabrina Smith [employer] Work Phone: Start: 08-03-2021 Microscopic observat ion [Identifier] in Cervix by Cyto stain Sabrina Smith [employer] Work Phone: Plan of Treatment Date Care Activity Detail Author Start: 04-19-2028 DTaP,Tdap and Td Vaccines (3 - Td or Tdap) DTaP,Tdap and Td Vaccines (3 - Td or Tdap) [facility] Start: 08-03-2024 Screening for malignant neoplasm of cervix Pap Smear [facility] Start: 02-24-2025 Glaucoma screening Diabetic Ophthalmology Exam [facility] Start: 05-13-2024 Tobacco Screening Tobacco Screening [facility] Start: 05-12-2024 Adult BMI Screening Adult BMI Screening [facility] Start: 05-12-2024 Tobacco Screening Tobacco Screening [facility] Start: 05-10-2024 End: 05-10-2024 Patient encounter procedure 05/10/2024 9:15 AM EST Office Visit [facility] [place] [address] Sabrina Smith, SENIOR INSPECTOR-CREDIT ANALYST [address] [facility] [address], [address] [place] [address] [facility] Start: 01-23-2024 Depression Screening Depression Screening [facility] Start: 07-23-2023 End: 07-23-2023 Patient encounter procedure 07/23/2023 8:30 AM EDT [facility] [address] [place] [address] Maude Gant, SENIOR INSPECTOR-CONTINUOUS IMPROVEMENT DIRECTOR [address] [place] [address] [facility] Start: 07-21-2023 Diabetic foot examination Diabetic Foot Exam [facility] Start: 07-21-2023 Urine screening for protein Urine Microalbumin [facility] Start: 04-07-2023 Glaucoma screening Diabetic Ophthalmology Exam [facility] Start: 2005 Adult BMI Follow Up Plan Adult BMI Follow Up Plan [facility] Immunizations Immunization Date Immunization Notes Care Provider Fa cility 12-14-2018 Influenza, injectabl e, Madin Lolly Canine Kidney, quadrivalent with preservative Sabrina Smith SENIOR INSPECTOR-CREDIT ANALYST Work Phone: [facility] 04-19-2018 tetanus toxoid, redu sandra diphtheria toxoid, and acellular pertussis vaccine, adsorbed Sabrinaarias Smith SENIOR INSPECTOR-CREDIT ANALYST Work Phone: [facility] 12-29-2017 influenza, injectabl e, quadrivalent, preservative free Sabrina Kregel SENIOR INSPECTOR-CREDIT ANALYST Work Phone: [facility] 12-29-2017 influenza, seasonal, injectable Sabrina Kregel SENIOR INSPECTOR-CREDIT ANALYST Work Phone: [facility] 02-07-2015 influenza, seasonal, injectable, preservative free Sabrina Kregel SENIOR INSPECTOR-CREDIT ANALYST Work Phone: [facility] 01-23-2013 tetanus toxoid, redu sandra diphtheria toxoid, and acellular pertussis vaccine, adsorbed Sabrina Kregel SENIOR INSPECTOR-CREDIT ANALYST Work Phone: [facility] Payers Date Payer Category Payer Private Health Insurance [facility] [id number] 2022-Present [phone] [address] [address] [place] [address] [id number] .2.7.3.348050.315 2022 Unknown [id number] 1987 Unknown [id number] 2.16.840.1.614089.3.579 .2.593 1987 Unknown [id number] 2.16.840.1.234548.3.579 .2.593 1987 Unknown [id number] 2.16.840.1.710020.3.579 .2.593 1987 Unknown [id number] 2.16.840.1.802286.3.579 .2.593 1987 Unknown [id number] 2.16.840.1.129761.3.579 .2.593 1987 Unknown [id number] 2.16.840.1.972525.3.579 .2.593 1987 Unknown [id number] 2.16.840.1.657953.3.579 .2.1286 1987 Unknown [id number] 2.16.840.1.616311.3.579 .2.1285 1987 Unknown [id number] 2.16.840.1.412500.3.579 .2.1285 1987 Unknown [id number] 2.16.840.1.853448.3.579 .2.1285 1987 Unknown [id number] 2.16.840.1.588360.3.579 .2.1285 1987 Unknown [id number] 2.16.840.1.644397.3.579 .2.1285 1987 Unknown [id number] 2.16.840.1.404359.3.579 .2.1285 1987 Unknown [id number] 2.16.840.1.998691.3.579 .2.1285 1987 Unknown [id number] 2.16.840.1.626088.3.579 .2.1285 1987 Unknown [id number] 2.16.840.1.808846.3.579 .2.1258 1987 Unknown [id number] 2.16.840.1.244009.3.579 .2.1258 1987 Unknown [id number] 2.16.840.1.139771.3.579 .2.1258 1987 Unknown [id number] 2.16.840.1.126919.3.579 .2.9 1959 Unknown [id number] Social History Date Type Detail Facility Start: 07-20-2022 Tobacco smoking status NHIS Never smoked tobacco [facility] Start: 07-20-2022 Tobacco use and exposure Smokeless tobacco non-user [facility] Start: 05-13-2023 Alcohol intake Ex-drinker (finding) [facility] Start: 01-18-2022 End: 01-22-2023 History of Social function [facility] Start: 01-18-2022 End: 01-22-2023 Social connection and isolation panel [facility] Do you belong to any clubs or organizations such as scientology groups, unions, fraternal or athletic groups, or school groups? Yes [facility] Are you now , , , , never or living with a partner? [facility] How often to you hav e a drink containing alcohol? Never [facility] How many standard dr inks containing alcohol do you have on a typical day? Patient does not drink [facility] Do you feel stress - tense, restless, nervous, or anxious, or unable to sleep at night because your mind is troubled all the time - these days [OSQ] Only a little [facility] Start: 01-18-2022 Education 12 [facility] Start: 1985 Sex Assigned At Female [facility] Start: 12-31-2019 Gender identity Identifies as female gender (finding) [facility] Start: 12-31-2019 Sexual orientation Heterosexual (finding) [facility] Medical Equipment Procedure Code Equipment Code Equipment Original Text Equi pment Identifier Dates 1 strip by other route every morning before breakfast. [id number] OneTouch Delica Plus Lancet 33 gauge USE TO CHECK BLOOD SUGAR DAILY [id number] Note 05-21-2023 Telephone Encounter - RAJANI De La Garza - 05/21/2023 1:25 PM EST Note Date & Type Note Facility 05-21-2023 Miscellaneous Notes Formattin g of this note might be different from the original. Images from the original note were not included. PAP Mask and Supplies Order Faxed to [facility] Fax Confirmed documented in this encounter [facility] Telephone encounter Note 05-21-2023 Telephone Encounter - RAJANI De La Garza - 05/21/2023 1:25 PM EST Note Date & Type Note Facility 05-21-2023 Telephone encount er Note Images from the original note were not included. PAP Mask and Supplies Order Faxed to [facility] Fax Confirmed [facility] History of Present illness Narrative 05-12-2023 Sabrina Smith, SENIOR INSPECTOR-CREDIT ANALYST - 05/12/2023 10:00 AM EST Note Date [...] the heated inline humidifier. 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[employer] [place] Sleepiness Scale: Sitting and Reading: Never Watching [...] patient. Current Outpatient Medications: blood sugar diagnostic (iiyumaTOUCH ULTRA TEST) strip, 1 strip by other [...] min Stress: No Stress Concern Present (01/18/2022) [place] [facility] Occupational [employer] - Occupational Stress Questionnaire Feeling of Stress : Only a little Social Connections: Socially Integrated (01/18/2022) Social Connection and Isolation Panel [NHANES] Frequency of Communication with Friends and Family: More than three times a week Frequency of Social Gatherings with Friends and Family: Three times a week Attends [employer] Services: More than 4 times per year [...] FDA warning against ozone / UV CPAP home lighting adviser. Advised to stop using immediately. Education sheet [...] not to drive if sleepy, and to shoe puller if sleepiness occurs while driving. Above [...] that have escaped final proofreading. Sabrina Pratt [facility] Office: [phone] 7:17 PM on 05/13/2023 CC: ETHAN MOREIRA APRN-CNP 05/13/231920 documented in this encounter [facility] Instructions 05-12-2023 Patient Instructions Note Date & Type Note Facility 05-12-2023 Instructions LAUREN Mullen - 05/12/2023 10:00 AM EST If you re looking for general health and wellness resources, please visit [email or web address] documented in this encounter [facility] Evaluation note Note Date & Type Note Facility Evaluation note Diagnosis RACHEL (obstructive sleep apnea)- Primary Obstructive sleep apnea (adult) (pediatric) CPAP use counseling BMI 50.0-59.9, adult ([facility]) documented in this encounter [facility] Instructions Note Date & Type Note Facility Instructions Not on filedocumented in this en counter [facility] Summary Purpose Family History No [...] CREATED AUTHOR AUTHOR'S ORGANIZ ATION 02/27/2022 [facility] DATE CREATED AUTHOR AUTHOR'S ORGANIZ ATION 01/10/2023 Julian Akbar [facility] DATE CREATED AUTHOR AUTHOR'S ORGANIZ ATION 05/19/2023 [facility] DATE CREATED AUTHOR AUTHOR'S ORGANIZ ATION 10/08/2023 [facility] DATE CREATED AUTHOR AUTHOR'S ORGANIZ ATION 10/11/2023 [facility] DATE CREATED AUTHOR AUTHOR'S ORGANIZ ATION 10/31/2023 [facility] EPIC Reason for Visit (unrecogniz ed section and content) Reason Comments Sleep Apnea DME: [facility] (unrecognized sec tion and content) Director Of Knowledge Management Relationship Specialty Start Date End Date Johnkarin SandiHAYDE Abdul-GEMA [address] [place] [address] PCP - General Internal Medicine 01/22/23 Director Of Knowledge Management Relationship Specialty Start Date End Date Alfreda SandiHAYDE Abdul-GEMA [address] [place] [address] PCP - General Internal Medicine 01/22/23 FOR [...] BASED ON THE PRIMARY CLINICAL RECORDS. [employer] [facility]. provides no warranty or guarantee of the accuracy or completeness of information in this document.
[2023-11-06 00:08] LABS: AFP Value 32.4 ng/mL (.); Gest. Age on Collection Date 17.7 weeks (.); Gestat. Age Based On Ultrasound (.); Insulin Dep Diabetes No (.); OSBR Risk 1 IN 6110 (.); Results Report (.)
== END 2023-11-03 10:30 | disposition home or self-care (01) ==
LOC: LAB 10:30
PROVIDERS: PCP Nurse Practitioner Family; Visit Provider Obstetrics & Gynecology
DX: Z34.92 Encounter for supervision of normal pregnancy, unspecified, second trimester (principal); Z3A.17 17 weeks gestation of pregnancy
CPT/HCPCS: 36415; 82105

== ENCOUNTER 2023-12-01 15:43 | Observation (INO) | payer OTHER, SELFPAY ==
--- OUTSIDE RECORDS SUMMARY | 2023-12-01 16:05 | XMS_ITS | CCD ---
Author Organization [facility] [employer] Care Team Providers Care Transmission Assembler Name Role Phone LEIGH ADAM Attending Unavailable [...] ALFREDA, DR MAUDE Smith Consulting Unavailable Alfreda MANAGING [facility], Maude Abdul Primary Care Provider ANOTINETTE DE LA TORRE Referring Unavailable MAUDE GANT [...] Referring Unavailable MAUDE GANT Primary Care Unavailable OLVIN, DEDEOLINElio P Attending Unavailable MARIO KESSLER Referring Unavailable ALFREDA, MAUDE ABDUL Primary Care Unavailable MARIO KESSLER R Referring Unavailable DIMITRY, LUAN S Primary Care Unavailable ANTOINETTE DE LA TORRE Attending Unavailable DARRYL GUEVARA Referring Unavailflorina e DIMITRY, LUAN S Primary Care Unavailable VICTORIA, MARIO R Referring Unavailable DIMITRY, LUAN S Primary Care Unavailable RA BAH Attending Unavailable MICHELE BERGER Referring Unavailable DIMITRY, LUAN S Primary Care Unavailable MARIO KESSLER Attending Unavailable SVEN MOY Attending Unavailable SABRINA SMITH Attending Unavailable JOHNMAUDESANDI Referring Unavailable DIMITRY, LUAN S Primary Care Unavailable SABRINA SMITH Attending Unavailable MAUDE GANT Referring Unavailable KUNMAUDE Primary Care Unavailable Allergies Allergy Classification Reported Allergen(s) Allergy Type Date of Onset Reaction(s) Facility (1 source) Penicillins Drug allergy (disorder) 5 [facility] Repository (5 sources) Penicillin G; Translations: [PENICILLIN G] Drug Allergy 8 [facility] (3 sources) Adhesive agent; Translations: [ADHESIVE] Propensity to adverse reactions to drug (disorder) 4 [facility] Repository (3 sources) benzoin resin; Translations: [BENZOIN] Drug Allergy 4 [facility] (3 sources) Cortisone; Translations: [CORTISONE] Drug Allergy 4 [facility] Rep[facility] Medications Current Medications Medication Drug Class(es) [...] complication, without long-term current use [place] [place] Inject 0.5 mg under the skin every 7 days. 3 mL 2 01/22/2023 Active Problems Active Problems Problem Classification Problem Date Documented Da te Episodic/Chronic Administrative/social admission (2 sources) Patient encounter status; Translations: [Other specified counseling] Onset: 11-24-2023 05-13-2023 Episodic Diabetes mellitus with complications (1 source) Type 2 diabetes mellitus with hyperglycemia; Translations: [TYPE 2 DM W/HYPERGLYCEMIA] Onset: 01-18-2022 Chronic Diabetes mellitus without complication (3 sources) Type 2 diabetes mellitus without complication; Translations: [Type 2 diabetes mellitus without complications] Onset: 04-19-2018 01-20-2022 Chronic Diabetes mellitus without complication (1 source) Diabetes mellitus without complication Onset: 09-15-2023 Diabetes or abnormal glucose tolerance complicating ; childbirth; or the puerperium (3 sources) Pre-existing type 2 diabetes mellitus, in , first trimester; Translations: [Pre-existing type 2 diabetes mellitus, in , unspecified trimester] Onset: 10-04-2023 Chronic Diabetes or abnormal glucose tolerance complicating [...] complications of (1 source) Obesity complicating , unspecified trimester; Translations: [Obesity complicating , unspecified trimester] Onset: 11-02-2023 Chronic Other complications of (1 source) Obesity complicating , first trimester; Translations: [Obesity complicating , first trimester] Onset: 09-30-2023 Chronic Other complications of (1 source) Abnormal chromosomal and genetic finding on screening of mother; Translations: [Abnormal chromosomal and genetic finding on screening of mother] Onset: 10-03-2023 Episodic Other complications of (1 source) Supervision of [...] index (BMI) 50.0-59.9, adult] Onset: 09-30-2023 Chronic Other nutritional; endocrine; and metabolic disorders (1 source) Morbid (severe) obesity due to excess calories; Translations: [Morbid (severe) obesity due to excess calories] Onset: 11-24-2023 Chronic Other screening for suspected conditions (not mental disorders or infectious disease) (7 sources) Encounter for screening for malignant neoplasm of cervix; Translations: [Encounter for other specified screening] Onset: 11-17-2021 Episodic Previous (1 source) Maternal care for unspecified type scar from previous delivery; Translations: [Maternal care for unspecified type scar from previous delivery] Onset: 09-30-2023 Episodic Residual codes; unclassified (1 source) Obstructive sleep apnea syndrome; Translations: [Obstructive sleep apnea (adult) (pediatric)] 05-13-2023 Chronic Residual codes; unclassified (3 sources) Sleep apnea; Translations: [Sleep apnea, unspecified] Onset: 10-06-2017 12-31-2021 Chronic Residual codes; unclassified (1 source) Obstructive sleep apnea (adult) (pediatric); Translations: [Obstructive sleep apnea (adult) (pediatric)] Onset: 11-24-2023 Chronic Residual codes; unclassified (2 sources) 12 weeks gestation of ; Translations: [12 weeks gestation of ] Onset: 09-30-2023 Episodic Residual codes; unclassified (1 source) 17 weeks gestation of ; Translations: [17 weeks gestation of ] Onset: 11-02-2023 Episodic Residual codes; unclassified (1 source) 11 [...] of pituitary gland] Onset: 11-17-2016 12-31-2021 Episodic Unclassified (1 source) CONTACT W/AND (SUSP) EXPOS COVID-19; Translations: [CONTACT W/AND (SUSP) EXPOS COVID-19] Onset: 03-20-2021 Results Test Name Value Interpretation Reference Range Facility Natriuretic peptide B [Mass/ Vol]on 10-04-2023 BRN NATRIURETIC PEP <5 Normal <100.0 [facility] Comment on above: Performed By: #### 3 0934-4 #### [facility] ([id number]) [address] [place] [address], [place] [address] COMPREHENSIVE METABOLIC PANE Osmin 09-16-2023 Albumin [Mass/Vol] 3.9 g/dL Normal 3.2-5.3 [facility] Comment on above: Performed By: #### C MP, UPCR, 30340-9, HA1C #### [facility] ([id number]) [address], [address] [place] [address] ALP [Catalytic activity/Vol] 49 U/L Normal 39-130 [facility] Comment on above: Performed By: #### C BRANDEN UPCR, 93082-8, HA1C #### [facility] ([id number]) [address], [address] [place] [address] ALT [Catalytic activity/Vol] 30 U/L Normal 0-31 [facility] Comment on above: Performed By: #### C BRANDEN, UPCR, 60659-9, HA1C #### [facility] ([id number]) [address], [address] [place] [address] Anion gap [Moles/Vol] 10 mmol/L Normal 5-15 [facility] Comment on above: Performed By: #### C BRANDEN, UPCR, 82072-9, HA1C #### [facility] ([id number]) [address], [address] [place] [address] AST [Catalytic activity/Vol] 18 U/L Normal 0-41 [facility] Comment on above: Performed By: #### C BRANDEN, UPCR, 68164-3, HA1C #### [facility] ([id number]) [address], [address] [place] [address] Bilirubin [Mass/Vol] 0.4 mg/dL Normal 0.3-1.2 [facility] Comment on above: Performed By: #### C BRANDEN, UPCR, 58257-1, HA1C #### [facility] ([id number]) [address], [address] [place] [address] Calcium [Mass/Vol] 9.4 mg/dL Normal 8.5-10.5 [facility] Comment on above: Performed By: #### C BRANDEN, UPCR, 40602-8, HA1C #### [facility] ([id number]) [address], [address] [place] [address] Chloride [Moles/Vol] 104 mmol/L Normal 98-109 [facility] Comment on above: Performed By: #### C BRANDEN UPCR, 56584-9, HA1C #### [facility] ([id number]) [address], [address] [place] [address] CO2 [Moles/Vol] 23 mmol/L Normal 22-32 [facility] Comment on above: Performed By: #### C BRANDEN UPCR, 74108-3, HA1C #### [facility] ([id number]) [address], [facility] [address] [place] [address] Creatinine [Mass/Vol] 0.66 mg/dL Normal 0.40-1.00 [facility] Comment on above: Result Comment: METH OD TRACEABLE TO IDMS STANDARD Performed By: #### C BRANDEN UPCR, 56820-9, HA1C #### [facility] ([id number]) [address], [facility] [address] [place] [address] eGFR (CKD-EPI) NON-RACE DEPENDENT >90 Normal >59 [facility] Comment on above: Result Comment: Reported eGFR is based on the CKD-EPI 2020 equation that does not use a race coefficient. Performed By: #### C BRANDEN UPCR, 29762-5, HA1C #### [facility] ([id number]) [address] [place] [address] Glucose [Mass/Vol] 110 mg/dL High 65-99 [facility] Comment on above: Performed By: #### C BRANDEN UPCR, 69667-0, HA1C #### [facility] ([id number]) [address] [facility] [place] [address] Potassium [Moles/Vol] 3.7 mmol/L Normal 3.5-5.0 [facility] Comment on above: Performed By: #### C BRANDEN UPCR, 63729-2, HA1C #### [facility] ([id number]) [address], [address] [place] [address] Protein [Mass/Vol] 6.9 g/dL Normal 6.0-8.0 [facility] Comment on above: Performed By: #### C BRANDON OTERO, 76951-2, HA1C #### [facility] ([id number]) [address], [address] [place] [address] Sodium [Moles/Vol] 137 mmol/L Normal 134-146 [facility] Comment on above: Performed By: #### C BRANDON OTERO, 28637-0, HA1C #### [facility] ([id number]) [address], [facility] [address] [place] [address] Urea nitrogen [Mass/Vol] 18 mg/dL Normal 5-23 [facility] Comment on above: Performed By: #### C BRANDON OTERO, 99476-5, HA1C #### [facility] ([id number]) [address], [facility] [address] [place] [address] HGB A1C (GLYCO-HGB)on 2023 Glucose [Mass/Vol] 160 mg/dL Normal [facility] Comment on above: Performed By: #### C BRANDON OTERO, 98289-8, HA1C #### [facility] ([id number]) [address], [facility] [address] [place] [address] HbA1c (Bld) [Mass fraction] 7.2 % High 4.4-5.6 [facility] Comment on above: Result Comment: NOTE ADA Guidelines Result HgbA1c Normal : less than 5.7 % Prediabetes : 5.7 % to 6.4 % Diabetes : > 6.4 % Use with caution in patients with abnormal hemoglobin variants as the half-life of red blood cells and in vivo glycation rates are affected. Performed By: #### C BRANDON OTERO, 15507-6, HA1C #### [facility] ([id number]) [address], [address] [place] [address] PROTEIN CREAT RATIOon 2023 RANDOM URINE PROTEIN 80 mg/L Normal <120 [facility] Comment on above: Performed By: #### C BRANDEN, BRANDON, 83111-3, HA1C #### [facility] ([id number]) [address], [address] [place] [address] U/PRO/SALES REPRESENTATIVE CONSULTANT RATIO CALC 0.08 Normal <0.2 [facility] Comment on above: Result Comment: Neph rotic Syndrome is associated with ratios >3.5 Performed By: #### C BRANDEN, BRANDON, 36589-3, HA1C #### [facility] ([id number]) [address], [address] [place] [address] URINE CREATININE,RDM 100.44 mg/dL Normal [facility] Comment on above: Performed By: #### C BRANDEN, BRANDON, 73377-4, HA1C #### [facility] ([id number]) [address], [address] [place] [address] Vitamin D+Metabolites [Mass/ Vol]on 09-16-2023 VITAMIN D 25 HYD TOT 20.8 ng/mL Low 30-100 [facility] Comment on above: Result Comment: Vitamin D status 25 [place] Vitamin D Deficiency <20 ng/mL Insufficiency 20-29 ng/mL Sufficiency 30-100 ng/mL Toxicity >100 ng/mL NOTE: A pediatric reference range has not been established by the newsroom intern of this kit. The [employer] recommends a Vitamin D level of = or >20ng/mL in infants and children. Performed By: #### C BRANDEN, UPGAIL, 64142-5, HA1C #### [facility] ([id number]) [address], [address] [place] [address] PROLACTINon 12-02-2022 Prolactin 64.0 ng/mL Critically high 4.8-23.3 [facility] Comment on above: Performed By: #### P ROLAC #### [facility] [address] [place] [address] Dr. Devin Florentino RENAL FUNCTION PANELon 02-19 Albumin [Mass/Vol] 3.7 g/dL Normal 3.4-5.0 [facility] Comment on above: Performed By: #### R ENAL #### [facility] [address] [address] [address] Devin Florentino Calcium [Mass/Vol] 9.2 mg/dL Normal 8.5-10.1 [facility] Comment on above: Performed By: #### R ENAL #### [facility] [address] [place] [address] Dr. Devin Florentino Chloride [Moles/Vol] 105 mmol/L Normal 98-107 [facility] Comment on above: Performed By: #### R ENAL #### [facility] [address] [place] [address] Dr. Devin Florentino CO2 [Moles/Vol] 29.7 mmol/L Normal 21.0-32.0 The [facility] Comment on above: Performed By: #### R ENAL #### [facility] [address] [place] [address] Dr. Devin Florentino Creatinine [Mass/Vol] 0.72 mg/dL Normal 0.55-1.02 [facility] Comment on above: Performed By: #### R ENAL #### [facility] [address] [place] [address] Dr. Devin Florentino EGFR-AF PALESTINIAN >60 Normal >=60 [facility] Comment on above: Performed By: #### R ENAL #### [facility] [address] [place] [address] Dr. Devin Florentino EGFR-NON AF PALESTINIAN >60 Normal >=60 [facility] Comment on above: Performed By: #### R ENAL #### [facility] [address] [place] [address] Dr. Devin Florentino Glucose [Mass/Vol] 140 mg/dL Critically high 74-106 [facility] Comment on above: Performed By: #### R ENAL #### [facility] [address] [place] [address] Dr. Devin Florentino Phosphate [Mass/Vol] 4.3 mg/dL Normal 2.6-4.7 [facility] Comment on above: Performed By: #### R ENAL #### [facility] [address] [place] [address] Dr. Devin Florentino Potassium [Moles/Vol] 4.0 mmol/L Normal 3.5-5.1 [facility] Comment on above: Performed By: #### R ENAL #### [facility] [address] [place] [address] Dr. Devin Florentino Sodium [Moles/Vol] 141 mmol/L Normal 136-145 [facility] Comment on above: Performed By: #### R ENAL #### [facility] [address] [place] [address] Dr. Devin Florentino Urea nitrogen [Mass/Vol] 27.0 mg/dL Critically high 7.0-18.0 [facility] Comment on above: Performed By: #### R ENAL #### [facility] [address] [place] [address] Dr. Devin Florentino VITAMIN D 25 OHon 02-19-2022 VIT D 25-OH 16.2 ng/mL Normal [facility] Comment on above: Performed By: #### V ITAD #### [facility] [address] [place] [address] Dr. Devin Florentino VIT D RANGES SEE BELOW Normal [facility] Comment on above: Result Comment: <20 ng/mL Vit D deficient 20 - <30 ng/mL Vit D insufficient 30 - 100 ng/mL Vit D sufficient >100 ng/mL Potential Toxicity Performed By: #### V ITAD #### [facility] [address] [place] [address] Dr. Devni Florentino GLYCOHEMOGLOBIN A1Con 2021 ADA RECOMMENDATION SEE BELOW Normal [facility] Comment on above: Result Comment: ADA RECOMMENDED LIMIT 4.0 - 6.0 ADA THERAPEUTIC TARGET < 7.0 ACTION SUGGESTED > 7.0 Performed By: #### A 1C #### [facility] [address] [address] [address] Devin Florentino Glucose [Mass/Vol] 120 mg/dL Normal [facility] Comment on above: Performed By: #### A 1C #### [facility] [address] [address] [address] Devin Florentino HbA1c (Bld) [Mass fraction] 5.8 % Normal 4.5-6.2 [facility] Comment on above: Performed By: #### A 1C #### [facility] [address] [address] [address] Devin Florentino LIPID PROFILEon 01-15-2022 CHOL-HDL RATIO NORM SEE BELOW Normal [facility] Comment on above: Result Comment: 3.3 - 4.4 LOW RISK 4.4 - 7.1 AVERAGE RISK 7.1 - 11.0 MODERATE RISK >11.0 HIGH RISK Performed By: #### L IPID, CMP #### [facility] [address] [place] [address] Dr. Devin Florentino Cholesterol [Mass/Vol] 167 mg/dL Normal <=200 [facility] Comment on above: Performed By: #### L IPID, CMP #### [facility] [address] [address] [address] Devin Florentino Cholesterol in HDL [Mass/Vol] 47 mg/dL Normal 40-60 [facility] Comment on above: Performed By: #### L IPID, CMP #### [facility] [address] [address] [address] Devin Florentino Cholesterol in LDL [Mass/Vol] 103.0 mg/dL Normal [facility] Comment on above: Performed By: #### L IPID, CMP #### [facility] [address] [address] [address] Devin Florentino Cholesterol.total/Ch olesterol in HDL [Mass ratio] 3.6 {ratio} Normal [facility] Comment on above: Performed By: #### L IPID, CMP #### [facility] [address] [address] [address] Devni Florentino HDL NORMAL > or = 60 mg/dl - LO W CARDIOVASCULAR RISK <40 mg/dl - HIGH CARDIOVASCULAR RISK Normal [facility] Comment on above: Performed By: #### L IPID, CMP #### [facility] [address] [place] [address] Dr. Devin Florentino LDL CALC NORMAL SEE BELOW Normal [facility] Comment on above: Result Comment: <100 mg/dl OPTIMAL 100 - 129 mg/dl NEAR OR ABOVE OPTIMAL 130 - 159 mg/dl BORDERLINE HIGH 160 - 189 mg/dl HIGH >190 mg/dl VERY HIGH Performed By: #### L IPID, CMP #### [facility] [address] [place] [address] Dr. Devin Florentino Triglyceride [Mass/Vol] 81 mg/dL Normal <=150 [facility] Comment on above: Performed By: #### L IPID, CMP #### [facility] [address] [place] [address] Dr. Devin Florentino VLDL CALC 16.2 mg/dL Normal [facility] Comment on above: Performed By: #### L IPID, CMP #### [facility] [address] [place] [address] Dr. Devin Florentino PROF 14(COMP METB)on 022 Albumin [Mass/Vol] 3.7 g/dL Normal 3.4-5.0 [facility] Comment on above: Performed By: #### L IPID, CMP #### [facility] [address] [place] [address] Dr. Devin Florentino Albumin/Globulin [Mass ratio] 1.0 {ratio} Normal [facility] Comment on above: Performed By: #### L IPID, CMP #### [facility] [address] [place] [address] Dr. Devin Florentino ALP [Catalytic activity/Vol] 58 U/L Normal 46-116 [facility] Comment on above: Performed By: #### L IPID, CMP #### [facility] [address] [place] [address] Dr. Devin Florentino ALT [Catalytic activity/Vol] 40 U/L Normal 14-59 [facility] Comment on above: Performed By: #### L IPID, CMP #### [facility] [address] [place] [address] Dr. Devin Florentino Anion gap [Moles/Vol] 7.7 mmol/L Normal [facility] Comment on above: Performed By: #### L IPID, CMP #### [facility] [address] [place] [address] Dr. Devin Florentino AST [Catalytic activity/Vol] 20 U/L Normal 15-37 [facility] Comment on above: Performed By: #### L IPID, CMP #### [facility] [address] [place] [address] Dr. Devin Florentino Bilirubin [Mass/Vol] 0.5 mg/dL Normal 0.2-1.0 [facility] Comment on above: Performed By: #### L IPID, CMP #### [facility] [address] [place] [address] Dr. Devin Florentino Calcium [Mass/Vol] 9.0 mg/dL Normal 8.5-10.1 [facility] Comment on above: Performed By: #### L IPID, CMP #### [facility] [address] [place] [address] Dr. Devin Florentino Chloride [Moles/Vol] 103 mmol/L Normal 98-107 [facility] Comment on above: Performed By: #### L IPID, CMP #### [facility] [address] [place] [address] Dr. Devin Florentino CO2 [Moles/Vol] 30.6 mmol/L Normal 21.0-32.0 [facility] Comment on above: Performed By: #### L IPID, CMP #### [facility] [address] [place] [address] Dr. Devin Florentino Creatinine [Mass/Vol] 0.73 mg/dL Normal 0.55-1.02 [facility] Comment on above: Performed By: #### L IPID, CMP #### [facility] [address] [place], [place] [id number] Dr. Devin Florentino EGFR-AF PALESTINIAN >60 Normal >=60 [facility] Comment on above: Performed By: #### L IPID, CMP #### [facility] [address] [address] [address] Devin Florentino EGFR-NON AF PALESTINIAN >60 Normal >=60 [facility] Comment on above: Performed By: #### L IPID, CMP #### [facility] [address] [place] [address] Dr. Devin Florentino Globulin (S) [Mass/Vol] 3.6 g/dL Normal [facility] Comment on above: Performed By: #### L IPID, CMP #### [facility] [address] [place] [address] Dr. Devin Florentino Glucose [Mass/Vol] 105 mg/dL Normal 74-106 [facility] Comment on above: Performed By: #### L IPID, CMP #### [facility] [address] [place] [address] Dr. Devin Florentino Potassium [Moles/Vol] 3.9 mmol/L Normal 3.5-5.1 [facility] Comment on above: Performed By: #### L IPID, CMP #### [facility] [address] [place] [address] Dr. Devin Florentino Protein [Mass/Vol] 7.3 g/dL Normal 6.4-8.2 [facility] Comment on above: Performed By: #### L IPID, CMP #### [facility] [address] [place] [address] Dr. Devin Florentino Sodium [Moles/Vol] 138 mmol/L Normal 136-145 [facility] Comment on above: Performed By: #### L IPID, CMP #### [facility] [address] [place] [address] Dr. Devin Florentino Urea nitrogen [Mass/Vol] 19.0 mg/dL Critically high 7.0-18.0 [facility] Comment on above: Performed By: #### L IPID, CMP #### [facility] [address] [place], [place] [id number] Dr. Devin Florentino Urea nitrogen/Creatinine [Mass ratio] 26.0 mg/mg Normal [facility] Comment on above: Performed By: #### L IPID, CMP #### [facility] [address] [place] [address] Dr. Devin Florentino PAP ACOG PANEL 2: 30 to 65on 11-25-2021 . . Normal [facility] Comment on above: Result Comment: Perf ormed at: BA Performed By: #### [id number] #### [facility] [address] [place] [address] Dr. Devin Florentino Age Gdln ACOG Testing 30-65 Normal [facility] Comment on above: Performed By: #### [id number] #### [facility] Laboratory [address] [place] [address] Dr. Devin Florentino DIAGNOSIS: Comment Normal [facility] Comment on above: Result Comment: UNSA TISFACTORY FOR EVALUATION. THIS SPECIMEN WAS RESCREENED PART OF OUR BARBER TOOL SHARPENER PROGRAM. Performed at: BA Performed By: #### [id number] #### [facility] Laboratory [address] [place] [address] Dr. Devin Florentino HPV Aptima Negative Normal Negative [facility] Comment on above: Result Comment: This nucleic acid amplification test detects fourteen high-risk HPV types (16,18,31,33,35,39,45,51,52,56,58,59,66,68) without differentiation. Performed at: =G Performed By: #### 4 [id number] #### [facility] [address] [place] [address] Dr. Devin Florentino Methodology: Comment Normal [facility] Comment on above: Result Comment: This liquid based ThinPrep(R) pap test was screened with the use of an image guided system. Performed at: WB Performed By: #### [id number] #### [facility] [address] [place] [address] Dr. Devin Florentino Note: Comment Normal [facility] Comment on above: Result Comment: The Pap smear is a screening test designed to aid in the detection of premalignant and malignant conditions of the uterine cervix. It is not a diagnostic procedure and should not be used as the sole means of detecting cervical cancer. Both false-positive and false-negative reports do occur. . Performed at: WB Performed By: #### [id number] #### [facility] [address] [place] [address] Dr. Devin Florentino Performed by: Comment Normal [facility] Comment on above: Result Comment: Shamar Huang, Help Desk Support Specialist (ASCP) Performed at: BA Performed By: #### [id number] #### [facility] [address] [place] [address] Dr. Devin Florentino QC reviewed by: Comment Normal [facility] Comment on above: Result Comment: Val Salmon, Help Desk Support Specialist (ASCP) Performed at: BA Performed By: #### [id number] #### [facility] [address] [place] [address] Dr. Devin Florentino Specimen adequacy: Comment Normal [facility] Comment on above: Result Comment: Spec imen processed and examined but unsatisfactory for evaluation of epithelial abnormality because of insufficient cellularity. Performed at: BA Performed By: #### 4 [id number] #### [facility] [address] [place] [address] Dr. Devin Florentino PROLACTINon 09-06-2021 Prolactin 92.6 ng/mL Critically high 4.8-23.3 [facility] Comment on above: Performed By: #### P ROLAC #### [facility] [address] [place] [address] Dr. Devin Florentino ALBUMIN, RANDOM URINE W/CREA TININE 06-24-2021 ALBUMIN, URINE 0.6 mg/dL Normal See Note: [facility] Comment on above: Result Comment: Refe rence Range: Reference Range Not established Performed By: #### 7 46, 1630, 48452, 6517 #### [facility] [address] [place] [address], [address] [place] [address] [employer] Engineer: Jules Arreola MD ALBUMIN/CREATININE RATIO, RANDOM URINE [...] category. Performed By: #### 7 46, 7600, 61227, 6517 #### [facility] [place] [address] [employer] Engineer: Jules Arreola MD Creatinine (U) [Mass/Vol] 53 mg/dL Normal 20-275 [facility] Comment on above: Performed By: #### 7 46, 7600, 84689, 6517 #### [facility] [place] [address] [employer] Engineer: Jules Arreola MD [facility] 06-24-2021 Albumin [Mass/Vol] 4.3 g/dL Normal 3.6-5.1 [facility] Comment on above: Performed By: #### 7 46, 7600, 01973, 6517 #### [facility] [place] [address] [employer] Engineer: Jules Arreola MD Albumin/Globulin [Mass ratio] 1.6 {ratio} Normal 1.0-2.5 [facility] Comment on above: Performed By: #### 7 46, 7600, 41632, 6517 #### [facility] [place] [address] [employer] Engineer: Jules Arreola MD ALP [Catalytic activity/Vol] 53 U/L Normal 31-125 [facility] Comment on above: Performed By: #### 7 46, 7600, 19547, 6517 #### [facility] [place] [address] [employer] Engineer: Jules Arreola MD ALT [Catalytic activity/Vol] 32 U/L High 6-29 [facility] Comment on above: Performed By: #### 7 46, 7600, 85908, 6517 #### [facility] of [address] [place] [address] [employer] Engineer: Jules Arreola MD AST [Catalytic activity/Vol] 18 U/L Normal 10-30 [facility] Comment on above: Performed By: #### 7 46, 7600, 48757, 6517 #### [facility] [place] [address] [employer] Engineer: Jules Arreola MD Bilirubin [Mass/Vol] 0.4 mg/dL Normal 0.2-1.2 [facility] Comment on above: Performed By: #### 7 46, 7600, 78402, 6517 #### [facility] [place] [address] [employer] Engineer: Jules Arreola MD BUN/CREATININE RATIO NOT APPLICABLE Normal 6-22 [facility] Comment on above: Performed By: #### 7 46, 7600, , 6517 #### [facility] [place] [address] [employer] Engineer: Jules Arreola MD Calcium [Mass/Vol] 9.6 mg/dL Normal 8.6-10.2 [facility] Comment on above: Performed By: #### 7 46, 7600, 91240, 6517 #### [facility] [place] [address] [employer] Engineer: Jules Arreola MD Chloride [Moles/Vol] 104 mmol/L Normal 98-110 [facility] Comment on above: Performed By: #### 7 46, 7600, 31755, 6517 #### [facility] [place] [address] [employer] Engineer: Jules Arreola MD CO2 [Moles/Vol] 29 mmol/L Normal 20-32 [facility] Comment on above: Performed By: #### 7 46, 7600, 10820, 6517 #### [facility] [place] [address] [employer] Engineer: Jules Arreola MD Creatinine [Mass/Vol] 0.70 mg/dL Normal 0.50-1.10 [facility] Comment on above: Performed By: #### 7 46, 7600, , 6517 #### [facility] [place] [address] [employer] Engineer: Jules Arreola MD eGFR NON-AFR. PALESTINIAN 113 mL/min/1.73m2 Normal > OR = 60 [facility] Comment on above: Performed By: #### 7 46, 7600, , 6517 #### [facility] [place] [address] [employer] Engineer: Jules Arreola MD GFR/1.73 sq M.predicted among blacks MDRD (S/P/Bld) [Vol rate/Area] 131 mL/min/{1.73_m2} Normal > OR = 60 [facility] Comment on above: Performed By: #### 7 46, 7599, , 17 #### [facility] [place] [address] [employer] Engineer: Jules Arreola MD Globulin (S) [Mass/Vol] 2.7 g/dL Normal 1.9-3.7 [facility] Comment on above: Performed By: #### 7 46, 0, , 17 #### [facility] [place] [address] [employer] Engineer: Jules Arreola MD Glucose [Mass/Vol] 101 mg/dL High 65-99 [facility] Comment on above: Result Comment: Fasting reference interval For someone without known diabetes, a glucose value between 100 and 125 mg/dL is consistent with prediabetes and should be confirmed with a follow-up test. Performed By: #### 7 46, 7600, , 6517 #### [facility] [place] [address] [employer] Engineer: Jules Arreola MD Potassium [Moles/Vol] 4.0 mmol/L Normal 3.5-5.3 [facility] Comment on above: Performed By: #### 7 46, 7599, 48712, 6517 #### [facility] of [address], [address] [place] [address] [employer] Engineer: Jules Arreola MD Protein [Mass/Vol] 7.0 g/dL Normal 6.1-8.1 [facility] Comment on above: Performed By: #### 7 46, 7600, 72211, 6517 #### [facility] of [address], [address] [place] [address] [employer] Engineer: Jules Arreola MD Sodium [Moles/Vol] 139 mmol/L Normal 135-146 [facility] Comment on above: Performed By: #### 7 46, 7600, 53918, 6517 #### [facility] of [address], [address] [place] [address] [employer] Engineer: Jules Arreola MD Urea nitrogen [Mass/Vol] 23 mg/dL Normal 7-25 [facility] Comment on above: Performed By: #### 7 46, 7600, 19243, 6517 #### [facility] [place] [address] [employer] Engineer: Jules Arreola MD LIPID PANEL, [facility] Cholesterol [Mass/Vol] 196 mg/dL Normal <200 [facility] Comment on above: Order Comment: FASTI NG:YES FASTING: YES Performed By: #### 7 46, 7600, 21353, 6517 #### [facility] [place] [address] [employer] T[employer]ine Mechanical Engineer: Jules Arreola MD Cholesterol in HDL [Mass/Vol] 56 mg/dL Normal > OR = 50 [facility] Comment on above: Order Comment: FASTI NG:YES FASTING: YES Performed By: #### 7 46, 7600, 82890, 6517 #### [facility] [place] [address] [employer]ine [employer] Engineer: Jules Arreola MD Cholesterol in LDL [Mass/Vol] [...] LDL-C. Fidencio SS et al. EDITH. 2013;310(19): 9288-8384 (http://education.Kimengi.Spotware Systems / cTrader/faq/NKO020) Performed By: #### 7 46, 7600, 78166, 6517 #### [facility] [address], [address] [place] [address] [employer] Engineer: Jules Arreola MD Cholesterol.total/Ch olesterol in HDL [Mass ratio] 3.5 {ratio} Normal <5.0 [facility] Comment on above: Order Comment: FASTI NG:YES FASTING: YES Performed By: #### 7 46, 7600, 56083, 6517 #### [facility] [address], [address] [place] [address] [employer] Engineer: Jules Arreola MD NON HDL CHOLESTEROL 140 mg/dL (calc) High <130 [facility] Comment on above: Order Comment: FASTI NG:YES FASTING: YES Result Comment: For patients with diabetes plus 1 major ASCVD risk factor, treating to a non-HDL-C goal of <100 mg/dL (LDL-C of <70 mg/dL) is considered a therapeutic option. Performed By: #### 7 46, 7600, 15452, 6517 #### [facility] [address], [address] [place] [address] [employer] Engineer: Jules Arreola MD Triglyceride [Mass/Vol] 104 mg/dL Normal <150 [facility] Comment on above: Order Comment: FASTI NG:YES FASTING: YES Performed By: #### 7 46, 7600, 32694, 6517 #### [facility] [address], [address] [place] [address] [employer] Engineer: Jules Arreola MD PROLACTINon 06-24-2021 PROLACTIN 51.6 ng/mL High [facility] Comment on above: Result Comment: Refe rence Range Females Non- 3.0-30.0 10.0-209.0 Postmenopausal 2.0-20.0 Your request to have a duplicate copy faxed has been acknowledged. Queued to: [id number] Performed By: #### 7 46, 6150, 34829, 4160 #### [facility] [address] [place] [address], [address] [place] [address] [employer] Mechanical Engineer: Jules Arreola MD [facility]-21 SARS-CoV-2 (COVID-19) RNA STANLEY+probe Ql (Unsp spec) Not detected Normal NOT DETECTED [facility] Comment on above: Result Comment: This test is not yet approved or cleared by the [place] FDA. When there are no FDA-approved or cleared tests available, and other criteria are met, FDA can make tests available under an emergency access mechanism called an Emergency Use Authorization (EUA). The EUA for this test is supported by the [employer] of Health and Human Service's (HHS's) declaration [...] Performed By: #### L IPID, CMP #### [facility] [address] [place] [address] Dr. Devin Florentino PROLACTINon 03-05-2021 Prolactin 79.1 ng/mL Critically high 4.8-23.3 [facility] Comment on above: Performed By: #### P ROLAC #### [facility] [address] [address] [address] Devin Florentino PROF CHEM 8 (BAS METB)on Anion gap [Moles/Vol] 9.9 mmol/L Normal [facility] Comment on above: Performed By: #### B MP #### [facility] [address] [address] [address] Devin Florentino Calcium [Mass/Vol] 9.6 mg/dL Normal 8.4-10.2 [facility] Comment on above: Performed By: #### B MP #### [facility] [address] [address] [address] Devin Florentino Chloride [Moles/Vol] 104 mmol/L Normal 98-107 [facility] Comment on above: Performed By: #### B MP #### [facility] [address] [place] [address] Dr. Devin Florentino CO2 [Moles/Vol] 32.2 mmol/L Critically high 22.0-30.0 [facility] Comment on above: Performed By: #### B MP #### [facility] [address] [place] [address] Dr. Devin Florentino Creatinine [Mass/Vol] 0.72 mg/dL Normal 0.52-1.04 [facility] Comment on above: Performed By: #### B MP #### [facility] [address] [place] [address] Dr. Devin Florentino EGFR-AF PALESTINIAN >60 Normal >=60 [facility] Comment on above: Performed By: #### B MP #### [facility] [address] [address] [address] Devin Florentino EGFR-NON AF PALESTINIAN >60 Normal >=60 [facility] Comment on above: Performed By: #### B MP #### [facility] [address] [address] [address] Devin Florentino Glucose [Mass/Vol] 118 mg/dL Critically high 74-106 [facility] Comment on above: Performed By: #### B MP #### [facility] [address] [place] [address] Dr. Devin Florentino Potassium [Moles/Vol] 4.1 mmol/L Normal 3.4-5.0 [facility] Comment on above: Performed By: #### B MP #### [facility] [address] [address] [address] Devin Florentino Sodium [Moles/Vol] 142 mmol/L Normal 137-145 [facility] Comment on above: Performed By: #### B MP #### [facility] [address] [address] [address] Devin Florentino Urea nitrogen [Mass/Vol] 22.0 mg/dL Critically high 7.0-17.0 [facility] Comment on above: Performed By: #### B MP #### [facility] [address] [address] [address] Devin Florentino Urea nitrogen/Creatinine [Mass ratio] 30.6 mg/mg Normal [facility] Comment on above: Performed By: #### B MP #### [facility] [address] [address] [address] Devin Florentino [facility] 12-24-2020 Albumin [Mass/Vol] 4.0 g/dL Normal 3.6-5.1 [facility] Comment on above: Performed By: #### 7 600, 19780, 62833 #### [facility] [place] [address] [employer] Mechanical Engineer: Jules Arreola MD Albumin/Globulin [Mass ratio] 1.4 {ratio} Normal 1.0-2.5 [facility] Comment on above: Performed By: #### 7 600, 19089, 94734 #### [facility] [place] [address] [employer]urbine Mechanical Engineer: Jules Arreola MD ALP [Catalytic activity/Vol] 45 U/L Normal 31-125 [facility] Comment on above: Performed By: #### 7 600, 25509, 80067 #### [facility] [place] [address] Wind Turbine Mechanical Engineer: Jules Arreola MD ALT [Catalytic activity/Vol] 20 U/L Normal 6-29 [facility] Comment on above: Performed By: #### 7 600, 96171, 34551 #### [facility] of [address], [address] [place] [address] [employer] T[employer]ine Mechanical Engineer: Jules Arreola MD AST [Catalytic activity/Vol] 13 U/L Normal 10-30 [facility] Comment on above: Performed By: #### 7 600, 74775, 03585 #### [facility] of [address], [address] [place] [address] [employer] T[employer]ine Mechanical Engineer: Jules Arreola MD Bilirubin [Mass/Vol] 0.4 mg/dL Normal 0.2-1.2 [facility] Comment on above: Performed By: #### 7 600, 21520, 86832 #### [facility] of [address], [address] [place] [address] Wind T[employer]ine Mechanical Engineer: Jules Arreola MD BUN/CREATININE RATIO NOT APPLICABLE Normal 6-22 [facility] Comment on above: Performed By: #### 7 600, 29399, 05448 #### [facility] of [address], [address] [place] [address] [employer] Mechanical Engineer: Jules Arreola MD Calcium [Mass/Vol] 9.4 mg/dL Normal 8.6-10.2 [facility] Comment on above: Performed By: #### 7 600, 79482, 66431 #### [facility] [place] [address] Wind Turbine Mechanical Engineer: Jules Arreola MD Chloride [Moles/Vol] 104 mmol/L Normal 98-110 [facility] Comment on above: Performed By: #### 7 600, 66017, 19795 #### [facility] of [address], [address] [place] [address] [employer] T[employer] Mechanical Engineer: Jules Arreola MD CO2 [Moles/Vol] 28 mmol/L Normal 20-32 [facility] Comment on above: Performed By: #### 7 600, 68649, 31041 #### [facility] of [address], [address] [place] [address] [employer] T[employer] Engineer: Jules Arreola MD Creatinine [Mass/Vol] 0.75 mg/dL Normal 0.50-1.10 [facility] Comment on above: Performed By: #### 7 600, 23472, 85337 #### [facility] [place] [address] [employer]ine Mechanical Engineer: Jules Arreola MD eGFR NON-AFR. PALESTINIAN 105 mL/min/1.73m2 Normal > OR = 60 [facility] Comment on above: Performed By: #### 7 600, 67229, 43607 #### [facility] of [address], [address] [place] [address] Wind T[employer]ine Mechanical Engineer: Jules Arreola MD GFR/1.73 sq M.predicted among blacks MDRD (S/P/Bld) [Vol rate/Area] 121 mL/min/{1.73_m2} Normal > OR = 60 [facility] Comment on above: Performed By: #### 7 600, 42091, 57600 #### [facility] of [address], [address] [place] [address] [employer] T[employer] Mechanical Engineer: Jules Arreola MD Globulin (S) [Mass/Vol] 2.8 g/dL Normal 1.9-3.7 [facility] Comment on above: Performed By: #### 7 600, 80927, 52485 #### [facility] [place] [address] Wind Turbine Mechanical Engineer: Jules Arreola MD Glucose [Mass/Vol] 97 mg/dL Normal 65-99 [facility] Comment on above: Result Comment: Fasting reference interval Performed By: #### 7 600, 48923, 06281 #### [facility] [place] [address] [employer] T[employer]ine Mechanical Engineer: Jules Arreola MD Potassium [Moles/Vol] 4.2 mmol/L Normal 3.5-5.3 [facility] Comment on above: Performed By: #### 7 600, 72771, 92109 #### [facility] [place] [address] Wind Turbine Mechanical Engineer: Jules Arreola MD Protein [Mass/Vol] 6.8 g/dL Normal 6.1-8.1 [facility] Comment on above: Performed By: #### 7 600, 21369, 02853 #### [facility] [place] [address] [employer] Mechanical Engineer: Jules Arreola MD Sodium [Moles/Vol] 140 mmol/L Normal 135-146 [facility] Comment on above: Performed By: #### 7 600, 78233, 03755 #### [facility] [place] [address] [employer] Turbine Mechanical Engineer: Jules Arreola MD Urea nitrogen [Mass/Vol] 17 mg/dL Normal 7-25 [facility] Comment on above: Performed By: #### 7 600, 19570, 00757 #### [facility] [place] [address] [employer] Turbine Mechanical Engineer: Jules Arreola MD LIPID PANEL, [facility] 100 Cholesterol [Mass/Vol] 196 mg/dL Normal <200 [facility] Comment on above: Performed By: #### 7 600, 80949, 59988 #### [facility] [place] [address] Wind Turbine Mechanical Engineer: Jules Arreola MD Cholesterol in HDL [Mass/Vol] 54 mg/dL Normal > OR = 50 [facility] Comment on above: Performed By: #### 7 600, 22655, 25184 #### [facility] [place] [address] [employer] Turbine Mechanical Engineer: Jules Arreola MD Cholesterol in LDL [Mass/Vol] [...] LDL-C. Fidencio ACOSTA et al. EDITH. 2013;310(19): 4768-9879 (http://education.[employer]rent Energy Systems/faq/QVU563) Performed By: #### 7 600, 49061, 04604 #### [facility] [address], [address] [place] [address] [employer] Turbine Mechanical Engineer: Jules Arreola MD Cholesterol.total/Ch olesterol in HDL [Mass ratio] 3.6 {ratio} Normal <5.0 [facility] Comment on above: Performed By: #### 7 600, 14092, 99897 #### [facility] [address], [address] [place] [address] [employer] T[employer]ine Mechanical Engineer: Jules Arreola MD NON HDL CHOLESTEROL 142 mg/dL (calc) High <130 [facility] Comment on above: Result Comment: For patients with diabetes plus 1 major ASCVD risk factor, treating to a non-HDL-C goal of <100 mg/dL (LDL-C of <70 mg/dL) is considered a therapeutic option. Performed By: #### 7 600, 21381, 30394 #### [facility] [address], [address] [place] [address] [employer] T[employer] Mechanical Engineer: uJles Arreola MD Triglyceride [Mass/Vol] 156 mg/dL High <150 [facility] Comment on above: Performed By: #### 7 600, 57899, 92237 #### [facility] [address], [address] [place] [address] [employer] T[employer] Mechanical Engineer: Jules Arreola MD VITAMIN D,25-OH,TOTAL,IAon 1 VITAMIN [...] D, (D2,D3), LC/MS/MS is recommended: order code 27497 (patients >2yrs). See Note 1 Note 1 For additional information, please refer to http://education.Kimengi.Spotware Systems / cTrader/faq/FNB447 (This link is being provided for informational/ educational purposes only.) Performed By: #### 7 600, 11253, 11558 #### [facility] [address] [facility], [address] [place] [address] [employer] Mechanical Engineer: Jules Arreola MD Vital Signs Date Time Vital Sign Value Performing Clinician Margie villarreal 05-12-2023 10:12-0500 Body height 170.2 cm Sabrina Smith MANAGING [employer]IST [facility] 05-12-2023 10:12-0500 Body mass index (BMI) [Ratio] 53.52 kg/m2 Sabrina Smith MANAGING [employer]ELOP[employer] SPECIALIST [facility] 05-12-2023 10:12-0500 Body weight 154.99 kg Sabrina Smith MANAGING [employer]ELOP[employer] SPECIALIST [facility] 05-12-2023 10:12-0500 Diastolic blood pressure 103 mm[Hg] Sabrina Smith MANAGING [employer]EVELOP[employer] SPECIALIST [facility] 05-12-2023 10:12-0500 Heart rate 65 /min Sabrina Smith MANAGING [employer]EL[employer] SPECIALIST Work Phone: [employer] 05-12-2023 10:12-0500 SaO2% (BldA) [Mass fraction] 100 % Sabrina Smith MANAGING [employer]EVELOP[employer] SPECIALIST [facility] Phone[facility] 05-12-2023 10:12-0500 Systolic blood pressure 157 mm[Hg] Sabrina OttITegris MANAGING [employer]ELOP[employer] SPECIALIST Work Phone: [facility] En[facility]ters Encounter Date Encounter Type Care Provider Facility Start: 11-24-2023 End: 11-24-2023 ambulatory SABRINA SMITH [facility] Start: 11-03-2023 End: 11-03-2023 ambulatory SVEN MOY Not Available Start: 11-02-2023 End: 11-02-2023 ambulatory MARIO R [facility] Start: 10-28-2023 End: 10-28-2023 ambulatory MARIO VICTORIA Not Available Start: 10-14-2023 End: 10-14-2023 ambulatory [facility] Start: 10-08-2023 End: 10-08-2023 ambulatory MARIO R [facility] Start: 10-04-2023 End: 10-04-2023 ambulatory [facility] Start: 10-04-2023 End: 10-04-2023 ambulatory MARIO VICTORIA Not Available Start: 09-30-2023 End: 09-30-2023 ambulatory [facility] Start: 09-29-2023 End: [facility]: 09-27-[facility]23 End: 09-27-2023 ambulatory MARIO VICTORIA Not Available Start: 09-16-2023 End: 09-16-2023 ambulatory [facility] Start: 09-16-2023 End: 09-16-2023 ambulatory [facility] Start: 09-15-2023 End[facility]: 09-03-[facility]23 End: 09-03-2023 ambulatory MARIO VICTORIA Not Available Start: 05-21-2023 Telephone encounter [facility] Start: 05-12-2023 End: 05-12-2023 Office outpatient visit 25 minutes Sabrina Smith MANAGING [employer]IST Work Phone: [facility] Pulmonary/Sleep Medicine Comment on above: RACHEL (obstructive sle ep apnea) (Primary Dx); CPAP use counseling; BMI 50.0-59.9, adult ([facility]) Start: 05-12-2023 End: 05-12-2023 ambulatory SABRINAVICKY SMITH [facility] Start: 01-09-2023 Emergency department patient visit Facility:[facility] Start: 02-19-2022 End: 02-20-2022 ambulatory LEIGH ADAM [...] Clinician Start: 05-15-2023 Diabetic retinal eye exam Mariposacharline Caicedo [facility] Start: 01-22-2023 Adult depression scr eening assessment [facility] Work Phone: Start: 07-20-2022 Microalbumin [Mass/v olume] in Urine by Test strip [facility] Work Phone: Start: 04-07-2022 Diabetic retinal eye exam [facility] Work Phone: Start: 08-03-2021 Microscopic observat ion [Identifier] in Cervix by Cyto stain [facility] Work Phone: Plan of Treatment Date Care [...] Office Visit [facility] Pul[facility]/Sleep [facility] [address] [place] [id number] Sabrina Smith MANAGING J[employer] REDEVELOPMENT SPECIALIST [address], [address] [place] [address] [facility] Start: 01-23-2024 Depression Screening Depression Screening [facility] Start: 07-23-2023 End: 07-23-2023 Patient encounter procedure 07/23/2023 8:30 AM EDT Office Visit [facility] Internal Medicine - Family Medicine [address] [place] [id number] Maude Gant, MANAGING JEWELER-LIFE SKILLS SPECIALIST [address] [place] [address] [facility] Internal Medicine - Family Medicine [...] Canine Kidney, quadrivalent with preservative Sabrina Kregel MANAGING [employer] REDEVELOPMENT SPECIALIST Work Phone: [facility] 04-19-2018 tetanus toxoid, redu sandra diphtheria toxoid, and acellular pertussis vaccine, adsorbed Sabrina Kregel MANAGING [employer] REDEVELOPMENT SPECIALIST Work Phone: [facility] 12-29-2017 influenza, injectabl e, quadrivalent, preservative free Sabrina Kregel MANAGING J[employer] REDEVELOPMENT SPECIALIST Work Phone: [facility] 12-29-2017 influenza, seasonal, injectable Sabrina Kregel MANAGING [employer] REDEVELOPMENT SPECIALIST Work Phone: [facility] 02-07-2015 influenza, seasonal, injectable, preservative free Sabrina Smith MANAGING [employer] REDEVELOPMENT SPECIALIST Work Phone: [facility] 01-23-2013 tetanus toxoid, redu sandra diphtheria toxoid, and acellular pertussis vaccine, adsorbed Sabrina Smith MANAGING J[employer] REDEVELOPMENT SPECIALIST Work Phone: [facility] Payers Date Payer Category Payer Private Health Insurance [employer] [id number] 2022-Present [phone] [address] [address] [place] [address] [id number] 2022 Unknown [id number] 1987 Unknown [id number] 2.16.840.1.165550.3.579 .2.593 1987 Unknown [id number] 2.16.840.1.323330.3.579 .2.593 1987 Unknown [id number] 2.16.840.1.751085.3.579 .2.593 1987 Unknown [id number] 2.16.840.1.657170.3.579 .2.593 1987 Unknown [id number] 2.16.840.1.954333.3.579 .2.593 1987 Unknown [id number] 2.16.840.1.594462.3.579 .2.593 1987 Unknown [id number] 2.16.840.1.540729.3.579 .2.1286 1987 Unknown [id number] 2.16.840.1.321219.3.579 .2.1286 1987 Unknown [id number] 2.16.840.1.041176.3.579 .2.1286 1987 Unknown [id number] 2.16.840.1.840506.3.579 .2.1285 1987 Unknown [id number] 2.16.840.1.697447.3.579 .2.1285 1987 Unknown [id number] 2.16.840.1.000014.3.579 .2.1285 1987 Unknown [id number] 2.16.840.1.706521.3.579 .2.1285 1987 Unknown [id number] 2.16.840.1.111601.3.579 .2.1285 1987 Unknown [id number] 2.16.840.1.948768.3.579 .2.1285 1987 Unknown [id number] 2.16.840.1.910618.3.579 .2.1285 1987 Unknown [id number] 2.16.840.1.048172.3.579 .2.1285 1987 Unknown [id number] 2.16.840.1.344382.3.579 .2.1258 1987 Unknown [id number] 2.16.840.1.866705.3.579 .2.1258 1987 Unknown [id number] 2.16.840.1.472370.3.579 .2.1258 1987 Unknown [id number] 2.16.840.1.602541.3.579 .2.1258 1987 Unknown [id number] 2.16.840.1.810522.3.579 .2.1258 1987 Unknown [id number] 2.16.840.1.450658.3.579 .2.1285 1987 Unknown [id number] 2.16.840.1.589993.3.579 .2.1285 1959 Unknown [id number] Social History Date Type Detail Facility Start: 07-20-2022 Tobacco smoking status [facility] Never smoked tobacco [facility] Start: 07-20-2022 Tobacco use and exposure Smokeless tobacco non-user [facility] Start: 05-13-2023 Alcohol intake Ex-drinker (finding) [facility] Start: 01-18-2022 End: 01-22-2023 History of Social function [facility] Start: 01-18-2022 End: 01-22-2023 Social connection and isolation panel [facility] Do you belong to any clubs or organizations such as uatsdin groups, unions, fraternal or athletic groups, or [...] by other route every morning before breakfast. [id number] OneTouch Delica Plus Lancet 33 gauge USE TO CHECK BLOOD SUGAR DAILY [id number] Note 05-21-2023 Telephone Encounter - RAJANI De La Garza - 05/21/2023 1:25 PM EST Note Date & Type Note Facility 05-21-2023 Miscellaneous Notes Formattin g of this note might be different from the original. Images from the original note were not included. PAP Mask and Supplies Order Faxed to [facility] Fax Confirmed documented in this encounter [facility] Telephone encounter Note 05-21-2023 Telephone Encounter - RAJANI De La Garza - 05/21/2023 1:25 PM EST Note Date & Type Note Facility 05-21-2023 Telephone encount er Note Images from the original note were not included. PAP Mask and Supplies Order Faxed to [facility] Fax Confirmed [facility] History of Present illness Narrative 05-12-2023 Sabrina Erum Smith, MANAGING J[employer] REDEVELOPMENT SPECIALIST - 05/12/2023 10:00 AM EST Note Date [...] the heated inline humidifier. 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[employer] Sleepiness Scale: Sitting and Reading: Never Watching [...] patient. Current Outpatient Medications: blood sugar diagnostic (norin.tvTOUCH ULTRA TEST) strip, 1 strip by other [...] Stress: No Stress Concern Present (01/18/2022) [employer] [place] [employer] - Occupational Stress Questionnaire Feeling of Stress : Only a little Social Connections: Socially Integrated (01/18/2022) Social Connection and Isolation Panel [NHANES] Frequency of Communication with Friends and Family: More than three times a week Frequency of Social Gatherings with Friends and Family: Three times a week Attends L[employer] Day Services: More than 4 times per year [...] 08/2017 PS07/2017 w/ AHI of 85.5 DME: [employer] card was available for PAP usage [...] FDA warning against ozone / UV CPAP director transition. Advised to stop using immediately. Education sheet [...] not to drive if sleepy, and to fur puller if sleepiness occurs while driving. Above [...] errors that have escaped final proofreading. Sabrina Smtih [facility] Office: [phone] 7:17 PM on 05/13/2023 CC: ETHAN MOREIRA APRN-CNP 05/13/231920 documented in this encounter [facility] 05-12-2023 Patient Instructions Note Date & Type Note Facility 05-12-2023 Instructions LAUREN Mullen - 05/12/2023 10:00 AM EST If you re looking for general health and wellness resources, please visit [email or web address]. documented in this encounter [facility] Evaluation note Note Date & Type Note Facility Evaluation note Diagnosis RACHEL (obstructive sleep apnea)- Primary Obstructive sleep apnea (adult) (pediatric) CPAP use counseling BMI 50.0-59.9, adult ([facility]) documented in this encounter [facility] Instructions Note Date & Type [...] DATE CREATED AUTHOR AUTHOR'S ORGANIZ ATION 01/10/2023 [facility] DATE CREATED AUTHOR AUTHOR'S ORGANIZ ATION 10/08/2023 [facility] DATE CREATED AUTHOR AUTHOR'S ORGANIZ ATION 11/03/2023 [facility] DATE CREATED AUTHOR AUTHOR'S ORGANIZ ATION 11/05/2023 [facility] EPIC DATE CREATED AUTHOR AUTHOR'S ORGANIZ ATION 11/26/2023 [facility] Reason for Visit (unrecogniz ed section and content) Reason Comments Sleep Apnea DME: [facility] (unrecognized sec tion and content) Transmission Assembler Relationship Specialty Start Date End Date Alfreda SandiHAYDE Abdul-LIFE SKILLS SPECIALIST [address] [place] [address] PCP - General Internal Medicine 01/22/23 Transmission Assembler Relationship Specialty Start Date End Date Alfreda SandiHAYDE Abdul-GEMA [address] [place] [address] PCP - General Internal Medicine 01/22/23 FOR [...] BE BASED ON THE PRIMARY CLINICAL RECORDS. [facility] [employer] [facility]. provides no warranty or guarantee of the accuracy or completeness of information in this document.
[2023-12-01 16:11] VITALS: BP 128/60; PULSE 74
[2023-12-01 16:57] VITALS: BP 126/58; PULSE 70
[2023-12-01 17:08] LABS: Bilirubin Urine NEGATIVE (NEGATIVE); Blood Urine NEGATIVE (NEGATIVE); Clarity Urine CLEAR (CLEAR); Color Urine LT. YELLOW (YELLOW); Glucose Urine UA NEGATIVE (NEGATIVE); Ketones Urine NEGATIVE (NEGATIVE); Leukocyte Esterase Urine SMALL (NEGATIVE); Nitrite Urine NEGATIVE (NEGATIVE); Protein Urine NEGATIVE (NEG/TRACE); Specific Gravity Urine 1.015 (1.005-1.025); Urobilinogen Urine 0.2 EU/dL (0.2-1.0); pH Urine 6.5 (5.0-9.0)
[2023-12-01 17:09] LABS: Urine Microscopic Indicated YES
[2023-12-01 17:12] VITALS: BP 111/53; PULSE 72
[2023-12-01 17:26] VITALS: BP 106/53; PULSE 75
[2023-12-01 17:30] LABS: Bacteria Urine SMALL #/HPF (NONE SEEN); Calcium Oxalate Crystals Urine FEW; Cast Seen? SEEN #/LPF (NONE SEEN); Crystals Seen? Seen #/HPF (None Seen); Hyaline Casts Urine RARE; Mucus Urine NONE SEEN (NONE SEEN); RBC Urine 0-2 #/HPF (0-2); Squamous Epithelial Cell Urine FEW #/LPF (NONE/RARE); Urine Culture Indicated YES
== END 2023-12-01 17:41 | disposition home or self-care (01) ==
PROVIDERS: Admitting Provider Obstetrics & Gynecology; PCP Nurse Practitioner Family; Visit Provider Obstetrics & Gynecology
DX: O26.899 Other specified pregnancy related conditions, unspecified trimester (principal); R51.9 Headache, unspecified; O13.9 Gestational [pregnancy-induced] hypertension without significant proteinuria, unspecified trimester; Z3A.00 Weeks of gestation of pregnancy not specified
CPT/HCPCS: 81001; 87086; G0378; G0379

== ENCOUNTER 2024-05-30 15:16 | Outpatient (REF) | payer OTHER, SELFPAY ==
[2024-06-02 12:08] LABS: Age Gdln ACOG Testing Note (.); HPV Aptima Negative (Negative); IGP, Aptima HPV, rfx 16/18,45 Note (.)
== END 2024-05-30 15:17 | disposition home or self-care (01) ==
LOC: LAB 15:16
PROVIDERS: PCP Nurse Practitioner Family; Visit Provider Physician Assistant
DX: Z01.419 Encounter for gynecological examination (general) (routine) without abnormal findings (principal)
CPT/HCPCS: 87624; 88175

== ENCOUNTER 2024-08-25 07:57 | Outpatient (OUT) | payer OTHER, SELFPAY ==
[2024-08-25 08:19] LABS: Basophils Percent Auto 0.4 % (0.2-2.0); Eosinophils Absolute Auto 0.2 10^3/uL (0.0-0.7); Eosinophils Percent Auto 3.5 % (0.9-7.0); Hematocrit 40.4 % (36.0-48.0); Hemoglobin 12.9 g/dL (12.0-16.0); Lymphocytes Absolute Auto 1.8 10^3/uL (1.2-3.8); Lymphocytes Percent Auto 33.1 % (20.5-60.0); Mean Corpuscular HGB Conc 31.9 g/dL (29.9-35.2); Mean Corpuscular Hemoglobin 26.7 pg (26.7-34.0); Mean Corpuscular Volume 83.6 fL (81.0-99.0); Monocytes Absolute Auto 0.5 10^3/uL (0.3-0.8); Monocytes Percent Auto 8.3 % (1.7-12.0); Neutrophils Percent Auto 54.7 % (43.0-75.0); Platelet Count 301 10^3/uL (150-450); Red Blood Count 4.83 10^6/uL (4.20-5.40); Red Cell Distribution Width 14.3 % (11.0-15.0); White Blood Count 5.4 10^3/uL (4.0-11.0)
[2024-08-25 10:33] LABS: Alanine Aminotransferase 36 U/L (14-59); Albumin Globulin Ratio 0.8; Albumin Level 3.4 g/dL (3.4-5.0); Alkaline Phosphatase 85 U/L (46-116); Anion Gap 11.7; Aspartate Amino Transferase 11 U/L (15-37); BUN Creatinine Ratio 39.7; Bilirubin Total 0.3 mg/dL (0.2-1.0); Calcium 9.3 mg/dL (8.5-10.1); Carbon Dioxide 28.6 mmol/L (21.0-32.0); Chloride 106 mmol/L (98-107); Chol HDL Ratio 3.4; Cholesterol 165 mg/dL (<=200); Estimated GFR (African America >60 (>=60 mL/min/1.73m^2); Estimated GFR (Non-African Ame >60 (>=60 mL/min/1.73m^2); Globulin 4.1 g/dL; Glucose 148 mg/dL (74-106); HDL Cholesterol 49 mg/dL (40-60); LDL Cholesterol Calculated 93.6 mg/dL; Potassium 4.3 mmol/L (3.5-5.1); Sodium 142 mmol/L (136-145); Thyroid Stimulating Hormone 1.351 uIU/mL (0.358-3.740); Total Protein 7.5 g/dL (6.4-8.2); Triglycerides 112 mg/dL (<=150); VLDL CHOLESTEROL 22.4 mg/dL
[2024-08-25 13:03] LABS: Estimated Average Glucose 143 mg/dL; Glycohemoglobin A1C 6.6 % (4.5-6.2)
[2024-08-26 04:07] LABS: Insulin 80.6 uIU/mL (2.6-24.9); Prolactin 82.7 ng/mL (4.8-33.4)
== END 2024-08-25 07:58 | disposition home or self-care (01) ==
LOC: LAB 07:59
PROVIDERS: PCP Nurse Practitioner Family; Visit Provider Nurse Practitioner Family
DX: Z00.00 Encounter for general adult medical examination without abnormal findings (principal)
CPT/HCPCS: 36415; 80053; 80061; 82306; 83036; 83525; 83540; 84146; 84436; 84443; 84481; 85025